=== PATIENT | female | born 1975 | race Caucasian/White ===

== ENCOUNTER 2023-10-31 22:31 | Observation (INO) | payer MEDICARE ==
[2023-11-01] MEDS ORDERED: PERCOCET TABLET 5/325MG ONE (00:54)
[2023-11-01] MEDS: PERCOCET TABLET 5/325MG PO ONE (00:55)
--- NOTE | 2023-11-01 01:12 | ERPHSYRPT ---
- History of Present Illness Time Seen by Provider: 10/31/23 23:35 Source: patient Exam Limitations: no limitations Patient Subjective Stated Complaint: pt states she fell 4 days ago and had some L lower leg pain from that but tonight she was walking and felt a "pop" in her L leg and felt intense pain Triage Nursing Assessment: pt transferred from wheelchair to bed with assist of 2, pt alert and oriented x3, pt c/o LLE pain after fall 4 days ago and tonight when she was walking felt a "pop" and had intense pain after, pt cannot pinpoint pain, some brusing noted to lateral side of ankle and abrasions noted on L great toe and 3rd digit, 2nd digit has brusing noted as well, R leg +1 edema, L leg +2 edema, pedal pulses +2 bilaterally Physician History: Patient is here with left ankle pain. Patient states that earlier tonight she was walking and stepped outside she felt a sudden pop and fell to her knees. Describes as left ankle and left foot pain. Patient does recall a fall 4 days ago. But she has been ambulating without difficulty since that point in time. No other injuries, she did not hit her head, she is not on any blood thinners. No fever no chills no nausea no vomiting. Allergies/Adverse Reactions: metoprolol Allergy (Severe, Verified 08/19/23 12:10) adhesive tape Allergy (Verified 10/31/23 23:42) latex Allergy (Verified 08/19/23 12:10) sulfamethoxazole [From Bactrim] Adverse Reaction (Severe, Verified 08/19/23 12:10) "messes up my kidneys" trimethoprim [From Bactrim] Adverse Reaction (Severe, Verified 08/19/23 12:10) "messes up my kidneys" metformin Adverse Reaction (Intermediate, Verified 08/19/23 12:10) Home Medications: Ferrous Sulfate 325 mg PO DAILY 11/06/15 [History] Insulin Glargine [Lantus Insulin] 80 units SQ BID 11/06/15 [History] Acetaminophen [Tylenol Extra Strength] 1,000 mg PO Q6H PRN PRN 08/01/17 [History] Diltiazem HCl [Cartia Xt] 240 mg PO DAILY 08/01/17 [History] Insulin Aspart [Novolog Flexpen] 1 units SQ UD 08/01/17 [History] ALPRAZolam 1 MG [Xanax 1 mg] 1 mg PO DAILY 06/01/18 [History] Fluoxetine HCl 20 mg [Prozac 20 MG] 20 mg PO DAILY 08/06/23 [History] Magnesium Oxide 400 mg [Mag-Ox 400] 400 mg PO TID 08/06/23 [History] Omeprazole 40 mg PO DAILY 08/06/23 [History] Furosemide [Lasix] 40 mg PO UD 11/01/23 [History] Losartan Potassium [Cozaar] 50 mg PO DAILY 11/01/23 [History] Hx Tetanus, Diphtheria Vaccination/Date Given: Yes Hx Influenza Vaccination/Date Given: No Hx Pneumococcal Vaccination/Date Given: No Travel Risk - International Travel Have you traveled outside of the country in past 3 weeks: No - Emerging Infectious Disease Are you exhibiting symptoms associated with any current EIDs: No - Past Medical History Pertinent Past Medical History: Yes Neurological History: Migraines ENT History: Other Cardiac History: Arrhythmia, Congestive Heart Failure, Deep Vein Thrombosis, Hypertension Respiratory History: Sleep Apnea, CHF, Asthma Endocrine Medical History: Diabetes Type II Musculoskeletal History: No Pertinent History GI Medical History: GERD History: Renal Disease, Other Psycho-Social History: Depression, Anxiety Female Reproductive Disorders: Cervical Cancer Other Medical History: tachycardia; lesion on left kidney; cervical ca with mets to bladder, liver, fallopian tubes, uterus, and lymph nodes - Past Surgical History Past Surgical History: Yes Neuro Surgical History: No Pertinent History Cardiac: Other Respiratory: No Pertinent History Gastrointestinal: Cholecystectomy, Hernia Repair Genitourinary: Kidney Surgery, Other Musculoskeletal: Other Female Surgical History: Hysterectomy, Other Other Surgical History: colonoscopy Jun 2023 "wall was very thin," urostomy, renal stents placed then removed - Female History Hx Last Menstrual Period: post hysterectomy Hx Now: No - Social History Smoking Status: Never smoker Exposure to second hand smoke: Yes Drug Use: none Patient Lives Alone: No - Nursing Vital Signs Nursing Vital Signs: Initial Vital Signs Temperature 98.1 F 10/31/23 23:42 Pulse Rate 97 H 10/31/23 23:42 Respiratory Rate 18 10/31/23 23:42 Blood Pressure 178/105 10/31/23 23:42 O2 Sat by Pulse Oximetry 98 10/31/23 23:42 Pain Scale Pain Intensity 10 - Physical Exam SpO2: 96 Comments: 11/01/23 02:28 Review of Systems Constitutional: Negative for fever. HENT: Negative for congestion. Respiratory: Negative for shortness of breath. Cardiovascular: Negative for chest pain. Gastrointestinal: Negative for abdominal pain. Genitourinary: Negative for dysuria. Musculoskeletal: Negative for back pain. Skin: Negative for rash. Neurological: Negative for headaches. Psychiatric/Behavioral: Negative for behavioral problems. All other systems reviewed and are negative. Physical Exam Vitals signs and nursing note reviewed. Constitutional: Appearance: Patient is well-developed. HENT: Head: Normocephalic and atraumatic. Eyes: Conjunctiva/sclera: Conjunctivae normal. Neck: Musculoskeletal: Normal range of motion. Trachea: No tracheal deviation. Cardiovascular: Rate and Rhythm: Normal rate. Pulmonary: Effort: Pulmonary effort is normal. No respiratory distress. Abdominal: Palpations: Abdomen is soft. Musculoskeletal: General: Left ankle swelling, tenderness throughout. Left lower extremity is more red compared to the right extremity. Patient states that she has venous stasis there. No obvious deformity, sensation intact, 2+ capillary refill, 2 point tactile discrimination intact. Decreased strength and range of motion secondary to pain. Compartments are soft, nontender. Overlying skin shows no tenting. 2+ pulses over the foot. Skin: General: Skin is warm and dry. Neurological/ Psychiatric: Mental Status: Mental status, behavior, interaction with environment is appropriate for patient's age and condition Procedures - Splinting Time of Procedure: 02:33 Location of Splint: Left, Ankle Type of Splint: Orthoglass Short Leg Splint Splint Applied By: ED Physician Pre-Proc Neuro Vasc Exam: normal Post-Proc Neuro Vasc Exam: neurovascular intact - Course Nursing assessment & vital signs reviewed: Yes Ordered Tests: Active Orders 24 hr Category Date Time Status Bedrest ROUTINE Activity 11/01/23 02:06 Active Admit as Inpatient ROUTINE Care 11/01/23 02:05 Active Call Admit Doctor for Orders ON ADMISSION Care 11/01/23 02:05 Active Code Status Order ROUTINE Care 11/01/23 02:05 Active Fall Protocol ROUTINE Care 11/01/23 02:06 Active IV Insertion STAT Care 11/01/23 01:55 Active NPO Diet 11/01/23 02:06 Active ANKLE (3 VIEWS) Stat Exams 11/01/23 00:24 Completed FOOT (MINIMUM 3 VIEWS) Stat Exams 11/01/23 00:25 Completed LOWER EXTREMITY WO CONTRAST [CT] Stat Exams 11/01/23 01:56 Completed CBC W DIFF Stat Lab 11/01/23 02:10 Completed CMP Stat Lab 11/01/23 02:10 Completed Medication Summary Discontinued Medications Generic Name Dose Route Start Last Admin Trade Name Rolandq PRN Reason Stop Dose Admin Hydromorphone HCl 1 mg 11/01/23 03:44 11/01/23 03:59 Hydromorphone 1 Mg/1ml Inj IV 11/01/23 03:45 1 mg STAT ONE Administration Hydromorphone HCl Confirm 11/01/23 03:58 Hydromorphone 1 Mg/1ml Inj Administered 11/01/23 03:59 Dose 1 mg .ROUTE .STK-MED ONE Oxycodone/Acetaminophen 1 tab 11/01/23 00:52 11/01/23 00:55 Oxycodone Hcl/Apap 5 Mg/325 Mg Tablet PO 11/01/23 00:53 1 tab STAT ONE Administration Oxycodone/Acetaminophen Confirm 11/01/23 00:54 Oxycodone Hcl/Apap 5 Mg/325 Mg Tablet Administered 11/01/23 00:55 Dose 1 tab .ROUTE .STK-MED ONE Lab/Rad Data: Laboratory Result Diagrams 11/01/23 02:10 11/01/23 02:10 Laboratory Results 11/01/23 11/01/23 Range/Units 02:10 02:10 WBC 9.0 (4.0-10.5) x10^3/uL RBC 4.35 (4.1-5.4) x10^6/uL Hgb 11.6 L (12.0-16.0) g/dL Hct 36.4 (35-47) % MCV 83.7 (78-100) fL MCH 26.7 (26-32) pg MCHC 31.9 L (32-36) g/dL RDW 14.2 H (11.5-14.0) % Plt Count 387 (150-450) x10^3/uL MPV 9.2 (7.5-11.0) fL Gran % 71.9 H (36.0-66.0) % Immature Gran % (Auto) 0.6 H (0.00-0.4) % Nucleat RBC Rel Count 0.0 (0.00-0.1) % Eos # (Auto) 0.33 (0-0.5) x10^3/uL Immature Gran # (Auto) 0.05 H (0.00-0.03) x10^3u/L Absolute Lymphs (auto) 1.36 (1.0-4.6) x10^3/uL Absolute Monos (auto) 0.70 (0.0-1.3) x10^3/uL Absolute Nucleated RBC 0.00 (0.00-0.01) x10^3u/L Lymphocytes % 15.1 L (24.0-44.0) % Monocytes % 7.8 (0.0-12.0) % Eosinophils % 3.7 (0.00-5.0) % Basophils % 0.9 (0.0-0.4) % Absolute Granulocytes 6.48 (1.4-6.9) x10^3/uL Basophils # 0.08 (0-0.4) x10^3/uL Sodium 136 (135-145) mmol/L Potassium 4.2 (3.5-5.1) mmol/L Chloride 109 H (98-107) mmol/L Carbon Dioxide 21 L (22-30) mmol/L Anion Gap 11.0 (5-15) MEQ/L BUN 30 H (7-17) mg/dL Creatinine 1.18 H (0.52-1.04) mg/dL Estimated GFR 56.3 ML/MIN Glucose 208 H (74-106) mg/dL Calcium 8.7 (8.4-10.2) mg/dL Total Bilirubin 0.60 (0.2-1.3) mg/dL AST 20 (14-36) U/L ALT 13 (0-35) U/L Alkaline Phosphatase 119 (38-126) U/L Serum Total Protein 7.1 (6.3-8.2) g/dL Albumin 3.4 L (3.5-5.0) g/dL Slides for Path Review YES - Progress Progress: improved Progress Note: 11/01/23 02:30 Differential diagnosis includes fracture, sprain, other injury. X-rays obtained, this did demonstrate a bimalleolar fracture. Given this I did call on-call podiatry, Dr. Yeager. He recommended obtaining a CT scan without contrast, splint placement, admission to hospitalist. We did place a splint on the patient. See above procedure note for full details. We discussed with on- call hospitalist, Dr. Muhammad. He did accept patient for admission to his service. Plan for most likely OR later today. CT scan ordered. Dr. Yeager will follow-up on findings. 11/01/23 04:06 CT scan returned actually demonstrating a displaced trimalleolar fracture. Does not change our initial fracture management patient still in splint as above. However, may affect surgery planning. Patient admitted without further incident. Pain control with IV narcotics. Discussed with Dr.: Jocelyn Counseled pt/family regarding: lab results, diagnosis, rad results Medical Desision Making - Discussion of managment Care discussed with:: specialist Reviewed:: Test results, Need for additional workup Agreed on:: Treatment plan, decision to admit Will see patient: in hospital - Diagnostic Testing Diagnostic test were ordered, analyzed, and reviewed by me: Yes Radiological Interpretation: Interpreted by me - Risk of complications The pt has a high risk of morbidity or mortality based on: Need for major surgery in patient with known risk factors - Departure Departure Disposition: In-patient Admission Clinical Impression: Left ankle injury, Displaced trimalleolar fracture of left ankle Condition: Stable Critical Care Time: No Referrals: ALINE CASAS MD [Primary Care Provider] - Follow up/PCP as directed Forms: Ortho Referral
--- NOTE | 2023-11-01 01:27 | XRAY ---
CLINICAL HISTORY: fall COMPARISON: None, TECHNIQUE: X-ray of the left foot AP, oblique, and lateral 3 views. FINDINGS: A fracture involving the medial malleolus with displaced fracture fragments is demonstrated on the radiograph, A fracture is also seen involving the distal end of the left fibula with displaced facial fragments as demonstrated on the radiograph. Normal bone mineral density is noted. Radiological examination of the foot demonstrates no lytic or sclerotic bone lesion. Normal metatarsophalangeal and interphalangeal joint spaces at other places. Soft tissue swelling noted. IMPRESSION: No foot bone fracture. A fracture involving the medial malleolus with displaced fracture fragments is demonstrated on the radiograph, A fracture is also seen involving the distal end of the left fibula with displaced facial fragments as demonstrated on the radiograph. Please refer to ankle CR examination. DISCLAIMER:A subtle bone abnormality or fracture may not be readily apparent on x-rays, thus clinical correlation and further imaging including follow up CT, MRI, or follow up x-rays are advised as needed.[facility] ER was called at [phone] at 12:20 AM OFFICE SWEEPER, 11/01/2023 and results were verbally communicated to Bubba Tom Electronically Signed by: Letty Brooks MD. (11/01/2023 01:22:42 EDT)
--- NOTE | 2023-11-01 01:29 | XRAY ---
CLINICAL HISTORY: fall COMPARISON: None, TECHNIQUE: X-ray left ankle joint AP lateral and oblique views. FINDINGS: A fracture involving the medial malleolus with displaced fracture fragments is demonstrated on the radiograph, A fracture is also seen involving the distal end of the left fibula with displaced facial fragments as demonstrated on the radiograph. Soft tissue swelling noted. Normal bone density noted. No lytic or sclerotic bone lesion is seen. IMPRESSION: A fracture involving the medial malleolus with displaced fracture fragments is demonstrated on the radiograph, A fracture is also seen involving the distal end of the left fibula with displaced facial fragments as demonstrated on the radiograph. DISCLAIMER:A subtle bone abnormality or fracture may not be readily apparent on x-rays, thus clinical correlation and further imaging including follow up CT, MRI, or follow up x-rays are advised as needed.[facility] ER was called at [phone] at 12:20 AM CLINIC NURSE, 11/01/2023 and results were verbally communicated to Bubba Tom Electronically Signed by: Letty Brooks MD. (11/01/2023 01:25:46 EDT)
[2023-11-01 02:20] LABS: Absolute Neutrophil Ct (ANC) 6.48 x10^3/uL (1.4-6.9); BASOPHIL % 0.9 % (0.0-0.4); Basophil (Absolute #) 0.08 x10^3/uL (0-0.4); Eosinophil % 3.7 % (0.00-5.0); Eosinophil (Absolute #) 0.33 x10^3/uL (0-0.5); Hematocrit 36.4 % (35-47); Hemoglobin 11.6 g/dL (12.0-16.0); IMMATURE GRAN # 0.05 x10^3u/L (0.00-0.03); IMMATURE GRAN % 0.6 % (0.00-0.4); Lymphocyte (Absolute #) 1.36 x10^3/uL (1.0-4.6); Lymphocytes % 15.1 % (24.0-44.0); Mean Cell Volume 83.7 fL (78-100); Mean Corpuscular Hemoglobin 26.7 pg (26-32); Mean Corpuscular Hgb Concent. 31.9 g/dL (32-36); Mean Platelet Volume 9.2 fL (7.5-11.0); Monocytes % 7.8 % (0.0-12.0); Neutrophil % 71.9 % (36.0-66.0); Platelet Count 387 x10^3/uL (150-450); Red Blood Count 4.35 x10^6/uL (4.1-5.4); Red Cell Distribution Width 14.2 % (11.5-14.0)
[2023-11-01 02:30] LABS: ALBUMIN 3.4 g/dL (3.5-5.0); BILIRUBIN,TOTAL 0.6 mg/dL (0.2-1.3); Calcium 8.7 mg/dL (8.4-10.2); Creatinine 1 1.18 mg/dL (0.52-1.04); EST GLOMERULAR FILTRATION RATE 56.3 ML/MIN; Potassium 4.2 mmol/L (3.5-5.1); Total Protein 7.1 g/dL (6.3-8.2)
[2023-11-01 03:45] LABS: Slide Review 1 YES
[2023-11-01] MEDS ORDERED: Hydromorphone 1 mg/ml Injection ONE (03:58)
[2023-11-01] MEDS: Hydromorphone 1 mg/ml Injection IV ONE (03:59)
--- NOTE | 2023-11-01 03:59 | XRAY ---
CLINICAL HISTORY: left ankle mahsa fracture COMPARISON: X-ray ankle and foot dated 10/31/2023 are reviewed. TECHNIQUE: Contiguous axial CT images of the lower extremity were obtained without IV contrast administration. Coronal and sagittal reformats are available.One of the following dose reduction techniques were utilized for this exam: Automated exposure control, adjustment of the mA and/or kV according to patient size, and use of iterative reconstruction. FINDINGS: Mildly displaced fractures are seen involving the medial malleolus and posterior malleolus of the distal tibia, and lateral malleolus of the distal fibula. Slight medial subluxation is also suggested at the tibiotalar joint. Mild overlying soft tissue swelling and subcutaneous fat stranding are present. The bone mineral density is preserved. Mild degenerative changes are seen at the knee joint with mildly reduced tibiofemoral and patellofemoral articular spaces, along with small marginal osteophytes. No erosion or destructive bony lesion is seen. No lytic or sclerotic focus is identified. No evidence of acute or chronic osteomyelitis. Prominent posterior talar process [Stieida process]. Few accessory ossicles are noted medial to the talonavicular joint. Enthesopathy is noted at the insertion site of Achilles tendon. No calcaneal spur is noted. No infiltrating soft tissue mass lesion is identified. No loculated fluid collection, abscess or hematoma is identified. There are no definite features to suggest any soft tissue injury. No evidence of Ball's cyst. No enlarged popliteal lymph node. IMPRESSION: Mildly displaced trimalleolar fractures with slight tibiotalar joint subluxation as described above. [facility] ER was called at [phone] at 2:52 AM BEE RAISER, 11/01/2023 and results were verbally communicated to Bubba Tom Electronically Signed by: Letty Brooks MD. (11/01/2023 03:55:45 EDT)
[2023-11-01] MEDS ORDERED: Zofran 4 MG/2 ML VIAL IV PRN (04:50)
[2023-11-01] MEDS ORDERED: TYLENOL 325 MG PO PRN (04:50)
[2023-11-01] MEDS ORDERED: Docusate Sodium 100 MG PO PRN (04:50)
[2023-11-01] MEDS ORDERED: FEVERALL 650 MG PR PRN (04:50)
--- NOTE | 2023-11-01 05:06 | PCM.HP ---
History of Present Illness - Chief Complaint Chief Complaint: left ankle fracture Date: 11/01/23 History of Present Illness: is a 48 year old female with a history of DM2 and HTN who presented to the ED with left ankle pain. She states that earlier on the evening of 10/31/23 she was walking and stepped outside she felt a sudden pop and fell to her knees. She describes the discomfort as left ankle and left foot pain. Of note, the patient does recall a fall 5 days ago. But she has been ambulating without difficulty since that point in time. No other injuries were reported and she did not hit her head. No chest pain is noted. In the ED, the patient was noted to have a left bimalleolar fracture, and podiatry was consulted with a request for hospitalist service admission. - Review of Systems Constitutional: No Symptoms Eyes: No Symptoms Ears, Nose, & Throat: No Symptoms Respiratory: No Symptoms Cardiac: No Symptoms Abdominal/Gastrointestinal: No Symptoms Genitourinary Symptoms: No Symptoms Musculoskeletal: Arthralgias, Fall, Injury Skin: No Symptoms Neurological: No Symptoms Psychological: No Symptoms Endocrine: No Symptoms Hematologic/Lymphatic: No Symptoms Immunological/Allergic: No Symptoms All Other Systems: Reviewed and Negative Medications & Allergies Home Medications: Home Medication List Ferrous Sulfate 325 mg PO DAILY 11/06/15 [History Confirmed 11/01/23] Insulin Glargine [Lantus Insulin] 80 units SQ BID 11/06/15 [History Confirmed 11/01/23] Acetaminophen [Tylenol Extra Strength] 1,000 mg PO Q6H PRN PRN 08/01/17 [History Confirmed 11/01/23] Diltiazem HCl [Cartia Xt] 240 mg PO DAILY 08/01/17 [History Confirmed 11/01/23] Insulin Aspart [Novolog Flexpen] 1 units SQ UD 08/01/17 [History Confirmed 11/01/23] ALPRAZolam 1 MG [Xanax 1 mg] 1 mg PO DAILY 06/01/18 [History Confirmed 11/01/23] Fluoxetine HCl 20 mg [Prozac 20 MG] 20 mg PO DAILY 08/06/23 [History Confirmed 11/01/23] Magnesium Oxide 400 mg [Mag-Ox 400] 400 mg PO TID 08/06/23 [History Confirmed 11/01/23] Omeprazole 40 mg PO DAILY 08/06/23 [History Confirmed 11/01/23] Potassium Chloride Tab* [Klor Con] 20 meq PO DAILY 30 Days #30 tablet 08/11/23 [Rx Confirmed 11/01/23] Furosemide [Lasix] 40 mg PO UD 11/01/23 [History Confirmed 11/01/23] Losartan Potassium [Cozaar] 50 mg PO DAILY 11/01/23 [History Confirmed 11/01/23] Allergies/Adverse Reactions: Allergies Allergy/AdvReac Type Severity Reaction Status Date / Time metoprolol Allergy Severe Verified 08/19/23 12:10 adhesive tape Allergy Verified 10/31/23 23:42 latex Allergy Verified 08/19/23 12:10 sulfamethoxazole AdvReac Severe "messes up Verified 08/19/23 12:10 [From Bactrim] my kidneys" trimethoprim [From Bactrim] AdvReac Severe "messes up Verified 08/19/23 12:10 my kidneys" metformin AdvReac Intermediate Verified 08/19/23 12:10 - Past Medical History Past Medical History: Yes Neurological History: Migraines ENT History: Other Cardiac History: Arrhythmia, Congestive Heart Failure, Deep Vein Thrombosis, Hypertension Respiratory History: Sleep Apnea, CHF, Asthma Endocrine Medical History: Diabetes Type II Musculoskelatal History: No Pertinent History GI Medical History: GERD History: Renal Disease, Other Pyscho-Social History: Depression, Anxiety Reproductive Disorders: Cervical Cancer Comment: tachycardia; lesion on left kidney; cervical ca with mets to bladder, liver, fallopian tubes, uterus, and lymph nodes - Female History Hx Last Menstrual Period: post hysterectomy Are you now?: No - Past Surgical History Past Surgical History: Yes Neuro Surgical History: No Pertinent History Cardiac History: Other Respiratory Surgery: No Pertinent History GI Surgical History: Cholecystectomy, Hernia Repair Genitourinary Surgical Hx: Kidney Surgery, Other Musculskeletal Surgical Hx: Other Female Surgical History: Hysterectomy, Other Other Surgical History: colonoscopy Jun 2023 "wall was very thin," urostomy, renal stents placed then removed - Social History Smoking Status: Never smoker Exposure to second hand smoke: Yes Alcohol: None Drug Use: none - Social Determinants of Health Will the patient participate in the screening: Yes Do you worry about a steady place to live?: No Do you have any problems with any of the following?: No known problems In the past 12 months,have you had to go without utilities?: No Have you or anyone in your house had to go without enough: No Transportation Issues: No Has anyone in your support network made you feel unsafe?: No Does the patient want assistance with any of the above?: No - Physical Exam Vital Signs: Vital Signs - 24 hr Temp Pulse Resp BP BP Pulse Ox 11/01/23 04:09 96 11/01/23 04:00 97 H 20 119/68 96 11/01/23 03:53 98 H 18 118/62 93 L 11/01/23 02:00 100 H 24 139/72 96 11/01/23 01:30 141/78 11/01/23 01:00 85 17 147/79 97 11/01/23 00:30 78 16 139/74 96 11/01/23 00:00 98 H 20 150/117 96 10/31/23 23:45 94 H 18 178/105 94 L 10/31/23 23:42 98.1 F 97 H 18 178/105 98 General Appearance: mild distress, alert Neurologic Exam: alert, oriented x 3, cooperative, insurance case manager II-XII nml as tested, normal mood/affect, nml cerebellar function Eye Exam: PERRL/EOMI, eyes nml inspection Ears, Nose, Throat Exam: normal ENT inspection Neck Exam: normal inspection, non-tender, supple, full range of motion Respiratory Exam: normal breath sounds, lungs clear Cardiovascular Exam: regular rate/rhythm, normal heart sounds Gastrointestinal/Abdomen Exam: soft, normal bowel sounds Back Exam: normal range of motion Extremity Exam: deformities, limited range of motion Skin Exam: normal color Results - Labs Lab/Micro Results: Lab Results-Last 24 Hours 11/01/23 11/01/23 Range/Units 02:10 02:10 WBC 9.0 (4.0-10.5) x10^3/uL RBC 4.35 (4.1-5.4) x10^6/uL Hgb 11.6 L (12.0-16.0) g/dL Hct 36.4 (35-47) % MCV 83.7 (78-100) fL MCH 26.7 (26-32) pg MCHC 31.9 L (32-36) g/dL RDW 14.2 H (11.5-14.0) % Plt Count 387 (150-450) x10^3/uL MPV 9.2 (7.5-11.0) fL Gran % 71.9 H (36.0-66.0) % Immature Gran % (Auto) 0.6 H (0.00-0.4) % Nucleat RBC Rel Count 0.0 (0.00-0.1) % Eos # (Auto) 0.33 (0-0.5) x10^3/uL Immature Gran # (Auto) 0.05 H (0.00-0.03) x10^3u/L Absolute Lymphs (auto) 1.36 (1.0-4.6) x10^3/uL Absolute Monos (auto) 0.70 (0.0-1.3) x10^3/uL Absolute Nucleated RBC 0.00 (0.00-0.01) x10^3u/L Lymphocytes % 15.1 L (24.0-44.0) % Monocytes % 7.8 (0.0-12.0) % Eosinophils % 3.7 (0.00-5.0) % Basophils % 0.9 (0.0-0.4) % Absolute Granulocytes 6.48 (1.4-6.9) x10^3/uL Basophils # 0.08 (0-0.4) x10^3/uL Sodium 136 (135-145) mmol/L Potassium 4.2 (3.5-5.1) mmol/L Chloride 109 H (98-107) mmol/L Carbon Dioxide 21 L (22-30) mmol/L Anion Gap 11.0 (5-15) MEQ/L BUN 30 H (7-17) mg/dL Creatinine 1.18 H (0.52-1.04) mg/dL Estimated GFR 56.3 ML/MIN Glucose 208 H (74-106) mg/dL Calcium 8.7 (8.4-10.2) mg/dL Total Bilirubin 0.60 (0.2-1.3) mg/dL AST 20 (14-36) U/L ALT 13 (0-35) U/L Alkaline Phosphatase 119 (38-126) U/L Serum Total Protein 7.1 (6.3-8.2) g/dL Albumin 3.4 L (3.5-5.0) g/dL Slides for Path Review YES - Radiology Impressions Radiology Exams & Impressions: Radiology Procedures Category Date Time Status ANKLE (3 VIEWS) Stat Exams 11/01/23 00:24 Completed FOOT (MINIMUM 3 VIEWS) Stat Exams 11/01/23 00:25 Completed LOWER EXTREMITY WO CONTRAST [CT] Stat Exams 11/01/23 01:56 Completed Assessment/Plan (1) Left ankle injury Current Visit: Yes Status: Acute Assessment & Plan: Analgesia. Bedrest. Podiatry consult for surgical intervention. Code(s): S99.912A - UNSPECIFIED INJURY OF LEFT ANKLE, INITIAL ENCOUNTER (2) Displaced trimalleolar fracture of left ankle Current Visit: Yes Status: Acute Assessment & Plan: Podiatry to see. NPO for planned operative intervention. Code(s): S82.852A - DISPLACED TRIMALLEOLAR FRACTURE OF LEFT LOWER LEG, INIT (3) Hyperglycemia due to type 2 diabetes mellitus Current Visit: No Status: Acute Assessment & Plan: Monitor on ISS. Will need to resume glargine once the patient is postop and cleared for dietary intake. Code(s): E11.65 - TYPE 2 DIABETES MELLITUS WITH HYPERGLYCEMIA (4) Hypertension Current Visit: No Status: Chronic Assessment & Plan: Continue current regimen. Monitor BP. Code(s): I10 - ESSENTIAL (PRIMARY) HYPERTENSION Telemedicine Encounter - Telemedicine Encounter Telemedicine Encounter: The entirety of this encounter was performed via Telemedicine"
[2023-11-01 05:14] LABS: INR 0.93 (0.8-3.0); PROTIME 10.2 SECONDS (9.4-12.5); PTT 23.4 SECONDS (25.1-36.5)
[2023-11-01] MEDS: Sodium Chloride 0.9% 1000 ML 1,000 ML IV SCH (06:03)
[2023-11-01] MEDS: MORPHINE SULFATE 2 MG INJ IV PRN (08:22)
[2023-11-01] MEDS: Cozaar 50 MG PO SCH (08:26)
[2023-11-01 08:57] LABS: ALBUMIN 3.1 g/dL (3.5-5.0); ANION GAP 9.9 MEQ/L (5-15); BILIRUBIN,TOTAL 1.2 mg/dL (0.2-1.3); Calcium 8.3 mg/dL (8.4-10.2); Creatinine 1 1.24 mg/dL (0.52-1.04); Potassium 4.5 mmol/L (3.5-5.1); Total Protein 6.4 g/dL (6.3-8.2)
[2023-11-01 09:00] LABS: Hematocrit 34.8 % (35-47); Mean Cell Volume 84.7 fL (78-100); Mean Corpuscular Hemoglobin 26.8 pg (26-32); Mean Corpuscular Hgb Concent. 31.6 g/dL (32-36); Mean Platelet Volume 9.5 fL (7.5-11.0); Platelet Count 273 x10^3/uL (150-450); Red Blood Count 4.11 x10^6/uL (4.1-5.4); Red Cell Distribution Width 14.2 % (11.5-14.0); White Blood Count 6.6 x10^3/uL (4.0-10.5)
[2023-11-01] MEDS ORDERED: Hydromorphone 1 mg/ml Injection IV PRN (09:28)
[2023-11-01] MEDS: Sodium Bicarbonate 50 MEQ/50 ML VIAL*** 150 MEQ in Dextrose 5%/Water IV Soln. 1000 ML 1... IV SCH (09:50)
[2023-11-01] MEDS: TYLENOL EXTRA STRENGTH 500 MG PO PRN (09:53)
[2023-11-01] MEDS: FEOSOL 325 MG PO SCH (09:53)
[2023-11-01] MEDS: Protonix 40MG Tablet PO SCH (09:53)
[2023-11-01] MEDS: MAG-OX 400 PO SCH (09:53)
[2023-11-01] MEDS: Cardizem CD PO SCH (09:53)
[2023-11-01] MEDS: Lantus Insulin SQ SCH (09:54)
[2023-11-01] MEDS: Prozac 20 MG PO SCH (09:54)
[2023-11-01] MEDS: Klor Con PO SCH (09:54)
[2023-11-01] MEDS: Lactated Ringers 1,000 ML IV SCH (11:19)
[2023-11-01] MEDS ORDERED: SUBLIMAZE 100 MCG/2 ML ONE (11:36)
[2023-11-01] MEDS: XANAX 1 MG PO SCH (11:45)
[2023-11-01] MEDS ORDERED: Versed 2 MG/2 ML Injection ONE (11:56)
[2023-11-01] MEDS ORDERED: Amidate 20 MG/10 ML IV ONE (13:04)
[2023-11-01] MEDS ORDERED: DIPRIVAN 200 MG/20 ML IV ONE (13:04)
[2023-11-01] MEDS ORDERED: Quelicin Fliptop 200 MG/10 ML ONE (13:09)
[2023-11-01] MEDS ORDERED: Decadron 4 MG INJ ONE (13:11)
[2023-11-01] MEDS ORDERED: KEFZOL 1 GM ONE (13:26)
[2023-11-01] MEDS ORDERED: PHENYLEPHRINE HCL ONE (13:32)
[2023-11-01] MEDS ORDERED: Ephedrine Sulfate 50 MG/ML ONE (14:19)
[2023-11-01] MEDS ORDERED: Zofran 4 MG/2 ML VIAL ONE ×2 (14:46→16:01)
[2023-11-01] MEDS ORDERED: Marcaine Mpf 0.5% Vial 30 Ml IJ ONE (15:06)
[2023-11-01] MEDS ORDERED: EXPAREL 133 MG/10 ML VIAL IJ ONE (15:06)
[2023-11-01] MEDS ORDERED: Lactated Ringers 1,000 ML IV ONE (15:15)
--- NOTE | 2023-11-01 15:15 | XRAY ---
Indication: Left ankle ORIF surgery. Intraoperative fluoroscopy provided for 4 minute 27 seconds. 21 digital spot images submitted for interpretation ultimately demonstrates orthopedic fixation plate/screws fixating bimalleolar fractures in good apposition/alignment. Correlate with intraoperative findings/report.
[2023-11-01] MEDS ORDERED: Compazine 10 MG/2 ML ONE (16:20)
--- NOTE | 2023-11-01 17:09 | XRAY ---
Four minutes and 27 seconds of fluoroscopy was used in surgery for a left ankle ORIF surgery.
[2023-11-01] MEDS: Ecotrin 325 MG PO SCH (19:12)
[2023-11-01] MEDS: HUMALOG SQ PRN (22:06)
[2023-11-01] MEDS: ELIQUIS 2.5 MG TABLET PO SCH (22:06)
[2023-11-02 05:17] LABS: Absolute Neutrophil Ct (ANC) 6.99 x10^3/uL (1.4-6.9); BASOPHIL % 0.4 % (0.0-0.4); Basophil (Absolute #) 0.03 x10^3/uL (0-0.4); Eosinophil (Absolute #) 0 x10^3/uL (0-0.5); Hematocrit 35.5 % (35-47); Hemoglobin 11.3 g/dL (12.0-16.0); IMMATURE GRAN # 0.04 x10^3u/L (0.00-0.03); IMMATURE GRAN % 0.5 % (0.00-0.4); Lymphocyte (Absolute #) 0.65 x10^3/uL (1.0-4.6); Mean Cell Volume 83.1 fL (78-100); Mean Corpuscular Hemoglobin 26.5 pg (26-32); Mean Corpuscular Hgb Concent. 31.8 g/dL (32-36); Mean Platelet Volume 9.5 fL (7.5-11.0); Monocyte (Absolute #) 0.39 x10^3/uL (0.0-1.3); Monocytes % 4.8 % (0.0-12.0); Neutrophil % 86.3 % (36.0-66.0); Platelet Count 369 x10^3/uL (150-450); Red Blood Count 4.27 x10^6/uL (4.1-5.4); Red Cell Distribution Width 14.4 % (11.5-14.0); White Blood Count 8.1 x10^3/uL (4.0-10.5)
[2023-11-02 05:41] LABS: ANION GAP 9.1 MEQ/L (5-15); BILIRUBIN,TOTAL 0.5 mg/dL (0.2-1.3); Calcium 8.5 mg/dL (8.4-10.2); Creatinine 1 1.33 mg/dL (0.52-1.04); EST GLOMERULAR FILTRATION RATE 48.7 ML/MIN; Potassium 4.7 mmol/L (3.5-5.1); Total Protein 6.3 g/dL (6.3-8.2)
[2023-11-02] MEDS: HUMALOG SQ ONE (09:31)
[2023-11-02] MEDS: Lasix 40 MG PO SCH (11:20)
[2023-11-02] MEDS: HUMALOG SQ PRN (11:26)
--- NOTE | 2023-11-02 12:54 | OP ---
SURGERY DATE: 11/01/2023 SURGERY TIME: 1311 PREOPERATIVE DIAGNOSIS: 1. LEFT ANKLE FRACTURE, BIMALLEOLAR, CLOSED. 2. LEFT ANKLE PAIN. 3. SYNDESMOTIC DISRUPTION. 4. UNCONTROLLED DIABETES. 5. VENOUS INSUFFICIENCY. 6. DIABETIC PERIPHERAL NEUROPATHY. POSTOPERATIVE DIAGNOSIS: 1. LEFT ANKLE FRACTURE, BIMALLEOLAR, CLOSED. 2. LEFT ANKLE PAIN. 3. SYNDESMOTIC DISRUPTION. 4. UNCONTROLLED DIABETES. 5. VENOUS INSUFFICIENCY. 6. DIABETIC PERIPHERAL NEUROPATHY. PROCEDURE: 1. Open reduction internal fixation of left ankle fracture, bimalleolar. 2. Syndesmotic reduction. SURGEON: Toy Mccauley D.P.M. ACCOUNTING SPECIALIST: None. ANESTHESIA: General. Plus a preoperative popliteal and saphenous block. See anesthesia report for details. MATERIALS: A Ashok distal lateral fibular plate 8-hole with 3.5 X 45 and 3.5 X 50 syndesmotic screws for the medial malleolus, a 4.0 X 70 times 2 partially threaded screw, 4-0 Monocryl, 2-0 Vicryl, 3-0 Nylon. INJECTABLES: See anesthesia report for details. INDICATIONS FOR PROCEDURE: Georginaa is a very pleasant 48 year-old female who presented late in the evening of 11/01/2023 after a 4-day history of pain to the left ankle after a step out of her house where she rolled her ankle and felt some pain. Patient indicated she was able to tolerate this pain for some period of time and ambulated on it for an additional 3 days. In the engagement specialist hours of the , the patient was walking on it and a further pop was felt and she proceeded to the Emergency Department where she was diagnosed with an unstable bimalleolar fracture. Patient was seen on the floor early in the morning and her health status was assessed. She is recently working on getting her A1C under control with an A1C of 13 approximately 1 month ago. However, once we obtained records demonstrated that her A1C was 9.6 on this current stay. The patient was made aware of the potential risks as a result of bone healing, wound healing, Charcot, possible infection, and possible need for further surgical intervention. However, given the instability of this fracture, we discussed going forward with fixing the fracture understanding these risks. The patient understands these risks and wishes to proceed at this time. No guarantees were provided as to the outcome. The patient has been encouraged to make an effort to get excellent control over her diabetes in the coming weeks and non-weight bearing status to be of the utmost importance to prevent this from turning into a Charcot. The patient understands this risk. Plenty of time was allowed for the patient to ask questions which were answered to her apparent satisfaction. It is at this time, we decided to proceed. DESCRIPTION OF PROCEDURE: The patient was brought into the PACU prior to the procedure and provided a femoral block by the anesthesia team. See anesthesia report for details. From that standpoint, the patient was brought in to the OR. Placed on the OR table in the supine position. General anesthesia was administered until the patient was adequately sedated. From that standpoint, a well-padded thigh tourniquet was applied and tourniquet was set to 320 mm Hg. At this time, the right lower extremity was prepped and draped in the typical sterile fashion and lowered onto the surgical field. At this time, attention was directed to the lateral aspect of the right ankle where, under fluoroscopic guidance, the fracture was identified and landmarks including the distal tip of the fibula and proximal border of the fracture was identified. Linear incision was made to the level of bone at this time. No layered dissection was performed and the fracture was identified. The hematoma was cleansed with copious amounts of sterile saline. At this time, a dental pick was utilized to resect any enveloped periosteum from the fracture site. Fibular length was restored by pulling the foot into an inverted and internally rotated position. This was held with pointed reduction forceps and lobster claws. This was held in an adequate position. Assessing for fibular length, this did appear to be performed and seeing the dime sign at the distal tip of the fibula. External rotation was assessed and deemed to be absent. From that standpoint, an 8-hole Ashok anatomic plate was then introduced. This was locked down distally first with a combination of locking and non-locking screws getting good apposition of the plate. Then, proximal to the fracture site, the anatomic plate was fixated gaining excellent compression down to the bone. The fracture was held in adequate apposition at this time. We proceeded with a combination of locking and non-locking screws to lock down the plate. From this standpoint, attention was directed to the medial malleolus which was opened. An incision was made utilizing a 10 blade being careful not to damage any neurovascular structures along the way. Once the hematoma was identified, the fracture was reduced utilizing pointed reduction forceps. K-wires were introduced to introduce the 4.0 X 70 mm cannulated screws gaining excellent compression through the site. Attention was then directed to the mortise view of the ankle where stress views were obtained demonstrating obvious gapping of the syndesmosis. At this time, a 3.5 X 50 and a 3.5 X 44 mm syndesmotic screw were introduced with hand compression exerting an appropriate amount of force to keep the ankle with the syndesmosis. Following this, final pictures were taken on fluoroscopy. 4-0 Monocryl and 3-0 Nylon as well as 2 suture guards were utilized to coapt the skin edges. Secondary to her venous insufficiency, I did believe that this was a medical necessity. From that standpoint, once the incisions were closed, a dressing consisting of Betadine, Adaptic, 4 X 4, Kerlix, ABD, and a well-padded posterior splint with sugar tongue was applied to the left lower extremity with the foot orthogonal relative to the longitudinal access of the leg. The patient was then reversed from anesthesia and returned to the PACU with vital signs stable and vascular status intact. The patient handled the anesthesia as well as the procedure without significant complication. Postoperative orders as indicated in the patient's discharge chart.
--- NOTE | 2023-11-02 13:04 | PCM.NOTE ---
Date and Time: 11/02/23 0479 Subjective Assessment: is a 48 year old female with a history of DM2 and HTN who presented to the ED with left ankle pain. She states that earlier on the evening of 10/31/23 she was walking and stepped outside she felt a sudden pop and fell to her knees. She describes the discomfort as left ankle and left foot pain. Of note, the patient does recall a fall 5 days ago. She has been ambulating without difficulty since that point in time. No other injuries were reported and she did not hit her head. No chest pain is noted. In the ED, the patient was noted to have a left bimalleolar fracture, and podiatry was consulted with a request for hospitalist service admission. She had surgical repair on 10/31. She has no c/o pain and feeling much better. Psych has been consulted as staff report she crying often. She discussed that she is rather frustrated because of her health issues at her age and feels a bit overwhelmed. She states she lili was recently dx with an anal fistula and has been taking antibiotics for resolution of this OP. I feel she is mentally stable and has the right to be upset regarding her health concerns. She will need OP rehab as she did not do well with PT today, most likely will need 30 days or less. She is willing to go. Awaiting podiatry recs and documentation when pt is able to d/c. Right arm is swollen as IV appears to have infiltrated last night. Will elevate arm to heart level to decrease edema. She denies CP, SOB, abd. pain, N/V/D. - Review of Systems Constitutional: Weakness, No Fever, No Chills Eyes: No Symptoms Ears, Nose, & Throat: No Symptoms Respiratory: No Cough, No Short Of Breath Cardiac: No Chest Pain, No Edema, No Syncope Abdominal/Gastrointestinal: No Abdominal Pain, No Nausea, No Vomiting, No Diarrhea Genitourinary Symptoms: No Dysuria Musculoskeletal: Injury (LLE wrapped), No Back Pain, No Neck Pain Skin: Other (edema of RUE, ), No Rash Neurological: No Dizziness, No Focal Weakness, No Sensory Changes Psychological: No Symptoms, Other (tearful) Endocrine: No Symptoms Hematologic/Lymphatic: No Symptoms Immunological/Allergic: No Symptoms Objective Exam General Appearance: no apparent distress, alert, obese Neurologic Exam: alert, oriented x 3, cooperative, normal mood/affect, nml cerebellar function, sensation nml, No motor deficits Skin Exam: normal color, warm, dry Wound Assessment: Skin/Wound Assessment Wound/Incision Assessment Start: 11/01/23 05:12 Text: Status: Active Freq: Q6H Protocol: Document 11/02/23 12:28 RB (Rec: 11/02/23 12:30 RB [id number]) Wound/Incision Assessment Right Wrist Wound Assessment New Finding Wound Type BLISTERS Drainage Amount Minimal Drainage Description CLEAR Drainage Odor None/Absent General Appearance Well Approximated Surrounding Tissue Breda Comment BLISTERING NOTED TO WRIST DUE TO TAPE ALLERGY, IV, TAPE AND TEGADERM REMOVED AT THIS TIME, PLC CONTROLS ENGINEER AWARE Wound Photo Photo Taken No Eye Exam: PERRL, EOMI, eyes nml inspection Ears, Nose, Throat Exam: normal ENT inspection, pharynx normal, moist mucous membranes Neck Exam: normal inspection, non-tender, supple, full range of motion Respiratory Exam: normal breath sounds, lungs clear, No respiratory distress Cardiovascular Exam: regular rate/rhythm, normal heart sounds Gastrointestinal/Abdomen Exam: soft, No tenderness, No mass Extremity Exam: normal inspection, normal range of motion, limited range of motion (LLE, wrapped), other (right arm edema from infiltrated IV) Back Exam: normal inspection, normal range of motion, No CVA tenderness, No v ertebral tenderness Pelvic Exam: deferred Rectal Exam: deferred Objective Data Vital Signs: Vital Signs - 24 hr Temp Pulse Resp BP Pulse Ox 11/02/23 12:00 97.8 F 79 18 128/64 99 11/02/23 08:00 97.6 F 86 18 118/56 94 L 11/02/23 07:12 92 L 11/02/23 04:00 97.8 F 88 18 124/58 93 L 11/01/23 23:39 97.2 F 91 H 18 125/72 93 L 11/01/23 20:00 97.1 F 76 20 168/82 96 11/01/23 19:27 98 11/01/23 18:59 68 14 113/58 93 L 11/01/23 18:20 67 14 111/56 93 L 11/01/23 17:50 63 14 89/54 93 L 11/01/23 17:35 64 14 103/55 93 L 11/01/23 17:20 62 18 111/59 93 L 11/01/23 17:05 61 17 109/55 90 L Pain Assessment - Last Documented Pain Intensity 0 Pain Scale Used 0-10 Pain Scale Intake and Output: Intake & Output 10/31/23 11/01/23 11/02/23 11/03/23 11:59 11:59 11:59 11:59 Intake Total 0 3272 Output Total 350 1775 Balance -350 1497 Weight 110.1 kg Lab Results: Lab Results-Last 24 Hours 11/01/23 11/01/23 11/01/23 Range/Units 14:24 16:57 17:59 WBC (4.0-10.5) x10^3/uL RBC (4.1-5.4) x10^6/uL Hgb (12.0-16.0) g/dL Hct (35-47) % MCV (78-100) fL MCH (26-32) pg MCHC (32-36) g/dL RDW (11.5-14.0) % Plt Count (150-450) x10^3/uL MPV (7.5-11.0) fL Gran % (36.0-66.0) % Immature Gran % (Auto) (0.00-0.4) % Nucleat RBC Rel Count (0.00-0.1) % Eos # (Auto) (0-0.5) x10^3/uL Immature Gran # (Auto) (0.00-0.03) x10^3u/L Absolute Lymphs (auto) (1.0-4.6) x10^3/uL Absolute Monos (auto) (0.0-1.3) x10^3/uL Absolute Nucleated RBC (0.00-0.01) x10^3u/L Lymphocytes % (24.0-44.0) % Monocytes % (0.0-12.0) % Eosinophils % (0.00-5.0) % Basophils % (0.0-0.4) % Absolute Granulocytes (1.4-6.9) x10^3/uL Basophils # (0-0.4) x10^3/uL Sodium (135-145) mmol/L Potassium (3.5-5.1) mmol/L Chloride (98-107) mmol/L Carbon Dioxide (22-30) mmol/L Anion Gap (5-15) MEQ/L BUN (7-17) mg/dL Creatinine (0.52-1.04) mg/dL Estimated GFR ML/MIN Glucose (74-106) mg/dL POC Glucometer 199 H 239 H 256 H (74 to 106) mg/dL Calcium (8.4-10.2) mg/dL Total Bilirubin (0.2-1.3) mg/dL AST (14-36) U/L ALT (0-35) U/L Alkaline Phosphatase (38-126) U/L Serum Total Protein (6.3-8.2) g/dL Albumin (3.5-5.0) g/dL 11/02/23 11/02/23 11/02/23 Range/Units 04:59 04:59 07:05 WBC 8.1 (4.0-10.5) x10^3/uL RBC 4.27 (4.1-5.4) x10^6/uL Hgb 11.3 L (12.0-16.0) g/dL Hct 35.5 (35-47) % MCV 83.1 (78-100) fL MCH 26.5 (26-32) pg MCHC 31.8 L (32-36) g/dL RDW 14.4 H (11.5-14.0) % Plt Count 369 D (150-450) x10^3/uL MPV 9.5 (7.5-11.0) fL Gran % 86.3 H (36.0-66.0) % Immature Gran % (Auto) 0.5 H (0.00-0.4) % Nucleat RBC Rel Count 0.0 (0.00-0.1) % Eos # (Auto) 0 (0-0.5) x10^3/uL Immature Gran # (Auto) 0.04 H (0.00-0.03) x10^3u/L Absolute Lymphs (auto) 0.65 L (1.0-4.6) x10^3/uL Absolute Monos (auto) 0.39 (0.0-1.3) x10^3/uL Absolute Nucleated RBC 0.00 (0.00-0.01) x10^3u/L Lymphocytes % 8.0 L (24.0-44.0) % Monocytes % 4.8 (0.0-12.0) % Eosinophils % 0.0 (0.00-5.0) % Basophils % 0.4 (0.0-0.4) % Absolute Granulocytes 6.99 H (1.4-6.9) x10^3/uL Basophils # 0.03 (0-0.4) x10^3/uL Sodium 136 (135-145) mmol/L Potassium 4.7 (3.5-5.1) mmol/L Chloride 108 H (98-107) mmol/L Carbon Dioxide 23 (22-30) mmol/L Anion Gap 9.1 (5-15) MEQ/L BUN 37 H (7-17) mg/dL Creatinine 1.33 H (0.52-1.04) mg/dL Estimated GFR 48.7 ML/MIN Glucose 404 H (74-106) mg/dL POC Glucometer 349 H (74 to 106) mg/dL Calcium 8.5 (8.4-10.2) mg/dL Total Bilirubin 0.50 (0.2-1.3) mg/dL AST 183 H (14-36) U/L ALT 227 H (0-35) U/L Alkaline Phosphatase 292 H (38-126) U/L Serum Total Protein 6.3 (6.3-8.2) g/dL Albumin 3.0 L (3.5-5.0) g/dL Radiology Exams: Radiology Procedures Category Date Time Status ANKLE (3 VIEWS) Routine Exams 11/01/23 07:15 Completed ANKLE (3 VIEWS) Stat Exams 11/01/23 00:24 Completed FLUOROSCOPY UP TO 1 HR Routine Exams 11/01/23 07:15 Completed FOOT (MINIMUM 3 VIEWS) Stat Exams 11/01/23 00:25 Completed LIVER OR SPLEEN [US] Routine Exams 11/02/23 07:43 Ordered LOWER EXTREMITY WO CONTRAST [CT] Stat Exams 11/01/23 01:56 Completed Multi-Disciplinary Progress Notes: Multi-Disciplinary Progress Notes 11/01/23 19:28 Respiratory Note by Rachell Robles Patient was resting comfortable post op and had a period of desat to 86% on 3LNC. Patient has a history of GRETA, Placed patient on CPAP/APAP per home use. SPo2 increased to 98%. Held IS at this time Initialized on 11/01/23 19:28 - END OF NOTE 11/01/23 14:02 Occupational Therapy Note by Eduard(L#[id number])[facility] Hold OT Evaluation this date secondary to patient is down for surgery. Will try again tomorrow. Initialized on 11/01/23 14:02 - END OF NOTE Assessment/Plan (1) Displaced trimalleolar fracture of left ankle Current Visit: Yes Status: Acute Assessment & Plan: - radiology results reviewed - podiatry consulted - POD day #1 - denies pain-well controlled - narcotic pain control - awaiting podiatry note and further recs - will need OP rehab- pt ok with this - PT eval Code(s): S82.852A - DISPLACED TRIMALLEOLAR FRACTURE OF LEFT LOWER LEG, INIT (2) Left ankle injury Current Visit: Yes Status: Acute Assessment & Plan: - Analgesia. Bedrest. Podiatry consult for surgical intervention. Code(s): S99.912A - UNSPECIFIED INJURY OF LEFT ANKLE, INITIAL ENCOUNTER (3) Hyperglycemia due to type 2 diabetes mellitus Current Visit: No Status: Acute Assessment & Plan: - A1C 9.44- uncontrolled - Carb const diet - accuchecks ac/hs - humalog s/s, lantus Code(s): E11.65 - TYPE 2 DIABETES MELLITUS WITH HYPERGLYCEMIA (4) Hypertension Current Visit: No Status: Chronic Assessment & Plan: - stable - cont. home meds - monitor Code(s): I10 - ESSENTIAL (PRIMARY) HYPERTENSION (5) Emotional crisis, adjustment reaction Current Visit: Yes Status: Acute Assessment & Plan: - Psych consult VTE: eliquis PPI: protonix Next of KIN: Souse, Brain Delph D/C plan: tomorrow? Code status: Full Code(s): F43.20 - ADJUSTMENT DISORDER, UNSPECIFIED
--- NOTE | 2023-11-02 14:11 | XRAY ---
Indication: MCC placement. Comparison: None Portable chest demonstrates borderline cardiomegaly. No focal infiltrate, consolidation, or large effusion. Bony thorax intact. Impression: Borderline cardiomegaly. Negative for acute pneumonic process or CHF.
--- NOTE | 2023-11-02 16:50 | XRAY ---
Indication: Elevated liver enzymes. Cholecystectomy. Two-dimensional right upper quadrant abdominal sonogram performed. Comparison: None Visualized liver and pancreas appear homogeneous in echogenicity. No organomegaly or free fluid. Gallbladder surgically absent. Common bile duct measures 2.3 mm. No intrahepatic biliary distention. Right kidney measures 9.6 x 5.0 x 4.7 cm and sonographically unremarkable. Impression: Negative right upper quadrant abdominal sonogram incidental cholecystectomy.
[2023-11-02] MEDS: NORCO 5/325 MG PO PRN (20:05)
[2023-11-03 04:31] VITALS: RESP 18
[2023-11-03 04:47] LABS: Hematocrit 33.6 % (35-47); Hemoglobin 10.4 g/dL (12.0-16.0); Mean Cell Volume 84.6 fL (78-100); Mean Corpuscular Hemoglobin 26.2 pg (26-32); Mean Platelet Volume 8.9 fL (7.5-11.0); Platelet Count 348 x10^3/uL (150-450); Red Blood Count 3.97 x10^6/uL (4.1-5.4); Red Cell Distribution Width 14.5 % (11.5-14.0); White Blood Count 8.2 x10^3/uL (4.0-10.5)
[2023-11-03 05:37] LABS: ANION GAP 8.8 MEQ/L (5-15); BILIRUBIN,TOTAL 0.4 mg/dL (0.2-1.3); Calcium 8.4 mg/dL (8.4-10.2); Creatinine 1 1.39 mg/dL (0.52-1.04); EST GLOMERULAR FILTRATION RATE 46.2 ML/MIN
[2023-11-03 05:40] LABS: ALBUMIN 2.9 g/dL (3.5-5.0); Total Protein 6.1 g/dL (6.3-8.2)
--- NOTE | 2023-11-03 09:40 | PCM.DS ---
Discharge Summary Date of Admission: 11/01/23 04:22 Date of Discharge: 11/03/23 Admitting Physician: CANELO DELGADO MD Consults: Consults on Case 11/01/23 04:49 Consult Podiatry ROUTINE 11/01/23 04:53 Case Management SDOH DC Needs Assessment ROUTINE 11/01/23 09:32 Consult,Elio [Psychiatric Consult] STAT Primary Care Provider: ALINE CASAS Allergies Allergies metoprolol Allergy (Severe, Verified 11/01/23 05:36) adhesive tape Allergy (Verified 11/01/23 05:36) latex Allergy (Verified 11/01/23 05:36) sulfamethoxazole [From Bactrim] Adverse Reaction (Severe, Verified 11/01/23 05:36) "messes up my kidneys" trimethoprim [From Bactrim] Adverse Reaction (Severe, Verified 11/01/23 05:36) "messes up my kidneys" metformin Adverse Reaction (Intermediate, Verified 11/01/23 05:36) Hospital Summary - Hospital Course Hospital Course: 11/02/23 is a 48 year old female with a history of DM2 and HTN who presented to the ED with left ankle pain. She states that earlier on the evening of 10/31/23 she was walking and stepped outside she felt a sudden pop and fell to her knees. She describes the discomfort as left ankle and left foot pain. Of note, the patient does recall a fall 5 days ago. She has been ambulating without difficulty since that point in time. No other injuries were reported and she did not hit her head. No chest pain is noted. In the ED, the patient was noted to have a left bimalleolar fracture, and podiatry was consulted with a request for hospitalist service admission. She had surgical repair on 10/31. She has no c/o pain and feeling much better. Psych has been consulted as staff report she crying often. She discussed that she is rather frustrated because of her health issues at her age and feels a bit overwhelmed. She states she lili was recently dx with an anal fistula and has been taking antibiotics for resolution of this OP. I feel she is mentally stable and has the right to be upset regarding her health concerns. She will need OP rehab as she did not do well with PT today, most likely will need 30 days or less. She is willing to go. Awaiting podiatry recs and documentation when pt is able to d/c. Right arm is swollen as IV appears to have infiltrated last night. Will elevate arm to heart level to decrease edema. She denies CP, SOB, abd. pain, N/V/D. 11/03/23 Pt resting in bed. She is feeling overall better she reports. She did speak with psych last night and they recommended OP F/u. She is agreeable to this and feels it would be beneficial. She is scheduled to d/c today to rehab. Discussed with podiatry and he is ok with her discharge plans today. She states she is being to have feeling in her left foot today and her pain is well controlled. She denies CP, SOB, abd. pain, N/V/D. - Vitals & Intake/Output Vital Signs: Vital Signs Temperature 97.5 F 11/03/23 07:56 Pulse Rate 69 11/03/23 07:56 Respiratory Rate 18 11/03/23 07:56 Blood Pressure 157/75 11/03/23 07:56 O2 Sat by Pulse Oximetry 96 11/03/23 07:56 Intake & Output: Intake & Output 10/31/23 11/01/23 11/02/23 11/03/23 11:59 11:59 11:59 11:59 Intake Total 0 3272 680 Output Total 350 1775 3250 Balance -350 1497 -2570 Weight 110.1 kg - Lab Result Diagrams: 11/03/23 04:31 11/03/23 04:31 Lab Results-Last 24 Hrs: Lab Results-Last 24 Hours 11/03/23 11/03/23 Range/Units 04:31 04:31 WBC 8.2 (4.0-10.5) x10^3/uL RBC 3.97 L (4.1-5.4) x10^6/uL Hgb 10.4 L (12.0-16.0) g/dL Hct 33.6 L (35-47) % MCV 84.6 (78-100) fL MCH 26.2 (26-32) pg MCHC 31.0 L (32-36) g/dL RDW 14.5 H (11.5-14.0) % Plt Count 348 (150-450) x10^3/uL MPV 8.9 (7.5-11.0) fL Sodium 139 (135-145) mmol/L Potassium 4.0 (3.5-5.1) mmol/L Chloride 106 (98-107) mmol/L Carbon Dioxide 28 (22-30) mmol/L Anion Gap 8.8 (5-15) MEQ/L BUN 41 H (7-17) mg/dL Creatinine 1.39 H (0.52-1.04) mg/dL Estimated GFR 46.2 ML/MIN Glucose 237 H (74-106) mg/dL Calcium 8.4 (8.4-10.2) mg/dL Total Bilirubin 0.40 (0.2-1.3) mg/dL AST 43 H (14-36) U/L ALT 109 H (0-35) U/L Alkaline Phosphatase 233 H (38-126) U/L Serum Total Protein 6.1 L (6.3-8.2) g/dL Albumin 2.9 L (3.5-5.0) g/dL Micro Results-Entire Visit: Microbiology 11/01/23 Unknown Stool Culture Result 1 - Final Stool Not Reportable Stool Culture Result 2 - Final Not Reportable Stool Culture Result 3 - Final Not Reportable Stool Culture Result 4 - Final Not Reportable Stool Culture Organism Suscept - Final Not Reportable Campylobacter Result 1 - Final Not Reportable Campylobacter Result 2 - Final Not Reportable Campylobactor Result 3 - Final Not Reportable Campylobacter Result 4 - Final Not Reportable Campylobactor Susceptibility - Final Not Reportable Accuchecks Date 11/03/23 Date 11/02/23 Date 11/02/23 Date 11/02/23 Time 21:45 - Radiology Exams Ordered Rad Exams-Entire Visit: Radiology Procedures Category Date Time Status CHEST 1 VIEW (PORTABLE) Urgent Exams 11/02/23 13:43 Completed LIVER OR SPLEEN [US] Routine Exams 11/02/23 07:43 Completed - Procedures and Test Procedures and Tests throughout Hospitalization: Therapy Orders & Screens 11/01/23 04:50 PT Eval & Treat ( Order) ONCE Reason for Eval:: left ankle fracture Diagnosis: left ankle fracture OT Eval and Treat ( Order) ONCE Comment: Physician Instructions: Reason For Exam: Diagnosis: left ankle fracture 11/01/23 05:15 Oxygen Nasal Cannula 2 lpm Comment: Diagnosis: left ankle fracture 11/01/23 05:45 OT Screen per Nursing Assess ONCE Comment: Protocol Order Physician Instructions: Greater than 3 points order OT Admission Screening Reason For Exam: Triggered on Admission Diagnosis: left ankle fracture Open Wound/Cellutlitis/Pressure Ulcers: No Acute Fx/ORIF/Change in wt bearing status: Yes Severe MUSCULOSKELETAL pain: No ADL Dysfunction: Yes Acute CVA w/Hemiparesis/Hemiplegia: No Decreased Functional Mobility/Strength: Yes Sprain/Strain: No Acute Post-op Mobility Dysfunction: No Total Points: 9 PT Screen per Nursing Assess ONCE Comment: Protocol Order Physician Instructions: Greater than 3 points order PT Admission Screenin Reason For Exam: Triggered on Admission Diagnosis: left ankle fracture Open Wound/Cellutlitis/Pressure Ulcers: No Acute Fx/ORIF/Change in wt bearing status: Yes Severe MUSCULOSKELETAL pain: No ADL Dysfunction: Yes Acute CVA w/Hemiparesis/Hemiplegia: No Decreased Functional Mobility/Strength: Yes Sprain/Strain: No Acute Post-op Mobility Dysfunction: No Total Points: 9 11/01/23 06:09 BiPap/CPAP ROUTINE Comment: Diagnosis: left ankle fracture Discharge Exam General Appearance: no apparent distress, alert, obese Neurologic Exam: alert, oriented x 3, cooperative, normal mood/affect, nml cerebellar function, sensation nml, No motor deficits Eye Exam: PERRL, EOMI, eyes nml inspection Ears, Nose, Throat Exam: normal ENT inspection, pharynx normal, moist mucous membranes Neck Exam: normal inspection, non-tender, supple, full range of motion Respiratory Exam: normal breath sounds, lungs clear, No respiratory distress Cardiovascular Exam: regular rate/rhythm, normal heart sounds Gastrointestinal/Abdomen Exam: soft, No tenderness, No mass Pelvic Exam: deferred Rectal Exam: deferred Back Exam: normal inspection, normal range of motion, No CVA tenderness, No vertebral tenderness Extremity Exam: normal inspection, normal range of motion Skin Exam: normal color, warm, dry, other (LLE wrapped) Wound Assessment: Skin/Wound Assessment Wound/Incision Assessment Start: 11/01/23 05:12 Text: Status: Active Freq: Q6H Protocol: Document 11/03/23 05:00 KD (Rec: 11/03/23 05:07 KD [id number]) Wound/Incision Assessment Right Lower Anterior Arm Wound Assessment Shift Assessment Wound Type Skin Tear Drainage Amount None Surrounding Tissue [place] Primary Dressing Non-Adherent Gauze Pads Secondary Dressing Gauze Roll/Wrap Comment skin tear, barrier cream applied with non-adherent gauze pads & gauze roll; dressing CDI Medial Coccyx Wound Assessment Shift Assessment Wound Type FISSURE Dressing Status Dry & Intact Drainage Odor None/Absent Surrounding Tissue [place] Comment pt states this is not new, barrier cream applied Right Wrist Wound Assessment Shift Assessment Wound Type BLISTERS Drainage Amount Minimal Drainage Description CLEAR Drainage Odor None/Absent General Appearance Well Approximated Surrounding Tissue [place] Comment multiple blisters due to tape allergy; IV, tape & tegaderm removed by previous shift & previous shift made COMMERCIAL ESTIMATOR aware. Applied barrier cream, non- adherent gauze pads & gauze roll. Right Abdomen Wound Assessment Shift Assessment Wound Type ulceration Primary Dressing Gauze Pads Comment under urostomy band; barrier cream applied Left Foot Wound Assessment Shift Assessment Wound Type Abrasion Comment great & 3rd toe; open to air, obtained from the fall Wound Photo Photo Taken Yes Date: 11/01/23 Time: 04:30 Comment: Picture of skin tear and blisters taken 11-02-23 @ 3116 Final Diagnosis/Problem List - Final Discharge Diagnosis/Problem (1) Displaced trimalleolar fracture of left ankle Current Visit: Yes Status: Acute Code(s): S82.852A - DISPLACED TRIMALLEOLAR FRACTURE OF LEFT LOWER LEG, INIT (2) Left ankle injury Current Visit: Yes Status: Acute Code(s): S99.912A - UNSPECIFIED INJURY OF LEFT ANKLE, INITIAL ENCOUNTER (3) Hyperglycemia due to type 2 diabetes mellitus Current Visit: No Status: Acute Code(s): E11.65 - TYPE 2 DIABETES MELLITUS WITH HYPERGLYCEMIA (4) Hypertension Current Visit: No Status: Chronic Code(s): I10 - ESSENTIAL (PRIMARY) HYPERTENSION (5) Emotional crisis, adjustment reaction Current Visit: Yes Status: Acute Assessment & Plan: 1) Displaced trimalleolar fracture of left ankle Current Visit: Yes Status: Acute Assessment & Plan: - radiology results reviewed - podiatry consulted - POD day #1 - denies pain-well controlled - narcotic pain control - awaiting podiatry note and further recs - will need OP rehab- pt ok with this - PT eval 11/02 - POD #2 - podiatry Ok with d/c to rehab today - pain well controlled - Per podiatry d/c with Levaquin, [place], and ASA- orders sent. - eliquis stopped- per podiatry Code(s): S82.852A - DISPLACED TRIMALLEOLAR FRACTURE OF LEFT LOWER LEG, INIT (2) Left ankle injury Current Visit: Yes Status: Acute Assessment & Plan: - Analgesia. Bedrest. Podiatry consult for surgical intervention. Code(s): S99.912A - UNSPECIFIED INJURY OF LEFT ANKLE, INITIAL ENCOUNTER (3) Hyperglycemia due to type 2 diabetes mellitus Current Visit: No Status: Acute Assessment & Plan: - A1C 9.44- uncontrolled - Carb const diet - accuchecks ac/hs - humalog s/s, lantus 11/02 - pt refused. Code(s): E11.65 - TYPE 2 DIABETES MELLITUS WITH HYPERGLYCEMIA (4) Hypertension Current Visit: No Status: Chronic Assessment & Plan: - stable - cont. home meds - monitor Code(s): I10 - ESSENTIAL (PRIMARY) HYPERTENSION (5) Emotional crisis, adjustment reaction Current Visit: Yes Status: Acute Assessment & Plan: - Psych consult 11/02 - Pt spoke with psych yesterday and they recommend Op f/u. - Pt is agreeable. Code(s): F43.20 - ADJUSTMENT DISORDER, UNSPECIFIED - Discharge Discharge Date: 11/03/23 (rehab) Disposition: XFER OTHER Condition: Stable Prescriptions: Continue Insulin Glargine [Lantus Insulin] 80 units SQ BID Ferrous Sulfate 325 mg PO DAILY Diltiazem HCl [Cartia Xt] 240 mg PO DAILY Insulin Aspart [Novolog Flexpen] 1 units SQ UD Acetaminophen [Tylenol Extra Strength] 1,000 mg PO Q6H PRN PRN PRN Reason: Pain ALPRAZolam 1 MG [Xanax 1 mg] 1 mg PO DAILY Omeprazole 40 mg PO DAILY Magnesium Oxide 400 mg [Mag-Ox 400] 400 mg PO TID Fluoxetine HCl 20 mg [Prozac 20 MG] 20 mg PO DAILY Potassium Chloride Tab* [Klor Con] 20 meq PO DAILY 30 Days #30 tablet Losartan Potassium [Cozaar] 50 mg PO DAILY Furosemide [Lasix] 40 mg PO UD Follow up with: YUNIER BELL DPM [ACTIVE STAFF] - 11/08/23 1:30 pm
[2023-11-03 12:39] VITALS: BP 98/58; PULSE 60; TEMP 97.4; O2SAT 95
--- NOTE | 2023-11-03 16:15 | PCM.CONS ---
Podiatry HPI - Consult Date of Consultation Date: 11/01/23 Reason for Consult: left bimalleolar ankle fracture Consulting Provider: YUNIER BELL DPM - [facility] History of Present Illness: Georgiana is a very pleasant 48-year-old female with a positive medical history of uncontrolled diabetes and hypertension who presented to the emergency room late last evening with a 4-day history of worsening pain to the left ankle after a fall. Patient indicates sometime after several days there was a little large pop and a significant amount of pain to the left ankle which worsen the pain significantly and she presented to the emergency department. On presentation to the emergency department she did have an x-ray taken demonstrating a unstable bimalleolar fracture. Decision was made to hold the patient for assessment. She currently denies any constitutional symptoms of infection. She denies any other pedal complaints at this time Medications & Allergies Home Medications: Home Medication List Ferrous Sulfate 325 mg PO DAILY 11/06/15 [History Confirmed 11/01/23] Insulin Glargine [Lantus Insulin] 80 units SQ BID 11/06/15 [History Confirmed 11/01/23] Acetaminophen [Tylenol Extra Strength] 1,000 mg PO Q6H PRN PRN 08/01/17 [History Confirmed 11/01/23] Diltiazem HCl [Cartia Xt] 240 mg PO DAILY 08/01/17 [History Confirmed 11/01/23] Insulin Aspart [Novolog Flexpen] 1 units SQ UD 08/01/17 [History Confirmed 11/01/23] ALPRAZolam 1 MG [Xanax 1 mg] 1 mg PO DAILY 06/01/18 [History Confirmed 11/01/23] Fluoxetine HCl 20 mg [Prozac 20 MG] 20 mg PO DAILY 08/06/23 [History Confirmed 11/01/23] Magnesium Oxide 400 mg [Mag-Ox 400] 400 mg PO TID 08/06/23 [History Confirmed 11/01/23] Omeprazole 40 mg PO DAILY 08/06/23 [History Confirmed 11/01/23] Potassium Chloride Tab* [Klor Con] 20 meq PO DAILY 30 Days #30 tablet 08/11/23 [Rx Confirmed 11/01/23] Furosemide [Lasix] 40 mg PO UD 11/01/23 [History Confirmed 11/01/23] Losartan Potassium [Cozaar] 50 mg PO DAILY 11/01/23 [History Confirmed 11/01/23] ALPRAZolam 1 MG [Xanax 1 mg] 1 mg PO DAILY 3 Days #3 tablet 11/03/23 [Rx] Aspirin EC 325 mg [Ecotrin 325 MG] 325 mg PO DAILY 30 Days #30 11/03/23 [Rx] Hydrocodone/Acetaminophen [Hydrocodone-Acetamin 7.5-325] 1 each PO QID PRN PRN 3 Days #12 tablet MDD 4 11/03/23 [Rx] Levofloxacin [Levofloxacin 500 MG Tablet] 500 mg PO DAILY 10 Days #10 tablet 11/03/23 [Rx] Naloxone HCl [Narcan] 4 mg NS DAILY PRN PRN 2 Days #1 blist 11/03/23 [Rx] Allergies/Adverse Reactions: Allergies Allergy/AdvReac Type Severity Reaction Status Date / Time metoprolol Allergy Severe Verified 11/01/23 05:36 adhesive tape Allergy Verified 11/01/23 05:36 latex Allergy Verified 11/01/23 05:36 sulfamethoxazole AdvReac Severe "messes up Verified 11/01/23 05:36 [From Bactrim] my kidneys" trimethoprim [From Bactrim] AdvReac Severe "messes up Verified 11/01/23 05:36 my kidneys" metformin AdvReac Intermediate Verified 11/01/23 05:36 - Past Medical History Past Medical History: Yes Neurological History: Migraines ENT History: Other Cardiac History: Arrhythmia, Congestive Heart Failure, Deep Vein Thrombosis, Hypertension Respiratory History: Sleep Apnea, CHF, Asthma Endocrine Medical History: Diabetes Type II Musculoskelatal History: No Pertinent History GI Medical History: GERD History: Renal Disease, Other Pyscho-Social History: Depression, Anxiety Reproductive Disorders: Cervical Cancer Comment: tachycardia; lesion on left kidney; cervical ca with mets to bladder, liver, fallopian tubes, uterus, and lymph nodes - Female History Hx Last Menstrual Period: post hysterectomy Are you now?: No - Past Surgical History Past Surgical History: Yes Neuro Surgical History: No Pertinent History Cardiac History: Other Respiratory Surgery: No Pertinent History GI Surgical History: Cholecystectomy, Hernia Repair Genitourinary Surgical Hx: Kidney Surgery, Other Musculskeletal Surgical Hx: Other Female Surgical History: Hysterectomy, Other Other Surgical History: colonoscopy Jun 2023 "wall was very thin," urostomy, renal stents placed then removed - Social History Smoking Status: Never smoker Exposure to second hand smoke: Yes Alcohol: None Drug Use: none - Social Determinants of Health Will the patient participate in the screening: Yes Do you worry about a steady place to live?: No Do you have any problems with any of the following?: No known problems In the past 12 months,have you had to go without utilities?: No Have you or anyone in your house had to go without enough: No Transportation Issues: Yes Has anyone in your support network made you feel unsafe?: No Does the patient want assistance with any of the above?: No Comment: PATIENT STRUGGLES WITH GROCERIES WHEN SHE HAS APTS IN [place] THAT MONTH Physical Exam - Narrative Narrative Physical Exam: Podiatry Physical Exam Results - Labs Lab/Micro Results: Lab Results-Last 24 Hours 11/03/23 11/03/23 Range/Units 04:31 04:31 WBC 8.2 (4.0-10.5) x10^3/uL RBC 3.97 L (4.1-5.4) x10^6/uL Hgb 10.4 L (12.0-16.0) g/dL Hct 33.6 L (35-47) % MCV 84.6 (78-100) fL MCH 26.2 (26-32) pg MCHC 31.0 L (32-36) g/dL RDW 14.5 H (11.5-14.0) % Plt Count 348 (150-450) x10^3/uL MPV 8.9 (7.5-11.0) fL Sodium 139 (135-145) mmol/L Potassium 4.0 (3.5-5.1) mmol/L Chloride 106 (98-107) mmol/L Carbon Dioxide 28 (22-30) mmol/L Anion Gap 8.8 (5-15) MEQ/L BUN 41 H (7-17) mg/dL Creatinine 1.39 H (0.52-1.04) mg/dL Estimated GFR 46.2 ML/MIN Glucose 237 H (74-106) mg/dL Calcium 8.4 (8.4-10.2) mg/dL Total Bilirubin 0.40 (0.2-1.3) mg/dL AST 43 H (14-36) U/L ALT 109 H (0-35) U/L Alkaline Phosphatase 233 H (38-126) U/L Serum Total Protein 6.1 L (6.3-8.2) g/dL Albumin 2.9 L (3.5-5.0) g/dL Microbiology 11/01/23 Unknown Stool Culture Result 1 - Final Stool Not Reportable Stool Culture Result 2 - Final Not Reportable Stool Culture Result 3 - Final Not Reportable Stool Culture Result 4 - Final Not Reportable Stool Culture Organism Suscept - Final Not Reportable Campylobacter Result 1 - Final Not Reportable Campylobacter Result 2 - Final Not Reportable Campylobactor Result 3 - Final Not Reportable Campylobacter Result 4 - Final Not Reportable Campylobactor Susceptibility - Final Not Reportable Accuchecks Date 11/03/23 Date 11/03/23 Date 11/02/23 Date 11/02/23 Time 21:45 - Radiology Impressions Radiology Exams & Impressions: Radiology Procedures Category Date Time Status CHEST 1 VIEW (PORTABLE) Urgent Exams 11/02/23 13:43 Completed LIVER OR SPLEEN [US] Routine Exams 11/02/23 07:43 Completed Assessment/Plan (1) COPD with exacerbation Status: Acute Code(s): J44.1 - CHRONIC OBSTRUCTIVE PULMONARY DISEASE W (ACUTE) EXACERBATION (2) Displaced trimalleolar fracture of left ankle Status: Acute Assessment & Plan: Initial patient examination evaluation. Radiographs reviewed discussed with patient demonstrating unstable bimalleolar fracture with syndesmotic disruption. Due to the fact patient is ambulatory this is a surgical issue in order to be functional going forward. Patient has been made aware of all risks complications and benefits of surgical intervention at this time include but not limited to infection hematoma seroma possibility of delayed wound healing on wound healing possible failure bone healing and possibility of nonunion and need for further surgical intervention at a later date. No guarantees were provided as to the outcome of surgical intervention at this time initiated in this particular case there is a large concerned secondary to her uncontrolled diabetes which was 13 less than 1 month ago however with work with Dr. Rodarte her demolition worker she was able to get this down to 9.9. This is not ideal however better than 1 month ago. Patient understands that there is a significant amount of risk in regards to proceeding with the A1c being out of control to this level and will continue to monitor this and improved. Patient has been experiencing significant instability and following surgical intervention will likely need bracing secondary to suspected foot drop however unable to assess at this time. Plan time was allowed for the patient to ask questions which were answered to her apparent satisfaction. At this time proceed with surgical intervention Code(s): S82.852A - DISPLACED TRIMALLEOLAR FRACTURE OF LEFT LOWER LEG, INIT (3) Uncontrolled diabetes mellitus Status: Acute Code(s): [id number] - (4) Peripheral venous insufficiency Status: Acute Code(s): I87.2 - VENOUS INSUFFICIENCY (CHRONIC) (PERIPHERAL) (5) Left foot drop Status: Acute Code(s): M21.372 - FOOT DROP, LEFT FOOT
--- NOTE | 2023-11-03 16:17 | PCM.NOTE ---
Date and Time: 11/03/23 1616 Subjective Assessment: Postop day #1. Patient doing well. She denies any calf pain. Wiggles toes. Denies any chest pain cough or shortness of breath Physical Exam - Narrative Narrative Physical Exam: Podiatry Physical Exam Objective Data Vital Signs: Vital Signs - 24 hr Temp Pulse Resp BP Pulse Ox 11/03/23 12:00 97.4 F 60 18 98/58 95 11/03/23 07:56 97.5 F 69 18 157/75 96 11/03/23 07:07 98 11/03/23 04:00 97.8 F 66 18 117/63 95 11/02/23 23:27 97.8 F 77 20 125/60 98 11/02/23 19:20 98.4 F 74 18 104/58 97 11/02/23 18:52 97 Pain Assessment - Last Documented Pain Intensity 6 Pain Scale Used [facility] Intake and Output: Intake & Output 11/01/23 11/02/23 11/03/23 11/04/23 11:59 11:59 11:59 11:59 Intake Total 0 3272 680 120 Output Total 350 0015 3250 Balance -350 1497 -2570 120 Weight 110.1 kg Lab Results: Lab Results-Last 24 Hours 11/03/23 11/03/23 Range/Units 04:31 04:31 WBC 8.2 (4.0-10.5) x10^3/uL RBC 3.97 L (4.1-5.4) x10^6/uL Hgb 10.4 L (12.0-16.0) g/dL Hct 33.6 L (35-47) % MCV 84.6 (78-100) fL MCH 26.2 (26-32) pg MCHC 31.0 L (32-36) g/dL RDW 14.5 H (11.5-14.0) % Plt Count 348 (150-450) x10^3/uL MPV 8.9 (7.5-11.0) fL Sodium 139 (135-145) mmol/L Potassium 4.0 (3.5-5.1) mmol/L Chloride 106 (98-107) mmol/L Carbon Dioxide 28 (22-30) mmol/L Anion Gap 8.8 (5-15) MEQ/L BUN 41 H (7-17) mg/dL Creatinine 1.39 H (0.52-1.04) mg/dL Estimated GFR 46.2 ML/MIN Glucose 237 H (74-106) mg/dL Calcium 8.4 (8.4-10.2) mg/dL Total Bilirubin 0.40 (0.2-1.3) mg/dL AST 43 H (14-36) U/L ALT 109 H (0-35) U/L Alkaline Phosphatase 233 H (38-126) U/L Serum Total Protein 6.1 L (6.3-8.2) g/dL Albumin 2.9 L (3.5-5.0) g/dL Radiology Exams: Radiology Procedures Category Date Time Status CHEST 1 VIEW (PORTABLE) Urgent Exams 11/02/23 13:43 Completed LIVER OR SPLEEN [US] Routine Exams 11/02/23 07:43 Completed Multi-Disciplinary Progress Notes: Multi-Disciplinary Progress Notes 11/03/23 11:52 Occupational Therapy Note by Eduard(L#[id number])[facility] Treatment Note [id number] Patient seated in chair with BLE elevated and LUE propped upon pillows. Patient was sleeping, but easily roused and agreeable to treatment session at this time. She reports 6/10 L ankle pain and states she has received pain medicine. Georgiana participated in BUE strengthening ther ex's 2 sets of 10 reps including overhead press, chest press, shoulder flexion, rows, horizontal abduction, bicep curls, tricep extension, supination, pronation, wrist flexion, and wrist extension. Patient rested as needed and discussed life events with OTR during which she became tearful several times. OTR mentioned [employer] services to patient and she reports that she talked with someone from the [facility] yesterday and plans to follow-up to schedule appointments once she feels in a more stable place with current medical issues. She is concerned about Rehab Stay. OTR provided encouragement to patient and listened to patient as she shared. Treatment session ended and patient seated in recliner with BLE elevated and necessities within reach. Will continue to see patient 1x/day through hospital stay and OTR recommends Rehab Stay for strengthening, activity tolerance, and I/ADL deficits. Initialized on 11/03/23 11:52 - END OF NOTE 11/03/23 10:49 Case Management Note by Simran Newell PATIENT STILL TEARFUL, BUT AGREEABLE TO GOING TO ENVIVE AND STATES SHE KNOWS THAT SHE NEEDS ADDITIONAL THERAPY TO BE ABLE TO GO HOME. Initialized on 11/03/23 10:49 - END OF NOTE 11/02/23 23:16 Respiratory Note by Rachell Robles Placed patient on CPAP per home settings Initialized on 11/02/23 23:16 - END OF NOTE Assessment/Plan (1) COPD with exacerbation Status: Acute Code(s): J44.1 - CHRONIC OBSTRUCTIVE PULMONARY DISEASE W (ACUTE) EXACERBATION (2) Displaced trimalleolar fracture of left ankle Status: Acute Assessment & Plan: Patient examination and evaluation. Patient okay for discharge from my standpoint if cleared from a medical standpoint. Physical therapy assessment deemed patient not safe for return home recommendation for senior living facility and I agree. Code(s): S82.852A - DISPLACED TRIMALLEOLAR FRACTURE OF LEFT LOWER LEG, INIT (3) Uncontrolled diabetes mellitus Status: Acute Code(s): XEO5569 - (4) Peripheral venous insufficiency Status: Acute Code(s): I87.2 - VENOUS INSUFFICIENCY (CHRONIC) (PERIPHERAL) (5) Left foot drop Status: Acute Code(s): M21.372 - FOOT DROP, LEFT FOOT
== END 2023-11-03 16:00 ==
LOC: ED 22:31 → INTOOBSV 11-01 04:22 → MED SURG 11-01 04:22 → OBSVTOIN 11-01 04:22
PROVIDERS: ADMIT Internal Medicine; ATTEND Internal Medicine
DX: S82.852A Displaced trimalleolar fracture of left lower leg, initial encounter for closed fracture (principal); E11.65 Type 2 diabetes mellitus with hyperglycemia; I87.2 Venous insufficiency (chronic) (peripheral); M21.372 Foot drop, left foot; F43.20 Adjustment disorder, unspecified; W19.XXXA Unspecified fall, initial encounter; I11.0 Hypertensive heart disease with heart failure; I50.9 Heart failure, unspecified; S93.432A Sprain of tibiofibular ligament of left ankle, initial encounter; M25.572 Pain in left ankle and joints of left foot; E11.42 Type 2 diabetes mellitus with diabetic polyneuropathy; R60.0 Localized edema; J44.1 Chronic obstructive pulmonary disease with (acute) exacerbation; Z59.41 Food insecurity; Z79.899 Other long term (current) drug therapy; Z11.52 Encounter for screening for COVID-19; Z85.41 Personal history of malignant neoplasm of cervix uteri
CPT/HCPCS: 01480; 27814; 27829; 36000; 36415; 64447; 64450; 71045; 73610; 73630; 73700; 76000; 76705; 76937; 76942; 80053; 82947; 83036; 85025; 85027; 85610; 85730; 90791; 94660; 94760; 96374; 97110; 97161; 97165; 97530; 99140; 99284; C1713; C1776; G0378; Q3014; J0330; J0690; J1100; J1170; J1817; J2250; J2270; J2371; J2405; J2704; J3010; L1830; A9270-GY

== ENCOUNTER 2024-08-14 15:30 | Inpatient (IN) | payer MEDICARE ==
[2024-08-14 16:20] LABS: Absolute Neutrophil Ct (ANC) 10.01 x10^3/uL (1.56-6.13); Basophil (Absolute #) 0.12 x10^3/uL (0.01-0.08); Eosinophil % 1.1 % (0.7-5.8); Eosinophil (Absolute #) 0.14 x10^3/uL (0.04-0.36); Hematocrit 39.4 % (34.1-44.9); Hemoglobin 12.5 g/dL (11.2-15.7); IMMATURE GRAN # 0.25 x10^3u/L (0.001-0.031); IMMATURE GRAN % 2.1 % (0.001-0.429); Mean Cell Volume 80.6 fL (79.4-94.8); Mean Corpuscular Hemoglobin 25.6 pg (25.6-32.2); Mean Corpuscular Hgb Concent. 31.7 g/dL (32.2-35.5); Mean Platelet Volume 9.8 fL (9.4-12.3); Monocyte (Absolute #) 0.56 x10^3/uL (0.24-0.86); Monocytes % 4.6 % (4.7-12.5); Neutrophil % 82.2 % (34.0-71.1); Platelet Count 484 x10^3/uL (182-369); Red Blood Count 4.89 x10^6/uL (3.93-5.22); Red Cell Distribution Width 14.4 % (11.7-14.4); White Blood Count 12.2 x10^3/uL (3.98-10.04)
--- NOTE | 2024-08-14 16:21 | ERPHSYRPT ---
- History of Present Illness Time Seen by Provider: 08/14/24 16:19 Source: patient, translator/interpreter Exam Limitations: no limitations Patient Subjective Stated Complaint: pt here for cough, congestion for 2 days,about 10 days ago had n/v/d and was seen last week and insulin was increased, vomited today, last loose stool today Triage Nursing Assessment: pt alert,anxious and crying at times, resp easy . occ dry cough, abs soft, skin w/d/p pt has swelling to lower legs, pt has paris boots to both lower legs, and a walking boot to left lower leg, had surgery on left ankle last october Physician History: 48-year-old female Struve diabetes presents to our emergency department for evaluation of chest pain. Patient reports she has been coughing for the last 2 days. Patient now experiencing chest pain. Patient's chest pain is reproducible by palpation to her anterior chest wall. Patient advises that she had nausea vomiting and diarrhea 10 days ago at which time her blood sugar was observed to be excessively high. Patient has since increased her insulin dosage. Patient symptoms are constant. Symptoms are moderate in intensity. Pain reproduced with palpation to her chest. Pain improved with rest. Patient otherwise feels well. No associated fever no trauma. She voices no other complaints or concerns at this time. Portions of this note were created with voice recognition technology. There may be grammatical, spelling, punctuation or sound alike errors Timing/Duration: day(s) Severity: moderate (2 days ago) Modifying Factors: Improves With: nothing Associated Symptoms: denies symptoms Allergies/Adverse Reactions: metoprolol Allergy (Severe, Verified 08/14/24 15:35) adhesive tape Allergy (Verified 08/14/24 15:35) latex Allergy (Verified 08/14/24 15:35) sulfamethoxazole [From Bactrim] Adverse Reaction (Severe, Verified 08/14/24 15:35) "messes up my kidneys" trimethoprim [From Bactrim] Adverse Reaction (Severe, Verified 08/14/24 15:35) "messes up my kidneys" metformin Adverse Reaction (Intermediate, Verified 08/14/24 15:35) Home Medications: Ferrous Sulfate 325 mg PO DAILY 11/06/15 [History] Insulin Glargine [Lantus Insulin] 80 units SQ BID 11/06/15 [History] Acetaminophen [Tylenol Extra Strength] 1,000 mg PO Q6H PRN PRN 08/01/17 [History] Insulin Aspart [Novolog Flexpen] 1 units SQ UD 08/01/17 [History] dilTIAZem HCL [Cartia Xt] 240 mg PO DAILY 08/01/17 [History] Fluoxetine HCl 20 mg [Prozac 20 MG] 20 mg PO DAILY 08/06/23 [History] Magnesium Oxide 400 mg [Mag-Ox 400] 400 mg PO TID 08/06/23 [History] Omeprazole 40 mg PO DAILY 08/06/23 [History] Furosemide [Lasix] 20 mg PO UD 11/01/23 [History] Losartan Potassium [Cozaar] 50 mg PO DAILY 11/01/23 [History] Dapagliflozin Propanediol [Farxiga] 5 mg PO DAILY 03/26/24 [History] clindamycin HCL [Clindamycin HCl] 300 mg PO TID 03/26/24 [History] Hx Tetanus, Diphtheria Vaccination/Date Given: No Hx Influenza Vaccination/Date Given: No Hx Pneumococcal Vaccination/Date Given: No Immunizations Up to Date: Yes Travel Risk - International Travel Have you traveled outside of the country in past 3 weeks: No - Emerging Infectious Disease Are you exhibiting symptoms associated with any current EIDs: Yes Symptoms: Cough: New Onset, Diarrhea, Vomitting - Review of Systems Constitutional: No Symptoms, No Fever, No Chills Eyes: No Symptoms Ears, Nose, & Throat: No Symptoms Respiratory: No Symptoms, No Cough, No Dyspnea Cardiac: No Symptoms, No Chest Pain, No Edema, No Syncope Abdominal/Gastrointestinal: No Symptoms, No Abdominal Pain, No Nausea, No Vomiting, No Diarrhea Genitourinary Symptoms: No Symptoms, No Dysuria Musculoskeletal: No Symptoms, No Back Pain, No Neck Pain Skin: No Symptoms, No Rash Neurological: No Symptoms, No Dizziness, No Focal Weakness, No Sensory Changes Psychological: No Symptoms Endocrine: No Symptoms Hematologic/Lymphatic: No Symptoms Immunological/Allergic: No Symptoms All Other Systems: Reviewed and Negative - Past Medical History Pertinent Past Medical History: Yes Neurological History: Peripheral Neuropathy ENT History: Other Cardiac History: Arrhythmia, High Cholesterol, Hypertension, Other Respiratory History: Bronchitis Endocrine Medical History: Diabetes Type II, Other Musculoskeletal History: Fractures GI Medical History: GERD History: Renal Disease, Other Psycho-Social History: Depression, Anxiety Female Reproductive Disorders: Cervical Cancer Other Medical History: CERVICAL CA (CHEMO/RADIATION). REQUIRED UROSTOMY. CHRONIC RENAL FAILURE STAGE 3. WAS EVALUATED BY THORACIC SURGEON DUE TO SPOTS ON LUNG - WAS TOLD DUE TO HISTOPLASMOSIS. F/U WITH THEM 07/25/24. STATES HE[facility] AND HAS BEEN TOLD HAS EARLY STAGES OF CONGESTIVE HEART FAILURE. HX OF RIGHT KNEE ARTHROSCOPY DUE TO MENISCUS TEAR. - Past Surgical History Past Surgical History: Yes Neuro Surgical History: No Pertinent History Cardiac: Other Respiratory: No Pertinent History Gastrointestinal: Cholecystectomy, Hernia Repair Genitourinary: Kidney Surgery, Other Musculoskeletal: Other Female Surgical History: Hysterectomy, Other Other Surgical History: colonoscopy Jun 2023 "wall was very thin," urostomy, renal stents placed then removed - Female History Hx Last Menstrual Period: hyster Hx Now: No - Social History Smoking Status: Never smoker Exposure to second hand smoke: Yes Drug Use: none Patient Lives Alone: No - Social Determinants of Health Will the patient participate in the screening: Yes Do you worry about a steady place to live?: No Do you have any problems with any of the following?: No known problems In the past 12 months,have you had to go without utilities?: Yes Transportation Issues: Yes Has anyone in your support network made you feel unsafe?: No Have you or anyone in your house had to go without enough: Yes - Nursing Vital Signs Nursing Vital Signs: Initial Vital Signs Temperature 97.2 F 08/14/24 15:43 Pulse Rate 96 H 08/14/24 15:43 Respiratory Rate 18 08/14/24 15:43 Blood Pressure 158/93 08/14/24 15:43 O2 Sat by Pulse Oximetry 98 08/14/24 15:43 Pain Scale Pain Intensity 0 - Physical Exam General Appearance: no apparent distress, alert Eye Exam: PERRL/EOMI, eyes nml inspection Ears, Nose, Throat Exam: normal ENT inspection, moist mucous membranes Neck Exam: normal inspection, non-tender, supple, full range of motion Respiratory Exam: normal breath sounds, lungs clear, airway intact, No respiratory distress Cardiovascular Exam: regular rate/rhythm, normal heart sounds, normal peripheral pulses Gastrointestinal/Abdomen Exam: soft, normal bowel sounds, No tenderness, No mass Back Exam: normal inspection, normal range of motion, No CVA tenderness, No vertebral tenderness Extremity Exam: normal inspection, normal range of motion, pelvis stable Neurologic Exam: alert, oriented x 3, cooperative, normal mood/affect, nml cerebellar function, nml station & gait, sensation nml, No motor deficits Skin Exam: normal color, warm, dry, No rash Lymphatic Exam: No adenopathy SpO2 Interpretation: normal SpO2: 98 O2 Delivery: Room Air - Course Nursing assessment & vital signs reviewed: Yes Ordered Tests: Active Orders 24 hr Category Date Time Status Welt Wheeler STAT Care 08/14/24 16:02 Active EKG-ER Only STAT Care 08/14/24 16:02 Active IV Insertion STAT Care 08/14/24 16:02 Active Pulse Oximetry (ED) STAT Care 08/14/24 16:02 Active ACO SDOH Referral ONCE Cons 08/14/24 15:43 Active CHEST 1 VIEW (PORTABLE) Stat Exams 08/14/24 18:55 Ordered CBC W DIFF Stat Lab 08/14/24 16:14 Completed CMP Stat Lab 08/14/24 16:14 Completed D-DIMER QUANTITATIVE Stat Lab 08/14/24 16:14 Completed NT PRO BNPII Stat Lab 08/14/24 16:14 Completed POCT GLUCOSE Stat Lab 08/14/24 18:44 Received TROPONIN Q4H Lab 08/14/24 16:14 Completed TROPONIN Q4H Lab 08/14/24 20:15 Ordered TROPONIN Q4H Lab 08/15/24 00:15 Ordered UA W/RFX UR CULTURE Stat Lab 08/14/24 18:52 Received Transfer Order Routine Transfer 08/14/24 Ordered Medication Summary Generic Name Dose Route Start Last Admin Trade Name Freq PRN Reason Stop Dose Admin Insulin Glargine 95 unit 08/14/24 22:00 08/14/24 18:47 Insulin Glargine 1 Unit SQ 09/13/24 21:59 95 unit HS JELLY Administration Discontinued Medications Generic Name Dose Route Start Last Admin Trade Name Freq PRN Reason Stop Dose Admin Sodium Chloride 1,000 mls @ 999 mls/hr 08/14/24 17:15 08/14/24 17:34 Sodium Chloride 0.9% 1000 Ml IV 08/14/24 18:15 999 mls/hr .Q1H1M STA Administration Sodium Chloride Confirm 08/14/24 17:33 Sodium Chloride 0.9% 1000 Ml Administered 08/14/24 17:34 Dose 1,000 mls @ ud .ROUTE .STK-MED ONE Lab/Rad Data: Laboratory Result Diagrams 08/14/24 16:14 08/14/24 16:14 Laboratory Results 08/14/24 08/14/24 08/14/24 Range/Units 16:14 16:14 16:14 WBC (3.98-10.04) x10^3/uL RBC (3.93-5.22) x10^6/uL Hgb (11.2-15.7) g/dL Hct (34.1-44.9) % MCV (79.4-94.8) fL MCH (25.6-32.2) pg MCHC (32.2-35.5) g/dL RDW (11.7-14.4) % Plt Count (182-369) x10^3/uL MPV (9.4-12.3) fL Gran % (34.0-71.1) % Immature Gran % (Auto) (0.001-0.429) % Nucleat RBC Rel Count (0.00-0.2) % Eos # (Auto) (0.04-0.36) x10^3/uL Immature Gran # (Auto) (0.001-0.031) x10^3u/L Absolute Lymphs (auto) (1.18-3.74) x10^3/uL Absolute Monos (auto) (0.24-0.86) x10^3/uL Absolute Nucleated RBC (0.00-0.012) x10^3u/L Lymphocytes % (19.3-51.7) % Monocytes % (4.7-12.5) % Eosinophils % (0.7-5.8) % Basophils % (0.1-1.2) % Absolute Granulocytes (1.56-6.13) x10^3/uL Basophils # (0.01-0.08) x10^3/uL D-Dimer 0.56 H (0.0-0.50) mg/L Sodium 124 L (135-145) mmol/L Potassium 4.3 (3.5-5.1) mmol/L Chloride 93 L (98-107) mmol/L Carbon Dioxide 20 L (22-30) mmol/L Anion Gap 15.8 H (5-15) MEQ/L BUN 39 H (7-17) mg/dL Creatinine 1.78 H (0.52-1.04) mg/dL Estimated GFR 34.4 ML/MIN Glucose 741 H* (74-106) mg/dL Calcium 8.5 (8.4-10.2) mg/dL Total Bilirubin 0.50 (0.2-1.3) mg/dL AST 18 (14-36) U/L ALT 18 (0-35) U/L Alkaline Phosphatase 163 H (38-126) U/L Troponin I < 0.012 (0.000-0.033) ng/mL NT-Pro-B Natriuret Pep 246 (<300) pg/mL Serum Total Protein 6.4 (6.3-8.2) g/dL Albumin 3.4 L (3.5-5.0) g/dL 08/14/24 Range/Units 16:14 WBC 12.2 H (3.98-10.04) x10^3/uL RBC 4.89 (3.93-5.22) x10^6/uL Hgb 12.5 (11.2-15.7) g/dL Hct 39.4 (34.1-44.9) % MCV 80.6 (79.4-94.8) fL MCH 25.6 (25.6-32.2) pg MCHC 31.7 L (32.2-35.5) g/dL RDW 14.4 (11.7-14.4) % Plt Count 484 H (182-369) x10^3/uL MPV 9.8 (9.4-12.3) fL Gran % 82.2 H (34.0-71.1) % Immature Gran % (Auto) 2.1 H (0.001-0.429) % Nucleat RBC Rel Count 0.0 (0.00-0.2) % Eos # (Auto) 0.14 (0.04-0.36) x10^3/uL Immature Gran # (Auto) 0.25 H (0.001-0.031) x10^3u/L Absolute Lymphs (auto) 1.10 L (1.18-3.74) x10^3/uL Absolute Monos (auto) 0.56 (0.24-0.86) x10^3/uL Absolute Nucleated RBC 0.00 (0.00-0.012) x10^3u/L Lymphocytes % 9.0 L (19.3-51.7) % Monocytes % 4.6 L (4.7-12.5) % Eosinophils % 1.1 (0.7-5.8) % Basophils % 1.0 (0.1-1.2) % Absolute Granulocytes 10.01 H (1.56-6.13) x10^3/uL Basophils # 0.12 H (0.01-0.08) x10^3/uL D-Dimer (0.0-0.50) mg/L Sodium (135-145) mmol/L Potassium (3.5-5.1) mmol/L Chloride (98-107) mmol/L Carbon Dioxide (22-30) mmol/L Anion Gap (5-15) MEQ/L BUN (7-17) mg/dL Creatinine (0.52-1.04) mg/dL Estimated GFR ML/MIN Glucose (74-106) mg/dL Calcium (8.4-10.2) mg/dL Total Bilirubin (0.2-1.3) mg/dL AST (14-36) U/L ALT (0-35) U/L Alkaline Phosphatase (38-126) U/L Troponin I (0.000-0.033) ng/mL NT-Pro-B Natriuret Pep (<300) pg/mL Serum Total Protein (6.3-8.2) g/dL Albumin (3.5-5.0) g/dL - Progress Progress: improved Progress Note: 48-year-old female history of diabetes presents to our ED with nausea vomiting diarrhea. Workup reveals dehydration with acute renal injury. Patient is also hyperglycemic. Blood glucose is 741. Initial troponin negative. EKG sinus rhythm. Patient will require further evaluation and treatment. Case discussed with hospitalist who accepts admission to observation at 6:52 PM. Portions of this note were created with voice recognition technology. There may be grammatical, spelling, punctuation or sound alike errors Complexity of problem addressed is moderate acute complicated. No critical care time. Complex of data reviewed and analyzed is extensive. Test ordered chest reviewed results analyzed and correlated clinically with history and physical exam. Management discussed with hospitalist who excepts admission to observation. Risk of complication and or risk of morbidity/mortality of patient management is high. Patient requires hospitalization for further evaluation and treatment. Vital stable. Time spent admit patient approximately 10 minutes. Plan of care established for shared decision making. No social determinants of health present to impede follow-up. Per patient's request she received her nighttime dose of Lantus, 95 units Portions of this note were created with voice recognition technology. There may be grammatical, spelling, punctuation or sound alike errors 08/14/24 18:58 Counseled pt/family regarding: lab results, diagnosis, need for follow-up, rad results - Departure Departure Disposition: Observation Clinical Impression: Chest pain, Hyperglycemia, Acute renal injury, Hyponatremia Condition: Stable Critical Care Time: No Referrals: JENNIFER NAPOLES MD [Primary Care Provider] - Follow up/PCP as directed
[2024-08-14 16:46] LABS: ALBUMIN 3.4 g/dL (3.5-5.0); ANION GAP 15.8 MEQ/L (5-15); BILIRUBIN,TOTAL 0.5 mg/dL (0.2-1.3); Calcium 8.5 mg/dL (8.4-10.2); Creatinine 1 1.78 mg/dL (0.52-1.04); EST GLOMERULAR FILTRATION RATE 34.4 ML/MIN; Potassium 4.3 mmol/L (3.5-5.1); Total Protein 6.4 g/dL (6.3-8.2)
[2024-08-14] MEDS ORDERED: Sodium Chloride 0.9% 1000 ML 1,000 ML ONE (17:33)
[2024-08-14] MEDS: Sodium Chloride 0.9% 1000 ML 1,000 ML IV STA (17:34)
[2024-08-14] MEDS: Lantus Insulin SQ SCH (18:47)
[2024-08-14 19:10] LABS: Appearance Clear (Clear); Bacteria Many /HPF (None Seen); Bilirubin Negative (Negative); Blood Moderate (Negative); Epithelial Cells None Seen /HPF (None Seen); Glucose, Urine >=1000 mg/dL (Negative); Hyaline Casts NONE SEEN /LPF (0-2); Ketones Negative (Negative); Leukocyte Esterase Moderate (Negative); Nitrite Negative (Negative); Ph 6.5 (4.6-8.0); Protein,Urine Dip 30 (Negative); RBC 0-2 /HPF (0-5); Urobilinogen 0.2 mg/dL (0.2); WBC 21-50 /HPF (0-5)
--- NOTE | 2024-08-14 20:00 | PCM.HP ---
History of Present Illness - Chief Complaint Chief Complaint: Chest pain, nausea vomiting, hyperglycemia, acute renal injury Date: 08/14/24 History of Present Illness: Ms. HAGAN is a 48 year old female with a past medical history significant for hypertension, diabetes, cervical cancer status post hysterectomy/urostomy and chronic kidney disease who presents to the hospital with complaints of nausea, vomiting and diarrhea for about two weeks culminating in development of substernal chest pain. Her family had the GI bug first and got over it, but she felt as it she got worse. Upon arrival, her blood sugars were markedly elevated associated with a sodium of 124 and creatinine of 1.8. She denies fever/chills. No shortness of breath or palpitations. No dysuria, gross hematuria or urgency. She is seen via telehealth, awake/alert, in no apparent distress. She had n oticed her blood sugars going up and tried to increase her insulin but could not get them down. - Review of Systems Constitutional: No Fever, No Chills Eyes: No Double Vision Ears, Nose, & Throat: No Sinus Drainage Respiratory: No Cough, No Orthopnea, No Short Of Breath Cardiac: Chest Pain, No Edema, No Palpitations Abdominal/Gastrointestinal: Nausea, Vomiting, Diarrhea, No Abdominal Pain Genitourinary Symptoms: No Dysuria, No Frequency, No Hematuria Musculoskeletal: No Arthralgias Skin: No Rash Neurological: No Dizziness Psychological: Anxiety, No Suicidal Ideations Endocrine: Polyuria Hematologic/Lymphatic: No Easy Bruising Medications & Allergies Home Medications: Home Medication List Ferrous Sulfate 325 mg PO DAILY 11/06/15 [History Confirmed 03/26/24] Insulin Glargine [Lantus Insulin] 80 units SQ BID 11/06/15 [History Confirmed 03/26/24] Acetaminophen [Tylenol Extra Strength] 1,000 mg PO Q6H PRN PRN 08/01/17 [History Confirmed 03/26/24] Insulin Aspart [Novolog Flexpen] 1 units SQ UD 08/01/17 [History Confirmed 03/26/24] dilTIAZem HCL [Cartia Xt] 240 mg PO DAILY 08/01/17 [History Confirmed 03/26/24] Fluoxetine HCl 20 mg [Prozac 20 MG] 20 mg PO DAILY 08/06/23 [History Confirmed 03/26/24] Magnesium Oxide 400 mg [Mag-Ox 400] 400 mg PO TID 08/06/23 [History Confirmed 03/26/24] Omeprazole 40 mg PO DAILY 08/06/23 [History Confirmed 03/26/24] Potassium Chloride Tab* [Klor Con] 20 meq PO DAILY 30 Days #30 tablet 08/11/23 [Rx Confirmed 03/26/24] Furosemide [Lasix] 20 mg PO UD 11/01/23 [History Confirmed 03/26/24] Losartan Potassium [Cozaar] 50 mg PO DAILY 11/01/23 [History Confirmed 03/26/24] ALPRAZolam 1 MG [Xanax 1 mg] 1 mg PO DAILY 3 Days #3 tablet 11/03/23 [Rx Confirmed 03/26/24] Aspirin EC 325 mg [Ecotrin 325 MG] 325 mg PO DAILY 30 Days #30 11/03/23 [Rx Confirmed 03/26/24] Hydrocodone/Acetaminophen [Hydrocodone-Acetamin 7.5-325] 1 each PO QID PRN PRN 3 Days #12 tablet MDD 4 11/03/23 [Rx Confirmed 03/26/24] Naloxone HCl [Narcan] 4 mg NS DAILY PRN PRN 2 Days #1 blist 11/03/23 [Rx Confirmed 03/26/24] Dapagliflozin Propanediol [Farxiga] 5 mg PO DAILY 03/26/24 [History Confirmed 03/26/24] clindamycin HCL [Clindamycin HCl] 300 mg PO TID 03/26/24 [History Confirmed 03/26/24] Allergies/Adverse Reactions: Allergies Allergy/AdvReac Type Severity Reaction Status Date / Time metoprolol Allergy Severe Verified 08/14/24 15:35 adhesive tape Allergy Verified 08/14/24 15:35 latex Allergy Verified 08/14/24 15:35 sulfamethoxazole AdvReac Severe "messes up Verified 08/14/24 15:35 [From Bactrim] my kidneys" trimethoprim [From Bactrim] AdvReac Severe "messes up Verified 08/14/24 15:35 my kidneys" metformin AdvReac Intermediate Verified 08/14/24 15:35 - Past Medical History Past Medical History: Yes Neurological History: Peripheral Neuropathy ENT History: Other Cardiac History: Arrhythmia, High Cholesterol, Hypertension, Other Respiratory History: Bronchitis Endocrine Medical History: Diabetes Type II, Other Musculoskelatal History: Fractures GI Medical History: GERD History: Renal Disease, Other Pyscho-Social History: Depression, Anxiety Reproductive Disorders: Cervical Cancer Comment: CERVICAL CA (CHEMO/RADIATION). REQUIRED UROSTOMY. CHRONIC RENAL FAILURE STAGE 3. WAS EVALUATED BY THORACIC SURGEON DUE TO SPOTS ON LUNG - WAS TOLD DUE TO HISTOPLASMOSIS. F/U WITH THEM 07/25/24. STATES [facility] AND HAS BEEN TOLD HAS EARLY STAGES OF CONGESTIVE HEART FAILURE. HX OF RIGHT KNEE ARTHROSCOPY DUE TO MENISCUS TEAR. - Female History Hx Last Menstrual Period: hyster Are you now?: No - Past Surgical History Past Surgical History: Yes Neuro Surgical History: No Pertinent History Cardiac History: Other Respiratory Surgery: No Pertinent History GI Surgical History: Cholecystectomy, Hernia Repair Genitourinary Surgical Hx: Kidney Surgery, Other Musculskeletal Surgical Hx: Other Female Surgical History: Hysterectomy, Other Other Surgical History: colonoscopy Jun 2023 "wall was very thin," urostomy, renal stents placed then removed - Social History Smoking Status: Never smoker Exposure to second hand smoke: Yes Alcohol: None Drug Use: none - Social Determinants of Health Will the patient participate in the screening: Yes Do you worry about a steady place to live?: No Do you have any problems with any of the following?: No known problems In the past 12 months,have you had to go without utilities?: Yes Have you or anyone in your house had to go without enough: Yes Transportation Issues: Yes Has anyone in your support network made you feel unsafe?: No Does the patient want assistance with any of the above?: No Comment: PATIENT STRUGGLES WITH GROCERIES WHEN SHE HAS APTS IN [place] THAT MONTH - Physical Exam Vital Signs: Vital Signs - 24 hr Temp Pulse Resp BP BP Pulse Ox 08/14/24 19:02 98 08/14/24 19:00 91 H 10 L 164/130 08/14/24 18:31 96 H 17 170/79 97 08/14/24 18:01 90 20 98 08/14/24 17:43 95 H 24 144/92 82 L 08/14/24 17:42 94 H 18 138/91 100 08/14/24 17:41 98 08/14/24 15:43 97.2 F 96 H 18 158/93 98 General Appearance: anxiety Neurologic Exam: alert, No slurred speech Ears, Nose, Throat Exam: dry mucous membranes Neck Exam: supple Respiratory Exam: No respiratory distress Cardiovascular Exam: regular rate/rhythm, tachycardia Gastrointestinal/Abdomen Exam: soft Extremity Exam: No pedal edema, No swelling Skin Exam: normal color, No rash Results - Labs Lab/Micro Results: Lab Results-Last 24 Hours 08/14/24 08/14/24 08/14/24 Range/Units 16:14 16:14 16:14 WBC 12.2 H (3.98-10.04) x10^3/uL RBC 4.89 (3.93-5.22) x10^6/uL Hgb 12.5 (11.2-15.7) g/dL Hct 39.4 (34.1-44.9) % MCV 80.6 (79.4-94.8) fL MCH 25.6 (25.6-32.2) pg MCHC 31.7 L (32.2-35.5) g/dL RDW 14.4 (11.7-14.4) % Plt Count 484 H (182-369) x10^3/uL MPV 9.8 (9.4-12.3) fL Gran % 82.2 H (34.0-71.1) % Immature Gran % (Auto) 2.1 H (0.001-0.429) % Nucleat RBC Rel Count 0.0 (0.00-0.2) % Eos # (Auto) 0.14 (0.04-0.36) x10^3/uL Immature Gran # (Auto) 0.25 H (0.001-0.031) x10^3u/L Absolute Lymphs (auto) 1.10 L (1.18-3.74) x10^3/uL Absolute Monos (auto) 0.56 (0.24-0.86) x10^3/uL Absolute Nucleated RBC 0.00 (0.00-0.012) x10^3u/L Lymphocytes % 9.0 L (19.3-51.7) % Monocytes % 4.6 L (4.7-12.5) % Eosinophils % 1.1 (0.7-5.8) % Basophils % 1.0 (0.1-1.2) % Absolute Granulocytes 10.01 H (1.56-6.13) x10^3/uL Basophils # 0.12 H (0.01-0.08) x10^3/uL D-Dimer 0.56 H (0.0-0.50) mg/L Sodium 124 L (135-145) mmol/L Potassium 4.3 (3.5-5.1) mmol/L Chloride 93 L (98-107) mmol/L Carbon Dioxide 20 L (22-30) mmol/L Anion Gap 15.8 H (5-15) MEQ/L BUN 39 H (7-17) mg/dL Creatinine 1.78 H (0.52-1.04) mg/dL Estimated GFR 34.4 ML/MIN Glucose 741 H* (74-106) mg/dL POC Glucometer (50 to 500) mg/dL Calcium 8.5 (8.4-10.2) mg/dL Total Bilirubin 0.50 (0.2-1.3) mg/dL AST 18 (14-36) U/L ALT 18 (0-35) U/L Alkaline Phosphatase 163 H (38-126) U/L Troponin I (0.000-0.033) ng/mL NT-Pro-B Natriuret Pep 246 (<300) pg/mL Serum Total Protein 6.4 (6.3-8.2) g/dL Albumin 3.4 L (3.5-5.0) g/dL Urine Color (Yellow) Urine Appearance (Clear) Urine pH (4.6-8.0) Ur Specific Addison (1.005-1.030) Urine Protein (Negative) Urine Glucose (UA) (Negative) mg/dL Urine Ketones (Negative) Urine Blood (Negative) Urine Nitrite (Negative) Urine Bilirubin (Negative) Urine Urobilinogen (0.2) mg/dL Ur Leukocyte Esterase (Negative) U Hyaline Cast (Auto) (0-2) /LPF Urine Microscopic RBC (0-5) /HPF Urine Microscopic WBC (0-5) /HPF Ur Epithelial Cells (None Seen) /HPF Urine Bacteria (None Seen) /HPF Urine Culture Reflexed (NO) 08/14/24 08/14/24 08/14/24 Range/Units 16:14 18:52 19:48 WBC (3.98-10.04) x10^3/uL RBC (3.93-5.22) x10^6/uL Hgb (11.2-15.7) g/dL Hct (34.1-44.9) % MCV (79.4-94.8) fL MCH (25.6-32.2) pg MCHC (32.2-35.5) g/dL RDW (11.7-14.4) % Plt Count (182-369) x10^3/uL MPV (9.4-12.3) fL Gran % (34.0-71.1) % Immature Gran % (Auto) (0.001-0.429) % Nucleat RBC Rel Count (0.00-0.2) % Eos # (Auto) (0.04-0.36) x10^3/uL Immature Gran # (Auto) (0.001-0.031) x10^3u/L Absolute Lymphs (auto) (1.18-3.74) x10^3/uL Absolute Monos (auto) (0.24-0.86) x10^3/uL Absolute Nucleated RBC (0.00-0.012) x10^3u/L Lymphocytes % (19.3-51.7) % Monocytes % (4.7-12.5) % Eosinophils % (0.7-5.8) % Basophils % (0.1-1.2) % Absolute Granulocytes (1.56-6.13) x10^3/uL Basophils # (0.01-0.08) x10^3/uL D-Dimer (0.0-0.50) mg/L Sodium (135-145) mmol/L Potassium (3.5-5.1) mmol/L Chloride (98-107) mmol/L Carbon Dioxide (22-30) mmol/L Anion Gap (5-15) MEQ/L BUN (7-17) mg/dL Creatinine (0.52-1.04) mg/dL Estimated GFR ML/MIN Glucose (74-106) mg/dL POC Glucometer 592 H* (50 to 500) mg/dL Calcium (8.4-10.2) mg/dL Total Bilirubin (0.2-1.3) mg/dL AST (14-36) U/L ALT (0-35) U/L Alkaline Phosphatase (38-126) U/L Troponin I < 0.012 (0.000-0.033) ng/mL NT-Pro-B Natriuret Pep (<300) pg/mL Serum Total Protein (6.3-8.2) g/dL Albumin (3.5-5.0) g/dL Urine Color Yellow (Yellow) Urine Appearance Clear (Clear) Urine pH 6.5 (4.6-8.0) Ur Specific Addison 1.020 (1.005-1.030) Urine Protein 30 (Negative) Urine Glucose (UA) >=1000 A (Negative) mg/dL Urine Ketones Negative (Negative) Urine Blood Moderate A (Negative) Urine Nitrite Negative (Negative) Urine Bilirubin Negative (Negative) Urine Urobilinogen 0.2 (0.2) mg/dL Ur Leukocyte Esterase Moderate A (Negative) U Hyaline Cast (Auto) NONE SEEN (0-2) /LPF Urine Microscopic RBC 0-2 (0-5) /HPF Urine Microscopic WBC 21-50 A (0-5) /HPF Ur Epithelial Cells None Seen (None Seen) /HPF Urine Bacteria Many A (None Seen) /HPF Urine Culture Reflexed YES (NO) Accuchecks Date 08/14/24 Time 19:10 - Radiology Impressions Radiology Exams & Impressions: Radiology Procedures Category Date Time Status CHEST 1 VIEW (PORTABLE) Stat Exams 08/14/24 18:55 Taken Assessment/Plan (1) Chest pain Current Visit: Yes Status: Acute Qualifiers: Chest pain type: unspecified Qualified Code(s): R07.9 - Chest pain, unspecified Assessment & Plan: Likely from persistent N/V, doubt cardiac in origin 1. Admit to hospital 2. Monitor on telemetry 3. Continue ASA 4. Trend troponin 5. Consider echo/stress test Code(s): R07.9 - CHEST PAIN, UNSPECIFIED (2) Acute kidney injury superimposed on chronic kidney disease Current Visit: Yes Status: Acute Assessment & Plan: MARGARITO on CKD stage IIIa (baseline Cr ~ 1.2) likely from prerenal azotemia in setting of ARB/SGLT2 1. Isotonic IVFs 2. Hold ARB/SGLT2/diuretics 3. Check urine lytes, urine creatinine 4. Follow I/Os 5. Watch electrolytes, creatinine closely Code(s): N17.9 - ACUTE KIDNEY FAILURE, UNSPECIFIED; N18.9 - CHRONIC KIDNEY DISEASE, UNSPECIFIED (3) Hyponatremia Current Visit: Yes Status: Acute Assessment & Plan: Likely a combination of hypovolemia and elevated blood sugars (pseudo- hyponatremia) 1. Isotonic IVFs 2. Check urine lytes, urine osmo 3. Limit free water 4. Follow I/Os 5. Watch electrolytes closely Code(s): E87.1 - HYPO-OSMOLALITY AND HYPONATREMIA (4) Hyperglycemia due to type 2 diabetes mellitus Current Visit: No Status: Acute Assessment & Plan: Elevated blood sugars without ketoacidosis 1. Continue long acting insulin 2. ADA diet with FSBS qAC/HS 3. SSI 4. Monitor blood sugars Code(s): E11.65 - TYPE 2 DIABETES MELLITUS WITH HYPERGLYCEMIA (5) Hypertensive chronic kidney disease with stage 1 through stage 4 chronic kidney disease, or unspecified chronic kidney disease Current Visit: Yes Status: Acute Assessment & Plan: Blood pressure under good control 1. Continue bp meds 2. Low sodium diet 3. Monitor blood pressure readings Code(s): I12.9 - HYPERTENSIVE CHRONIC KIDNEY DISEASE W STG 1-4/UNSP CHR KDNY (6) Gastroenteritis Current Visit: Yes Status: Acute Assessment & Plan: Family had GI bug about two weeks ago 1. Supportive care 2. Defer antibiotics 3. Anti-emetics, H2 blockers, Imodium prn Code(s): K52.9 - NONINFECTIVE GASTROENTERITIS AND COLITIS, UNSPECIFIED Telemedicine Encounter - Telemedicine Encounter Telemedicine Encounter: "The entirety of this encounter was performed via Telemedicine" This visit was performed using real-time audio and video connection between my location and thepatients locationwith the assistance of a surrogateat the patients location. Written or verbal consent was obtained from the patient/guardian to perform this visit using[employer] technology. Any patient questions regarding the telemedicine interaction were answered.
[2024-08-14] MEDS ORDERED: TYLENOL 325 MG PO PRN (20:26)
[2024-08-14] MEDS ORDERED: MILK OF MAGNESIA 30 ML PO PRN (20:26)
[2024-08-14] MEDS: Sodium Chloride 0.9% 1000 ML 1,000 ML IV SCH (21:28)
[2024-08-14] MEDS: Pepcid 20 MG PO SCH (21:28)
[2024-08-14] MEDS: HUMULIN R SQ PRN (22:44)
[2024-08-14] MEDS: HUMULIN R SQ ONE (22:45)
[2024-08-15] MEDS: Zofran 4 MG/2 ML VIAL IV PRN (01:59)
[2024-08-15 05:23] LABS: BASOPHIL % 0.9 % (0.1-1.2); Eosinophil % 1.8 % (0.7-5.8); Hematocrit 36.7 % (34.1-44.9); Hemoglobin 12.3 g/dL (11.2-15.7); IMMATURE GRAN # 0.15 x10^3u/L (0.001-0.031); IMMATURE GRAN % 1.3 % (0.001-0.429); Lymphocyte (Absolute #) 1.51 x10^3/uL (1.18-3.74); Lymphocytes % 13.3 % (19.3-51.7); Mean Cell Volume 78.9 fL (79.4-94.8); Mean Corpuscular Hemoglobin 26.5 pg (25.6-32.2); Mean Corpuscular Hgb Concent. 33.5 g/dL (32.2-35.5); Mean Platelet Volume 9.8 fL (9.4-12.3); Monocytes % 6.2 % (4.7-12.5); Neutrophil % 76.5 % (34.0-71.1); Platelet Count 506 x10^3/uL (182-369); Red Blood Count 4.65 x10^6/uL (3.93-5.22); Red Cell Distribution Width 14.6 % (11.7-14.4); White Blood Count 11.4 x10^3/uL (3.98-10.04)
--- NOTE | 2024-08-15 05:33 | PCM.NOTE ---
Date and Time: 08/15/24524 Subjective Assessment: Ms. HAGAN is a 48 year old female with a past medical history significant for hypertension, diabetes, cervical cancer status post hysterectomy/urostomy and chronic kidney disease who presented 08/14/24 with complaints of nausea, vomiting and diarrhea for about two weeks culminating in development of substernal chest pain. Her family had the GI bug first and got over it, but she felt as it she got worse. Upon arrival, her blood sugars were markedly elevated associated with a sodium of 124 and creatinine of 1.8. She denies fever/chills. No shortness of breath or palpitations. No dysuria, gross hematuria or urgency. She is seen via telehealth, awake/alert, in no apparent distress. She had noticed her blood sugars going up and tried to increase her insulin but could not get them down. 08/15/24: Met with patient bedside. Endorses improvement of N/V/D. No vomiting today. Requesting soft diet. Blood glucose levels improved. UA with gram negative ID. Ceftriaxone started. Will replenish potassium today. Patient requesting SNF placement for weakness - will look into this. Will consult podiatry for dr titus changes. - Review of Systems Constitutional: Weakness Eyes: No Symptoms Ears, Nose, & Throat: No Symptoms Respiratory: Short Of Breath Cardiac: No Symptoms Abdominal/Gastrointestinal: Nausea Genitourinary Symptoms: No Symptoms Musculoskeletal: No Symptoms Skin: No Symptoms Neurological: No Symptoms Psychological: No Symptoms Endocrine: No Symptoms Hematologic/Lymphatic: No Symptoms Immunological/Allergic: No Symptoms Objective Exam General Appearance: no apparent distress, anxiety Neurologic Exam: alert, oriented x 3, cooperative Skin Exam: normal color Eye Exam: PERRL Ears, Nose, Throat Exam: normal ENT inspection Neck Exam: normal inspection Respiratory Exam: normal breath sounds, lungs clear Cardiovascular Exam: regular rate/rhythm, normal heart sounds Gastrointestinal/Abdomen Exam: soft, normal bowel sounds, other (urostomy) Back Exam: normal inspection Pelvic Exam: deferred Rectal Exam: deferred Objective Data Vital Signs: Vital Signs - 24 hr Temp Pulse Resp BP BP Pulse Ox 08/14/24 23:54 97.6 F 90 13 136/63 92 L 08/14/24 23:25 90 16 93 L 08/14/24 22:17 98.1 F 94 H 16 142/83 95 08/14/24 20:20 95 08/14/24 19:02 98 08/14/24 19:00 91 H 10 L 164/130 08/14/24 18:31 96 H 17 170/79 97 08/14/24 18:01 90 20 98 08/14/24 17:43 95 H 24 144/92 82 L 08/14/24 17:42 94 H 18 138/91 100 08/14/24 17:41 98 08/14/24 15:43 97.2 F 96 H 18 158/93 98 Pain Assessment - Last Documented Pain Intensity 5 Intake and Output: Intake & Output 08/12/24 08/13/24 08/14/24 08/15/24 11:59 11:59 11:59 11:59 Intake Total 788 Output Total 925 Balance -137 Weight 113 kg Lab Results: Lab Results-Last 24 Hours 08/14/24 08/14/24 08/14/24 Range/Units 16:14 16:14 16:14 WBC 12.2 H (3.98-10.04) x10^3/uL RBC 4.89 (3.93-5.22) x10^6/uL Hgb 12.5 (11.2-15.7) g/dL Hct 39.4 (34.1-44.9) % MCV 80.6 (79.4-94.8) fL MCH 25.6 (25.6-32.2) pg MCHC 31.7 L (32.2-35.5) g/dL RDW 14.4 (11.7-14.4) % Plt Count 484 H (182-369) x10^3/uL MPV 9.8 (9.4-12.3) fL Gran % 82.2 H (34.0-71.1) % Immature Gran % (Auto) 2.1 H (0.001-0.429) % Nucleat RBC Rel Count 0.0 (0.00-0.2) % Eos # (Auto) 0.14 (0.04-0.36) x10^3/uL Immature Gran # (Auto) 0.25 H (0.001-0.031) x10^3u/L Absolute Lymphs (auto) 1.10 L (1.18-3.74) x10^3/uL Absolute Monos (auto) 0.56 (0.24-0.86) x10^3/uL Absolute Nucleated RBC 0.00 (0.00-0.012) x10^3u/L Lymphocytes % 9.0 L (19.3-51.7) % Monocytes % 4.6 L (4.7-12.5) % Eosinophils % 1.1 (0.7-5.8) % Basophils % 1.0 (0.1-1.2) % Absolute Granulocytes 10.01 H (1.56-6.13) x10^3/uL Basophils # 0.12 H (0.01-0.08) x10^3/uL D-Dimer 0.56 H (0.0-0.50) mg/L Sodium 124 L (135-145) mmol/L Potassium 4.3 (3.5-5.1) mmol/L Chloride 93 L (98-107) mmol/L Carbon Dioxide 20 L (22-30) mmol/L Anion Gap 15.8 H (5-15) MEQ/L BUN 39 H (7-17) mg/dL Creatinine 1.78 H (0.52-1.04) mg/dL Estimated GFR 34.4 ML/MIN Glucose 741 H* (74-106) mg/dL POC Glucometer (50 to 500) mg/dL Calcium 8.5 (8.4-10.2) mg/dL Total Bilirubin 0.50 (0.2-1.3) mg/dL AST 18 (14-36) U/L ALT 18 (0-35) U/L Alkaline Phosphatase 163 H (38-126) U/L Troponin I (0.000-0.033) ng/mL NT-Pro-B Natriuret Pep 246 (<300) pg/mL Serum Total Protein 6.4 (6.3-8.2) g/dL Albumin 3.4 L (3.5-5.0) g/dL Urine Color (Yellow) Urine Appearance (Clear) Urine pH (4.6-8.0) Ur Specific [place] (1.005-1.030) Urine Protein (Negative) Urine Glucose (UA) (Negative) mg/dL Urine Ketones (Negative) Urine Blood (Negative) Urine Nitrite (Negative) Urine Bilirubin (Negative) Urine Urobilinogen (0.2) mg/dL Ur Leukocyte Esterase (Negative) U Hyaline Cast (Auto) (0-2) /LPF Urine Microscopic RBC (0-5) /HPF Urine Microscopic WBC (0-5) /HPF Ur Epithelial Cells (None Seen) /HPF Urine Bacteria (None Seen) /HPF Urine Culture Reflexed (NO) 08/14/24 08/14/24 08/14/24 Range/Units 16:14 18:52 19:48 WBC (3.98-10.04) x10^3/uL RBC (3.93-5.22) x10^6/uL Hgb (11.2-15.7) g/dL Hct (34.1-44.9) % MCV (79.4-94.8) fL MCH (25.6-32.2) pg MCHC (32.2-35.5) g/dL RDW (11.7-14.4) % Plt Count (182-369) x10^3/uL MPV (9.4-12.3) fL Gran % (34.0-71.1) % Immature Gran % (Auto) (0.001-0.429) % Nucleat RBC Rel Count (0.00-0.2) % Eos # (Auto) (0.04-0.36) x10^3/uL Immature Gran # (Auto) (0.001-0.031) x10^3u/L Absolute Lymphs (auto) (1.18-3.74) x10^3/uL Absolute Monos (auto) (0.24-0.86) x10^3/uL Absolute Nucleated RBC (0.00-0.012) x10^3u/L Lymphocytes % (19.3-51.7) % Monocytes % (4.7-12.5) % Eosinophils % (0.7-5.8) % Basophils % (0.1-1.2) % Absolute Granulocytes (1.56-6.13) x10^3/uL Basophils # (0.01-0.08) x10^3/uL D-Dimer (0.0-0.50) mg/L Sodium (135-145) mmol/L Potassium (3.5-5.1) mmol/L Chloride (98-107) mmol/L Carbon Dioxide (22-30) mmol/L Anion Gap (5-15) MEQ/L BUN (7-17) mg/dL Creatinine (0.52-1.04) mg/dL Estimated GFR ML/MIN Glucose (74-106) mg/dL POC Glucometer 592 H* (50 to 500) mg/dL Calcium (8.4-10.2) mg/dL Total Bilirubin (0.2-1.3) mg/dL AST (14-36) U/L ALT (0-35) U/L Alkaline Phosphatase (38-126) U/L Troponin I < 0.012 (0.000-0.033) ng/mL NT-Pro-B Natriuret Pep (<300) pg/mL Serum Total Protein (6.3-8.2) g/dL Albumin (3.5-5.0) g/dL Urine Color Yellow (Yellow) Urine Appearance Clear (Clear) Urine pH 6.5 (4.6-8.0) Ur Specific [place] 1.020 (1.005-1.030) Urine Protein 30 (Negative) Urine Glucose (UA) >=1000 A (Negative) mg/dL Urine Ketones Negative (Negative) Urine Blood Moderate A (Negative) Urine Nitrite Negative (Negative) Urine Bilirubin Negative (Negative) Urine Urobilinogen 0.2 (0.2) mg/dL Ur Leukocyte Esterase Moderate A (Negative) U Hyaline Cast (Auto) NONE SEEN (0-2) /LPF Urine Microscopic RBC 0-2 (0-5) /HPF Urine Microscopic WBC 21-50 A (0-5) /HPF Ur Epithelial Cells None Seen (None Seen) /HPF Urine Bacteria Many A (None Seen) /HPF Urine Culture Reflexed YES (NO) 08/14/24 08/14/24 08/14/24 Range/Units 19:50 21:24 21:50 WBC (3.98-10.04) x10^3/uL RBC (3.93-5.22) x10^6/uL Hgb (11.2-15.7) g/dL Hct (34.1-44.9) % MCV (79.4-94.8) fL MCH (25.6-32.2) pg MCHC (32.2-35.5) g/dL RDW (11.7-14.4) % Plt Count (182-369) x10^3/uL MPV (9.4-12.3) fL Gran % (34.0-71.1) % Immature Gran % (Auto) (0.001-0.429) % Nucleat RBC Rel Count (0.00-0.2) % Eos # (Auto) (0.04-0.36) x10^3/uL Immature Gran # (Auto) (0.001-0.031) x10^3u/L Absolute Lymphs (auto) (1.18-3.74) x10^3/uL Absolute Monos (auto) (0.24-0.86) x10^3/uL Absolute Nucleated RBC (0.00-0.012) x10^3u/L Lymphocytes % (19.3-51.7) % Monocytes % (4.7-12.5) % Eosinophils % (0.7-5.8) % Basophils % (0.1-1.2) % Absolute Granulocytes (1.56-6.13) x10^3/uL Basophils # (0.01-0.08) x10^3/uL D-Dimer (0.0-0.50) mg/L Sodium (135-145) mmol/L Potassium (3.5-5.1) mmol/L Chloride (98-107) mmol/L Carbon Dioxide (22-30) mmol/L Anion Gap (5-15) MEQ/L BUN (7-17) mg/dL Creatinine (0.52-1.04) mg/dL Estimated GFR ML/MIN Glucose 607 H* (74-106) mg/dL POC Glucometer 574 H* (50 to 500) mg/dL Calcium (8.4-10.2) mg/dL Total Bilirubin (0.2-1.3) mg/dL AST (14-36) U/L ALT (0-35) U/L Alkaline Phosphatase (38-126) U/L Troponin I < 0.012 (0.000-0.033) ng/mL NT-Pro-B Natriuret Pep (<300) pg/mL Serum Total Protein (6.3-8.2) g/dL Albumin (3.5-5.0) g/dL Urine Color (Yellow) Urine Appearance (Clear) Urine pH (4.6-8.0) Ur Specific [place] (1.005-1.030) Urine Protein (Negative) Urine Glucose (UA) (Negative) mg/dL Urine Ketones (Negative) Urine Blood (Negative) Urine Nitrite (Negative) Urine Bilirubin (Negative) Urine Urobilinogen (0.2) mg/dL Ur Leukocyte Esterase (Negative) U Hyaline Cast (Auto) (0-2) /LPF Urine Microscopic RBC (0-5) /HPF Urine Microscopic WBC (0-5) /HPF Ur Epithelial Cells (None Seen) /HPF Urine Bacteria (None Seen) /HPF Urine Culture Reflexed (NO) 08/15/24 08/15/24 Range/Units 00:15 00:51 WBC (3.98-10.04) x10^3/uL RBC (3.93-5.22) x10^6/uL Hgb (11.2-15.7) g/dL Hct (34.1-44.9) % MCV (79.4-94.8) fL MCH (25.6-32.2) pg MCHC (32.2-35.5) g/dL RDW (11.7-14.4) % Plt Count (182-369) x10^3/uL MPV (9.4-12.3) fL Gran % (34.0-71.1) % Immature Gran % (Auto) (0.001-0.429) % Nucleat RBC Rel Count (0.00-0.2) % Eos # (Auto) (0.04-0.36) x10^3/uL Immature Gran # (Auto) (0.001-0.031) x10^3u/L Absolute Lymphs (auto) (1.18-3.74) x10^3/uL Absolute Monos (auto) (0.24-0.86) x10^3/uL Absolute Nucleated RBC (0.00-0.012) x10^3u/L Lymphocytes % (19.3-51.7) % Monocytes % (4.7-12.5) % Eosinophils % (0.7-5.8) % Basophils % (0.1-1.2) % Absolute Granulocytes (1.56-6.13) x10^3/uL Basophils # (0.01-0.08) x10^3/uL D-Dimer (0.0-0.50) mg/L Sodium (135-145) mmol/L Potassium (3.5-5.1) mmol/L Chloride (98-107) mmol/L Carbon Dioxide (22-30) mmol/L Anion Gap (5-15) MEQ/L BUN (7-17) mg/dL Creatinine (0.52-1.04) mg/dL Estimated GFR ML/MIN Glucose (74-106) mg/dL POC Glucometer 472 H (50 to 500) mg/dL Calcium (8.4-10.2) mg/dL Total Bilirubin (0.2-1.3) mg/dL AST (14-36) U/L ALT (0-35) U/L Alkaline Phosphatase (38-126) U/L Troponin I < 0.012 (0.000-0.033) ng/mL NT-Pro-B Natriuret Pep (<300) pg/mL Serum Total Protein (6.3-8.2) g/dL Albumin (3.5-5.0) g/dL Urine Color (Yellow) Urine Appearance (Clear) Urine pH (4.6-8.0) Ur Specific [place] (1.005-1.030) Urine Protein (Negative) Urine Glucose (UA) (Negative) mg/dL Urine Ketones (Negative) Urine Blood (Negative) Urine Nitrite (Negative) Urine Bilirubin (Negative) Urine Urobilinogen (0.2) mg/dL Ur Leukocyte Esterase (Negative) U Hyaline Cast (Auto) (0-2) /LPF Urine Microscopic RBC (0-5) /HPF Urine Microscopic WBC (0-5) /HPF Ur Epithelial Cells (None Seen) /HPF Urine Bacteria (None Seen) /HPF Urine Culture Reflexed (NO) Radiology Exams: Radiology Procedures Category Date Time Status CHEST 1 VIEW (PORTABLE) Stat Exams 08/14/24 18:55 Taken Assessment/Plan (1) Hyperglycemia due to type 2 diabetes mellitus Current Visit: No Status: Acute Assessment & Plan: -SSI high dose -ADA diet when able - soft diet for now -Lantus -A1c > 14 -Follows with Dr. Rodarte OP Code(s): E11.65 - TYPE 2 DIABETES MELLITUS WITH HYPERGLYCEMIA (2) Acute kidney injury superimposed on chronic kidney disease Current Visit: Yes Status: Acute Assessment & Plan: -baseline 1.3-1.5 -Creat reviewed on admission at 1.78 -most likely secondary to hypovolemia -Avoid nephrotoxic agents -monitor renal/lytes daily -IVF Code(s): N17.9 - ACUTE KIDNEY FAILURE, UNSPECIFIED; N18.9 - CHRONIC KIDNEY D ISEASE, UNSPECIFIED (3) Chest pain Current Visit: Yes Status: Acute Qualifiers: Chest pain type: unspecified Qualified Code(s): R07.9 - Chest pain, unspecified Assessment & Plan: Likely from persistent N/V, doubt cardiac in origin -Tele -Trops negative x 3 - Continue ASA 81mg -echo from 06/26/24 IMPRESSION: EF: 52% 1) LOW NORMAL CONTRACTILITY LEFT VENTRICLE. 2) MODERATE CONCENTRIC LEFT VENTRICULAR HYPERTROPHY. 3) POSSIBLE IMPAIRED LEFT VENTRICULAR RELAXATION. 4) MILD MITRAL REGURGITATIOn Cardiac nuclear stress test 07/30/24: Impression: 1. No scintigraphic evidence for pharmacologic induced reversible ischemia. 2. Normal ejection fraction. -mild when coughing Code(s): R07.9 - CHEST PAIN, UNSPECIFIED (4) Gastroenteritis Current Visit: Yes Status: Acute Assessment & Plan: Family had GI bug about two weeks ago -Supportive care - Anti-emetics, H2 blockers, Code(s): K52.9 - NONINFECTIVE GASTROENTERITIS AND COLITIS, UNSPECIFIED (5) Hypertensive chronic kidney disease with stage 1 through stage 4 chronic kidney disease, or unspecified chronic kidney disease Current Visit: Yes Status: Acute Assessment & Plan: Blood pressure under good control -Continue bp meds Code(s): I12.9 - HYPERTENSIVE CHRONIC KIDNEY DISEASE W STG 1-4/UNSP CHR KDNY (6) Hyponatremia Current Visit: Yes Status: Acute Assessment & Plan: Likely a combination of hypovolemia and elevated blood sugars (pseudo-hypona tremia) -IVFs - Check urine lytes, urine osmo - Limit free water -. Follow I/Os Code(s): E87.1 - HYPO-OSMOLALITY AND HYPONATREMIA (7) UTI (urinary tract infection) Current Visit: Yes Status: Acute Assessment & Plan: -UA suspicious for UTI/ ucult with gram - ID will start ceftriaxone - follow culture Code(s): N39.0 - URINARY TRACT INFECTION, SITE NOT SPECIFIED (8) Hypokalemia Current Visit: Yes Status: Acute Assessment & Plan: -Potassium reviewed at 3.0- will replace per protocol -tele VTE: lovenox PPI: protonix Dispo: 1-2 days SNF pending Code(s): E87.6 - HYPOKALEMIA
[2024-08-15 05:43] LABS: ALBUMIN 3.5 g/dL (3.5-5.0); ANION GAP 11.5 MEQ/L (5-15); BILIRUBIN,TOTAL 0.6 mg/dL (0.2-1.3); Calcium 8.5 mg/dL (8.4-10.2); Creatinine 1 1.61 mg/dL (0.52-1.04); EST GLOMERULAR FILTRATION RATE 38.8 ML/MIN; Potassium 3.3 mmol/L (3.5-5.1); Total Protein 6.9 g/dL (6.3-8.2)
[2024-08-15] MEDS: Lantus Insulin SQ SCH (07:32)
[2024-08-15] MEDS: Klor Con PO SCH ×2 (08:05→22:35)
[2024-08-15] MEDS: TYLENOL 325 MG PO PRN (08:10)
--- NOTE | 2024-08-15 08:59 | XRAY ---
Indication: Chest pain. Comparison: June 25, 2024 Portable chest inflated and clear. Heart borderline enlarged. Bony thorax intact again with osteopenia and mild degenerative changes. No new/acute findings.
[2024-08-15] MEDS: ENOXAPARIN SODIUM SQ SCH (09:09)
[2024-08-15] MEDS: XANAX 1 MG PO SCH (09:09)
[2024-08-15] MEDS: Prozac 20 MG PO SCH (09:09)
[2024-08-15] MEDS: Ecotrin 325 MG PO SCH (09:09)
[2024-08-15] MEDS: Protonix 40MG Tablet PO SCH (09:09)
[2024-08-15] MEDS: ROCEPHIN 1 GM / 100 ML NaCl 1 GM/100 ML IVPB IV SCH (09:09)
[2024-08-15] MEDS ORDERED: NON-FORMULARY ITEM (Omeprazole [Omeprazole] 40 MG Capsule.Dr) PO SCH (10:00)
[2024-08-15] MEDS: HUMALOG SQ PRN ×2 (11:42→17:20)
[2024-08-15] MEDS ORDERED: Miralax Powder 17GM PACKET PO PRN (13:48)
[2024-08-15] MEDS ORDERED: PROVENTIL 2.5 MG/3 ML NEB IH PRN (13:48)
[2024-08-15] MEDS ORDERED: Flonase NASAL NS PRN (13:48)
[2024-08-15] MEDS ORDERED: LEVALBUTEROL TARTRATE AD IH PRN (13:48)
[2024-08-15] MEDS ORDERED: MEDICATION INTERVENTION MC SCH (14:15)
[2024-08-15] MEDS: Wellbutrin XL 150 MG PO SCH (14:19)
[2024-08-15] MEDS: FEOSOL 325 MG PO SCH (14:20)
[2024-08-15] MEDS: Cardizem CD PO SCH (14:20)
[2024-08-15] MEDS: Cozaar 50 MG PO SCH (14:20)
[2024-08-15] MEDS: Neurontin PO SCH (14:20)
[2024-08-15] MEDS ORDERED: HUMALOG SQ PRN (16:26)
[2024-08-15] MEDS: HUMALOG SQ SCH (17:20)
[2024-08-15 20:56] LABS: INFLUENZA A NEGATIVE (NEGATIVE); INFLUENZA B NEGATIVE (NEGATIVE); RESPIRATORY SYNCTIAL VIRUS NEGATIVE (NEGATIVE); SARS-CoV-2 Xpert Express NEGATIVE (NEGATIVE)
[2024-08-15] MEDS: SODIUM BICARBONATE PO SCH (22:35)
--- NOTE | 2024-08-16 05:15 | PCM.NOTE ---
Date and Time: 08/16/24 0514 Subjective Assessment: Ms. HAGAN is a 48 year old female with a past medical history significant for hypertension, diabetes, cervical cancer status post hysterectomy/urostomy and chronic kidney disease who presented 08/14/24 with complaints of nausea, vomiting and diarrhea for about two weeks culminating in development of substernal chest pain. Her family had the GI bug first and got over it, but she felt as it she got worse. Upon arrival, her blood sugars were markedly elevated associated with a sodium of 124 and creatinine of 1.8. She denies fever/chills. No shortness of breath or palpitations. No dysuria, gross hematuria or urgency. She had noticed her blood sugars going up and tried to increase her insulin but could not get them down. Ucult positive for klebsiella with sensitivity to ceftriaxone. IP treatment with Ceftriaxone. 08/15/24: Met with patient bedside. Endorses improvement of N/V/D. No vomiting today. Re questing soft diet. Blood glucose levels improved. UA with gram negative ID. Ceftriaxone started. Will replenish potassium today. Patient requesting SNF placement for weakness - CM will look into this. Will consult podiatry for dressing changes. 08/16/24: Met with patient bedside. Feeling better today. No N/V/D overnight. Still having burning in the epigastric region and reported trouble swallowing which has been going on for some time. States she feels like something is in her throat. Lab findings with elevated creat above baseline and blood sugars. Plan to continue abx, IVF, and dose adjust insulins. ST eval with modified barium for dysphagia. - Review of Systems Constitutional: Weakness Eyes: No Symptoms Ears, Nose, & Throat: Other (dysphagia) Respiratory: No Symptoms Cardiac: No Symptoms Abdominal/Gastrointestinal: Other (burning epigastric) Genitourinary Symptoms: Other (urostomy) Musculoskeletal: No Symptoms Skin: No Symptoms Neurological: No Symptoms Psychological: No Symptoms Endocrine: No Symptoms Hematologic/Lymphatic: No Symptoms Immunological/Allergic: No Symptoms Objective Exam General Appearance: no apparent distress Neurologic Exam: alert, oriented x 3, cooperative Skin Exam: normal color, other (BLE with compression dressings) Eye Exam: PERRL Ears, Nose, Throat Exam: normal ENT inspection Neck Exam: normal inspection Respiratory Exam: normal breath sounds, lungs clear Cardiovascular Exam: regular rate/rhythm, normal heart sounds Gastrointestinal/Abdomen Exam: soft, normal bowel sounds, other (urostomy) Extremity Exam: normal inspection, other (BLE wrapped with compression dressing) Back Exam: normal inspection Pelvic Exam: deferred Rectal Exam: deferred Objective Data Vital Signs: Vital Signs - 24 hr Temp Pulse Resp BP Pulse Ox 08/16/24 04:00 97.9 F 82 18 119/58 96 08/15/24 23:34 97.3 F 80 19 104/51 96 08/15/24 20:00 98.5 F 83 20 108/52 96 08/15/24 19:03 82 14 91 L 08/15/24 16:00 97.3 F 96 H 17 131/62 99 08/15/24 11:52 97.4 F 82 17 115/56 97 08/15/24 07:49 97.1 F 83 17 107/61 96 08/15/24 07:33 80 14 94 L Pain Assessment - Last Documented Pain Intensity 0 Pain Scale Used 0-10 Pain Scale Intake and Output: Intake & Output 08/13/24 08/14/24 08/15/24 08/16/24 11:59 11:59 11:59 11:59 Intake Total 788 3732 Output Total 925 1000 Balance -137 2732 Weight 113 kg Lab Results: Lab Results-Last 24 Hours 08/15/24 08/15/24 08/15/24 Range/Units 05:12 05:12 05:12 WBC 11.4 H (3.98-10.04) x10^3/uL RBC 4.65 (3.93-5.22) x10^6/uL Hgb 12.3 (11.2-15.7) g/dL Hct 36.7 (34.1-44.9) % MCV 78.9 L (79.4-94.8) fL MCH 26.5 (25.6-32.2) pg MCHC 33.5 (32.2-35.5) g/dL RDW 14.6 H (11.7-14.4) % Plt Count 506 H (182-369) x10^3/uL MPV 9.8 (9.4-12.3) fL Gran % 76.5 H (34.0-71.1) % Immature Gran % (Auto) 1.3 H (0.001-0.429) % Nucleat RBC Rel Count 0.0 (0.00-0.2) % Eos # (Auto) 0.20 (0.04-0.36) x10^3/uL Immature Gran # (Auto) 0.15 H (0.001-0.031) x10^3u/L Absolute Lymphs (auto) 1.51 (1.18-3.74) x10^3/uL Absolute Monos (auto) 0.70 (0.24-0.86) x10^3/uL Absolute Nucleated RBC 0.00 (0.00-0.012) x10^3u/L Lymphocytes % 13.3 L (19.3-51.7) % Monocytes % 6.2 (4.7-12.5) % Eosinophils % 1.8 (0.7-5.8) % Basophils % 0.9 (0.1-1.2) % Absolute Granulocytes 8.70 H (1.56-6.13) x10^3/uL Basophils # 0.10 H (0.01-0.08) x10^3/uL Sodium 133 L D (135-145) mmol/L Potassium 3.3 L D (3.5-5.1) mmol/L Chloride 105 D (98-107) mmol/L Carbon Dioxide 19 L (22-30) mmol/L Anion Gap 11.5 (5-15) MEQ/L BUN 38 H (7-17) mg/dL Creatinine 1.61 H (0.52-1.04) mg/dL Estimated GFR 38.8 ML/MIN Glucose 185 H (74-106) mg/dL POC Glucometer (74 to 106) mg/dL Hemoglobin A1c > 14.00 H (4.5-6.0) % Calcium 8.5 (8.4-10.2) mg/dL Magnesium (1.6-2.3) mg/dL Total Bilirubin 0.60 (0.2-1.3) mg/dL AST 22 (14-36) U/L ALT 17 (0-35) U/L Alkaline Phosphatase 123 (38-126) U/L Serum Total Protein 6.9 (6.3-8.2) g/dL Albumin 3.5 (3.5-5.0) g/dL Influenza Type A Ag (NEGATIVE) Influenza Type B Ag (NEGATIVE) RSV (PCR) (NEGATIVE) SARS-CoV-2 (PCR) (NEGATIVE) 08/15/24 08/15/24 08/15/24 Range/Units 05:12 07:34 11:18 WBC (3.98-10.04) x10^3/uL RBC (3.93-5.22) x10^6/uL Hgb (11.2-15.7) g/dL Hct (34.1-44.9) % MCV (79.4-94.8) fL MCH (25.6-32.2) pg MCHC (32.2-35.5) g/dL RDW (11.7-14.4) % Plt Count (182-369) x10^3/uL MPV (9.4-12.3) fL Gran % (34.0-71.1) % Immature Gran % (Auto) (0.001-0.429) % Nucleat RBC Rel Count (0.00-0.2) % Eos # (Auto) (0.04-0.36) x10^3/uL Immature Gran # (Auto) (0.001-0.031) x10^3u/L Absolute Lymphs (auto) (1.18-3.74) x10^3/uL Absolute Monos (auto) (0.24-0.86) x10^3/uL Absolute Nucleated RBC (0.00-0.012) x10^3u/L Lymphocytes % (19.3-51.7) % Monocytes % (4.7-12.5) % Eosinophils % (0.7-5.8) % Basophils % (0.1-1.2) % Absolute Granulocytes (1.56-6.13) x10^3/uL Basophils # (0.01-0.08) x10^3/uL Sodium (135-145) mmol/L Potassium (3.5-5.1) mmol/L Chloride (98-107) mmol/L Carbon Dioxide (22-30) mmol/L Anion Gap (5-15) MEQ/L BUN (7-17) mg/dL Creatinine (0.52-1.04) mg/dL Estimated GFR ML/MIN Glucose (74-106) mg/dL POC Glucometer 111 H 152 H (74 to 106) mg/dL Hemoglobin A1c (4.5-6.0) % Calcium (8.4-10.2) mg/dL Magnesium 1.9 (1.6-2.3) mg/dL Total Bilirubin (0.2-1.3) mg/dL AST (14-36) U/L ALT (0-35) U/L Alkaline Phosphatase (38-126) U/L Serum Total Protein (6.3-8.2) g/dL Albumin (3.5-5.0) g/dL Influenza Type A Ag (NEGATIVE) Influenza Type B Ag (NEGATIVE) RSV (PCR) (NEGATIVE) SARS-CoV-2 (PCR) (NEGATIVE) 08/15/24 08/15/24 08/15/24 Range/Units 11:45 15:33 16:23 WBC (3.98-10.04) x10^3/uL RBC (3.93-5.22) x10^6/uL Hgb (11.2-15.7) g/dL Hct (34.1-44.9) % MCV (79.4-94.8) fL MCH (25.6-32.2) pg MCHC (32.2-35.5) g/dL RDW (11.7-14.4) % Plt Count (182-369) x10^3/uL MPV (9.4-12.3) fL Gran % (34.0-71.1) % Immature Gran % (Auto) (0.001-0.429) % Nucleat RBC Rel Count (0.00-0.2) % Eos # (Auto) (0.04-0.36) x10^3/uL Immature Gran # (Auto) (0.001-0.031) x10^3u/L Absolute Lymphs (auto) (1.18-3.74) x10^3/uL Absolute Monos (auto) (0.24-0.86) x10^3/uL Absolute Nucleated RBC (0.00-0.012) x10^3u/L Lymphocytes % (19.3-51.7) % Monocytes % (4.7-12.5) % Eosinophils % (0.7-5.8) % Basophils % (0.1-1.2) % Absolute Granulocytes (1.56-6.13) x10^3/uL Basophils # (0.01-0.08) x10^3/uL Sodium (135-145) mmol/L Potassium 3.5 3.5 (3.5-5.1) mmol/L Chloride (98-107) mmol/L Carbon Dioxide (22-30) mmol/L Anion Gap (5-15) MEQ/L BUN (7-17) mg/dL Creatinine (0.52-1.04) mg/dL Estimated GFR ML/MIN Glucose (74-106) mg/dL POC Glucometer 420 H (74 to 106) mg/dL Hemoglobin A1c (4.5-6.0) % Calcium (8.4-10.2) mg/dL Magnesium (1.6-2.3) mg/dL Total Bilirubin (0.2-1.3) mg/dL AST (14-36) U/L ALT (0-35) U/L Alkaline Phosphatase (38-126) U/L Serum Total Protein (6.3-8.2) g/dL Albumin (3.5-5.0) g/dL Influenza Type A Ag (NEGATIVE) Influenza Type B Ag (NEGATIVE) RSV (PCR) (NEGATIVE) SARS-CoV-2 (PCR) (NEGATIVE) 08/15/24 08/15/24 Range/Units 19:25 20:55 WBC (3.98-10.04) x10^3/uL RBC (3.93-5.22) x10^6/uL Hgb (11.2-15.7) g/dL Hct (34.1-44.9) % MCV (79.4-94.8) fL MCH (25.6-32.2) pg MCHC (32.2-35.5) g/dL RDW (11.7-14.4) % Plt Count (182-369) x10^3/uL MPV (9.4-12.3) fL Gran % (34.0-71.1) % Immature Gran % (Auto) (0.001-0.429) % Nucleat RBC Rel Count (0.00-0.2) % Eos # (Auto) (0.04-0.36) x10^3/uL Immature Gran # (Auto) (0.001-0.031) x10^3u/L Absolute Lymphs (auto) (1.18-3.74) x10^3/uL Absolute Monos (auto) (0.24-0.86) x10^3/uL Absolute Nucleated RBC (0.00-0.012) x10^3u/L Lymphocytes % (19.3-51.7) % Monocytes % (4.7-12.5) % Eosinophils % (0.7-5.8) % Basophils % (0.1-1.2) % Absolute Granulocytes (1.56-6.13) x10^3/uL Basophils # (0.01-0.08) x10^3/uL Sodium (135-145) mmol/L Potassium (3.5-5.1) mmol/L Chloride (98-107) mmol/L Carbon Dioxide (22-30) mmol/L Anion Gap (5-15) MEQ/L BUN (7-17) mg/dL Creatinine (0.52-1.04) mg/dL Estimated GFR ML/MIN Glucose (74-106) mg/dL POC Glucometer 305 H (74 to 106) mg/dL Hemoglobin A1c (4.5-6.0) % Calcium (8.4-10.2) mg/dL Magnesium (1.6-2.3) mg/dL Total Bilirubin (0.2-1.3) mg/dL AST (14-36) U/L ALT (0-35) U/L Alkaline Phosphatase (38-126) U/L Serum Total Protein (6.3-8.2) g/dL Albumin (3.5-5.0) g/dL Influenza Type A Ag NEGATIVE (NEGATIVE) Influenza Type B Ag NEGATIVE (NEGATIVE) RSV (PCR) NEGATIVE (NEGATIVE) SARS-CoV-2 (PCR) NEGATIVE (NEGATIVE) Radiology Exams: Radiology Procedures Category Date Time Status CHEST 1 VIEW (PORTABLE) Stat Exams 08/14/24 18:55 Completed Assessment/Plan (1) Hyperglycemia due to type 2 diabetes mellitus Current Visit: No Status: Acute Assessment & Plan: -SSI high dose -ADA diet when able - soft diet for now -Lantus -A1c > 14 -Follows with Dr. Rodarte OP 08/16: -added mealtime insulin 25 units -Lantus- may need dose adjusted - patient states recent changes with endo crinologist - will verify with office Code(s): E11.65 - TYPE 2 DIABETES MELLITUS WITH HYPERGLYCEMIA (2) Acute kidney injury superimposed on chronic kidney disease Current Visit: Yes Status: Acute Assessment & Plan: -baseline 1.3-1.5 -Creat reviewed on admission at 1.78 -most likely secondary to hypovolemia -Avoid nephrotoxic agents -monitor renal/lytes daily -IVF 08/16: -Increase IVF to 125 ml -creat reviewed at 2.20 -Hold losartan Code(s): N17.9 - ACUTE KIDNEY FAILURE, UNSPECIFIED; N18.9 - CHRONIC KIDNEY DISEASE, UNSPECIFIED (3) Chest pain Current Visit: Yes Status: Acute Qualifiers: Chest pain type: unspecified Qualified Code(s): R07.9 - Chest pain, unspecified Assessment & Plan: Likely from persistent N/V, doubt cardiac in origin -Tele -Trops negative x 3 - Continue ASA 81mg -echo from 06/26/24 IMPRESSION: EF: 52% 1) LOW NORMAL CONTRACTILITY LEFT VENTRICLE. 2) MODERATE CONCENTRIC LEFT VENTRICULAR HYPERTROPHY. 3) POSSIBLE IMPAIRED LEFT VENTRICULAR RELAXATION. 4) MILD MITRAL REGURGITATIOn Cardiac nuclear stress test 07/30/24: Impression: 1. No scintigraphic evidence for pharmacologic induced reversible ischemia. 2. Normal ejection fraction. -mild when coughing Code(s): R07.9 - CHEST PAIN, UNSPECIFIED (4) Gastroenteritis Current Visit: Yes Status: Acute Assessment & Plan: Family had GI bug about two weeks ago -Supportive care - Anti-emetics, H2 blockers, Code(s): K52.9 - NONINFECTIVE GASTROENTERITIS AND COLITIS, UNSPECIFIED (5) Hypertensive chronic kidney disease with stage 1 through stage 4 chronic kidney disease, or unspecified chronic kidney disease Current Visit: Yes Status: Acute Assessment & Plan: Blood pressure under good control -Continue bp meds Code(s): I12.9 - HYPERTENSIVE CHRONIC KIDNEY DISEASE W STG 1-4/UNSP CHR KDNY (6) Hyponatremia Current Visit: Yes Status: Acute Assessment & Plan: Likely a combination of hypovolemia and elevated blood sugars (pseudo- hyponatremia) -IVFs - Check urine lytes, urine osmo - Limit free water -. Follow I/Os Code(s): E87.1 - HYPO-OSMOLALITY AND HYPONATREMIA (7) UTI (urinary tract infection) Current Visit: Yes Status: Acute Assessment & Plan: -UA suspicious for UTI/ ucult with gram - ID will start ceftriaxone - follow culture 08/16: -Ucult positive for klebsiella- continue ceftriaxone based on sensitivity -WBC reviewed and down-trending 10.2<11.4<12.2 Code(s): N39.0 - URINARY TRACT INFECTION, SITE NOT SPECIFIED (8) Hypokalemia Current Visit: Yes Status: Acute Assessment & Plan: -Potassium reviewed at 3.0- will replace per protocol -tele 08/16: -Resolved Dysphagia -ST eval -modified barium swallow VTE: lovenox PPI: protonix Dispo: 1-2 days SNF pending Code(s): E87.6 - HYPOKALEMIA Code(s): E11.65 - TYPE 2 DIABETES MELLITUS WITH HYPERGLYCEMIA (2) Acute kidney injury superimposed on chronic kidney disease Current Visit: Yes Status: Acute Code(s): N17.9 - ACUTE KIDNEY FAILURE, UNSPECIFIED; N18.9 - CHRONIC KIDNEY DISEASE, UNSPECIFIED (3) Chest pain Current Visit: Yes Status: Acute Qualifiers: Chest pain type: unspecified Qualified Code(s): R07.9 - Chest pain, unspecified Code(s): R07.9 - CHEST PAIN, UNSPECIFIED (4) Gastroenteritis Current Visit: Yes Status: Acute Code(s): K52.9 - NONINFECTIVE GASTROENTERITIS AND COLITIS, UNSPECIFIED (5) Hypertensive chronic kidney disease with stage 1 through stage 4 chronic kidney disease, or unspecified chronic kidney disease Current Visit: Yes Status: Acute Code(s): I12.9 - HYPERTENSIVE CHRONIC KIDNEY DISEASE W STG 1-4/UNSP CHR KDNY (6) Hyponatremia Current Visit: Yes Status: Acute Code(s): E87.1 - HYPO-OSMOLALITY AND HYPONATREMIA (7) UTI (urinary tract infection) Current Visit: Yes Status: Acute Code(s): N39.0 - URINARY TRACT INFECTION, SITE NOT SPECIFIED (8) Hypokalemia Current Visit: Yes Status: Acute Code(s): E87.6 - HYPOKALEMIA (9) Dysphagia Current Visit: Yes Status: Acute Code(s): R13.10 - DYSPHAGIA, UNSPECIFIED
[2024-08-16 05:17] LABS: BASOPHIL % 1.1 % (0.1-1.2); Basophil (Absolute #) 0.11 x10^3/uL (0.01-0.08); Eosinophil % 2.3 % (0.7-5.8); Eosinophil (Absolute #) 0.23 x10^3/uL (0.04-0.36); Hematocrit 36.3 % (34.1-44.9); Hemoglobin 11.5 g/dL (11.2-15.7); IMMATURE GRAN # 0.23 x10^3u/L (0.001-0.031); IMMATURE GRAN % 2.3 % (0.001-0.429); Lymphocyte (Absolute #) 1.62 x10^3/uL (1.18-3.74); Mean Cell Volume 82.5 fL (79.4-94.8); Mean Corpuscular Hemoglobin 26.1 pg (25.6-32.2); Mean Corpuscular Hgb Concent. 31.7 g/dL (32.2-35.5); Mean Platelet Volume 9.8 fL (9.4-12.3); Monocyte (Absolute #) 0.66 x10^3/uL (0.24-0.86); Monocytes % 6.5 % (4.7-12.5); Neutrophil % 71.8 % (34.0-71.1); Platelet Count 428 x10^3/uL (182-369); Red Cell Distribution Width 14.7 % (11.7-14.4); White Blood Count 10.2 x10^3/uL (3.98-10.04)
[2024-08-16 05:46] LABS: ANION GAP 11.5 MEQ/L (5-15); BILIRUBIN,TOTAL 0.3 mg/dL (0.2-1.3); Calcium 7.8 mg/dL (8.4-10.2); Creatinine 1 2.2 mg/dL (0.52-1.04); EST GLOMERULAR FILTRATION RATE 26.7 ML/MIN; Potassium 4.4 mmol/L (3.5-5.1); Total Protein 5.9 g/dL (6.3-8.2)
[2024-08-16] MEDS: PERCOCET TABLET 5/325MG PO PRN (06:48)
[2024-08-16] MEDS: HUMALOG SQ PRN (08:24)
[2024-08-16] MEDS: ECOTRIN 81 MG PO SCH (09:26)
[2024-08-16] MEDS ORDERED: DEXLANSOPRAZOLE 60 MG PO SCH (10:00)
--- NOTE | 2024-08-16 12:19 | XRAY ---
Indication: Dysphagia. Modified barium swallow study performed by the Department of speech therapy with fluoroscopic assistance provided. Patient ingested multiple consistencies of liquids and solids. Full report and recommendations will be reported separately. Approximately 48 seconds fluoroscopy used.
--- NOTE | 2024-08-16 14:57 | PCM.CONS ---
Podiatry HPI - Consult Date of Consultation Date: 08/16/24 Consulting Provider: YUNIER BELL DPM - HPI History of Present Illness: - Denied any s/sx consistent with local/systemic infection - Has been experiencing intermittent sharp pains to the left lower ankle. - Reported that she has been walking barefoot a little while at home - Pain has improved some Medications & Allergies Home Medications: Home Medication List Ferrous Sulfate 325 mg PO TID 11/06/15 [History Confirmed 08/15/24] Insulin Glargine [Lantus Insulin] 95 units SQ BID 11/06/15 [History Confirmed 08/15/24] Acetaminophen [Tylenol Extra Strength] 1,000 mg PO Q6H PRN PRN 08/01/17 [History Confirmed 08/15/24] Fluoxetine HCl 20 mg [Prozac 20 MG] 20 mg PO DAILY 08/06/23 [History Confirmed 08/15/24] Magnesium Oxide 400 mg [Mag-Ox 400] 400 mg PO DAILY 08/06/23 [History Confirmed 08/15/24] Omeprazole 40 mg PO DAILY 08/06/23 [History Confirmed 08/15/24] Furosemide [Lasix] 20 mg PO DAILY 11/01/23 [History Confirmed 08/15/24] ALPRAZolam 1 MG [Xanax 1 mg] 1 mg PO DAILY 3 Days #3 tablet 11/03/23 [Rx Confirmed 08/15/24] Albuterol 2.5 mg/3 ml Neb [Proventil 2.5 mg/3 ml Neb] 1 neb IH Q4HPRN PRN 08/15/24 [History Confirmed 08/15/24] Aspirin EC 81 mg [Ecotrin 81 mg] 81 mg PO DAILY 08/15/24 [History Confirmed 08/15/24] Dexlansoprazole [Dexilant] 60 mg PO DAILY 08/15/24 [History Confirmed 08/15/24] Diltiazem HCl Cd [Cardizem CD ] 240 mg PO DAILY 08/15/24 [History Confirmed 08/15/24] Ergocalciferol (Vitamin D2) [Vitamin D2] 1,250 mcg PO WEEKLY 08/15/24 [History Confirmed 08/15/24] Fluticasone Propionate [Flonase NASAL] 2 spray NS DAILY PRN PRN 08/15/24 [History Confirmed 08/15/24] Gabapentin [Neurontin ] 100 mg PO TID 08/15/24 [History Confirmed 08/15/24] Insulin Lispro [Humalog Kwikpen U-100] 25 unit SQ TIDWMEALS 08/15/24 [History Confirmed 08/15/24] Levalbuterol Tartrate [Xopenex Hfa] 2 puffs IH Q4HPRN PRN 08/15/24 [History Confirmed 08/15/24] Losartan Potassium [Cozaar] 25 mg PO DAILY 08/15/24 [History Confirmed 08/15/24] Ondansetron ODT 4 MG [Zofran Odt 4 mg] 8 mg PO Q6HPRN PRN 08/15/24 [History Confirmed 08/15/24] Oxycodone HCl/Acetaminophen [Oxycodone-Acetaminophen 5-325] 1 each PO Q4HPRN PRN 08/15/24 [History Confirmed 08/15/24] Polyethylene Glycol 3350 17 gm [Miralax Powder 17GM PACKET] 17 gm PO DAILY PRN PRN 08/15/24 [History Confirmed 08/15/24] Potassium Chloride [Klor-Con M20] 20 meq PO BID 08/15/24 [History Confirmed 08/15/24] Sodium Bicarbonate 1,300 mg PO BID 08/15/24 [History Confirmed 08/15/24] buPROPion HCL [Bupropion Xl] 150 mg PO DAILY 08/15/24 [History Confirmed 08/15/24] Allergies/Adverse Reactions: Allergies Allergy/AdvReac Type Severity Reaction Status Date / Time metoprolol Allergy Severe Verified 08/14/24 15:35 adhesive tape Allergy Verified 08/14/24 15:35 latex Allergy Verified 08/14/24 15:35 sulfamethoxazole AdvReac Severe "messes up Verified 08/14/24 15:35 [From Bactrim] my kidneys" trimethoprim [From Bactrim] AdvReac Severe "messes up Verified 08/14/24 15:35 my kidneys" metformin AdvReac Intermediate Verified 08/14/24 15:35 - Past Medical History Past Medical History: Yes Neurological History: Peripheral Neuropathy ENT History: Other Cardiac History: Arrhythmia, High Cholesterol, Hypertension, Other Respiratory History: Bronchitis Endocrine Medical History: Diabetes Type II, Other Musculoskelatal History: Fractures GI Medical History: GERD History: Renal Disease, Other Pyscho-Social History: Depression, Anxiety Reproductive Disorders: Cervical Cancer Comment: CERVICAL CA (CHEMO/RADIATION). REQUIRED UROSTOMY. CHRONIC RENAL FAILURE STAGE 3. WAS EVALUATED BY THORACIC SURGEON DUE TO SPOTS ON LUNG - WAS TOLD DUE TO HISTOPLASMOSIS. F/U WITH THEM 07/25/24. STATES HEART RACES AND HAS BEEN TOLD HAS EARLY STAGES OF CONGESTIVE HEART FAILURE. HX OF RIGHT KNEE ARTHROSCOPY DUE TO MENISCUS TEAR. - Female History Are you now?: No - Past Surgical History Past Surgical History: Yes Neuro Surgical History: No Pertinent History Cardiac History: Other Respiratory Surgery: No Pertinent History GI Surgical History: Cholecystectomy, Hernia Repair Genitourinary Surgical Hx: Kidney Surgery, Other Musculskeletal Surgical Hx: Other Female Surgical History: Hysterectomy, Other Other Surgical History: colonoscopy Jun 2023 "wall was very thin," urostomy, renal stents placed then removed - Social History Smoking Status: Never smoker Exposure to second hand smoke: Yes Alcohol: None Drug Use: none - Social Determinants of Health Will the patient participate in the screening: Yes Do you worry about a steady place to live?: No Do you have any problems with any of the following?: No known problems In the past 12 months,have you had to go without utilities?: Yes Have you or anyone in your house had to go without enough: Yes Transportation Issues: Yes Has anyone in your support network made you feel unsafe?: No Does the patient want assistance with any of the above?: Yes Comment: PATIENT STRUGGLES WITH GROCERIES WHEN SHE HAS APTS IN [place] THAT MONTH Physical Exam - Narrative Narrative Physical Exam: Constitutional: General Appearance: healthy-appearing, NAD, and normal body habitus. Psychiatric: Orientation: oriented to time, place, and person. Mood and Affect: normal mood and affect and active and alert. Cardiovascular System: Arterial Pulses Right: dorsalis pedis normal and posterior tibialis diminished (1+). Edema Right: no edema. Gait and Station: Appearance: no limp, ambulating with no assistive devices, and antalgic gait. Q8 Q7 - 1 Class A Findings Q8 - 2 Class B Findings Q9 - 1 Class B Findings and 2 Class C Findings Class A Findings Non-traumatic amputation of foot or integral skeletal thereof Class B Findings Absent posterior tibial pulse - yes Absent dorsalis pedis pulse Advance trophic changes such as (3 required) - Hair growth decreased - yes - Nail changes - yes - Pigmentary changes (discoloration) - yes - Skin texture (thick, shinny) - Skin color (rubor or redness) Class C Findings - Claudication - Temperature (e.g. cold feet) - Edema - Paresthesias (abnormal spontaneous sensations in feet) - Burning Results - Labs Lab/Micro Results: Lab Results-Last 24 Hours 08/15/24 08/15/24 08/15/24 Range/Units 15:33 16:23 19:25 WBC (3.98-10.04) x10^3/uL RBC (3.93-5.22) x10^6/uL Hgb (11.2-15.7) g/dL Hct (34.1-44.9) % MCV (79.4-94.8) fL MCH (25.6-32.2) pg MCHC (32.2-35.5) g/dL RDW (11.7-14.4) % Plt Count (182-369) x10^3/uL MPV (9.4-12.3) fL Gran % (34.0-71.1) % Immature Gran % (Auto) (0.001-0.429) % Nucleat RBC Rel Count (0.00-0.2) % Eos # (Auto) (0.04-0.36) x10^3/uL Immature Gran # (Auto) (0.001-0.031) x10^3u/L Absolute Lymphs (auto) (1.18-3.74) x10^3/uL Absolute Monos (auto) (0.24-0.86) x10^3/uL Absolute Nucleated RBC (0.00-0.012) x10^3u/L Lymphocytes % (19.3-51.7) % Monocytes % (4.7-12.5) % Eosinophils % (0.7-5.8) % Basophils % (0.1-1.2) % Absolute Granulocytes (1.56-6.13) x10^3/uL Basophils # (0.01-0.08) x10^3/uL Sodium (135-145) mmol/L Potassium 3.5 (3.5-5.1) mmol/L Chloride (98-107) mmol/L Carbon Dioxide (22-30) mmol/L Anion Gap (5-15) MEQ/L BUN (7-17) mg/dL Creatinine (0.52-1.04) mg/dL Estimated GFR ML/MIN Glucose (74-106) mg/dL POC Glucometer 420 H (74 to 106) mg/dL Calcium (8.4-10.2) mg/dL Magnesium (1.6-2.3) mg/dL Total Bilirubin (0.2-1.3) mg/dL AST (14-36) U/L ALT (0-35) U/L Alkaline Phosphatase (38-126) U/L Serum Total Protein (6.3-8.2) g/dL Albumin (3.5-5.0) g/dL Influenza Type A Ag NEGATIVE (NEGATIVE) Influenza Type B Ag NEGATIVE (NEGATIVE) RSV (PCR) NEGATIVE (NEGATIVE) SARS-CoV-2 (PCR) NEGATIVE (NEGATIVE) 08/15/24 08/16/24 08/16/24 Range/Units 20:55 05:07 05:07 WBC 10.2 H (3.98-10.04) x10^3/uL RBC 4.40 (3.93-5.22) x10^6/uL Hgb 11.5 (11.2-15.7) g/dL Hct 36.3 (34.1-44.9) % MCV 82.5 (79.4-94.8) fL MCH 26.1 (25.6-32.2) pg MCHC 31.7 L (32.2-35.5) g/dL RDW 14.7 H (11.7-14.4) % Plt Count 428 H (182-369) x10^3/uL MPV 9.8 (9.4-12.3) fL Gran % 71.8 H (34.0-71.1) % Immature Gran % (Auto) 2.3 H (0.001-0.429) % Nucleat RBC Rel Count 0.0 (0.00-0.2) % Eos # (Auto) 0.23 (0.04-0.36) x10^3/uL Immature Gran # (Auto) 0.23 H (0.001-0.031) x10^3u/L Absolute Lymphs (auto) 1.62 (1.18-3.74) x10^3/uL Absolute Monos (auto) 0.66 (0.24-0.86) x10^3/uL Absolute Nucleated RBC 0.00 (0.00-0.012) x10^3u/L Lymphocytes % 16.0 L (19.3-51.7) % Monocytes % 6.5 (4.7-12.5) % Eosinophils % 2.3 (0.7-5.8) % Basophils % 1.1 (0.1-1.2) % Absolute Granulocytes 7.30 H (1.56-6.13) x10^3/uL Basophils # 0.11 H (0.01-0.08) x10^3/uL Sodium (135-145) mmol/L Potassium (3.5-5.1) mmol/L Chloride (98-107) mmol/L Carbon Dioxide (22-30) mmol/L Anion Gap (5-15) MEQ/L BUN (7-17) mg/dL Creatinine (0.52-1.04) mg/dL Estimated GFR ML/MIN Glucose (74-106) mg/dL POC Glucometer 305 H (74 to 106) mg/dL Calcium (8.4-10.2) mg/dL Magnesium 1.7 (1.6-2.3) mg/dL Total Bilirubin (0.2-1.3) mg/dL AST (14-36) U/L ALT (0-35) U/L Alkaline Phosphatase (38-126) U/L Serum Total Protein (6.3-8.2) g/dL Albumin (3.5-5.0) g/dL Influenza Type A Ag (NEGATIVE) Influenza Type B Ag (NEGATIVE) RSV (PCR) (NEGATIVE) SARS-CoV-2 (PCR) (NEGATIVE) 08/16/24 08/16/24 08/16/24 Range/Units 05:07 07:36 12:09 WBC (3.98-10.04) x10^3/uL RBC (3.93-5.22) x10^6/uL Hgb (11.2-15.7) g/dL Hct (34.1-44.9) % MCV (79.4-94.8) fL MCH (25.6-32.2) pg MCHC (32.2-35.5) g/dL RDW (11.7-14.4) % Plt Count (182-369) x10^3/uL MPV (9.4-12.3) fL Gran % (34.0-71.1) % Immature Gran % (Auto) (0.001-0.429) % Nucleat RBC Rel Count (0.00-0.2) % Eos # (Auto) (0.04-0.36) x10^3/uL Immature Gran # (Auto) (0.001-0.031) x10^3u/L Absolute Lymphs (auto) (1.18-3.74) x10^3/uL Absolute Monos (auto) (0.24-0.86) x10^3/uL Absolute Nucleated RBC (0.00-0.012) x10^3u/L Lymphocytes % (19.3-51.7) % Monocytes % (4.7-12.5) % Eosinophils % (0.7-5.8) % Basophils % (0.1-1.2) % Absolute Granulocytes (1.56-6.13) x10^3/uL Basophils # (0.01-0.08) x10^3/uL Sodium 130 L (135-145) mmol/L Potassium 4.4 D (3.5-5.1) mmol/L Chloride 106 (98-107) mmol/L Carbon Dioxide 17 L (22-30) mmol/L Anion Gap 11.5 (5-15) MEQ/L BUN 46 H (7-17) mg/dL Creatinine 2.20 H (0.52-1.04) mg/dL Estimated GFR 26.7 ML/MIN Glucose 447 H (74-106) mg/dL POC Glucometer 488 H 268 H (74 to 106) mg/dL Calcium 7.8 L (8.4-10.2) mg/dL Magnesium (1.6-2.3) mg/dL Total Bilirubin 0.30 (0.2-1.3) mg/dL AST 15 (14-36) U/L ALT 13 (0-35) U/L Alkaline Phosphatase 130 H (38-126) U/L Serum Total Protein 5.9 L (6.3-8.2) g/dL Albumin 3.0 L (3.5-5.0) g/dL Influenza Type A Ag (NEGATIVE) Influenza Type B Ag (NEGATIVE) RSV (PCR) (NEGATIVE) SARS-CoV-2 (PCR) (NEGATIVE) Microbiology 08/14/24 18:52 Urine Culture - Final Clean Catch Midstream Klebsiella Pneumoniae 08/15/24 Unknown Stool Culture Result 1 - Final Stool Not Reportable Stool Culture Result 2 - Final Not Reportable Stool Culture Result 3 - Final Not Reportable Stool Culture Result 4 - Final Not Reportable Stool Culture Organism Suscept - Final Not Reportable Campylobacter Result 1 - Final Not Reportable Campylobacter Result 2 - Final Not Reportable Campylobactor Result 3 - Final Not Reportable Campylobacter Result 4 - Final Not Reportable Campylobactor Susceptibility - Final Not Reportable Accuchecks Date 08/16/24 Date 08/16/24 Date 08/15/24 Date 08/15/24 Time 12:19 Time 07:51 Time 21:30 Time 16:32 - Radiology Impressions Radiology Exams & Impressions: Radiology Procedures Category Date Time Status CHEST 1 VIEW (PORTABLE) Stat Exams 08/14/24 18:55 Completed MODIFIED BARIUM SWALLOW (RAD) [MODIFIED BARIUM SWALLOW Exams 08/16/24 11:21 Completed EXAM] Urgent Assessment/Plan (1) Left ankle injury Current Visit: No Status: Acute Code(s): S99.912A - UNSPECIFIED INJURY OF LEFT ANKLE, INITIAL ENCOUNTER (2) Displaced trimalleolar fracture of left ankle Current Visit: No Status: Acute Code(s): S82.852A - DISPLACED TRIMALLEOLAR FRACTURE OF LEFT LOWER LEG, INIT (3) Uncontrolled diabetes mellitus Current Visit: No Status: Acute Code(s): COL8289 - (4) Peripheral venous insufficiency Current Visit: No Status: Acute Assessment & Plan: SCD for now. Will replace with Unna boots before d/c Code(s): I87.2 - VENOUS INSUFFICIENCY (CHRONIC) (PERIPHERAL) (5) Left foot drop Current Visit: No Status: Acute Code(s): M21.372 - FOOT DROP, LEFT FOOT (6) Shortness of breath Current Visit: No Status: Acute Code(s): R06.02 - SHORTNESS OF BREATH (7) COPD with exacerbation Current Visit: No Status: Acute Code(s): J44.1 - CHRONIC OBSTRUCTIVE PULMONARY DISEASE W (ACUTE) EXACERBATION
[2024-08-16 18:28] LABS: 027 TOX PROD PRESUMPTIVE NEGATIVE (NEGATIVE); TOXIGENIC C. DIFF ORG NEGATIVE (NEGATIVE)
[2024-08-16] MEDS ORDERED: IMODIUM 2 MG PO PRN (18:47)
[2024-08-17 05:19] LABS: Absolute Neutrophil Ct (ANC) 6.56 x10^3/uL (1.56-6.13); BASOPHIL % 1.1 % (0.1-1.2); Eosinophil % 3.1 % (0.7-5.8); Eosinophil (Absolute #) 0.29 x10^3/uL (0.04-0.36); Hematocrit 36.7 % (34.1-44.9); Hemoglobin 11.4 g/dL (11.2-15.7); IMMATURE GRAN # 0.29 x10^3u/L (0.001-0.031); IMMATURE GRAN % 3.1 % (0.001-0.429); Lymphocyte (Absolute #) 1.53 x10^3/uL (1.18-3.74); Lymphocytes % 16.3 % (19.3-51.7); Mean Cell Volume 82.5 fL (79.4-94.8); Mean Corpuscular Hemoglobin 25.6 pg (25.6-32.2); Mean Corpuscular Hgb Concent. 31.1 g/dL (32.2-35.5); Mean Platelet Volume 9.9 fL (9.4-12.3); Monocytes % 6.4 % (4.7-12.5); Platelet Count 408 x10^3/uL (182-369); Red Blood Count 4.45 x10^6/uL (3.93-5.22); Red Cell Distribution Width 15.3 % (11.7-14.4); White Blood Count 9.4 x10^3/uL (3.98-10.04)
--- NOTE | 2024-08-17 05:22 | PCM.NOTE ---
Date and Time: 08/17/24 0522 Subjective Assessment: Ms. HAGAN is a 48 year old female with a past medical history significant for hypertension, diabetes, cervical cancer status post hysterectomy/urostomy and chronic kidney disease who presented 08/14/24 with complaints of nausea, vomiting and diarrhea for about two weeks culminating in development of substernal chest pain. Her family had the GI bug first and got over it, but she felt as it she got worse. Upon arrival, her blood sugars were markedly elevated associated with a sodium of 124 and creatinine of 1.8. She denies fever/chills. No shortness of breath or palpitations. No dysuria, gross hematuria or urgency. She had noticed her blood sugars going up and tried to increase her insulin but could not get them down. Ucult positive for klebsiella with sensitivity to ceftriaxone. IP treatment with Ceftriaxone. 08/15/24: Met with patient bedside. Endorses improvement of N/V/D. No vomiting today. Re questing soft diet. Blood glucose levels improved. UA with gram negative ID. Ceftriaxone started. Will replenish potassium today. Patient requesting SNF placement for weakness - CM will look into this. Will consult podiatry for dressing changes. 08/16/24: Met with patient bedside. Feeling better today. No N/V/D overnight. Still having burning in the epigastric region and reported trouble swallowing which has been going on for some time. States she feels like something is in her throat. Lab findings with elevated creat above baseline and blood sugars. Plan to continue abx, IVF, and dose adjust insulins. ST eval with modified barium for dysphagia. 08/17/24: Met with patient bedside. Diarrhea overnight. Labs meeting DKA criteria. CO2 level is low today and chronically - patient is on 1300mg sodium bicarb as OP. Will start bicarb drip. DKA protocol with pt to be moved to ICU. Modified barium swallow negative with no changes to diet. Patient states she is feeling better today. - Review of Systems Constitutional: Weakness Eyes: No Symptoms Ears, Nose, & Throat: No Symptoms Respiratory: No Symptoms Cardiac: No Symptoms Abdominal/Gastrointestinal: Abdominal Pain, Nausea, Diarrhea Genitourinary Symptoms: No Symptoms Musculoskeletal: No Symptoms Skin: No Symptoms Neurological: No Symptoms Psychological: No Symptoms Endocrine: No Symptoms Hematologic/Lymphatic: No Symptoms Immunological/Allergic: No Symptoms Objective Exam General Appearance: no apparent distress Neurologic Exam: alert, oriented x 3, cooperative Skin Exam: normal color Eye Exam: PERRL Ears, Nose, Throat Exam: normal ENT inspection Neck Exam: normal inspection Respiratory Exam: normal breath sounds, lungs clear Cardiovascular Exam: regular rate/rhythm, normal heart sounds Gastrointestinal/Abdomen Exam: soft, normal bowel sounds, other (urostomu) Extremity Exam: normal inspection Back Exam: normal inspection Pelvic Exam: deferred Rectal Exam: deferred Objective Data Vital Signs: Vital Signs - 24 hr Temp Pulse Resp BP Pulse Ox 08/17/24 03:46 76 10 L 08/16/24 23:57 97.5 F 67 18 139/70 97 08/16/24 20:00 97.8 F 60 19 95/53 97 08/16/24 19:15 62 18 93 L 08/16/24 16:00 97.3 F 60 17 97/45 97 08/16/24 12:00 97.3 F 70 18 99/54 98 08/16/24 08:00 98.2 F 76 18 128/56 95 08/16/24 07:13 70 16 90 L Pain Assessment - Last Documented Pain Intensity 0 Pain Scale Used 0-10 Pain Scale Intake and Output: Intake & Output 08/14/24 08/15/24 08/16/24 08/17/24 11:59 11:59 11:59 11:59 Intake Total 788 4212 360 Output Total 925 1000 850 Balance -137 3212 -490 Weight 113 kg Lab Results: Lab Results-Last 24 Hours 08/15/24 08/15/24 08/16/24 Range/Units 05:12 15:37 05:07 WBC (3.98-10.04) x10^3/uL RBC (3.93-5.22) x10^6/uL Hgb (11.2-15.7) g/dL Hct (34.1-44.9) % MCV (79.4-94.8) fL MCH (25.6-32.2) pg MCHC (32.2-35.5) g/dL RDW (11.7-14.4) % Plt Count (182-369) x10^3/uL MPV (9.4-12.3) fL Gran % (34.0-71.1) % Immature Gran % (Auto) (0.001-0.429) % Nucleat RBC Rel Count (0.00-0.2) % Eos # (Auto) (0.04-0.36) x10^3/uL Immature Gran # (Auto) (0.001-0.031) x10^3u/L Absolute Lymphs (auto) (1.18-3.74) x10^3/uL Absolute Monos (auto) (0.24-0.86) x10^3/uL Absolute Nucleated RBC (0.00-0.012) x10^3u/L Lymphocytes % (19.3-51.7) % Monocytes % (4.7-12.5) % Eosinophils % (0.7-5.8) % Basophils % (0.1-1.2) % Absolute Granulocytes (1.56-6.13) x10^3/uL Basophils # (0.01-0.08) x10^3/uL Sodium (135-145) mmol/L Potassium (3.5-5.1) mmol/L Chloride (98-107) mmol/L Carbon Dioxide (22-30) mmol/L Anion Gap (5-15) MEQ/L BUN (7-17) mg/dL Creatinine (0.52-1.04) mg/dL Estimated GFR ML/MIN Glucose (74-106) mg/dL POC Glucometer (74 to 106) mg/dL Insulin Level 73.5 H (2.6-24.9) uIU/mL Calcium (8.4-10.2) mg/dL Magnesium 1.7 (1.6-2.3) mg/dL Total Bilirubin (0.2-1.3) mg/dL AST (14-36) U/L ALT (0-35) U/L Alkaline Phosphatase (38-126) U/L Serum Total Protein (6.3-8.2) g/dL Albumin (3.5-5.0) g/dL C. difficile Screen NEGATIVE (NEGATIVE) C.difficile 027-NAP1-B1 PRESUMPTIVE NEGATIVE (NEGATIVE) 08/16/24 08/16/24 08/16/24 Range/Units 05:07 05:07 07:36 WBC 10.2 H (3.98-10.04) x10^3/uL RBC 4.40 (3.93-5.22) x10^6/uL Hgb 11.5 (11.2-15.7) g/dL Hct 36.3 (34.1-44.9) % MCV 82.5 (79.4-94.8) fL MCH 26.1 (25.6-32.2) pg MCHC 31.7 L (32.2-35.5) g/dL RDW 14.7 H (11.7-14.4) % Plt Count 428 H (182-369) x10^3/uL MPV 9.8 (9.4-12.3) fL Gran % 71.8 H (34.0-71.1) % Immature Gran % (Auto) 2.3 H (0.001-0.429) % Nucleat RBC Rel Count 0.0 (0.00-0.2) % Eos # (Auto) 0.23 (0.04-0.36) x10^3/uL Immature Gran # (Auto) 0.23 H (0.001-0.031) x10^3u/L Absolute Lymphs (auto) 1.62 (1.18-3.74) x10^3/uL Absolute Monos (auto) 0.66 (0.24-0.86) x10^3/uL Absolute Nucleated RBC 0.00 (0.00-0.012) x10^3u/L Lymphocytes % 16.0 L (19.3-51.7) % Monocytes % 6.5 (4.7-12.5) % Eosinophils % 2.3 (0.7-5.8) % Basophils % 1.1 (0.1-1.2) % Absolute Granulocytes 7.30 H (1.56-6.13) x10^3/uL Basophils # 0.11 H (0.01-0.08) x10^3/uL Sodium 130 L (135-145) mmol/L Potassium 4.4 D (3.5-5.1) mmol/L Chloride 106 (98-107) mmol/L Carbon Dioxide 17 L (22-30) mmol/L Anion Gap 11.5 (5-15) MEQ/L BUN 46 H (7-17) mg/dL Creatinine 2.20 H (0.52-1.04) mg/dL Estimated GFR 26.7 ML/MIN Glucose 447 H (74-106) mg/dL POC Glucometer 488 H (74 to 106) mg/dL Insulin Level (2.6-24.9) uIU/mL Calcium 7.8 L (8.4-10.2) mg/dL Magnesium (1.6-2.3) mg/dL Total Bilirubin 0.30 (0.2-1.3) mg/dL AST 15 (14-36) U/L ALT 13 (0-35) U/L Alkaline Phosphatase 130 H (38-126) U/L Serum Total Protein 5.9 L (6.3-8.2) g/dL Albumin 3.0 L (3.5-5.0) g/dL C. difficile Screen (NEGATIVE) C.difficile 027-NAP1-B1 (NEGATIVE) 08/16/24 08/16/24 08/16/24 Range/Units 12:09 16:25 20:51 WBC (3.98-10.04) x10^3/uL RBC (3.93-5.22) x10^6/uL Hgb (11.2-15.7) g/dL Hct (34.1-44.9) % MCV (79.4-94.8) fL MCH (25.6-32.2) pg MCHC (32.2-35.5) g/dL RDW (11.7-14.4) % Plt Count (182-369) x10^3/uL MPV (9.4-12.3) fL Gran % (34.0-71.1) % Immature Gran % (Auto) (0.001-0.429) % Nucleat RBC Rel Count (0.00-0.2) % Eos # (Auto) (0.04-0.36) x10^3/uL Immature Gran # (Auto) (0.001-0.031) x10^3u/L Absolute Lymphs (auto) (1.18-3.74) x10^3/uL Absolute Monos (auto) (0.24-0.86) x10^3/uL Absolute Nucleated RBC (0.00-0.012) x10^3u/L Lymphocytes % (19.3-51.7) % Monocytes % (4.7-12.5) % Eosinophils % (0.7-5.8) % Basophils % (0.1-1.2) % Absolute Granulocytes (1.56-6.13) x10^3/uL Basophils # (0.01-0.08) x10^3/uL Sodium (135-145) mmol/L Potassium (3.5-5.1) mmol/L Chloride (98-107) mmol/L Carbon Dioxide (22-30) mmol/L Anion Gap (5-15) MEQ/L BUN (7-17) mg/dL Creatinine (0.52-1.04) mg/dL Estimated GFR ML/MIN Glucose (74-106) mg/dL POC Glucometer 268 H 301 H 270 H (74 to 106) mg/dL Insulin Level (2.6-24.9) uIU/mL Calcium (8.4-10.2) mg/dL Magnesium (1.6-2.3) mg/dL Total Bilirubin (0.2-1.3) mg/dL AST (14-36) U/L ALT (0-35) U/L Alkaline Phosphatase (38-126) U/L Serum Total Protein (6.3-8.2) g/dL Albumin (3.5-5.0) g/dL C. difficile Screen (NEGATIVE) C.difficile 027-NAP1-B1 (NEGATIVE) Radiology Exams: Radiology Procedures Category Date Time Status MODIFIED BARIUM SWALLOW (RAD) [MODIFIED BARIUM SWALLOW Exams 08/16/24 11:21 Completed EXAM] Urgent Multi-Disciplinary Progress Notes: Multi-Disciplinary Progress Notes 08/16/24 15:33 Mod Barium Swallow Note by Apryl#[id number],Veronika Modified Barium Swallow Study ST Modified Barium Swallow Study Start: 08/16/24 13:55 Freq: Status: Complete Protocol: Document 08/16/24 15:22 BM (Rec: 08/16/24 15:30 BM [id number]) E-Sign 08/16/24 15:22 BM Modified Barium Swallow Reason for Assessment Primary Diagnosis R13.13 - DYSPHAGIA, PHARYNGEAL PHASE Treatment Diagnosis #1 R13.13 - DYSPHAGIA, PHARYNGEAL PHASE Reason for Assessment PATIENT REFERRED FOR MBS STUDY BY GAIL FABIAN WITH ADMISSION. PATIENT REPORTED DIFFICULTY SWALLOWING WITH FEELING THAT FOOD GETS STUCK, INDICATING WITH FINGER TO BASE OF NECK. Onset Date 08/16/24 Date of Evaluation/SOC 08/16/24 Past Medical History Neurological History Peripheral Neuropathy ENT History Other Endocrine History Diabetes Type II,Other Respiratory History Bronchitis Cardiac History Arrhythmia,High Cholesterol, Hypertension,Other GI History [PCS.GI] GERD History Renal Disease,Other Femal Reproductive Disorders Cervical Cancer Musculoskelatal History Fractures Pyscho-Social History Depression,Anxiety Other Medical History CERVICAL CA (CHEMO/RADIATION). REQUIRED UROSTOMY. CHRONIC RENAL FAILURE STAGE 3. WAS EVALUATED BY THORACIC SURGEON DUE TO SPOTS ON LUNG - WAS TOLD DUE TO HISTOPLASMOSIS. F/ U WITH THEM 07/25/24. STATES HEART RACES AND HAS BEEN TOLD HAS EARLY STAGES OF CONGESTIVE HEART FAILURE. HX OF RIGHT KNEE ARTHROSCOPY DUE TO MENISCUS TEAR. Past Surgical History Hx Anesthesia Reactions No Hx Malignant Hyperthermia No Neuro Surgical History No Pertinent History ENT Surgical History No Pertinent History Respiratory Surgical History No Pertinent History Cardiac Surgical History Other Gastrointestinal Surgical History Cholecystectomy,Hernia Repair Genitourinary Surgical History Kidney Surgery,Other Female Surgical History Hysterectomy,Other Musculskeletal Surgical Hx Other Pain Assessment Do you have pain on swallowing No Non-verbal signs & symptoms of pain No Modified Barium Swallow View This evaluation was completed to assess the functioning of the oral and pharyngeal phases of swallowing and to determine if the patient is aspirating or at risk for aspiration. Modified Barium Swallow View Lateral View Consistencies Assessed Barium trials included: Thin Liquid via Spoon,Thin Liquid via Cup,Thin Liquid via Straw,[place] Liquid via Spoon ,Thin Honey Liquid via spoon, Honey Liquid via Spoon,Pudding Liquid via spoon,Pureed Food, Paste on a Cookie Aspiration Risk Aspiration Observed No Amount of Aspiration Observed None Patient considered at risk of aspiration No during oral intake Patient is at risk for aspiration Not Applicable Severity of Aspiration Risk None Penetration into Laryngeal Vestibule No Penetration occured with None Reason for aspirational risk: PATIENT DEMONSTRATED NO ASPIRATIONAL RISK DURING THIS MBS STUDY. 8-Point Penetration-Aspiration Scale (Rosenbek) 1.Material does not enter airway Yes Consistency Thin,[place] Thick,Thin Honey, Honey,Pudding,Pureed,Paste on a cookie Method of presentation Teaspoon,Cup,Straw Residue/Retention Residue Observed None Esophageal Function No Impairment (WFL) Other UNABLE TO FULLY ASSESS ESOPHAGEAL FUNCTION DURING THIS MBS STUDY DUE TO MOVEMENT LIMITATIONS BY EQUIPMENT UTILIZED. Assessment of Swallow Phases Oral Phase Labial Closure No Impairment (WFL) Bolus Formation Yes Bolus Control Pooling L/R No Impairment (WFL) Bolus Control under Tongue No Impairment (WFL) Bolus Control Scattered Loss No Impairment (WFL) Mastication Effectiveness No Impairment (WFL) A/P Bolus Propulsion No Impairment (WFL) Premature Spillage into: None A/P Lingual Propulsion Delay No Impairment (WFL) Lingual Movement No Impairment (WFL) Residue Clearing/Sensitivity No Impairment (WFL) Aspiration No Swallow Initiation Delay No Impairment (WFL) Other Oral Phase Observations PATIENT DEMONSTRATED NO ORAL PHASE SWALLOW DEFICITS DURING THIS MBS STUDY. Pharyngeal Phase Base of Tongue Retraction No Impairment (WFL) Epiglottic Coverage No Impairment (WFL) Laryngeal Elevation No Impairment (WFL) Reduced Anterior Laryngeal Movement No Laryngeal Closure No Impairment (WFL) Vallecular Retention Clearing No Impairment (WFL) Pharyn. Wall Residue Clearing No Impairment (WFL) Pyriform Sinus Retention No Impairment (WFL) Penetration No Aspiration No Cricopharyngeal Dysfunction No Cough None Other Pharyngeal Phase Observation PATIENT WITH NO PHARYNGEAL PHASE SWALLOW DEFICITS DURING THIS MBS STUDY. Clinical Interpretation Clinical Interpretation PATIENT WITH FUNCTIONAL SWALLOW WITHOUT DEFICIT. Speech Therapy Teaching Record Teaching Summary Results/Recommendations Learning Preferences Discussion Barriers to Learning None Readiness for Learning Accepting Teaching Methods Discussion,Audiovisual Teaching Recipient Patient Response to Teaching Verbalize understanding ST Recommendations Diet Consistency Regular Liquid Consistency Regular Thin Safe Swallow Compensatory Strategies Compensatory Strategies Upright Position for all meals ,Small bites and drinks, Alternate solids/liquids Medication Instructions Per Patient Preference Rehabilitation Potential: GOOD Additional Comments: PATIENT WITH FUNCTIONAL SWALLOW DURING THIS MBS STUDY. Signatures Speech Therapist Signature DAJUAN, MS, [facility]/OFFICE MESSENGER HELPER Physician Signature DR Mely ARAGON, RADIOLOGIST Electronically signed by Beverley(L#[id number],[facility] on 08/16/24 15:33 Initialized on 08/16/24 15:33 - END OF NOTE 08/16/24 13:27 Case Management Note by Chary Rodriguez REFERRAL FAXED TO [facility]. THEY WILL NEED NOTIFIED OF DC AT [phone]. THEY WILL NEED FAXED THE DC INSTRUCTIONS, DC MED LIST AND DC SUMMARY TO [phone] Initialized on 08/16/24 13:27 - END OF NOTE 08/16/24 13:26 Case Management Note by Chary Rodriguez S/W PATIENT- SHE CONTINUES TO PLAN TO DC HOME AT TIME OF DC. SHE REPORTS SHE HAS S/W HER MOTHER AND THEY ARE GOING TO DO A BATHROOM REMODEL FOR HER TO MAKE IT EASIER FOR HER AT HOME. SHE WOULD LIKE TO HAVE HHC. [facility] SHE DENIES OTHER NEEDS AT THIS TIME. Initialized on 08/16/24 13:26 - END OF NOTE Assessment/Plan (1) Hyperglycemia due to type 2 diabetes mellitus Current Visit: No Status: Acute Assessment & Plan: -SSI high dose -ADA diet when able - soft diet for now -Lantus -A1c > 14 -Follows with Dr. Rodarte OP 08/16: -added mealtime insulin 25 units -Lantus- may need dose adjusted - patient states recent changes with human resources vice president - will verify with office 08/17: -meeting DKA criteria with hyperglycemia, ph level, and low co2 -will initiate DKA protocol and start bicarb drip Code(s): E11.65 - TYPE 2 DIABETES MELLITUS WITH HYPERGLYCEMIA (2) Acute kidney injury superimposed on chronic kidney disease Current Visit: Yes Status: Acute Assessment & Plan: -baseline 1.3-1.5 -Creat reviewed on admission at 1.78 -most likely secondary to hypovolemia -Avoid nephrotoxic agents -monitor renal/lytes daily -IVF 08/16: -Increase IVF to 125 ml -creat reviewed at 2.20 -Hold losartan 08/17: -Creat reviewed and worsening at 2.30 -continue IVF -Bladder scan -continue to hold losartan Code(s): N17.9 - ACUTE KIDNEY FAILURE, UNSPECIFIED; N18.9 - CHRONIC KIDNEY DISEASE, UNSPECIFIED (3) Chest pain Current Visit: Yes Status: Acute Qualifiers: Chest pain type: unspecified Qualified Code(s): R07.9 - Chest pain, unspecified Assessment & Plan: Likely from persistent N/V, doubt cardiac in origin -Tele -Trops negative x 3 - Continue ASA 81mg -echo from 06/26/24 IMPRESSION: EF: 52% 1) LOW NORMAL CONTRACTILITY LEFT VENTRICLE. 2) MODERATE CONCENTRIC LEFT VENTRICULAR HYPERTROPHY. 3) POSSIBLE IMPAIRED LEFT VENTRICULAR RELAXATION. 4) MILD MITRAL REGURGITATIOn Cardiac nuclear stress test 07/30/24: Impression: 1. No scintigraphic evidence for pharmacologic induced reversible ischemia. 2. Normal ejection fraction. -mild when coughing Code(s): R07.9 - CHEST PAIN, UNSPECIFIED (4) Gastroenteritis Current Visit: Yes Status: Acute Assessment & Plan: Family had GI bug about two weeks ago -Supportive care - Anti-emetics, H2 blockers, Code(s): K52.9 - NONINFECTIVE GASTROENTERITIS AND COLITIS, UNSPECIFIED (5) Hypertensive chronic kidney disease with stage 1 through stage 4 chronic kidney disease, or unspecified chronic kidney disease Current Visit: Yes Status: Acute Assessment & Plan: Blood pressure under good control -Continue bp meds Code(s): I12.9 - HYPERTENSIVE CHRONIC KIDNEY DISEASE W STG 1-4/UNSP CHR KDNY (6) Hyponatremia Current Visit: Yes Status: Acute Assessment & Plan: Likely a combination of hypovolemia and elevated blood sugars (pseudo- hyponatremia) -IVFs - Check urine lytes, urine osmo - Limit free water -. Follow I/Os 08/17: -In the setting of hyperglycemia/dehydration -continue IVF Code(s): E87.1 - HYPO-OSMOLALITY AND HYPONATREMIA (7) UTI (urinary tract infection) Current Visit: Yes Status: Acute Assessment & Plan: -UA suspicious for UTI/ ucult with gram - ID will start ceftriaxone - follow culture 08/16: -Ucult positive for klebsiella- continue ceftriaxone based on sensitivity -WBC reviewed and down-trending 10.2<11.4<12.2 -No dysuria reported by patient - with urostomy 08/17: -WBC reviewed and down-trending now wnl at 9.4<10.2 -Continue ceftriaxone Code(s): N39.0 - URINARY TRACT INFECTION, SITE NOT SPECIFIED (8) Hypokalemia Current Visit: Yes Status: Acute Assessment & Plan: -Potassium reviewed at 3.0- will replace per protocol -tele 08/16: -Resolved Dysphagia -ST eval -modified barium swallow 08/17: -Barium swallow reviewed with functional swallow without deficit. ST recommendation of regular diet for compensatory strategies VTE: lovenox PPI: protonix Dispo: 1-2 days SNF pending Code(s): E87.6 - HYPOKALEMIA Code(s): E11.65 - TYPE 2 DIABETES MELLITUS WITH HYPERGLYCEMIA (2) Acute kidney injury superimposed on chronic kidney disease Current Visit: Yes Status: Acute Code(s): N17.9 - ACUTE KIDNEY FAILURE, UNSPECIFIED; N18.9 - CHRONIC KIDNEY DISEASE, UNSPECIFIED (3) Chest pain Current Visit: Yes Status: Acute Qualifiers: Chest pain type: unspecified Qualified Code(s): R07.9 - Chest pain, unspecified Code(s): R07.9 - CHEST PAIN, UNSPECIFIED (4) Gastroenteritis Current Visit: Yes Status: Acute Code(s): K52.9 - NONINFECTIVE GASTROENTERITIS AND COLITIS, UNSPECIFIED (5) Hypertensive chronic kidney disease with stage 1 through stage 4 chronic kidney disease, or unspecified chronic kidney disease Current Visit: Yes Status: Acute Code(s): I12.9 - HYPERTENSIVE CHRONIC KIDNEY DISEASE W STG 1-4/UNSP CHR KDNY (6) Hyponatremia Current Visit: Yes Status: Acute Code(s): E87.1 - HYPO-OSMOLALITY AND HYPONATREMIA (7) UTI (urinary tract infection) Current Visit: Yes Status: Acute Code(s): N39.0 - URINARY TRACT INFECTION, SITE NOT SPECIFIED (8) Hypokalemia Current Visit: Yes Status: Acute Code(s): E87.6 - HYPOKALEMIA (9) Dysphagia Current Visit: Yes Status: Acute Code(s): R13.10 - DYSPHAGIA, UNSPECIFIED (10) DKA (diabetic ketoacidosis) Current Visit: Yes Status: Acute Code(s): E11.10 - TYPE 2 DIABETES MELLITUS WITH KETOACIDOSIS WITHOUT COMA
[2024-08-17 05:50] LABS: ALBUMIN 3.1 g/dL (3.5-5.0); ANION GAP 14.4 MEQ/L (5-15); BILIRUBIN,TOTAL 0.3 mg/dL (0.2-1.3); Calcium 7.9 mg/dL (8.4-10.2); Creatinine 1 2.3 mg/dL (0.52-1.04); EST GLOMERULAR FILTRATION RATE 25.3 ML/MIN; Potassium 4.7 mmol/L (3.5-5.1); Total Protein 6.3 g/dL (6.3-8.2)
[2024-08-17 06:53] LABS: A-aADO2 14; ABG HEMOGLOBIN 11.1; ABG POTASSIUM 4.7 (3.5-5.1); ARTERIAL BLD GAS O2 SATURATION 98.7 % (95-100); ARTERIAL BLOOD GAS FIO2 21 %; ARTERIAL BLOOD GAS PCO2 39 mmHg (35-45); ARTERIAL BLOOD GAS PO2 87 mmHg (75-100); CARBOXYHEMOGLOBIN 1.3 % THgb (0.0-6.9); HGB O2 SAT 96.6 g/dF (94-100); Methhemoglobin 0.8 % (1.4-1.5); paO2 pAO1 0.86
[2024-08-17 06:54] LABS: ABG SITE LEFT RADIAL; ALLEN TEST OK? YES; ARTERIAL BLOOD GAS pH 7.22 (7.35-7.45)
[2024-08-17] MEDS ORDERED: HUMULIN R SQ PRN (07:39)
[2024-08-17 09:47] LABS: ANION GAP 11.8 MEQ/L (5-15); Calcium 7.8 mg/dL (8.4-10.2); Creatinine 1 2.18 mg/dL (0.52-1.04); EST GLOMERULAR FILTRATION RATE 26.9 ML/MIN; MAGNESIUM 1.6 mg/dL (1.6-2.3); Potassium 4.6 mmol/L (3.5-5.1)
[2024-08-17] MEDS: HUMULIN R IV ONE (09:57)
[2024-08-17] MEDS: MYXREDLIN 100 UNIT/100 ML BAG 100 UNIT/100 ML PLAST..BAG IV PRN (10:07)
[2024-08-17] MEDS: Sodium Chloride 0.9% 1000 ML 1,000 ML IV SCH (10:29)
[2024-08-17] MEDS: Sodium Chloride 0.9% 1000 ML 1,000 ML IV STA (10:40)
--- NOTE | 2024-08-17 10:43 | PCM.NOTE ---
Date and Time: 08/17/24 1041 Subjective Assessment: Georgiana is a pleasant 48-year-old female that is currently admitted at [facility] in the ICU for DKA. At this time her swelling is progressing well. She did wear SCDs to bilateral lower extremities throughout the night and into the morning and reported no complaints. At this time she denies any signs or symptoms consistent with local or systemic infection. Physical Exam - Narrative Narrative Physical Exam: Physical exam reveals +1 edema bilateral pedal, +2 edema bilateral pretibial, and no open wounds. There is dry scaling skin to the anterior left mid tibia. Objective Data Vital Signs: Vital Signs - 24 hr Temp Pulse Resp BP Pulse Ox 08/17/24 08:00 97.9 F 76 20 139/74 98 08/17/24 07:30 76 16 97 08/17/24 03:46 76 10 L 08/16/24 23:57 97.5 F 67 18 139/70 97 08/16/24 20:00 97.8 F 60 19 95/53 97 08/16/24 19:15 62 18 93 L 08/16/24 16:00 97.3 F 60 17 97/45 97 08/16/24 12:00 97.3 F 70 18 99/54 98 Pain Assessment - Last Documented Pain Intensity 0 Pain Scale Used 0-10 Pain Scale Intake and Output: Intake & Output 08/14/24 08/15/24 08/16/24 08/17/24 11:59 11:59 11:59 11:59 Intake Total 788 4212 600 Output Total 925 1000 1150 Balance -137 3212 -550 Weight 113 kg Lab Results: Lab Results-Last 24 Hours 08/15/24 08/15/24 08/16/24 Range/Units 05:12 15:37 12:09 WBC (3.98-10.04) x10^3/uL RBC (3.93-5.22) x10^6/uL Hgb (11.2-15.7) g/dL Hct (34.1-44.9) % MCV (79.4-94.8) fL MCH (25.6-32.2) pg MCHC (32.2-35.5) g/dL RDW (11.7-14.4) % Plt Count (182-369) x10^3/uL MPV (9.4-12.3) fL Gran % (34.0-71.1) % Immature Gran % (Auto) (0.001-0.429) % Nucleat RBC Rel Count (0.00-0.2) % Eos # (Auto) (0.04-0.36) x10^3/uL Immature Gran # (Auto) (0.001-0.031) x10^3u/L Absolute Lymphs (auto) (1.18-3.74) x10^3/uL Absolute Monos (auto) (0.24-0.86) x10^3/uL Absolute Nucleated RBC (0.00-0.012) x10^3u/L Lymphocytes % (19.3-51.7) % Monocytes % (4.7-12.5) % Eosinophils % (0.7-5.8) % Basophils % (0.1-1.2) % Absolute Granulocytes (1.56-6.13) x10^3/uL Basophils # (0.01-0.08) x10^3/uL Puncture Site pCO2 (35-45) mmHg pO2 (75-100) mmHg Base Excess (-2.0-2.0) O2 Saturation (94-100) g/dF ABG pH (7.35-7.45) ABG HCO3 (22-28) ABG O2 Sat (Measured) (95-100) % Rico Test A-a Gradient a/A Ratio Hemoglobin Carboxyhemoglobin (0.0-6.9) % THgb Methemoglobin (1.4-1.5) % Temperature C POC O2 Flow Rate % Sodium (135-145) mmol/L Potassium (3.5-5.1) mmol/L Chloride (98-107) mmol/L Carbon Dioxide (22-30) mmol/L Anion Gap (5-15) MEQ/L BUN (7-17) mg/dL Creatinine (0.52-1.04) mg/dL Estimated GFR ML/MIN Glucose (74-106) mg/dL POC Glucometer 268 H (74 to 106) mg/dL Insulin Level 73.5 H (2.6-24.9) uIU/mL Calcium (8.4-10.2) mg/dL Phosphorus (2.5-4.5) mg/dL Magnesium (1.6-2.3) mg/dL Total Bilirubin (0.2-1.3) mg/dL AST (14-36) U/L ALT (0-35) U/L Alkaline Phosphatase (38-126) U/L Serum Total Protein (6.3-8.2) g/dL Albumin (3.5-5.0) g/dL C. difficile Screen NEGATIVE (NEGATIVE) C.difficile 027-NAP1-B1 PRESUMPTIVE NEGATIVE (NEGATIVE) 08/16/24 08/16/24 08/17/24 Range/Units 16:25 20:51 05:12 WBC 9.4 (3.98-10.04) x10^3/uL RBC 4.45 (3.93-5.22) x10^6/uL Hgb 11.4 (11.2-15.7) g/dL Hct 36.7 (34.1-44.9) % MCV 82.5 (79.4-94.8) fL MCH 25.6 (25.6-32.2) pg MCHC 31.1 L (32.2-35.5) g/dL RDW 15.3 H (11.7-14.4) % Plt Count 408 H (182-369) x10^3/uL MPV 9.9 (9.4-12.3) fL Gran % 70.0 (34.0-71.1) % Immature Gran % (Auto) 3.1 H (0.001-0.429) % Nucleat RBC Rel Count 0.0 (0.00-0.2) % Eos # (Auto) 0.29 (0.04-0.36) x10^3/uL Immature Gran # (Auto) 0.29 H (0.001-0.031) x10^3u/L Absolute Lymphs (auto) 1.53 (1.18-3.74) x10^3/uL Absolute Monos (auto) 0.60 (0.24-0.86) x10^3/uL Absolute Nucleated RBC 0.00 (0.00-0.012) x10^3u/L Lymphocytes % 16.3 L (19.3-51.7) % Monocytes % 6.4 (4.7-12.5) % Eosinophils % 3.1 (0.7-5.8) % Basophils % 1.1 (0.1-1.2) % Absolute Granulocytes 6.56 H (1.56-6.13) x10^3/uL Basophils # 0.10 H (0.01-0.08) x10^3/uL Puncture Site pCO2 (35-45) mmHg pO2 (75-100) mmHg Base Excess (-2.0-2.0) O2 Saturation (94-100) g/dF ABG pH (7.35-7.45) ABG HCO3 (22-28) ABG O2 Sat (Measured) (95-100) % Rico Test A-a Gradient a/A Ratio Hemoglobin Carboxyhemoglobin (0.0-6.9) % THgb Methemoglobin (1.4-1.5) % Temperature C POC O2 Flow Rate % Sodium (135-145) mmol/L Potassium (3.5-5.1) mmol/L Chloride (98-107) mmol/L Carbon Dioxide (22-30) mmol/L Anion Gap (5-15) MEQ/L BUN (7-17) mg/dL Creatinine (0.52-1.04) mg/dL Estimated GFR ML/MIN Glucose (74-106) mg/dL POC Glucometer 301 H 270 H (74 to 106) mg/dL Insulin Level (2.6-24.9) uIU/mL Calcium (8.4-10.2) mg/dL Phosphorus (2.5-4.5) mg/dL Magnesium (1.6-2.3) mg/dL Total Bilirubin (0.2-1.3) mg/dL AST (14-36) U/L ALT (0-35) U/L Alkaline Phosphatase (38-126) U/L Serum Total Protein (6.3-8.2) g/dL Albumin (3.5-5.0) g/dL C. difficile Screen (NEGATIVE) C.difficile 027-NAP1-B1 (NEGATIVE) 08/17/24 08/17/24 08/17/24 Range/Units 05:12 06:45 07:12 WBC (3.98-10.04) x10^3/uL RBC (3.93-5.22) x10^6/uL Hgb (11.2-15.7) g/dL Hct (34.1-44.9) % MCV (79.4-94.8) fL MCH (25.6-32.2) pg MCHC (32.2-35.5) g/dL RDW (11.7-14.4) % Plt Count (182-369) x10^3/uL MPV (9.4-12.3) fL Gran % (34.0-71.1) % Immature Gran % (Auto) (0.001-0.429) % Nucleat RBC Rel Count (0.00-0.2) % Eos # (Auto) (0.04-0.36) x10^3/uL Immature Gran # (Auto) (0.001-0.031) x10^3u/L Absolute Lymphs (auto) (1.18-3.74) x10^3/uL Absolute Monos (auto) (0.24-0.86) x10^3/uL Absolute Nucleated RBC (0.00-0.012) x10^3u/L Lymphocytes % (19.3-51.7) % Monocytes % (4.7-12.5) % Eosinophils % (0.7-5.8) % Basophils % (0.1-1.2) % Absolute Granulocytes (1.56-6.13) x10^3/uL Basophils # (0.01-0.08) x10^3/uL Puncture Site LEFT RADIAL pCO2 39 (35-45) mmHg pO2 87 (75-100) mmHg Base Excess -11.0 L (-2.0-2.0) O2 Saturation 96.6 (94-100) g/dF ABG pH 7.22 L* (7.35-7.45) ABG HCO3 16.0 L* (22-28) ABG O2 Sat (Measured) 98.7 (95-100) % Rico Test YES A-a Gradient 14 a/A Ratio 0.86 Hemoglobin 11.1 Carboxyhemoglobin 1.3 (0.0-6.9) % THgb Methemoglobin 0.8 L (1.4-1.5) % Temperature 37.0 C POC O2 Flow Rate 21 % Sodium 133 L (135-145) mmol/L Potassium 4.7 4.7 (3.5-5.1) mmol/L Chloride 110 H (98-107) mmol/L Carbon Dioxide 13 L* (22-30) mmol/L Anion Gap 14.4 (5-15) MEQ/L BUN 49 H (7-17) mg/dL Creatinine 2.30 H (0.52-1.04) mg/dL Estimated GFR 25.3 ML/MIN Glucose 339 H (74-106) mg/dL POC Glucometer 331 H (74 to 106) mg/dL Insulin Level (2.6-24.9) uIU/mL Calcium 7.9 L (8.4-10.2) mg/dL Phosphorus (2.5-4.5) mg/dL Magnesium (1.6-2.3) mg/dL Total Bilirubin 0.30 (0.2-1.3) mg/dL AST 19 (14-36) U/L ALT 13 (0-35) U/L Alkaline Phosphatase 112 (38-126) U/L Serum Total Protein 6.3 (6.3-8.2) g/dL Albumin 3.1 L (3.5-5.0) g/dL C. difficile Screen (NEGATIVE) C.difficile 027-NAP1-B1 (NEGATIVE) 08/17/24 08/17/24 08/17/24 Range/Units 09:31 09:33 10:24 WBC (3.98-10.04) x10^3/uL RBC (3.93-5.22) x10^6/uL Hgb (11.2-15.7) g/dL Hct (34.1-44.9) % MCV (79.4-94.8) fL MCH (25.6-32.2) pg MCHC (32.2-35.5) g/dL RDW (11.7-14.4) % Plt Count (182-369) x10^3/uL MPV (9.4-12.3) fL Gran % (34.0-71.1) % Immature Gran % (Auto) (0.001-0.429) % Nucleat RBC Rel Count (0.00-0.2) % Eos # (Auto) (0.04-0.36) x10^3/uL Immature Gran # (Auto) (0.001-0.031) x10^3u/L Absolute Lymphs (auto) (1.18-3.74) x10^3/uL Absolute Monos (auto) (0.24-0.86) x10^3/uL Absolute Nucleated RBC (0.00-0.012) x10^3u/L Lymphocytes % (19.3-51.7) % Monocytes % (4.7-12.5) % Eosinophils % (0.7-5.8) % Basophils % (0.1-1.2) % Absolute Granulocytes (1.56-6.13) x10^3/uL Basophils # (0.01-0.08) x10^3/uL Puncture Site pCO2 (35-45) mmHg pO2 (75-100) mmHg Base Excess (-2.0-2.0) O2 Saturation (94-100) g/dF ABG pH (7.35-7.45) ABG HCO3 (22-28) ABG O2 Sat (Measured) (95-100) % Rico Test A-a Gradient a/A Ratio Hemoglobin Carboxyhemoglobin (0.0-6.9) % THgb Methemoglobin (1.4-1.5) % Temperature C POC O2 Flow Rate % Sodium 131 L (135-145) mmol/L Potassium 4.6 (3.5-5.1) mmol/L Chloride 112 H (98-107) mmol/L Carbon Dioxide 12 L* (22-30) mmol/L Anion Gap 11.8 (5-15) MEQ/L BUN 48 H (7-17) mg/dL Creatinine 2.18 H (0.52-1.04) mg/dL Estimated GFR 26.9 ML/MIN Glucose 336 H (74-106) mg/dL POC Glucometer 313 H 283 H (74 to 106) mg/dL Insulin Level (2.6-24.9) uIU/mL Calcium 7.8 L (8.4-10.2) mg/dL Phosphorus 3.0 (2.5-4.5) mg/dL Magnesium 1.6 (1.6-2.3) mg/dL Total Bilirubin (0.2-1.3) mg/dL AST (14-36) U/L ALT (0-35) U/L Alkaline Phosphatase (38-126) U/L Serum Total Protein (6.3-8.2) g/dL Albumin (3.5-5.0) g/dL C. difficile Screen (NEGATIVE) C.difficile 027-NAP1-B1 (NEGATIVE) Radiology Exams: Radiology Procedures Category Date Time Status MODIFIED BARIUM SWALLOW (RAD) [MODIFIED BARIUM SWALLOW Exams 08/16/24 11:21 Completed EXAM] Urgent Multi-Disciplinary Progress Notes: Multi-Disciplinary Progress Notes 08/16/24 15:33 Mod Barium Swallow Note by Apryl#[id number] Modified Barium Swallow Study ST Modified Barium Swallow Study Start: 08/16/24 13:55 Freq: Status: Complete Protocol: Document 08/16/24 15:22 BM (Rec: 08/16/24 15:30 BM [id number]) E-Sign 08/16/24 15:22 BM Modified Barium Swallow Reason for Assessment Primary Diagnosis R13.13 - DYSPHAGIA, PHARYNGEAL PHASE Treatment Diagnosis #1 R13.13 - DYSPHAGIA, PHARYNGEAL PHASE Reason for Assessment PATIENT REFERRED FOR MBS STUDY BY [facility] WITH ADMISSION. PATIENT REPORTED DIFFICULTY SWALLOWING WITH FEELING THAT FOOD GETS STUCK, INDICATING WITH FINGER TO BASE OF NECK. Onset Date 08/16/24 Date of Evaluation/SOC 08/16/24 Past Medical History Neurological History Peripheral Neuropathy ENT History Other Endocrine History Diabetes Type II,Other Respiratory History Bronchitis Cardiac History Arrhythmia,High Cholesterol, Hypertension,Other GI History [PCS.GI] GERD History Renal Disease,Other Femal Reproductive Disorders Cervical Cancer Musculoskelatal History Fractures Pyscho-Social History Depression,Anxiety Other Medical History CERVICAL CA (CHEMO/RADIATION). REQUIRED UROSTOMY. CHRONIC RENAL FAILURE STAGE 3. WAS EVALUATED BY THORACIC SURGEON DUE TO SPOTS ON LUNG - WAS TOLD DUE TO HISTOPLASMOSIS. F/ U WITH THEM 07/25/24. [place] AND HAS BEEN TOLD HAS EARLY STAGES OF CONGESTIVE HEART FAILURE. HX OF RIGHT KNEE ARTHROSCOPY DUE TO MENISCUS TEAR. Past Surgical History Hx Anesthesia Reactions No Hx Malignant Hyperthermia No Neuro Surgical History No Pertinent History ENT Surgical History No Pertinent History Respiratory Surgical History No Pertinent History Cardiac Surgical History Other Gastrointestinal Surgical History Cholecystectomy,Hernia Repair Genitourinary Surgical History Kidney Surgery,Other Female Surgical History Hysterectomy,Other Musculskeletal Surgical Hx Other Pain Assessment Do you have pain on swallowing No Non-verbal signs & symptoms of pain No Modified Barium Swallow View This evaluation was completed to assess the functioning of the oral and pharyngeal phases of swallowing and to determine if the patient is aspirating or at risk for aspiration. Modified Barium Swallow View Lateral View Consistencies Assessed Barium trials included: Thin Liquid via Spoon,Thin Liquid via Cup,Thin Liquid via Straw,[place] Liquid via Spoon ,Thin Honey Liquid via spoon, Honey Liquid via Spoon,Pudding Liquid via spoon,Pureed Food, Paste on a Cookie Aspiration Risk Aspiration Observed No Amount of Aspiration Observed None Patient considered at risk of aspiration No during oral intake Patient is at risk for aspiration Not Applicable Severity of Aspiration Risk None Penetration into Laryngeal Vestibule No Penetration occured with None Reason for aspirational risk: PATIENT DEMONSTRATED NO ASPIRATIONAL RISK DURING THIS MBS STUDY. 8-Point Penetration-Aspiration Scale (Rosenbek) 1.Material does not enter airway Yes Consistency Thin,[place] Thick,Thin Honey, Honey,Pudding,Pureed,Paste on a cookie Method of presentation Teaspoon,Cup,Straw Residue/Retention Residue Observed None Esophageal Function No Impairment (WFL) Other UNABLE TO FULLY ASSESS ESOPHAGEAL FUNCTION DURING THIS MBS STUDY DUE TO MOVEMENT LIMITATIONS BY EQUIPMENT UTILIZED. Assessment of Swallow Phases Oral Phase Labial Closure No Impairment (WFL) Bolus Formation Yes Bolus Control Pooling L/R No Impairment (WFL) Bolus Control under Tongue No Impairment (WFL) Bolus Control Scattered Loss No Impairment (WFL) Mastication Effectiveness No Impairment (WFL) A/P Bolus Propulsion No Impairment (WFL) Premature Spillage into: None A/P Lingual Propulsion Delay No Impairment (WFL) Lingual Movement No Impairment (WFL) Residue Clearing/Sensitivity No Impairment (WFL) Aspiration No Swallow Initiation Delay No Impairment (WFL) Other Oral Phase Observations PATIENT DEMONSTRATED NO ORAL PHASE SWALLOW DEFICITS DURING THIS MBS STUDY. Pharyngeal Phase Base of Tongue Retraction No Impairment (WFL) Epiglottic Coverage No Impairment (WFL) Laryngeal Elevation No Impairment (WFL) Reduced Anterior Laryngeal Movement No Laryngeal Closure No Impairment (WFL) Vallecular Retention Clearing No Impairment (WFL) Pharyn. Wall Residue Clearing No Impairment (WFL) Pyriform Sinus Retention No Impairment (WFL) Penetration No Aspiration No Cricopharyngeal Dysfunction No Cough None Other Pharyngeal Phase Observation PATIENT WITH NO PHARYNGEAL PHASE SWALLOW DEFICITS DURING THIS MBS STUDY. Clinical Interpretation Clinical Interpretation PATIENT WITH FUNCTIONAL SWALLOW WITHOUT DEFICIT. Speech Therapy Teaching Record Teaching Summary Results/Recommendations Learning Preferences Discussion Barriers to Learning None Readiness for Learning Accepting Teaching Methods Discussion,Audiovisual Teaching Recipient Patient Response to Teaching Verbalize understanding ST Recommendations Diet Consistency Regular Liquid Consistency Regular Thin Safe Swallow Compensatory Strategies Compensatory Strategies Upright Position for all meals ,Small bites and drinks, Alternate solids/liquids Medication Instructions Per Patient Preference Rehabilitation Potential: GOOD Additional Comments: PATIENT WITH FUNCTIONAL SWALLOW DURING THIS MBS STUDY. Signatures Speech Therapist Signature DAJUAN, MS, CCC/ACCESSIONER Physician Signature DR Mely ARAGON, RADIOLOGIST Initialized on 08/16/24 15:33 - END OF NOTE 08/16/24 13:27 Case Management Note by Chary Rodriguez REFERRAL FAXED TO [facility]. THEY WILL NEED NOTIFIED OF DC AT [phone]. THEY WILL NEED FAXED THE DC INSTRUCTIONS, DC MED LIST AND DC SUMMARY TO [phone] Initialized on 08/16/24 13:27 - END OF NOTE 08/16/24 13:26 Case Management Note by Chary Rodriguez S/W PATIENT- SHE CONTINUES TO PLAN TO DC HOME AT TIME OF DC. SHE REPORTS SHE HAS S/W HER MOTHER AND THEY ARE GOING TO DO A BATHROOM REMODEL FOR HER TO MAKE IT EASIER FOR HER AT HOME. SHE WOULD LIKE TO HAVE HHC. SHE IS REQUESTING [facility]. SHE DENIES OTHER NEEDS AT THIS TIME. Initialized on 08/16/24 13:26 - END OF NOTE Assessment/Plan (1) Left ankle injury Current Visit: No Status: Acute Code(s): S99.912A - UNSPECIFIED INJURY OF LEFT ANKLE, INITIAL ENCOUNTER (2) Displaced trimalleolar fracture of left ankle Current Visit: No Status: Acute Code(s): S82.852A - DISPLACED TRIMALLEOLAR FRACTURE OF LEFT LOWER LEG, INIT (3) Uncontrolled diabetes mellitus Current Visit: No Status: Acute Code(s): HTW1294 - (4) Peripheral venous insufficiency Current Visit: No Status: Acute Assessment & Plan: Bilateral Unna boots placed at this time to help control lower extremity swelling. Recommend continued compression utilizing bilateral Unna boots until follow-up. Code(s): I87.2 - VENOUS INSUFFICIENCY (CHRONIC) (PERIPHERAL) (5) Left foot drop Current Visit: No Status: Acute Code(s): M21.372 - FOOT DROP, LEFT FOOT (6) Shortness of breath Current Visit: No Status: Acute Code(s): R06.02 - SHORTNESS OF BREATH (7) COPD with exacerbation Current Visit: No Status: Acute Code(s): J44.1 - CHRONIC OBSTRUCTIVE PULMONARY DISEASE W (ACUTE) EXACERBATION
[2024-08-17] MEDS: MAGNESIUM SULF 2 G/50 ML BAG 2 GM/50 ML PIGGYBACK IV SCH (12:07)
[2024-08-17] MEDS: Sodium Bicarbonate 50 MEQ/50 ML VIAL*** 150 MEQ in Dextrose 5%/Water IV Soln. 1000 ML 1... IV SCH ×2 (12:38→14:49)
[2024-08-17] MEDS: D5W/0.45NS W/ 20mEq KCl 1000 ML 1,000 ML IV SCH (13:30)
[2024-08-17 14:00] LABS: ANION GAP 11.9 MEQ/L (5-15); Creatinine 1 2.08 mg/dL (0.52-1.04); EST GLOMERULAR FILTRATION RATE 28.5 ML/MIN; Potassium 4.1 mmol/L (3.5-5.1)
[2024-08-17 16:21] LABS: MAGNESIUM 2.1 mg/dL (1.6-2.3); PHOSPHOROUS 2.4 mg/dL (2.5-4.5)
[2024-08-17 17:29] LABS: ANION GAP 10.6 MEQ/L (5-15); Calcium 8.1 mg/dL (8.4-10.2); Creatinine 1 2.07 mg/dL (0.52-1.04); EST GLOMERULAR FILTRATION RATE 28.7 ML/MIN; Potassium 4.2 mmol/L (3.5-5.1)
[2024-08-17] MEDS: D50W 50 ml Abboject IV ONE (19:11)
[2024-08-17 21:21] LABS: ANION GAP 9.3 MEQ/L (5-15); Creatinine 1 1.99 mg/dL (0.52-1.04); EST GLOMERULAR FILTRATION RATE 30.1 ML/MIN; Potassium 4.3 mmol/L (3.5-5.1)
[2024-08-18 01:28] LABS: Calcium 7.9 mg/dL (8.4-10.2); Creatinine 1 2.07 mg/dL (0.52-1.04); EST GLOMERULAR FILTRATION RATE 28.7 ML/MIN; Potassium 4.4 mmol/L (3.5-5.1)
[2024-08-18] MEDS: D50W 50 ml Abboject IV PRN (02:53)
--- NOTE | 2024-08-18 05:10 | PCM.NOTE ---
Date and Time: 08/18/24 0509 Subjective Assessment: real HAGAN is a 48 year old female with a past medical history significant for hypertension, diabetes, cervical cancer status post hysterectomy/urostomy and chronic kidney disease who presented 08/14/24 with complaints of nausea, vomiting and diarrhea for about two weeks culminating in development of substernal chest pain. Her family had the GI bug first and got over it, but she felt as it she got worse. Upon arrival, her blood sugars were markedly elevated associated with a sodium of 124 and creatinine of 1.8. She denies fever/chills. No shortness of breath or palpitations. No dysuria, gross hematuria or urgency. She had noticed her blood sugars going up and tried to increase her insulin but could not get them down. Ucult positive for klebsiella with sensitivity to ceftriaxone. IP treatment with Ceftriaxone initially. Wound cultures of the right big toe with MRSA and Leclericia adecaroxylata. Abx changed to levaquin for coverage of right big toe and UTI infections. Patient has severe insulin resistance. Blood sugars remaining elevated despite treatment and she was placed on insulin drip. Blood sugars starting to improve. She does have acidosis. She does not have a gap. She has chronic metabolic acidosis due to kidney disease and had diarrhea last night. Also Cr is increased. I believe this is why she is acidotic. Patient also with MARGARITO during hospitalization. She does follow with nephrology as OP with baseline creat around 1.4-1.7. 08/15/24: Met with patient bedside. Endorses improvement of N/V/D. No vomiting today. Requesting soft diet. Blood glucose levels improved. UA with gram negative ID. Ceftriaxone started. Will replenish potassium today. Patient requesting SNF placement for weakness - CM will look into this. Will consult podiatry for dressing changes. 08/16/24: Met with patient bedside. Feeling better today. No N/V/D overnight. Still having burning in the epigastric region and reported trouble swallowing which has been going on for some time. States she feels like something is in her throat. Lab findings with elevated creat above baseline and blood sugars. Plan to continue abx, IVF, and dose adjust insulins. ST ruthann with modified barium for dysphagia. 08/17/24: Met with patient bedside. Diarrhea overnight. Labs meeting DKA criteria. CO2 level is low today and chronically - patient is on 1300mg sodium bicarb as OP. Will start bicarb drip. DKA protocol with pt to be moved to ICU. Modified barium swallow negative with no changes to diet. Patient states she is feeling better today. 08/18/24: Patient not feeling well today. Reports she has developed a cough which kept her up most of the night. CXR ordered. Covid/Flu/RSV ordered. No fever overnight. Wound cultures of the right big toe with MRSA and Leclericia adecaroxylata. Will change abx to levaquin for coverage of right big toe and UTI infections. Creat levels are improving. Will continue insulin and bicarb drip until acidosis resolved. - Review of Systems Constitutional: Weakness Eyes: No Symptoms Ears, Nose, & Throat: Nose Congestion, Throat Pain Respiratory: Cough, Short Of Breath Cardiac: No Symptoms Abdominal/Gastrointestinal: Abdominal Pain Genitourinary Symptoms: No Symptoms, Other (urostomy) Musculoskeletal: Other (wound right great toe) Skin: No Symptoms Neurological: No Symptoms Psychological: No Symptoms Endocrine: No Symptoms Hematologic/Lymphatic: No Symptoms Immunological/Allergic: No Symptoms Objective Exam General Appearance: no apparent distress Neurologic Exam: alert, oriented x 3, cooperative Eye Exam: PERRL Ears, Nose, Throat Exam: normal ENT inspection Lymphatic Exam: adenopathy Respiratory Exam: crackles/rales Cardiovascular Exam: regular rate/rhythm, normal heart sounds Gastrointestinal/Abdomen Exam: soft, normal bowel sounds, other (urostomy) Extremity Exam: other (BLE compression dressings - wound to right great toe) Back Exam: normal inspection Pelvic Exam: deferred Rectal Exam: deferred Objective Data Vital Signs: Vital Signs - 24 hr Temp Pulse Resp BP BP Pulse Ox 08/18/24 04:01 97.2 F 79 16 123/78 100 08/18/24 04:00 78 08/18/24 03:04 81 18 126/64 100 08/18/24 02:01 75 23 141/71 99 08/18/24 01:01 74 14 131/66 95 08/18/24 00:11 97.2 F 76 13 132/87 100 08/18/24 00:01 76 13 93/55 100 08/18/24 00:00 74 08/17/24 23:01 77 21 117/49 88 L 08/17/24 22:01 78 10 L 127/68 92 L 08/17/24 21:01 97.5 F 78 13 134/76 98 08/17/24 20:01 75 17 131/70 95 08/17/24 20:00 78 08/17/24 19:01 77 11 L 122/66 08/17/24 18:50 76 18 100 08/17/24 18:00 77 16 135/64 95 08/17/24 17:25 75 08/17/24 17:01 76 27 H 126/71 08/17/24 16:00 68 16 124/65 100 08/17/24 15:01 85 17 105/57 100 08/17/24 14:40 76 08/17/24 14:00 74 14 114/62 99 08/17/24 13:37 77 10 L 101/58 98 08/17/24 13:31 78 24 118/63 08/17/24 13:00 78 14 123/66 99 08/17/24 12:30 79 14 118/67 95 08/17/24 12:01 83 17 105/62 94 L 08/17/24 11:42 82 16 120/59 89 L 08/17/24 11:31 83 14 126/73 08/17/24 11:11 83 25 H 103/59 94 L 08/17/24 09:08 82 24 121/71 94 L 08/17/24 09:00 77 08/17/24 08:00 97.9 F 76 20 139/74 98 08/17/24 07:30 76 16 97 Pain Assessment - Last Documented Pain Intensity 5 Pain Scale Used 0-10 Pain Scale Intake and Output: Intake & Output 08/15/24 08/16/24 08/17/24 08/18/24 11:59 11:59 11:59 11:59 Intake Total 788 4212 600 20 Output Total 925 1000 1350 1425 Balance -137 3212 -750 -1405 Weight 113 kg Lab Results: Lab Results-Last 24 Hours 08/17/24 08/17/24 08/17/24 Range/Units 05:12 05:12 06:45 WBC 9.4 (3.98-10.04) x10^3/uL RBC 4.45 (3.93-5.22) x10^6/uL Hgb 11.4 (11.2-15.7) g/dL Hct 36.7 (34.1-44.9) % MCV 82.5 (79.4-94.8) fL MCH 25.6 (25.6-32.2) pg MCHC 31.1 L (32.2-35.5) g/dL RDW 15.3 H (11.7-14.4) % Plt Count 408 H (182-369) x10^3/uL MPV 9.9 (9.4-12.3) fL Gran % 70.0 (34.0-71.1) % Immature Gran % (Auto) 3.1 H (0.001-0.429) % Nucleat RBC Rel Count 0.0 (0.00-0.2) % Eos # (Auto) 0.29 (0.04-0.36) x10^3/uL Immature Gran # (Auto) 0.29 H (0.001-0.031) x10^3u/L Absolute Lymphs (auto) 1.53 (1.18-3.74) x10^3/uL Absolute Monos (auto) 0.60 (0.24-0.86) x10^3/uL Absolute Nucleated RBC 0.00 (0.00-0.012) x10^3u/L Lymphocytes % 16.3 L (19.3-51.7) % Monocytes % 6.4 (4.7-12.5) % Eosinophils % 3.1 (0.7-5.8) % Basophils % 1.1 (0.1-1.2) % Absolute Granulocytes 6.56 H (1.56-6.13) x10^3/uL Basophils # 0.10 H (0.01-0.08) x10^3/uL Puncture Site LEFT RADIAL pCO2 39 (35-45) mmHg pO2 87 (75-100) mmHg Base Excess -11.0 L (-2.0-2.0) O2 Saturation 96.6 (94-100) g/dF ABG pH 7.22 L* (7.35-7.45) ABG HCO3 16.0 L* (22-28) ABG O2 Sat (Measured) 98.7 (95-100) % Rico Test YES A-a Gradient 14 a/A Ratio 0.86 Hemoglobin 11.1 Carboxyhemoglobin 1.3 (0.0-6.9) % THgb Methemoglobin 0.8 L (1.4-1.5) % Temperature 37.0 C POC O2 Flow Rate 21 % Sodium 133 L (135-145) mmol/L Potassium 4.7 4.7 (3.5-5.1) mmol/L Chloride 110 H (98-107) mmol/L Carbon Dioxide 13 L* (22-30) mmol/L Anion Gap 14.4 (5-15) MEQ/L BUN 49 H (7-17) mg/dL Creatinine 2.30 H (0.52-1.04) mg/dL Estimated GFR 25.3 ML/MIN Glucose 339 H (74-106) mg/dL POC Glucometer (74 to 106) mg/dL Calcium 7.9 L (8.4-10.2) mg/dL Phosphorus (2.5-4.5) mg/dL Magnesium (1.6-2.3) mg/dL Total Bilirubin 0.30 (0.2-1.3) mg/dL AST 19 (14-36) U/L ALT 13 (0-35) U/L Alkaline Phosphatase 112 (38-126) U/L Serum Total Protein 6.3 (6.3-8.2) g/dL Albumin 3.1 L (3.5-5.0) g/dL 08/17/24 08/17/24 08/17/24 Range/Units 07:12 09:31 09:33 WBC (3.98-10.04) x10^3/uL RBC (3.93-5.22) x10^6/uL Hgb (11.2-15.7) g/dL Hct (34.1-44.9) % MCV (79.4-94.8) fL MCH (25.6-32.2) pg MCHC (32.2-35.5) g/dL RDW (11.7-14.4) % Plt Count (182-369) x10^3/uL MPV (9.4-12.3) fL Gran % (34.0-71.1) % Immature Gran % (Auto) (0.001-0.429) % Nucleat RBC Rel Count (0.00-0.2) % Eos # (Auto) (0.04-0.36) x10^3/uL Immature Gran # (Auto) (0.001-0.031) x10^3u/L Absolute Lymphs (auto) (1.18-3.74) x10^3/uL Absolute Monos (auto) (0.24-0.86) x10^3/uL Absolute Nucleated RBC (0.00-0.012) x10^3u/L Lymphocytes % (19.3-51.7) % Monocytes % (4.7-12.5) % Eosinophils % (0.7-5.8) % Basophils % (0.1-1.2) % Absolute Granulocytes (1.56-6.13) x10^3/uL Basophils # (0.01-0.08) x10^3/uL Puncture Site pCO2 (35-45) mmHg pO2 (75-100) mmHg Base Excess (-2.0-2.0) O2 Saturation (94-100) g/dF ABG pH (7.35-7.45) ABG HCO3 (22-28) ABG O2 Sat (Measured) (95-100) % Rico Test A-a Gradient a/A Ratio Hemoglobin Carboxyhemoglobin (0.0-6.9) % THgb Methemoglobin (1.4-1.5) % Temperature C POC O2 Flow Rate % Sodium 131 L (135-145) mmol/L Potassium 4.6 (3.5-5.1) mmol/L Chloride 112 H (98-107) mmol/L Carbon Dioxide 12 L* (22-30) mmol/L Anion Gap 11.8 (5-15) MEQ/L BUN 48 H (7-17) mg/dL Creatinine 2.18 H (0.52-1.04) mg/dL Estimated GFR 26.9 ML/MIN Glucose 336 H (74-106) mg/dL POC Glucometer 331 H 313 H (74 to 106) mg/dL Calcium 7.8 L (8.4-10.2) mg/dL Phosphorus 3.0 (2.5-4.5) mg/dL Magnesium 1.6 (1.6-2.3) mg/dL Total Bilirubin (0.2-1.3) mg/dL AST (14-36) U/L ALT (0-35) U/L Alkaline Phosphatase (38-126) U/L Serum Total Protein (6.3-8.2) g/dL Albumin (3.5-5.0) g/dL 08/17/24 08/17/24 08/17/24 Range/Units 10:24 11:41 12:43 WBC (3.98-10.04) x10^3/uL RBC (3.93-5.22) x10^6/uL Hgb (11.2-15.7) g/dL Hct (34.1-44.9) % MCV (79.4-94.8) fL MCH (25.6-32.2) pg MCHC (32.2-35.5) g/dL RDW (11.7-14.4) % Plt Count (182-369) x10^3/uL MPV (9.4-12.3) fL Gran % (34.0-71.1) % Immature Gran % (Auto) (0.001-0.429) % Nucleat RBC Rel Count (0.00-0.2) % Eos # (Auto) (0.04-0.36) x10^3/uL Immature Gran # (Auto) (0.001-0.031) x10^3u/L Absolute Lymphs (auto) (1.18-3.74) x10^3/uL Absolute Monos (auto) (0.24-0.86) x10^3/uL Absolute Nucleated RBC (0.00-0.012) x10^3u/L Lymphocytes % (19.3-51.7) % Monocytes % (4.7-12.5) % Eosinophils % (0.7-5.8) % Basophils % (0.1-1.2) % Absolute Granulocytes (1.56-6.13) x10^3/uL Basophils # (0.01-0.08) x10^3/uL Puncture Site pCO2 (35-45) mmHg pO2 (75-100) mmHg Base Excess (-2.0-2.0) O2 Saturation (94-100) g/dF ABG pH (7.35-7.45) ABG HCO3 (22-28) ABG O2 Sat (Measured) (95-100) % Rico Test A-a Gradient a/A Ratio Hemoglobin Carboxyhemoglobin (0.0-6.9) % THgb Methemoglobin (1.4-1.5) % Temperature C POC O2 Flow Rate % Sodium (135-145) mmol/L Potassium (3.5-5.1) mmol/L Chloride (98-107) mmol/L Carbon Dioxide (22-30) mmol/L Anion Gap (5-15) MEQ/L BUN (7-17) mg/dL Creatinine (0.52-1.04) mg/dL Estimated GFR ML/MIN Glucose (74-106) mg/dL POC Glucometer 283 H 270 H 207 H (74 to 106) mg/dL Calcium (8.4-10.2) mg/dL Phosphorus (2.5-4.5) mg/dL Magnesium (1.6-2.3) mg/dL Total Bilirubin (0.2-1.3) mg/dL AST (14-36) U/L ALT (0-35) U/L Alkaline Phosphatase (38-126) U/L Serum Total Protein (6.3-8.2) g/dL Albumin (3.5-5.0) g/dL 08/17/24 08/17/24 08/17/24 Range/Units 13:39 13:46 14:39 WBC (3.98-10.04) x10^3/uL RBC (3.93-5.22) x10^6/uL Hgb (11.2-15.7) g/dL Hct (34.1-44.9) % MCV (79.4-94.8) fL MCH (25.6-32.2) pg MCHC (32.2-35.5) g/dL RDW (11.7-14.4) % Plt Count (182-369) x10^3/uL MPV (9.4-12.3) fL Gran % (34.0-71.1) % Immature Gran % (Auto) (0.001-0.429) % Nucleat RBC Rel Count (0.00-0.2) % Eos # (Auto) (0.04-0.36) x10^3/uL Immature Gran # (Auto) (0.001-0.031) x10^3u/L Absolute Lymphs (auto) (1.18-3.74) x10^3/uL Absolute Monos (auto) (0.24-0.86) x10^3/uL Absolute Nucleated RBC (0.00-0.012) x10^3u/L Lymphocytes % (19.3-51.7) % Monocytes % (4.7-12.5) % Eosinophils % (0.7-5.8) % Basophils % (0.1-1.2) % Absolute Granulocytes (1.56-6.13) x10^3/uL Basophils # (0.01-0.08) x10^3/uL Puncture Site pCO2 (35-45) mmHg pO2 (75-100) mmHg Base Excess (-2.0-2.0) O2 Saturation (94-100) g/dF ABG pH (7.35-7.45) ABG HCO3 (22-28) ABG O2 Sat (Measured) (95-100) % Rico Test A-a Gradient a/A Ratio Hemoglobin Carboxyhemoglobin (0.0-6.9) % THgb Methemoglobin (1.4-1.5) % Temperature C POC O2 Flow Rate % Sodium 134 L (135-145) mmol/L Potassium 4.1 (3.5-5.1) mmol/L Chloride 113 H (98-107) mmol/L Carbon Dioxide 13 L* (22-30) mmol/L Anion Gap 11.9 (5-15) MEQ/L BUN 47 H (7-17) mg/dL Creatinine 2.08 H (0.52-1.04) mg/dL Estimated GFR 28.5 ML/MIN Glucose 219 H (74-106) mg/dL POC Glucometer 199 H 189 H (74 to 106) mg/dL Calcium 8.0 L (8.4-10.2) mg/dL Phosphorus 2.4 L (2.5-4.5) mg/dL Magnesium 2.1 (1.6-2.3) mg/dL Total Bilirubin (0.2-1.3) mg/dL AST (14-36) U/L ALT (0-35) U/L Alkaline Phosphatase (38-126) U/L Serum Total Protein (6.3-8.2) g/dL Albumin (3.5-5.0) g/dL 08/17/24 08/17/24 08/17/24 Range/Units 15:33 16:33 17:15 WBC (3.98-10.04) x10^3/uL RBC (3.93-5.22) x10^6/uL Hgb (11.2-15.7) g/dL Hct (34.1-44.9) % MCV (79.4-94.8) fL MCH (25.6-32.2) pg MCHC (32.2-35.5) g/dL RDW (11.7-14.4) % Plt Count (182-369) x10^3/uL MPV (9.4-12.3) fL Gran % (34.0-71.1) % Immature Gran % (Auto) (0.001-0.429) % Nucleat RBC Rel Count (0.00-0.2) % Eos # (Auto) (0.04-0.36) x10^3/uL Immature Gran # (Auto) (0.001-0.031) x10^3u/L Absolute Lymphs (auto) (1.18-3.74) x10^3/uL Absolute Monos (auto) (0.24-0.86) x10^3/uL Absolute Nucleated RBC (0.00-0.012) x10^3u/L Lymphocytes % (19.3-51.7) % Monocytes % (4.7-12.5) % Eosinophils % (0.7-5.8) % Basophils % (0.1-1.2) % Absolute Granulocytes (1.56-6.13) x10^3/uL Basophils # (0.01-0.08) x10^3/uL Puncture Site pCO2 (35-45) mmHg pO2 (75-100) mmHg Base Excess (-2.0-2.0) O2 Saturation (94-100) g/dF ABG pH (7.35-7.45) ABG HCO3 (22-28) ABG O2 Sat (Measured) (95-100) % Rico Test A-a Gradient a/A Ratio Hemoglobin Carboxyhemoglobin (0.0-6.9) % THgb Methemoglobin (1.4-1.5) % Temperature C POC O2 Flow Rate % Sodium 134 L (135-145) mmol/L Potassium 4.2 (3.5-5.1) mmol/L Chloride 114 H (98-107) mmol/L Carbon Dioxide 14 L* (22-30) mmol/L Anion Gap 10.6 (5-15) MEQ/L BUN 45 H (7-17) mg/dL Creatinine 2.07 H (0.52-1.04) mg/dL Estimated GFR 28.7 ML/MIN Glucose 120 H (74-106) mg/dL POC Glucometer 150 H 140 H (74 to 106) mg/dL Calcium 8.1 L (8.4-10.2) mg/dL Phosphorus (2.5-4.5) mg/dL Magnesium (1.6-2.3) mg/dL Total Bilirubin (0.2-1.3) mg/dL AST (14-36) U/L ALT (0-35) U/L Alkaline Phosphatase (38-126) U/L Serum Total Protein (6.3-8.2) g/dL Albumin (3.5-5.0) g/dL 08/17/24 08/17/24 08/17/24 Range/Units 17:40 18:49 19:49 WBC (3.98-10.04) x10^3/uL RBC (3.93-5.22) x10^6/uL Hgb (11.2-15.7) g/dL Hct (34.1-44.9) % MCV (79.4-94.8) fL MCH (25.6-32.2) pg MCHC (32.2-35.5) g/dL RDW (11.7-14.4) % Plt Count (182-369) x10^3/uL MPV (9.4-12.3) fL Gran % (34.0-71.1) % Immature Gran % (Auto) (0.001-0.429) % Nucleat RBC Rel Count (0.00-0.2) % Eos # (Auto) (0.04-0.36) x10^3/uL Immature Gran # (Auto) (0.001-0.031) x10^3u/L Absolute Lymphs (auto) (1.18-3.74) x10^3/uL Absolute Monos (auto) (0.24-0.86) x10^3/uL Absolute Nucleated RBC (0.00-0.012) x10^3u/L Lymphocytes % (19.3-51.7) % Monocytes % (4.7-12.5) % Eosinophils % (0.7-5.8) % Basophils % (0.1-1.2) % Absolute Granulocytes (1.56-6.13) x10^3/uL Basophils # (0.01-0.08) x10^3/uL Puncture Site pCO2 (35-45) mmHg pO2 (75-100) mmHg Base Excess (-2.0-2.0) O2 Saturation (94-100) g/dF ABG pH (7.35-7.45) ABG HCO3 (22-28) ABG O2 Sat (Measured) (95-100) % Rico Test A-a Gradient a/A Ratio Hemoglobin Carboxyhemoglobin (0.0-6.9) % THgb Methemoglobin (1.4-1.5) % Temperature C POC O2 Flow Rate % Sodium (135-145) mmol/L Potassium (3.5-5.1) mmol/L Chloride (98-107) mmol/L Carbon Dioxide (22-30) mmol/L Anion Gap (5-15) MEQ/L BUN (7-17) mg/dL Creatinine (0.52-1.04) mg/dL Estimated GFR ML/MIN Glucose (74-106) mg/dL POC Glucometer 116 H 93 148 H (74 to 106) mg/dL Calcium (8.4-10.2) mg/dL Phosphorus (2.5-4.5) mg/dL Magnesium (1.6-2.3) mg/dL Total Bilirubin (0.2-1.3) mg/dL AST (14-36) U/L ALT (0-35) U/L Alkaline Phosphatase (38-126) U/L Serum Total Protein (6.3-8.2) g/dL Albumin (3.5-5.0) g/dL 08/17/24 08/17/24 08/17/24 Range/Units 20:52 21:05 21:46 WBC (3.98-10.04) x10^3/uL RBC (3.93-5.22) x10^6/uL Hgb (11.2-15.7) g/dL Hct (34.1-44.9) % MCV (79.4-94.8) fL MCH (25.6-32.2) pg MCHC (32.2-35.5) g/dL RDW (11.7-14.4) % Plt Count (182-369) x10^3/uL MPV (9.4-12.3) fL Gran % (34.0-71.1) % Immature Gran % (Auto) (0.001-0.429) % Nucleat RBC Rel Count (0.00-0.2) % Eos # (Auto) (0.04-0.36) x10^3/uL Immature Gran # (Auto) (0.001-0.031) x10^3u/L Absolute Lymphs (auto) (1.18-3.74) x10^3/uL Absolute Monos (auto) (0.24-0.86) x10^3/uL Absolute Nucleated RBC (0.00-0.012) x10^3u/L Lymphocytes % (19.3-51.7) % Monocytes % (4.7-12.5) % Eosinophils % (0.7-5.8) % Basophils % (0.1-1.2) % Absolute Granulocytes (1.56-6.13) x10^3/uL Basophils # (0.01-0.08) x10^3/uL Puncture Site pCO2 (35-45) mmHg pO2 (75-100) mmHg Base Excess (-2.0-2.0) O2 Saturation (94-100) g/dF ABG pH (7.35-7.45) ABG HCO3 (22-28) ABG O2 Sat (Measured) (95-100) % Rico Test A-a Gradient a/A Ratio Hemoglobin Carboxyhemoglobin (0.0-6.9) % THgb Methemoglobin (1.4-1.5) % Temperature C POC O2 Flow Rate % Sodium 135 (135-145) mmol/L Potassium 4.3 (3.5-5.1) mmol/L Chloride 113 H (98-107) mmol/L Carbon Dioxide 16 L* (22-30) mmol/L Anion Gap 9.3 (5-15) MEQ/L BUN 43 H (7-17) mg/dL Creatinine 1.99 H (0.52-1.04) mg/dL Estimated GFR 30.1 ML/MIN Glucose 136 H (74-106) mg/dL POC Glucometer 123 H 124 H (74 to 106) mg/dL Calcium 8.0 L (8.4-10.2) mg/dL Phosphorus (2.5-4.5) mg/dL Magnesium (1.6-2.3) mg/dL Total Bilirubin (0.2-1.3) mg/dL AST (14-36) U/L ALT (0-35) U/L Alkaline Phosphatase (38-126) U/L Serum Total Protein (6.3-8.2) g/dL Albumin (3.5-5.0) g/dL 08/17/24 08/17/24 08/18/24 Range/Units 22:52 23:47 00:46 WBC (3.98-10.04) x10^3/uL RBC (3.93-5.22) x10^6/uL Hgb (11.2-15.7) g/dL Hct (34.1-44.9) % MCV (79.4-94.8) fL MCH (25.6-32.2) pg MCHC (32.2-35.5) g/dL RDW (11.7-14.4) % Plt Count (182-369) x10^3/uL MPV (9.4-12.3) fL Gran % (34.0-71.1) % Immature Gran % (Auto) (0.001-0.429) % Nucleat RBC Rel Count (0.00-0.2) % Eos # (Auto) (0.04-0.36) x10^3/uL Immature Gran # (Auto) (0.001-0.031) x10^3u/L Absolute Lymphs (auto) (1.18-3.74) x10^3/uL Absolute Monos (auto) (0.24-0.86) x10^3/uL Absolute Nucleated RBC (0.00-0.012) x10^3u/L Lymphocytes % (19.3-51.7) % Monocytes % (4.7-12.5) % Eosinophils % (0.7-5.8) % Basophils % (0.1-1.2) % Absolute Granulocytes (1.56-6.13) x10^3/uL Basophils # (0.01-0.08) x10^3/uL Puncture Site pCO2 (35-45) mmHg pO2 (75-100) mmHg Base Excess (-2.0-2.0) O2 Saturation (94-100) g/dF ABG pH (7.35-7.45) ABG HCO3 (22-28) ABG O2 Sat (Measured) (95-100) % Rico Test A-a Gradient a/A Ratio Hemoglobin Carboxyhemoglobin (0.0-6.9) % THgb Methemoglobin (1.4-1.5) % Temperature C POC O2 Flow Rate % Sodium (135-145) mmol/L Potassium (3.5-5.1) mmol/L Chloride (98-107) mmol/L Carbon Dioxide (22-30) mmol/L Anion Gap (5-15) MEQ/L BUN (7-17) mg/dL Creatinine (0.52-1.04) mg/dL Estimated GFR ML/MIN Glucose (74-106) mg/dL POC Glucometer 116 H 127 H 115 H (74 to 106) mg/dL Calcium (8.4-10.2) mg/dL Phosphorus (2.5-4.5) mg/dL Magnesium (1.6-2.3) mg/dL Total Bilirubin (0.2-1.3) mg/dL AST (14-36) U/L ALT (0-35) U/L Alkaline Phosphatase (38-126) U/L Serum Total Protein (6.3-8.2) g/dL Albumin (3.5-5.0) g/dL 08/18/24 08/18/24 08/18/24 Range/Units 01:00 01:47 02:46 WBC (3.98-10.04) x10^3/uL RBC (3.93-5.22) x10^6/uL Hgb (11.2-15.7) g/dL Hct (34.1-44.9) % MCV (79.4-94.8) fL MCH (25.6-32.2) pg MCHC (32.2-35.5) g/dL RDW (11.7-14.4) % Plt Count (182-369) x10^3/uL MPV (9.4-12.3) fL Gran % (34.0-71.1) % Immature Gran % (Auto) (0.001-0.429) % Nucleat RBC Rel Count (0.00-0.2) % Eos # (Auto) (0.04-0.36) x10^3/uL Immature Gran # (Auto) (0.001-0.031) x10^3u/L Absolute Lymphs (auto) (1.18-3.74) x10^3/uL Absolute Monos (auto) (0.24-0.86) x10^3/uL Absolute Nucleated RBC (0.00-0.012) x10^3u/L Lymphocytes % (19.3-51.7) % Monocytes % (4.7-12.5) % Eosinophils % (0.7-5.8) % Basophils % (0.1-1.2) % Absolute Granulocytes (1.56-6.13) x10^3/uL Basophils # (0.01-0.08) x10^3/uL Puncture Site pCO2 (35-45) mmHg pO2 (75-100) mmHg Base Excess (-2.0-2.0) O2 Saturation (94-100) g/dF ABG pH (7.35-7.45) ABG HCO3 (22-28) ABG O2 Sat (Measured) (95-100) % Rico Test A-a Gradient a/A Ratio Hemoglobin Carboxyhemoglobin (0.0-6.9) % THgb Methemoglobin (1.4-1.5) % Temperature C POC O2 Flow Rate % Sodium 136 (135-145) mmol/L Potassium 4.4 (3.5-5.1) mmol/L Chloride 112 H (98-107) mmol/L Carbon Dioxide 17 L (22-30) mmol/L Anion Gap 11.0 (5-15) MEQ/L BUN 41 H (7-17) mg/dL Creatinine 2.07 H (0.52-1.04) mg/dL Estimated GFR 28.7 ML/MIN Glucose 115 H (74-106) mg/dL POC Glucometer 116 H 94 (74 to 106) mg/dL Calcium 7.9 L (8.4-10.2) mg/dL Phosphorus (2.5-4.5) mg/dL Magnesium (1.6-2.3) mg/dL Total Bilirubin (0.2-1.3) mg/dL AST (14-36) U/L ALT (0-35) U/L Alkaline Phosphatase (38-126) U/L Serum Total Protein (6.3-8.2) g/dL Albumin (3.5-5.0) g/dL 08/18/24 08/18/24 Range/Units 03:45 04:45 WBC (3.98-10.04) x10^3/uL RBC (3.93-5.22) x10^6/uL Hgb (11.2-15.7) g/dL Hct (34.1-44.9) % MCV (79.4-94.8) fL MCH (25.6-32.2) pg MCHC (32.2-35.5) g/dL RDW (11.7-14.4) % Plt Count (182-369) x10^3/uL MPV (9.4-12.3) fL Gran % (34.0-71.1) % Immature Gran % (Auto) (0.001-0.429) % Nucleat RBC Rel Count (0.00-0.2) % Eos # (Auto) (0.04-0.36) x10^3/uL Immature Gran # (Auto) (0.001-0.031) x10^3u/L Absolute Lymphs (auto) (1.18-3.74) x10^3/uL Absolute Monos (auto) (0.24-0.86) x10^3/uL Absolute Nucleated RBC (0.00-0.012) x10^3u/L Lymphocytes % (19.3-51.7) % Monocytes % (4.7-12.5) % Eosinophils % (0.7-5.8) % Basophils % (0.1-1.2) % Absolute Granulocytes (1.56-6.13) x10^3/uL Basophils # (0.01-0.08) x10^3/uL Puncture Site pCO2 (35-45) mmHg pO2 (75-100) mmHg Base Excess (-2.0-2.0) O2 Saturation (94-100) g/dF ABG pH (7.35-7.45) ABG HCO3 (22-28) ABG O2 Sat (Measured) (95-100) % Rico Test A-a Gradient a/A Ratio Hemoglobin Carboxyhemoglobin (0.0-6.9) % THgb Methemoglobin (1.4-1.5) % Temperature C POC O2 Flow Rate % Sodium (135-145) mmol/L Potassium (3.5-5.1) mmol/L Chloride (98-107) mmol/L Carbon Dioxide (22-30) mmol/L Anion Gap (5-15) MEQ/L BUN (7-17) mg/dL Creatinine (0.52-1.04) mg/dL Estimated GFR ML/MIN Glucose (74-106) mg/dL POC Glucometer 123 H 114 H (74 to 106) mg/dL Calcium (8.4-10.2) mg/dL Phosphorus (2.5-4.5) mg/dL Magnesium (1.6-2.3) mg/dL Total Bilirubin (0.2-1.3) mg/dL AST (14-36) U/L ALT (0-35) U/L Alkaline Phosphatase (38-126) U/L Serum Total Protein (6.3-8.2) g/dL Albumin (3.5-5.0) g/dL Radiology Exams: Radiology Procedures Category Date Time Status MODIFIED BARIUM SWALLOW (RAD) [MODIFIED BARIUM SWALLOW Exams 08/16/24 11:21 Completed EXAM] Urgent Multi-Disciplinary Progress Notes: Multi-Disciplinary Progress Notes 08/18/24 01:36 Respiratory Note by Rossy Phillips This RT asked patient about her cpap use at home. Patient states that she used to have a cpap but has not worn one in over a year. RT offered our CPAP for her remaining hospital stay but pt refused. Benefits of cpap were reviewed with patient. Pt was placed on 3L O2. Initialized on 08/18/24 01:36 - END OF NOTE 08/17/24 16:15 Respiratory Note by Pati Benito Pt family states she wears a bipap at night. This RT can only find where she had a sleep study and cpap +8 was ordered. Pt states she does not wear anything at as of right now. Placed on 2L NC Initialized on 08/17/24 16:15 - END OF NOTE 08/17/24 13:56 Case Management Note by Chary Rodriguez PATIENT CONTINUES TO PLAN TO DC HOME AT TIME OF DC. SHE REPORTS HER AND MOTHER WILL HEP HER AT HOME. SHE HAS ALL THE MEDICAL EQUIPMENT NEEDED AT HOME. [facility] HAS ACCEPTED PATIENT WELL. NO OTHER NEW NEEDS IDENTIFIED AT THIS TIME Initialized on 08/17/24 13:56 - END OF NOTE Assessment/Plan (1) Hyperglycemia due to type 2 diabetes mellitus Current Visit: No Status: Acute Assessment & Plan: -SSI high dose -ADA diet when able - soft diet for now -Lantus -A1c > 14 -Follows with Dr. Rodarte OP 2: -added mealtime insulin 25 units -Lantus- may need dose adjusted - patient states recent changes with visual associate - will verify with office 08/17: -meeting DKA criteria with hyperglycemia, ph level, and low co2 -will initiate DKA protocol and start bicarb drip 08/18: -Blood glucose levels improving - will continue insulin drip until acidosis corrected Code(s): E11.65 - TYPE 2 DIABETES MELLITUS WITH HYPERGLYCEMIA (2) Acute kidney injury superimposed on chronic kidney disease Current Visit: Yes Status: Acute Assessment & Plan: -baseline 1.3-1.5 -Creat reviewed on admission at 1.78 -most likely secondary to hypovolemia -Avoid nephrotoxic agents -monitor renal/lytes daily -IVF 2: -Increase IVF to 125 ml -creat reviewed at 2.20 -Hold losartan 08/17: -Creat reviewed and worsening at 2.30 -continue IVF -Bladder scan -continue to hold losartan 08/18: -Creat reviewed at 1.98 - improved -hold losartan -Continue IVF Code(s): N17.9 - ACUTE KIDNEY FAILURE, UNSPECIFIED; N18.9 - CHRONIC KIDNEY DISEASE, UNSPECIFIED (3) Chest pain Current Visit: Yes Status: Acute Qualifiers: Chest pain type: unspecified Qualified Code(s): R07.9 - Chest pain, unspecified Assessment & Plan: Likely from persistent N/V, doubt cardiac in origin -Tele -Trops negative x 3 - Continue ASA 81mg -echo from 06/26/24 IMPRESSION: EF: 52% 1) LOW NORMAL CONTRACTILITY LEFT VENTRICLE. 2) MODERATE CONCENTRIC LEFT VENTRICULAR HYPERTROPHY. 3) POSSIBLE IMPAIRED LEFT VENTRICULAR RELAXATION. 4) MILD MITRAL REGURGITATIOn Cardiac nuclear stress test 07/30/24: Impression: 1. No scintigraphic evidence for pharmacologic induced reversible ischemia. 2. Normal ejection fraction. -mild when coughing Code(s): R07.9 - CHEST PAIN, UNSPECIFIED (4) Gastroenteritis Current Visit: Yes Status: Acute Assessment & Plan: Family had GI bug about two weeks ago -Supportive care - Anti-emetics, H2 blockers, Code(s): K52.9 - NONINFECTIVE GASTROENTERITIS AND COLITIS, UNSPECIFIED (5) Hypertensive chronic kidney disease with stage 1 through stage 4 chronic kidney disease, or unspecified chronic kidney disease Current Visit: Yes Status: Acute Assessment & Plan: Blood pressure under good control -Continue bp meds Code(s): I12.9 - HYPERTENSIVE CHRONIC KIDNEY DISEASE W STG 1-4/UNSP CHR KDNY (6) Hyponatremia Current Visit: Yes Status: Acute Assessment & Plan: Likely a combination of hypovolemia and elevated blood sugars (pseudo- hyponatremia) -IVFs - Check urine lytes, urine osmo - Limit free water -. Follow I/Os 08/17: -In the setting of hyperglycemia/dehydration -continue IVF 08/18: -Resolved Code(s): E87.1 - HYPO-OSMOLALITY AND HYPONATREMIA (7) UTI (urinary tract infection) Current Visit: Yes Status: Acute Assessment & Plan: -UA suspicious for UTI/ ucult with gram - ID will start ceftriaxone - follow culture 08/16: -Ucult positive for klebsiella- continue ceftriaxone based on sensitivity -WBC reviewed and down-trending 10.2<11.4<12.2 -No dysuria reported by patient - with urostomy 08/17: -WBC reviewed and down-trending now wnl at 9.4<10.2 -Continue ceftriaxone 08/18: -Abx changed to levaquin for coverage of right toe wound and UTI infections - pharmacy to renal dose Code(s): N39.0 - URINARY TRACT INFECTION, SITE NOT SPECIFIED (8) Hypokalemia Current Visit: Yes Status: Acute Assessment & Plan: -Potassium reviewed at 3.0- will replace per protocol -tele 08/16: -Resolved 08/18: -resolved Dysphagia -ST eval -modified barium swallow 08/17: -Barium swallow reviewed with functional swallow without deficit. 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 Will change abx to levaquin for coverage of right big toe and UTI infections. -Podiatry following -dressing changes per podiatry FluA -FluA positive -isolation -Tamiflu -renal dosed by pharmacy VTE: lovenox PPI: protonix Dispo: 1-2 days SNF pending Code(s): E87.6 - HYPOKALEMIA ( Code(s): E11.65 - TYPE 2 DIABETES MELLITUS WITH HYPERGLYCEMIA (2) Acute kidney injury superimposed on chronic kidney disease Current Visit: Yes Status: Acute Code(s): N17.9 - ACUTE KIDNEY FAILURE, UNSPECIFIED; N18.9 - CHRONIC KIDNEY DISEASE, UNSPECIFIED (3) Chest pain Current Visit: Yes Status: Acute Qualifiers: Chest pain type: unspecified Qualified Code(s): R07.9 - Chest pain, unsp ecified Code(s): R07.9 - CHEST PAIN, UNSPECIFIED (4) Gastroenteritis Current Visit: Yes Status: Acute Code(s): K52.9 - NONINFECTIVE GASTROENTERITIS AND COLITIS, UNSPECIFIED (5) Hypertensive chronic kidney disease with stage 1 through stage 4 chronic kidney disease, or unspecified chronic kidney disease Current Visit: Yes Status: Acute Code(s): I12.9 - HYPERTENSIVE CHRONIC KIDNE Y DISEASE W STG 1-4/UNSP CHR KDNY (6) Hyponatremia Current Visit: Yes Status: Acute Code(s): E87.1 - HYPO-OSMOLALITY AND HYPONATREMIA (7) UTI (urinary tract infection) Current Visit: Yes Status: Acute Code(s): N39.0 - URINARY TRACT INFECTION, SITE NOT SPECIFIED (8) Hypokalemia Current Visit: Yes Status: Acute Code(s): E87.6 - HYPOKALEMIA (9) Dysphagia Current Visit: Yes Status: Acute Code(s): R13.10 - DYSPHAGIA, UNSPECIFIED (10) DKA (diabetic ketoacidosis) Current Visit: Yes Status: Acute Code(s): E11.10 - TYPE 2 DIABETES MELLITUS WITH KETOACIDOSIS WITHOUT COMA
[2024-08-18] MEDS: PROVENTIL 2.5 MG/3 ML NEB IH PRN (05:35)
[2024-08-18 05:53] LABS: Absolute Neutrophil Ct (ANC) 8.78 x10^3/uL (1.56-6.13); BASOPHIL % 0.7 % (0.1-1.2); Basophil (Absolute #) 0.07 x10^3/uL (0.01-0.08); Eosinophil % 1.9 % (0.7-5.8); Hematocrit 39.6 % (34.1-44.9); Hemoglobin 11.7 g/dL (11.2-15.7); IMMATURE GRAN # 0.19 x10^3u/L (0.001-0.031); IMMATURE GRAN % 1.8 % (0.001-0.429); Lymphocyte (Absolute #) 0.67 x10^3/uL (1.18-3.74); Lymphocytes % 6.3 % (19.3-51.7); Mean Cell Volume 86.8 fL (79.4-94.8); Mean Corpuscular Hemoglobin 25.7 pg (25.6-32.2); Mean Corpuscular Hgb Concent. 29.5 g/dL (32.2-35.5); Mean Platelet Volume 9.3 fL (9.4-12.3); Monocyte (Absolute #) 0.66 x10^3/uL (0.24-0.86); Monocytes % 6.2 % (4.7-12.5); Neutrophil % 83.1 % (34.0-71.1); Platelet Count 378 x10^3/uL (182-369); Red Blood Count 4.56 x10^6/uL (3.93-5.22); Red Cell Distribution Width 15.4 % (11.7-14.4); White Blood Count 10.6 x10^3/uL (3.98-10.04)
[2024-08-18 06:12] LABS: ALBUMIN 3.2 g/dL (3.5-5.0); ANION GAP 12.2 MEQ/L (5-15); BILIRUBIN,TOTAL 0.3 mg/dL (0.2-1.3); Calcium 7.9 mg/dL (8.4-10.2); Creatinine 1 1.98 mg/dL (0.52-1.04); EST GLOMERULAR FILTRATION RATE 30.2 ML/MIN; MAGNESIUM 1.8 mg/dL (1.6-2.3); Potassium 4.3 mmol/L (3.5-5.1); Total Protein 6.4 g/dL (6.3-8.2)
[2024-08-18] MEDS ORDERED: Robitussin-Dm Syrup PO PRN (08:14)
[2024-08-18] MEDS: Robitussin-Dm Syrup PO PRN (09:30)
[2024-08-18 10:10] LABS: ANION GAP 11.6 MEQ/L (5-15); Calcium 7.7 mg/dL (8.4-10.2); Creatinine 1 1.81 mg/dL (0.52-1.04); EST GLOMERULAR FILTRATION RATE 33.7 ML/MIN; Potassium 4.4 mmol/L (3.5-5.1)
[2024-08-18 10:18] LABS: INFLUENZA B NEGATIVE (NEGATIVE); RESPIRATORY SYNCTIAL VIRUS NEGATIVE (NEGATIVE); SARS-CoV-2 Xpert Express NEGATIVE (NEGATIVE)
[2024-08-18 10:19] LABS: INFLUENZA A POSITIVE (NEGATIVE)
[2024-08-18] MEDS: Tamiflu 75MG Capsule PO ONE (11:45)
[2024-08-18] MEDS: LEVOFLOXACIN 750MG/150ML D5W 750 MG/150 ML BAG IV SCH (12:04)
[2024-08-18 13:58] LABS: ANION GAP 12.1 MEQ/L (5-15); Calcium 7.5 mg/dL (8.4-10.2); Creatinine 1 1.71 mg/dL (0.52-1.04); EST GLOMERULAR FILTRATION RATE 36.1 ML/MIN; Potassium 4.4 mmol/L (3.5-5.1)
[2024-08-18] MEDS: Bactroban OINTMENT TP SCH (14:14)
[2024-08-18 17:49] LABS: A-aADO2 65; ABG HEMOGLOBIN 11.5; ABG POTASSIUM 4.8 (3.5-5.1); ARTERIAL BLD GAS O2 SATURATION 97.8 % (95-100); ARTERIAL BLOOD GAS FIO2 28 %; ARTERIAL BLOOD GAS PCO2 48 mmHg (35-45); ARTERIAL BLOOD GAS PO2 75 mmHg (75-100); CARBOXYHEMOGLOBIN 1.6 % THgb (0.0-6.9); HCO3- 19.6 (22-28); HGB O2 SAT 95.3 g/dF (94-100); paO2 pAO1 0.54
[2024-08-18 17:50] LABS: ABG SITE RIGHT RADIAL; ALLEN TEST OK? YES; ARTERIAL BLOOD GAS pH 7.22 (7.35-7.45)
[2024-08-18 17:59] LABS: Calcium 7.6 mg/dL (8.4-10.2); Creatinine 1 1.7 mg/dL (0.52-1.04); EST GLOMERULAR FILTRATION RATE 36.3 ML/MIN; Potassium 4.8 mmol/L (3.5-5.1)
[2024-08-18] MEDS ORDERED: Furosemide 100mg/10 ml Vial ONE (18:45)
[2024-08-18] MEDS: Furosemide 100mg/10 ml Vial IV ONE (18:50)
[2024-08-18] MEDS: Lasix 40 MG/4 ML IV ONE (18:50)
[2024-08-18] MEDS: PHARMACY DOSING REQUEST MC ONE (20:36)
[2024-08-18 21:52] LABS: A-aADO2 85; ABG HEMOGLOBIN 11.2; ABG POTASSIUM 4.5 (3.5-5.1); ARTERIAL BLD GAS O2 SATURATION 99.6 % (95-100); ARTERIAL BLD GAS TIDAL VOLUME 450 cc; ARTERIAL BLOOD GAS BASE EXCESS -4.7 (-2.0-2.0); ARTERIAL BLOOD GAS FIO2 40 %; ARTERIAL BLOOD GAS PCO2 52 mmHg (35-45); ARTERIAL BLOOD GAS PO2 135 mmHg (75-100); ARTERIAL BLOOD GAS VENT MODE AVAPS; ARTERIAL BLOOD GAS VENT RATE 10 /MIN; ARTERIAL BLOOD GAS pH 7.25 (7.35-7.45); CARBOXYHEMOGLOBIN 1.4 % THgb (0.0-6.9); HCO3- 22.8 (22-28); HGB O2 SAT 97.3 g/dF (94-100); Methhemoglobin 0.9 % (1.4-1.5); paO2 pAO1 0.61
[2024-08-18 21:53] LABS: ABG SITE RIGHT RADIAL; ALLEN TEST OK? YES; BIPAP(E) 6
--- NOTE | 2024-08-18 21:53 | XRAY ---
CLINICAL HISTORY: lethargy COMPARISON: NONE TECHNIQUE: Axial non-contrast CT scan of the brain was performed from the skull base to the high parietal region. One of the following dose reduction techniques were utilized for this exam: Automated exposure control, adjustment of the mA and/or kV according to patient size, and use of iterative reconstruction. CTDI: 107.8 , DLP: 2197.4 FINDINGS: Brain Parenchyma: Subtle left occipital deep white matter hypodensity may be due to beam hardening artifact, for further investigation, if clinically indicated. Ventricular System: Ventricles are normal in size and configuration. No evidence of hydrocephalus or ventricular enlargement. Subarachnoid Spaces: Normal sulci and cisterns. No evidence of subarachnoid hemorrhage or extra-axial fluid collections. Cerebellum and Brainstem: Normal size and signal. No masses, lesions, or areas of abnormal signal. Orbits: Normal appearance of the globes, optic nerves, and extraocular muscles. No evidence of orbital masses or abnormal signal. Sinuses: Clear paranasal sinuses. No evidence of sinusitis or mucosal thickening. Mastoid Air Cells: Clear mastoid air cells. No evidence of mastoiditis. Skull: Normal skull morphology. IMPRESSION: 1. Subtle left occipital deep white matter hypodensity may be due to beam hardening artifact, for further investigation if clinically indicated. 2. No other abnormalities seen. Electronically Signed by: Letty Brooks MD. (08/18/2024 21:48:40 EST)
[2024-08-18 21:59] LABS: ANION GAP 11.3 MEQ/L (5-15); Creatinine 1 1.84 mg/dL (0.52-1.04); Potassium 4.3 mmol/L (3.5-5.1)
--- NOTE | 2024-08-18 23:09 | XRAY ---
CLINICAL HISTORY: Right great toe infection, osteo? COMPARISON: compared to prior Foot x-ray 04/18/2024. TECHNIQUE: X-ray images of the right foot were obtained in anteroposterior (AP), lateral, and oblique projections. FINDINGS: Bone Structure: The bone structure is normal and aligned. No evidence of fracture or dislocation. No osseous lesions or abnormalities were identified. Joint Spaces: Joint spaces are normal. No evidence of joint effusion or subluxation. Soft Tissues: Soft tissues appear normal and unremarkable. No soft tissue swelling, calcifications, or foreign bodies were noted. Additional Findings: Calcaneal spur. IMPRESSION: 1. No osteolytic or sclerotic changes in the great toe. Suggest MRI for further evaluation if clinically warranted. 2. Calcaneal spur. (unchanged) 3. No evidence of acute fracture, or dislocation. Disclaimer: A subtle bone abnormality or fracture may not be readily apparent on X-rays, thus clinical correlation and further imaging including follow-up CT, MRI, or follow-up X-rays are advised as needed. Electronically Signed by: Letty Brooks MD. (08/18/2024 23:06:30 EST)
[2024-08-18 23:14] LABS: A-aADO2 92; ABG HEMOGLOBIN 11.2; ABG POTASSIUM 4.3 (3.5-5.1); ARTERIAL BLD GAS O2 SATURATION 99.3 % (95-100); ARTERIAL BLOOD GAS BASE EXCESS -4.3 (-2.0-2.0); ARTERIAL BLOOD GAS FIO2 35 %; ARTERIAL BLOOD GAS PCO2 53 mmHg (35-45); ARTERIAL BLOOD GAS PO2 91 mmHg (75-100); CARBOXYHEMOGLOBIN 1.8 % THgb (0.0-6.9); HCO3- 23.2 (22-28); HGB O2 SAT 96.8 g/dF (94-100); Methhemoglobin 0.7 % (1.4-1.5)
[2024-08-18 23:15] LABS: ABG SITE RIGHT RADIAL; ALLEN TEST OK? YES; ARTERIAL BLD GAS TIDAL VOLUME 450 cc; ARTERIAL BLOOD GAS VENT MODE AVAPS; ARTERIAL BLOOD GAS VENT RATE 10 /MIN; ARTERIAL BLOOD GAS pH 7.25 (7.35-7.45); BIPAP(E) 8
[2024-08-18] MEDS: OSELTAMIVIR PHOSPHATE 30 MG CAP PO SCH (23:25)
[2024-08-19] MEDS ORDERED: MYXREDLIN 100 UNIT/100 ML BAG 100 UNIT/100 ML PLAST..BAG IV ONE (00:17)
[2024-08-19 02:09] LABS: ANION GAP 10.5 MEQ/L (5-15); Calcium 7.5 mg/dL (8.4-10.2); Creatinine 1 1.81 mg/dL (0.52-1.04); EST GLOMERULAR FILTRATION RATE 33.7 ML/MIN; Potassium 4.2 mmol/L (3.5-5.1)
[2024-08-19] MEDS: Lantus Insulin SQ PRN (03:13)
--- NOTE | 2024-08-19 05:23 | PCM.NOTE ---
Date and Time: 08/19/24 0522 Subjective Assessment: real HAGAN is a 48 year old female with a past medical history significant for hypertension, diabetes, cervical cancer status post hysterectomy/urostomy and chronic kidney disease who presented 08/14/24 with complaints of nausea, vomiting and diarrhea for about two weeks culminating in development of substernal chest pain. Her family had the GI bug first and got over it, but she felt as it she got worse. Upon arrival, her blood sugars were markedly elevated associated with a sodium of 124 and creatinine of 1.8. She denies fever/chills. No shortness of breath or palpitations. No dysuria, gross hematuria or urgency. She had noticed her blood sugars going up and tried to increase her insulin but could not get them down. Ucult positive for klebsiella with sensitivity to ceftriaxone. IP treatment with Ceftriaxone initially. Wound cultures of the right big toe with MRSA and Leclericia adecaroxylata. Abx changed to levaquin for coverage of right big toe and UTI infections. Patient has severe insulin resistance. Blood sugars remaining elevated despite treatment and she was placed on insulin drip. Blood sugars starting to improve. She does have acidosis. She does not have a gap. She has chronic metabolic acidosis due to kidney disease and had diarrhea last night. Also Cr is increased. I believe this is why she is acidotic. Patient also with MARGARITO during hospitalization. She does follow with nephrology as OP with baseline creat around 1.4-1.7. 08/15/24: Met with patient bedside. Endorses improvement of N/V/D. No vomiting today. Requesting soft diet. Blood glucose levels improved. UA with gram negative ID. Ceftriaxone started. Will replenish potassium today. Patient requesting SNF placement for weakness - CM will look into this. Will consult podiatry for dressing changes. 08/16/24: Met with patient bedside. Feeling better today. No N/V/D overnight. Still having burning in the epigastric region and reported trouble swallowing which has been going on for some time. States she feels like something is in her throat. Lab findings with elevated creat above baseline and blood sugars. Plan to continue abx, IVF, and dose adjust insulins. ST ruthann with modified barium for dysphagia. 08/17/24: Met with patient bedside. Diarrhea overnight. Labs meeting DKA criteria. CO2 level is low today and chronically - patient is on 1300mg sodium bicarb as OP. Will start bicarb drip. DKA protocol with pt to be moved to ICU. Modified barium swallow negative with no changes to diet. Patient states she is feeling better today. 08/18/24: Patient not feeling well today. Reports she has developed a cough which kept her up most of the night. CXR ordered. Covid/Flu/RSV ordered. No fever overnight. Wound cultures of the right big toe with MRSA and Leclericia adecaroxylata. Will change abx to levaquin for coverage of right big toe and UTI infections. Creat levels are improving. Will continue insulin and bicarb drip until acidosis resolved. 08/19/24: Met with patient bedside. Endorses much improvement overnight with BIPAP. Now on RA. ABGs have improved. Discussed case with Dr. Boudreaux (nephrology) 08/18/24- he reviewed patients ABGs and recommended continuation of bicarb drip at increased rate and continue BIPAP based on these findings. Patient has chronic metabolic acidosis. Labs/ABGs improved today - can discontinue bicarb/insulin drip. Patient to continue on increased dose of sodium bicarb at 1300mg TID per nephrology. She has additional complaints of sore throat and mouth sores - will order MMP. Podiatry following patient for wound to right great toe. - Review of Systems Constitutional: Fever, Chills, Weakness Eyes: No Symptoms Ears, Nose, & Throat: No Symptoms Respiratory: Cough, Short Of Breath, Wheezing Cardiac: No Symptoms Abdominal/Gastrointestinal: Abdominal Pain, Other (urostomy) Genitourinary Symptoms: No Symptoms Musculoskeletal: No Symptoms Skin: Skin Lesions (right great toe) Neurological: No Symptoms Psychological: No Symptoms Endocrine: No Symptoms Hematologic/Lymphatic: No Symptoms Immunological/Allergic: No Symptoms Objective Exam General Appearance: no apparent distress Neurologic Exam: alert, oriented x 3, cooperative Skin Exam: other (right great toe wound) Eye Exam: PERRL Ears, Nose, Throat Exam: normal ENT inspection Neck Exam: normal inspection Respiratory Exam: crackles/rales, wheezing Cardiovascular Exam: regular rate/rhythm, normal heart sounds Gastrointestinal/Abdomen Exam: soft, normal bowel sounds Extremity Exam: normal inspection Back Exam: normal inspection Pelvic Exam: deferred Rectal Exam: deferred Objective Data Vital Signs: Vital Signs - 24 hr Temp Pulse Resp BP Pulse Ox 08/19/24 05:01 100 F 95 H 18 144/81 98 08/19/24 04:01 99.4 F 96 H 22 176/85 97 08/19/24 04:00 96 H 08/19/24 03:01 99.4 F 96 H 18 151/79 99 08/19/24 02:01 99.5 F 95 H 21 168/96 100 08/19/24 01:00 100.9 F 96 H 18 135/95 99 08/19/24 00:01 100.9 F 101 H 15 113/71 98 08/19/24 00:00 99 H 08/18/24 23:00 101.3 F 102 H 19 136/98 100 08/18/24 22:04 101 F 103 H 18 149/67 98 08/18/24 21:15 101.9 F 102 H 16 140/60 98 08/18/24 20:00 100.2 F 103 H 15 162/113 97 08/18/24 19:01 103 H 15 141/61 92 L 08/18/24 18:01 99 H 139/65 92 L 08/18/24 17:01 88 19 146/70 08/18/24 16:26 86 19 139/62 08/18/24 16:25 83 26 H 08/18/24 16:20 83 26 H 08/18/24 16:10 81 25 H 08/18/24 16:02 81 21 08/18/24 16:00 98.7 F 80 08/18/24 15:00 80 21 101/68 95 08/18/24 14:00 90 21 102/63 08/18/24 13:01 98 H 24 112/62 08/18/24 12:01 104 H 21 154/73 08/18/24 12:00 99.5 F 107 H 08/18/24 11:44 106 H 14 152/66 97 08/18/24 11:01 107 H 20 89/61 08/18/24 10:01 103 H 18 121/98 08/18/24 09:44 99.1 F 08/18/24 09:01 101 H 18 132/61 96 08/18/24 08:01 99 H 14 143/56 100 08/18/24 08:00 95 H 08/18/24 07:01 96 H 18 126/64 08/18/24 06:01 91 H 15 143/87 90 L 08/18/24 05:59 95 08/18/24 05:35 81 16 97 Pain Assessment - Last Documented Pain Intensity 4 Pain Scale Used 0-10 Pain Scale Intake and Output: Intake & Output 08/16/24 08/17/24 08/18/24 08/19/24 11:59 11:59 11:59 11:59 Intake Total 4212 600 9783 4504 Output Total 1000 8818 0945 5664 Balance 3212 750 8558 -1171 Weight 126.6 kg Lab Results: Lab Results-Last 24 Hours 08/18/24 08/18/24 08/18/24 Range/Units 05:47 05:50 05:50 WBC 10.6 H (3.98-10.04) x10^3/uL RBC 4.56 (3.93-5.22) x10^6/uL Hgb 11.7 (11.2-15.7) g/dL Hct 39.6 (34.1-44.9) % MCV 86.8 (79.4-94.8) fL MCH 25.7 (25.6-32.2) pg MCHC 29.5 L (32.2-35.5) g/dL RDW 15.4 H (11.7-14.4) % Plt Count 378 H (182-369) x10^3/uL MPV 9.3 L (9.4-12.3) fL Gran % 83.1 H (34.0-71.1) % Immature Gran % (Auto) 1.8 H (0.001-0.429) % Nucleat RBC Rel Count 0.0 (0.00-0.2) % Eos # (Auto) 0.20 (0.04-0.36) x10^3/uL Immature Gran # (Auto) 0.19 H (0.001-0.031) x10^3u/L Absolute Lymphs (auto) 0.67 L (1.18-3.74) x10^3/uL Absolute Monos (auto) 0.66 (0.24-0.86) x10^3/uL Absolute Nucleated RBC 0.00 (0.00-0.012) x10^3u/L Lymphocytes % 6.3 L (19.3-51.7) % Monocytes % 6.2 (4.7-12.5) % Eosinophils % 1.9 (0.7-5.8) % Basophils % 0.7 (0.1-1.2) % Absolute Granulocytes 8.78 H (1.56-6.13) x10^3/uL Basophils # 0.07 (0.01-0.08) x10^3/uL Puncture Site pCO2 (35-45) mmHg pO2 (75-100) mmHg Base Excess (-2.0-2.0) O2 Saturation (94-100) g/dF ABG pH (7.35-7.45) ABG HCO3 (22-28) ABG O2 Sat (Measured) (95-100) % Rico Test A-a Gradient a/A Ratio Hemoglobin Carboxyhemoglobin (0.0-6.9) % THgb Methemoglobin (1.4-1.5) % Temperature C POC O2 Flow Rate % Vent Mode Vent Rate /MIN Tidal Volume cc Expiratory BiPAP Sodium 136 (135-145) mmol/L Potassium 4.3 (3.5-5.1) mmol/L Chloride 111 H (98-107) mmol/L Carbon Dioxide 17 L (22-30) mmol/L Anion Gap 12.2 (5-15) MEQ/L BUN 38 H (7-17) mg/dL Creatinine 1.98 H (0.52-1.04) mg/dL Estimated GFR 30.2 ML/MIN Glucose 142 H (74-106) mg/dL POC Glucometer 134 H (74 to 106) mg/dL Calcium 7.9 L (8.4-10.2) mg/dL Magnesium 1.8 (1.6-2.3) mg/dL Total Bilirubin 0.30 (0.2-1.3) mg/dL AST 60 H (14-36) U/L ALT 28 (0-35) U/L Alkaline Phosphatase 155 H (38-126) U/L Serum Total Protein 6.4 (6.3-8.2) g/dL Albumin 3.2 L (3.5-5.0) g/dL Influenza Type A Ag (NEGATIVE) Influenza Type B Ag (NEGATIVE) RSV (PCR) (NEGATIVE) SARS-CoV-2 (PCR) (NEGATIVE) 02/08/25 02/08/25 02/08/25 Range/Units 06:45 08:01 09:39 WBC (3.98-10.04) x10^3/uL RBC (3.93-5.22) x10^6/uL Hgb (11.2-15.7) g/dL Hct (34.1-44.9) % MCV (79.4-94.8) fL MCH (25.6-32.2) pg MCHC (32.2-35.5) g/dL RDW (11.7-14.4) % Plt Count (182-369) x10^3/uL MPV (9.4-12.3) fL Gran % (34.0-71.1) % Immature Gran % (Auto) (0.001-0.429) % Nucleat RBC Rel Count (0.00-0.2) % Eos # (Auto) (0.04-0.36) x10^3/uL Immature Gran # (Auto) (0.001-0.031) x10^3u/L Absolute Lymphs (auto) (1.18-3.74) x10^3/uL Absolute Monos (auto) (0.24-0.86) x10^3/uL Absolute Nucleated RBC (0.00-0.012) x10^3u/L Lymphocytes % (19.3-51.7) % Monocytes % (4.7-12.5) % Eosinophils % (0.7-5.8) % Basophils % (0.1-1.2) % Absolute Granulocytes (1.56-6.13) x10^3/uL Basophils # (0.01-0.08) x10^3/uL Puncture Site pCO2 (35-45) mmHg pO2 (75-100) mmHg Base Excess (-2.0-2.0) O2 Saturation (94-100) g/dF ABG pH (7.35-7.45) ABG HCO3 (22-28) ABG O2 Sat (Measured) (95-100) % Rico Test A-a Gradient a/A Ratio Hemoglobin Carboxyhemoglobin (0.0-6.9) % THgb Methemoglobin (1.4-1.5) % Temperature C POC O2 Flow Rate % Vent Mode Vent Rate /MIN Tidal Volume cc Expiratory BiPAP Sodium (135-145) mmol/L Potassium (3.5-5.1) mmol/L Chloride (98-107) mmol/L Carbon Dioxide (22-30) mmol/L Anion Gap (5-15) MEQ/L BUN (7-17) mg/dL Creatinine (0.52-1.04) mg/dL Estimated GFR ML/MIN Glucose (74-106) mg/dL POC Glucometer 126 H 131 H 173 H (74 to 106) mg/dL Calcium (8.4-10.2) mg/dL Magnesium (1.6-2.3) mg/dL Total Bilirubin (0.2-1.3) mg/dL AST (14-36) U/L ALT (0-35) U/L Alkaline Phosphatase (38-126) U/L Serum Total Protein (6.3-8.2) g/dL Albumin (3.5-5.0) g/dL Influenza Type A Ag (NEGATIVE) Influenza Type B Ag (NEGATIVE) RSV (PCR) (NEGATIVE) SARS-CoV-2 (PCR) (NEGATIVE) 08/18/24 08/18/24 08/18/24 Range/Units 09:40 09:40 10:11 WBC (3.98-10.04) x10^3/uL RBC (3.93-5.22) x10^6/uL Hgb (11.2-15.7) g/dL Hct (34.1-44.9) % MCV (79.4-94.8) fL MCH (25.6-32.2) pg MCHC (32.2-35.5) g/dL RDW (11.7-14.4) % Plt Count (182-369) x10^3/uL MPV (9.4-12.3) fL Gran % (34.0-71.1) % Immature Gran % (Auto) (0.001-0.429) % Nucleat RBC Rel Count (0.00-0.2) % Eos # (Auto) (0.04-0.36) x10^3/uL Immature Gran # (Auto) (0.001-0.031) x10^3u/L Absolute Lymphs (auto) (1.18-3.74) x10^3/uL Absolute Monos (auto) (0.24-0.86) x10^3/uL Absolute Nucleated RBC (0.00-0.012) x10^3u/L Lymphocytes % (19.3-51.7) % Monocytes % (4.7-12.5) % Eosinophils % (0.7-5.8) % Basophils % (0.1-1.2) % Absolute Granulocytes (1.56-6.13) x10^3/uL Basophils # (0.01-0.08) x10^3/uL Puncture Site pCO2 (35-45) mmHg pO2 (75-100) mmHg Base Excess (-2.0-2.0) O2 Saturation (94-100) g/dF ABG pH (7.35-7.45) ABG HCO3 (22-28) ABG O2 Sat (Measured) (95-100) % Rico Test A-a Gradient a/A Ratio Hemoglobin Carboxyhemoglobin (0.0-6.9) % THgb Methemoglobin (1.4-1.5) % Temperature C POC O2 Flow Rate % Vent Mode Vent Rate /MIN Tidal Volume cc Expiratory BiPAP Sodium 134 L (135-145) mmol/L Potassium 4.4 (3.5-5.1) mmol/L Chloride 110 H (98-107) mmol/L Carbon Dioxide 16 L* (22-30) mmol/L Anion Gap 11.6 (5-15) MEQ/L BUN 36 H (7-17) mg/dL Creatinine 1.81 H (0.52-1.04) mg/dL Estimated GFR 33.7 ML/MIN Glucose 186 H (74-106) mg/dL POC Glucometer 177 H (74 to 106) mg/dL Calcium 7.7 L (8.4-10.2) mg/dL Magnesium (1.6-2.3) mg/dL Total Bilirubin (0.2-1.3) mg/dL AST (14-36) U/L ALT (0-35) U/L Alkaline Phosphatase (38-126) U/L Serum Total Protein (6.3-8.2) g/dL Albumin (3.5-5.0) g/dL Influenza Type A Ag POSITIVE A (NEGATIVE) Influenza Type B Ag NEGATIVE (NEGATIVE) RSV (PCR) NEGATIVE (NEGATIVE) SARS-CoV-2 (PCR) NEGATIVE (NEGATIVE) 08/18/24 08/18/24 08/18/24 Range/Units 11:05 11:42 12:56 WBC (3.98-10.04) x10^3/uL RBC (3.93-5.22) x10^6/uL Hgb (11.2-15.7) g/dL Hct (34.1-44.9) % MCV (79.4-94.8) fL MCH (25.6-32.2) pg MCHC (32.2-35.5) g/dL RDW (11.7-14.4) % Plt Count (182-369) x10^3/uL MPV (9.4-12.3) fL Gran % (34.0-71.1) % Immature Gran % (Auto) (0.001-0.429) % Nucleat RBC Rel Count (0.00-0.2) % Eos # (Auto) (0.04-0.36) x10^3/uL Immature Gran # (Auto) (0.001-0.031) x10^3u/L Absolute Lymphs (auto) (1.18-3.74) x10^3/uL Absolute Monos (auto) (0.24-0.86) x10^3/uL Absolute Nucleated RBC (0.00-0.012) x10^3u/L Lymphocytes % (19.3-51.7) % Monocytes % (4.7-12.5) % Eosinophils % (0.7-5.8) % Basophils % (0.1-1.2) % Absolute Granulocytes (1.56-6.13) x10^3/uL Basophils # (0.01-0.08) x10^3/uL Puncture Site pCO2 (35-45) mmHg pO2 (75-100) mmHg Base Excess (-2.0-2.0) O2 Saturation (94-100) g/dF ABG pH (7.35-7.45) ABG HCO3 (22-28) ABG O2 Sat (Measured) (95-100) % Rico Test A-a Gradient a/A Ratio Hemoglobin Carboxyhemoglobin (0.0-6.9) % THgb Methemoglobin (1.4-1.5) % Temperature C POC O2 Flow Rate % Vent Mode Vent Rate /MIN Tidal Volume cc Expiratory BiPAP Sodium (135-145) mmol/L Potassium (3.5-5.1) mmol/L Chloride (98-107) mmol/L Carbon Dioxide (22-30) mmol/L Anion Gap (5-15) MEQ/L BUN (7-17) mg/dL Creatinine (0.52-1.04) mg/dL Estimated GFR ML/MIN Glucose (74-106) mg/dL POC Glucometer 183 H 183 H 198 H (74 to 106) mg/dL Calcium (8.4-10.2) mg/dL Magnesium (1.6-2.3) mg/dL Total Bilirubin (0.2-1.3) mg/dL AST (14-36) U/L ALT (0-35) U/L Alkaline Phosphatase (38-126) U/L Serum Total Protein (6.3-8.2) g/dL Albumin (3.5-5.0) g/dL Influenza Type A Ag (NEGATIVE) Influenza Type B Ag (NEGATIVE) RSV (PCR) (NEGATIVE) SARS-CoV-2 (PCR) (NEGATIVE) 08/18/24 08/18/24 08/18/24 Range/Units 13:30 13:54 15:08 WBC (3.98-10.04) x10^3/uL RBC (3.93-5.22) x10^6/uL Hgb (11.2-15.7) g/dL Hct (34.1-44.9) % MCV (79.4-94.8) fL MCH (25.6-32.2) pg MCHC (32.2-35.5) g/dL RDW (11.7-14.4) % Plt Count (182-369) x10^3/uL MPV (9.4-12.3) fL Gran % (34.0-71.1) % Immature Gran % (Auto) (0.001-0.429) % Nucleat RBC Rel Count (0.00-0.2) % Eos # (Auto) (0.04-0.36) x10^3/uL Immature Gran # (Auto) (0.001-0.031) x10^3u/L Absolute Lymphs (auto) (1.18-3.74) x10^3/uL Absolute Monos (auto) (0.24-0.86) x10^3/uL Absolute Nucleated RBC (0.00-0.012) x10^3u/L Lymphocytes % (19.3-51.7) % Monocytes % (4.7-12.5) % Eosinophils % (0.7-5.8) % Basophils % (0.1-1.2) % Absolute Granulocytes (1.56-6.13) x10^3/uL Basophils # (0.01-0.08) x10^3/uL Puncture Site pCO2 (35-45) mmHg pO2 (75-100) mmHg Base Excess (-2.0-2.0) O2 Saturation (94-100) g/dF ABG pH (7.35-7.45) ABG HCO3 (22-28) ABG O2 Sat (Measured) (95-100) % Rico Test A-a Gradient a/A Ratio Hemoglobin Carboxyhemoglobin (0.0-6.9) % THgb Methemoglobin (1.4-1.5) % Temperature C POC O2 Flow Rate % Vent Mode Vent Rate /MIN Tidal Volume cc Expiratory BiPAP Sodium 134 L (135-145) mmol/L Potassium 4.4 (3.5-5.1) mmol/L Chloride 109 H (98-107) mmol/L Carbon Dioxide 17 L (22-30) mmol/L Anion Gap 12.1 (5-15) MEQ/L BUN 34 H (7-17) mg/dL Creatinine 1.71 H (0.52-1.04) mg/dL Estimated GFR 36.1 ML/MIN Glucose 218 H (74-106) mg/dL POC Glucometer 215 H 199 H (74 to 106) mg/dL Calcium 7.5 L (8.4-10.2) mg/dL Magnesium (1.6-2.3) mg/dL Total Bilirubin (0.2-1.3) mg/dL AST (14-36) U/L ALT (0-35) U/L Alkaline Phosphatase (38-126) U/L Serum Total Protein (6.3-8.2) g/dL Albumin (3.5-5.0) g/dL Influenza Type A Ag (NEGATIVE) Influenza Type B Ag (NEGATIVE) RSV (PCR) (NEGATIVE) SARS-CoV-2 (PCR) (NEGATIVE) 08/18/24 08/18/24 08/18/24 Range/Units 16:24 17:20 17:43 WBC (3.98-10.04) x10^3/uL RBC (3.93-5.22) x10^6/uL Hgb (11.2-15.7) g/dL Hct (34.1-44.9) % MCV (79.4-94.8) fL MCH (25.6-32.2) pg MCHC (32.2-35.5) g/dL RDW (11.7-14.4) % Plt Count (182-369) x10^3/uL MPV (9.4-12.3) fL Gran % (34.0-71.1) % Immature Gran % (Auto) (0.001-0.429) % Nucleat RBC Rel Count (0.00-0.2) % Eos # (Auto) (0.04-0.36) x10^3/uL Immature Gran # (Auto) (0.001-0.031) x10^3u/L Absolute Lymphs (auto) (1.18-3.74) x10^3/uL Absolute Monos (auto) (0.24-0.86) x10^3/uL Absolute Nucleated RBC (0.00-0.012) x10^3u/L Lymphocytes % (19.3-51.7) % Monocytes % (4.7-12.5) % Eosinophils % (0.7-5.8) % Basophils % (0.1-1.2) % Absolute Granulocytes (1.56-6.13) x10^3/uL Basophils # (0.01-0.08) x10^3/uL Puncture Site pCO2 (35-45) mmHg pO2 (75-100) mmHg Base Excess (-2.0-2.0) O2 Saturation (94-100) g/dF ABG pH (7.35-7.45) ABG HCO3 (22-28) ABG O2 Sat (Measured) (95-100) % Rico Test A-a Gradient a/A Ratio Hemoglobin Carboxyhemoglobin (0.0-6.9) % THgb Methemoglobin (1.4-1.5) % Temperature C POC O2 Flow Rate % Vent Mode Vent Rate /MIN Tidal Volume cc Expiratory BiPAP Sodium 132 L (135-145) mmol/L Potassium 4.8 (3.5-5.1) mmol/L Chloride 110 H (98-107) mmol/L Carbon Dioxide 15 L* (22-30) mmol/L Anion Gap 12.0 (5-15) MEQ/L BUN 31 H (7-17) mg/dL Creatinine 1.70 H (0.52-1.04) mg/dL Estimated GFR 36.3 ML/MIN Glucose 205 H (74-106) mg/dL POC Glucometer 194 H 190 H (74 to 106) mg/dL Calcium 7.6 L (8.4-10.2) mg/dL Magnesium (1.6-2.3) mg/dL Total Bilirubin (0.2-1.3) mg/dL AST (14-36) U/L ALT (0-35) U/L Alkaline Phosphatase (38-126) U/L Serum Total Protein (6.3-8.2) g/dL Albumin (3.5-5.0) g/dL Influenza Type A Ag (NEGATIVE) Influenza Type B Ag (NEGATIVE) RSV (PCR) (NEGATIVE) SARS-CoV-2 (PCR) (NEGATIVE) 08/18/24 08/18/24 08/18/24 Range/Units 17:48 19:04 19:59 WBC (3.98-10.04) x10^3/uL RBC (3.93-5.22) x10^6/uL Hgb (11.2-15.7) g/dL Hct (34.1-44.9) % MCV (79.4-94.8) fL MCH (25.6-32.2) pg MCHC (32.2-35.5) g/dL RDW (11.7-14.4) % Plt Count (182-369) x10^3/uL MPV (9.4-12.3) fL Gran % (34.0-71.1) % Immature Gran % (Auto) (0.001-0.429) % Nucleat RBC Rel Count (0.00-0.2) % Eos # (Auto) (0.04-0.36) x10^3/uL Immature Gran # (Auto) (0.001-0.031) x10^3u/L Absolute Lymphs (auto) (1.18-3.74) x10^3/uL Absolute Monos (auto) (0.24-0.86) x10^3/uL Absolute Nucleated RBC (0.00-0.012) x10^3u/L Lymphocytes % (19.3-51.7) % Monocytes % (4.7-12.5) % Eosinophils % (0.7-5.8) % Basophils % (0.1-1.2) % Absolute Granulocytes (1.56-6.13) x10^3/uL Basophils # (0.01-0.08) x10^3/uL Puncture Site RIGHT RADIAL pCO2 48 H (35-45) mmHg pO2 75 (75-100) mmHg Base Excess -8.0 L (-2.0-2.0) O2 Saturation 95.3 (94-100) g/dF ABG pH 7.22 L* (7.35-7.45) ABG HCO3 19.6 L (22-28) ABG O2 Sat (Measured) 97.8 (95-100) % Rico Test YES A-a Gradient 65 a/A Ratio 0.54 Hemoglobin 11.5 Carboxyhemoglobin 1.6 (0.0-6.9) % THgb Methemoglobin 1.0 L (1.4-1.5) % Temperature 37.0 C POC O2 Flow Rate 28 % Vent Mode Vent Rate /MIN Tidal Volume cc Expiratory BiPAP Sodium (135-145) mmol/L Potassium 4.8 (3.5-5.1) mmol/L Chloride (98-107) mmol/L Carbon Dioxide (22-30) mmol/L Anion Gap (5-15) MEQ/L BUN (7-17) mg/dL Creatinine (0.52-1.04) mg/dL Estimated GFR ML/MIN Glucose (74-106) mg/dL POC Glucometer 188 H 201 H (74 to 106) mg/dL Calcium (8.4-10.2) mg/dL Magnesium (1.6-2.3) mg/dL Total Bilirubin (0.2-1.3) mg/dL AST (14-36) U/L ALT (0-35) U/L Alkaline Phosphatase (38-126) U/L Serum Total Protein (6.3-8.2) g/dL Albumin (3.5-5.0) g/dL Influenza Type A Ag (NEGATIVE) Influenza Type B Ag (NEGATIVE) RSV (PCR) (NEGATIVE) SARS-CoV-2 (PCR) (NEGATIVE) 08/18/24 08/18/24 08/18/24 Range/Units 21:24 21:30 21:51 WBC (3.98-10.04) x10^3/uL RBC (3.93-5.22) x10^6/uL Hgb (11.2-15.7) g/dL Hct (34.1-44.9) % MCV (79.4-94.8) fL MCH (25.6-32.2) pg MCHC (32.2-35.5) g/dL RDW (11.7-14.4) % Plt Count (182-369) x10^3/uL MPV (9.4-12.3) fL Gran % (34.0-71.1) % Immature Gran % (Auto) (0.001-0.429) % Nucleat RBC Rel Count (0.00-0.2) % Eos # (Auto) (0.04-0.36) x10^3/uL Immature Gran # (Auto) (0.001-0.031) x10^3u/L Absolute Lymphs (auto) (1.18-3.74) x10^3/uL Absolute Monos (auto) (0.24-0.86) x10^3/uL Absolute Nucleated RBC (0.00-0.012) x10^3u/L Lymphocytes % (19.3-51.7) % Monocytes % (4.7-12.5) % Eosinophils % (0.7-5.8) % Basophils % (0.1-1.2) % Absolute Granulocytes (1.56-6.13) x10^3/uL Basophils # (0.01-0.08) x10^3/uL Puncture Site RIGHT RADIAL pCO2 52 H (35-45) mmHg pO2 135 H* (75-100) mmHg Base Excess -4.7 L (-2.0-2.0) O2 Saturation 97.3 (94-100) g/dF ABG pH 7.25 L* (7.35-7.45) ABG HCO3 22.8 (22-28) ABG O2 Sat (Measured) 99.6 (95-100) % Rico Test YES A-a Gradient 85 a/A Ratio 0.61 Hemoglobin 11.2 Carboxyhemoglobin 1.4 (0.0-6.9) % THgb Methemoglobin 0.9 L (1.4-1.5) % Temperature 37.0 C POC O2 Flow Rate 40 % Vent Mode AVAPS Vent Rate 10 /MIN Tidal Volume 450 cc Expiratory BiPAP 6 Sodium 133 L (135-145) mmol/L Potassium 4.3 4.5 (3.5-5.1) mmol/L Chloride 106 (98-107) mmol/L Carbon Dioxide 19 L (22-30) mmol/L Anion Gap 11.3 (5-15) MEQ/L BUN 30 H (7-17) mg/dL Creatinine 1.84 H (0.52-1.04) mg/dL Estimated GFR 33.0 ML/MIN Glucose 200 H (74-106) mg/dL POC Glucometer 169 H (74 to 106) mg/dL Calcium 8.0 L (8.4-10.2) mg/dL Magnesium (1.6-2.3) mg/dL Total Bilirubin (0.2-1.3) mg/dL AST (14-36) U/L ALT (0-35) U/L Alkaline Phosphatase (38-126) U/L Serum Total Protein (6.3-8.2) g/dL Albumin (3.5-5.0) g/dL Influenza Type A Ag (NEGATIVE) Influenza Type B Ag (NEGATIVE) RSV (PCR) (NEGATIVE) SARS-CoV-2 (PCR) (NEGATIVE) 08/18/24 08/18/24 08/18/24 Range/Units 22:08 22:57 23:10 WBC (3.98-10.04) x10^3/uL RBC (3.93-5.22) x10^6/uL Hgb (11.2-15.7) g/dL Hct (34.1-44.9) % MCV (79.4-94.8) fL MCH (25.6-32.2) pg MCHC (32.2-35.5) g/dL RDW (11.7-14.4) % Plt Count (182-369) x10^3/uL MPV (9.4-12.3) fL Gran % (34.0-71.1) % Immature Gran % (Auto) (0.001-0.429) % Nucleat RBC Rel Count (0.00-0.2) % Eos # (Auto) (0.04-0.36) x10^3/uL Immature Gran # (Auto) (0.001-0.031) x10^3u/L Absolute Lymphs (auto) (1.18-3.74) x10^3/uL Absolute Monos (auto) (0.24-0.86) x10^3/uL Absolute Nucleated RBC (0.00-0.012) x10^3u/L Lymphocytes % (19.3-51.7) % Monocytes % (4.7-12.5) % Eosinophils % (0.7-5.8) % Basophils % (0.1-1.2) % Absolute Granulocytes (1.56-6.13) x10^3/uL Basophils # (0.01-0.08) x10^3/uL Puncture Site RIGHT RADIAL pCO2 53 H (35-45) mmHg pO2 91 (75-100) mmHg Base Excess -4.3 L (-2.0-2.0) O2 Saturation 96.8 (94-100) g/dF ABG pH 7.25 L* (7.35-7.45) ABG HCO3 23.2 (22-28) ABG O2 Sat (Measured) 99.3 (95-100) % Rico Test YES A-a Gradient 92 a/A Ratio 0.50 Hemoglobin 11.2 Carboxyhemoglobin 1.8 (0.0-6.9) % THgb Methemoglobin 0.7 L (1.4-1.5) % Temperature 37.0 C POC O2 Flow Rate 35 % Vent Mode AVAPS Vent Rate 10 /MIN Tidal Volume 450 cc Expiratory BiPAP 8 Sodium (135-145) mmol/L Potassium 4.3 (3.5-5.1) mmol/L Chloride (98-107) mmol/L Carbon Dioxide (22-30) mmol/L Anion Gap (5-15) MEQ/L BUN (7-17) mg/dL Creatinine (0.52-1.04) mg/dL Estimated GFR ML/MIN Glucose (74-106) mg/dL POC Glucometer 186 H 176 H (74 to 106) mg/dL Calcium (8.4-10.2) mg/dL Magnesium (1.6-2.3) mg/dL Total Bilirubin (0.2-1.3) mg/dL AST (14-36) U/L ALT (0-35) U/L Alkaline Phosphatase (38-126) U/L Serum Total Protein (6.3-8.2) g/dL Albumin (3.5-5.0) g/dL Influenza Type A Ag (NEGATIVE) Influenza Type B Ag (NEGATIVE) RSV (PCR) (NEGATIVE) SARS-CoV-2 (PCR) (NEGATIVE) 08/19/24 08/19/24 08/19/24 Range/Units 00:00 00:54 01:49 WBC (3.98-10.04) x10^3/uL RBC (3.93-5.22) x10^6/uL Hgb (11.2-15.7) g/dL Hct (34.1-44.9) % MCV (79.4-94.8) fL MCH (25.6-32.2) pg MCHC (32.2-35.5) g/dL RDW (11.7-14.4) % Plt Count (182-369) x10^3/uL MPV (9.4-12.3) fL Gran % (34.0-71.1) % Immature Gran % (Auto) (0.001-0.429) % Nucleat RBC Rel Count (0.00-0.2) % Eos # (Auto) (0.04-0.36) x10^3/uL Immature Gran # (Auto) (0.001-0.031) x10^3u/L Absolute Lymphs (auto) (1.18-3.74) x10^3/uL Absolute Monos (auto) (0.24-0.86) x10^3/uL Absolute Nucleated RBC (0.00-0.012) x10^3u/L Lymphocytes % (19.3-51.7) % Monocytes % (4.7-12.5) % Eosinophils % (0.7-5.8) % Basophils % (0.1-1.2) % Absolute Granulocytes (1.56-6.13) x10^3/uL Basophils # (0.01-0.08) x10^3/uL Puncture Site pCO2 (35-45) mmHg pO2 (75-100) mmHg Base Excess (-2.0-2.0) O2 Saturation (94-100) g/dF ABG pH (7.35-7.45) ABG HCO3 (22-28) ABG O2 Sat (Measured) (95-100) % Rico Test A-a Gradient a/A Ratio Hemoglobin Carboxyhemoglobin (0.0-6.9) % THgb Methemoglobin (1.4-1.5) % Temperature C POC O2 Flow Rate % Vent Mode Vent Rate /MIN Tidal Volume cc Expiratory BiPAP Sodium (135-145) mmol/L Potassium (3.5-5.1) mmol/L Chloride (98-107) mmol/L Carbon Dioxide (22-30) mmol/L Anion Gap (5-15) MEQ/L BUN (7-17) mg/dL Creatinine (0.52-1.04) mg/dL Estimated GFR ML/MIN Glucose (74-106) mg/dL POC Glucometer 169 H 177 H 170 H (74 to 106) mg/dL Calcium (8.4-10.2) mg/dL Magnesium (1.6-2.3) mg/dL Total Bilirubin (0.2-1.3) mg/dL AST (14-36) U/L ALT (0-35) U/L Alkaline Phosphatase (38-126) U/L Serum Total Protein (6.3-8.2) g/dL Albumin (3.5-5.0) g/dL Influenza Type A Ag (NEGATIVE) Influenza Type B Ag (NEGATIVE) RSV (PCR) (NEGATIVE) SARS-CoV-2 (PCR) (NEGATIVE) 08/19/24 08/19/24 08/19/24 Range/Units 01:56 02:50 03:48 WBC (3.98-10.04) x10^3/uL RBC (3.93-5.22) x10^6/uL Hgb (11.2-15.7) g/dL Hct (34.1-44.9) % MCV (79.4-94.8) fL MCH (25.6-32.2) pg MCHC (32.2-35.5) g/dL RDW (11.7-14.4) % Plt Count (182-369) x10^3/uL MPV (9.4-12.3) fL Gran % (34.0-71.1) % Immature Gran % (Auto) (0.001-0.429) % Nucleat RBC Rel Count (0.00-0.2) % Eos # (Auto) (0.04-0.36) x10^3/uL Immature Gran # (Auto) (0.001-0.031) x10^3u/L Absolute Lymphs (auto) (1.18-3.74) x10^3/uL Absolute Monos (auto) (0.24-0.86) x10^3/uL Absolute Nucleated RBC (0.00-0.012) x10^3u/L Lymphocytes % (19.3-51.7) % Monocytes % (4.7-12.5) % Eosinophils % (0.7-5.8) % Basophils % (0.1-1.2) % Absolute Granulocytes (1.56-6.13) x10^3/uL Basophils # (0.01-0.08) x10^3/uL Puncture Site pCO2 (35-45) mmHg pO2 (75-100) mmHg Base Excess (-2.0-2.0) O2 Saturation (94-100) g/dF ABG pH (7.35-7.45) ABG HCO3 (22-28) ABG O2 Sat (Measured) (95-100) % Rico Test A-a Gradient a/A Ratio Hemoglobin Carboxyhemoglobin (0.0-6.9) % THgb Methemoglobin (1.4-1.5) % Temperature C POC O2 Flow Rate % Vent Mode Vent Rate /MIN Tidal Volume cc Expiratory BiPAP Sodium 132 L (135-145) mmol/L Potassium 4.2 (3.5-5.1) mmol/L Chloride 103 (98-107) mmol/L Carbon Dioxide 23 (22-30) mmol/L Anion Gap 10.5 (5-15) MEQ/L BUN 29 H (7-17) mg/dL Creatinine 1.81 H (0.52-1.04) mg/dL Estimated GFR 33.7 ML/MIN Glucose 196 H (74-106) mg/dL POC Glucometer 169 H 176 H (74 to 106) mg/dL Calcium 7.5 L (8.4-10.2) mg/dL Magnesium (1.6-2.3) mg/dL Total Bilirubin (0.2-1.3) mg/dL AST (14-36) U/L ALT (0-35) U/L Alkaline Phosphatase (38-126) U/L Serum Total Protein (6.3-8.2) g/dL Albumin (3.5-5.0) g/dL Influenza Type A Ag (NEGATIVE) Influenza Type B Ag (NEGATIVE) RSV (PCR) (NEGATIVE) SARS-CoV-2 (PCR) (NEGATIVE) 08/19/24 Range/Units 04:52 WBC (3.98-10.04) x10^3/uL RBC (3.93-5.22) x10^6/uL Hgb (11.2-15.7) g/dL Hct (34.1-44.9) % MCV (79.4-94.8) fL MCH (25.6-32.2) pg MCHC (32.2-35.5) g/dL RDW (11.7-14.4) % Plt Count (182-369) x10^3/uL MPV (9.4-12.3) fL Gran % (34.0-71.1) % Immature Gran % (Auto) (0.001-0.429) % Nucleat RBC Rel Count (0.00-0.2) % Eos # (Auto) (0.04-0.36) x10^3/uL Immature Gran # (Auto) (0.001-0.031) x10^3u/L Absolute Lymphs (auto) (1.18-3.74) x10^3/uL Absolute Monos (auto) (0.24-0.86) x10^3/uL Absolute Nucleated RBC (0.00-0.012) x10^3u/L Lymphocytes % (19.3-51.7) % Monocytes % (4.7-12.5) % Eosinophils % (0.7-5.8) % Basophils % (0.1-1.2) % Absolute Granulocytes (1.56-6.13) x10^3/uL Basophils # (0.01-0.08) x10^3/uL Puncture Site pCO2 (35-45) mmHg pO2 (75-100) mmHg Base Excess (-2.0-2.0) O2 Saturation (94-100) g/dF ABG pH (7.35-7.45) ABG HCO3 (22-28) ABG O2 Sat (Measured) (95-100) % Rico Test A-a Gradient a/A Ratio Hemoglobin Carboxyhemoglobin (0.0-6.9) % THgb Methemoglobin (1.4-1.5) % Temperature C POC O2 Flow Rate % Vent Mode Vent Rate /MIN Tidal Volume cc Expiratory BiPAP Sodium (135-145) mmol/L Potassium (3.5-5.1) mmol/L Chloride (98-107) mmol/L Carbon Dioxide (22-30) mmol/L Anion Gap (5-15) MEQ/L BUN (7-17) mg/dL Creatinine (0.52-1.04) mg/dL Estimated GFR ML/MIN Glucose (74-106) mg/dL POC Glucometer 161 H (74 to 106) mg/dL Calcium (8.4-10.2) mg/dL Magnesium (1.6-2.3) mg/dL Total Bilirubin (0.2-1.3) mg/dL AST (14-36) U/L ALT (0-35) U/L Alkaline Phosphatase (38-126) U/L Serum Total Protein (6.3-8.2) g/dL Albumin (3.5-5.0) g/dL Influenza Type A Ag (NEGATIVE) Influenza Type B Ag (NEGATIVE) RSV (PCR) (NEGATIVE) SARS-CoV-2 (PCR) (NEGATIVE) Radiology Exams: Radiology Procedures Category Date Time Status CHEST 1 VIEW (PORTABLE) Routine Exams 08/18/24 09:50 Taken CHEST 1 VIEW (PORTABLE) Routine Exams 08/19/24 07:00 Ordered FOOT (MINIMUM 3 VIEWS) Stat Exams 08/18/24 20:24 Completed HEAD WITHOUT CONTRAST [CT] Urgent Exams 08/18/24 20:22 Completed Multi-Disciplinary Progress Notes: Multi-Disciplinary Progress Notes 08/18/24 19:47 Respiratory Note by Rossy Phillips Pt was placed on bipap at 1810 due to impending resp failure as indicated on ABG. Pt took mask off and refused bipap at 1817. Risks of not wearing bipap and benefits of bipap were reviewed with patient but she continues to refuse bipap. Pt was placed on 2L nasal cannula. Noe Chacon NP was notified of patients refusal of bipap. Initialized on 08/18/24 19:47 - END OF NOTE 08/18/24 17:50 Respiratory Note by Vika Danielson RESULTS OF ABG GIVEN TO NOE CHACON PUMP MECHANIC Initialized on 08/18/24 17:50 - END OF NOTE Assessment/Plan (1) Hyperglycemia due to type 2 diabetes mellitus Current Visit: No Status: Acute Assessment & Plan: -SSI high dose -ADA diet when able - soft diet for now -Lantus -A1c > 14 -Follows with Dr. 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 - will verify with office 08/17: -meeting DKA criteria with hyperglycemia, ph level, and low co2 -will initiate DKA protocol and start bicarb drip 08/18: -Blood glucose levels improving - will continue insulin drip until acidosis corrected 08/19: -DKA resolved - insulin drip discontinued -Resume patient's home insulin regimen Code(s): E11.65 - TYPE 2 DIABETES MELLITUS WITH HYPERGLYCEMIA (2) Acute kidney injury superimposed on chronic kidney disease Current Visit: Yes Status: Acute Assessment & Plan: -baseline 1.3-1.5 -Creat reviewed on admission at 1.78 -most likely secondary to hypovolemia -Avoid nephrotoxic agents -monitor renal/lytes daily -IVF 08/16: -Increase IVF to 125 ml -creat reviewed at 2.20 -Hold losartan 7: -Creat reviewed and worsening at 2.30 -continue IVF -Bladder scan -continue to hold losartan 08/18: -Creat reviewed at 1.98 - improved -hold losartan -Continue IVF 08/19: -creat reviewed - continues to improve - baseline 1.3-1.5 patient at 1.60 today Code(s): N17.9 - ACUTE KIDNEY FAILURE, UNSPECIFIED; N18.9 - CHRONIC KIDNEY DISEASE, UNSPECIFIED (3) Chest pain Current Visit: Yes Status: Acute Qualifiers: Chest pain type: unspecified Qualified Code(s): R07.9 - Chest pain, unspecified Assessment & Plan: Likely from persistent N/V, doubt cardiac in origin -Tele -Trops negative x 3 - Continue ASA 81mg -echo from 06/26/24 IMPRESSION: EF: 52% 1) LOW NORMAL CONTRACTILITY LEFT VENTRICLE. 2) MODERATE CONCENTRIC LEFT VENTRICULAR HYPERTROPHY. 3) POSSIBLE IMPAIRED LEFT VENTRICULAR RELAXATION. 4) MILD MITRAL REGURGITATIOn Cardiac nuclear stress test 07/30/24: Impression: 1. No scintigraphic evidence for pharmacologic induced reversible ischemia. 2. Normal ejection fraction. -mild when coughing 08/19: -resolved Code(s): R07.9 - CHEST PAIN, UNSPECIFIED (4) Gastroenteritis Current Visit: Yes Status: Acute Assessment & Plan: Family had GI bug about two weeks ago -Supportive care - Anti-emetics, H2 blockers, 08/19: -Resolved Code(s): K52.9 - NONINFECTIVE GASTROENTERITIS AND COLITIS, UNSPECIFIED (5) Hypertensive chronic kidney disease with stage 1 through stage 4 chronic kidney disease, or unspecified chronic kidney disease Current Visit: Yes Status: Acute Assessment & Plan: Blood pressure under good control -Continue bp meds 08/19: -Continue to hold losartan until creat at baseline Code(s): I12.9 - HYPERTENSIVE CHRONIC KIDNEY DISEASE W STG 1-4/UNSP CHR KDNY (6) Hyponatremia Current Visit: Yes Status: Acute Assessment & Plan: Likely a combination of hypovolemia and elevated blood sugars (pseudo- hyponatremia) -IVFs - Check urine lytes, urine osmo - Limit free water -. Follow I/Os 08/17: -In the setting of hyperglycemia/dehydration -continue IVF 08/18: -Resolved Code(s): E87.1 - HYPO-OSMOLALITY AND HYPONATREMIA (7) UTI (urinary tract infection) Current Visit: Yes Status: Acute Assessment & Plan: -UA suspicious for UTI/ ucult with gram - ID will start ceftriaxone - follow culture 08/16: -Ucult positive for klebsiella- continue ceftriaxone based on sensitivity -WBC reviewed and down-trending 10.2<11.4<12.2 -No dysuria reported by patient - with urostomy 08/17: -WBC reviewed and down-trending now wnl at 9.4<10.2 -Continue ceftriaxone 08/18: -Abx changed to levaquin for coverage of right toe wound and UTI infections - pharmacy to renal dose Code(s): N39.0 - URINARY TRACT INFECTION, SITE NOT SPECIFIED (8) Hypokalemia Current Visit: Yes Status: Acute Assessment & Plan: -Potassium reviewed at 3.0- will replace per protocol -tele 08/16: -Resolved 08/18: -resolved Dysphagia -ST eval -modified barium swallow 08/17: -Barium swallow reviewed with functional swallow without deficit. 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 Will change abx to levaquin for coverage of right big toe and UTI infections. -Podiatry following -dressing changes per podiatry 08/19: -Discussed case with podiatry - possible bedside debridement - he will decide if he wants further imaging -Xray of right foot with no acute findings -Continue Levaquin FluA -FluA positive -isolation -Tamiflu -renal dosed by pharmacy 08/19: -CXR reviewed from 08/19 with mild haziness to right lower zone -continue levaquin -lasix 40mg x 1 dose -IS -DuoNebs Acute Respiratory failure with hypoxia -Patient presenting with lethargy 08/18/24 reported by RT and RN - ABGs reviewed showing respiratory acidosis with secondary metabolic acidosis -BIPAP ordered - repeat ABG reviewed and improved. -Patient now on Metabolic Acidosis -Chronic - discussed case with Dr. Boudreaux (patient's buyer assistant) and PUMP MECHANIC Mindy Singh - they have reviewed ABGs from 08/18/24 - advised continuation of bicarb drip at that time with increased rate to 150. ABGs improved 08/19/24. Advised to discontinue bicarb drip. Continue home sodium bicarb at 1300mg - increase to TID - they will see patient on discharge VTE: lovenox PPI: protonix Dispo: 1-2 days SNF pending Code(s): E11.65 - TYPE 2 DIABETES MELLITUS WITH HYPERGLYCEMIA (2) Acute kidney injury superimposed on chronic kidney disease Current Visit: Yes Status: Acute Code(s): N17.9 - ACUTE KIDNEY FAILURE, UNSPECIFIED; N18.9 - CHRONIC KIDNEY DISEASE, UNSPECIFIED (3) Chest pain Current Visit: Yes Status: Acute Qualifiers: Chest pain type: unspecified Qualified Code(s): R07.9 - Chest pain, unspecified Code(s): R07.9 - CHEST PAIN, UNSPECIFIED (4) Gastroenteritis Current Visit: Yes Status: Acute Code(s): K52.9 - NONINFECTIVE GASTROENTERITIS AND COLITIS, UNSPECIFIED (5) Hypertensive chronic kidney disease with stage 1 through stage 4 chronic kidney disease, or unspecified chronic kidney disease Current Visit: Yes Status: Acute Code(s): I12.9 - HYPERTENSIVE CHRONIC KIDNEY DISEASE W STG 1-4/UNSP CHR KDNY (6) Hyponatremia Current Visit: Yes Status: Acute Code(s): E87.1 - HYPO-OSMOLALITY AND HYPONATREMIA (7) UTI (urinary tract infection) Current Visit: Yes Status: Acute Code(s): N39.0 - URINARY TRACT INFECTION, SITE NOT SPECIFIED (8) Hypokalemia Current Visit: Yes Status: Acute Code(s): E87.6 - HYPOKALEMIA (9) Dysphagia Current Visit: Yes Status: Acute Code(s): R13.10 - DYSPHAGIA, UNSPECIFIED (10) DKA (diabetic ketoacidosis) Current Visit: Yes Status: Acute Code(s): E11.10 - TYPE 2 DIABETES MELLITUS WITH KETOACIDOSIS WITHOUT COMA (11) Acute respiratory failure with hypoxia Current Visit: Yes Status: Acute Code(s): J96.01 - ACUTE RESPIRATORY FAILURE WITH HYPOXIA (12) Metabolic acidosis Current Visit: Yes Status: Acute Code(s): E87.20 - ACIDOSIS, UNSPECIFIED
[2024-08-19 05:31] LABS: A-aADO2 58; ABG HEMOGLOBIN 11.5; ABG SITE RIGHT RADIAL; ALLEN TEST OK? YES; ARTERIAL BLD GAS O2 SATURATION 99.5 % (95-100); ARTERIAL BLD GAS TIDAL VOLUME 450 cc; ARTERIAL BLOOD GAS BASE EXCESS -1.9 (-2.0-2.0); ARTERIAL BLOOD GAS FIO2 35 %; ARTERIAL BLOOD GAS PCO2 43 mmHg (35-45); ARTERIAL BLOOD GAS PO2 138 mmHg (75-100); ARTERIAL BLOOD GAS VENT MODE AVAPS; ARTERIAL BLOOD GAS VENT RATE 10 /MIN; ARTERIAL BLOOD GAS pH 7.35 (7.35-7.45); BIPAP(E) 6; CARBOXYHEMOGLOBIN 1.8 % THgb (0.0-6.9); HCO3- 23.7 (22-28); Methhemoglobin 0.7 % (1.4-1.5)
[2024-08-19] MEDS: HUMALOG SQ PRN (05:45)
[2024-08-19 05:55] LABS: ALBUMIN 3.1 g/dL (3.5-5.0); ANION GAP 11.7 MEQ/L (5-15); BILIRUBIN,TOTAL 0.3 mg/dL (0.2-1.3); Calcium 7.3 mg/dL (8.4-10.2); Creatinine 1 1.6 mg/dL (0.52-1.04); EST GLOMERULAR FILTRATION RATE 39.1 ML/MIN; Total Protein 6.1 g/dL (6.3-8.2)
[2024-08-19 06:49] LABS: Absolute Neutrophil Ct (ANC) 7.49 x10^3/uL (1.56-6.13); BASOPHIL % 0.9 % (0.1-1.2); Basophil (Absolute #) 0.08 x10^3/uL (0.01-0.08); Eosinophil % 1.1 % (0.7-5.8); Hematocrit 36.9 % (34.1-44.9); Hemoglobin 11.3 g/dL (11.2-15.7); IMMATURE GRAN % 2.2 % (0.001-0.429); Lymphocyte (Absolute #) 0.35 x10^3/uL (1.18-3.74); Lymphocytes % 3.9 % (19.3-51.7); Mean Cell Volume 83.1 fL (79.4-94.8); Mean Corpuscular Hemoglobin 25.5 pg (25.6-32.2); Mean Corpuscular Hgb Concent. 30.6 g/dL (32.2-35.5); Mean Platelet Volume 9.1 fL (9.4-12.3); Monocytes % 8.9 % (4.7-12.5); Platelet Count 330 x10^3/uL (182-369); Red Blood Count 4.44 x10^6/uL (3.93-5.22)
--- NOTE | 2024-08-19 07:55 | XRAY ---
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 FINDINGS: Mild haziness in right lower zone. Rest of the lungs are clear and well-expanded with no pulmonary infiltrate or pleural effusion. The cardiomediastinal silhouette is within normal limits. Right sided aortic knuckle. No acute osseous abnormality. IMPRESSION: 1. Mild haziness in right lower zone. Rest of the lungs are clear. (New finding) 2. Right sided aortic knuckle. Electronically Signed by: Dakotah Beverly MD. (08/19/2024 07:50:28 EST)
[2024-08-19 08:25] LABS: Slide Review 1 YES
[2024-08-19] MEDS: Bactroban OINTMENT TP SCH (09:29)
[2024-08-19] MEDS: VITAMIN D2 PO SCH (09:31)
[2024-08-19] MEDS ORDERED: LEVOFLOXACIN 750MG/150ML D5W 750 MG/150 ML BAG IV SCH (10:00)
[2024-08-19] MEDS ORDERED: APRESOLINE 20 MG/ML INJ IV PRN (10:29)
[2024-08-19] MEDS ORDERED: Glutose 15 GM ORAL GEL PO PRN (10:52)
[2024-08-19] MEDS ORDERED: GlucaGen 1 MG IM PRN (10:52)
[2024-08-19] MEDS: Lasix 40 MG/4 ML IV ONE (10:55)
[2024-08-19] MEDS: HUMALOG SQ SCH (12:18)
[2024-08-19] MEDS: MARY'S MOUTHWASH PO PRN (12:56)
[2024-08-19] MEDS: DUONEB 0.5-3 MG/3 ml Neb IH PRN (13:09)
[2024-08-19] MEDS: SODIUM BICARBONATE PO SCH (15:45)
[2024-08-19 18:45] LABS: ANION GAP 10.2 MEQ/L (5-15); Calcium 7.4 mg/dL (8.4-10.2); Creatinine 1 1.79 mg/dL (0.52-1.04); EST GLOMERULAR FILTRATION RATE 34.1 ML/MIN; Potassium 3.9 mmol/L (3.5-5.1)
[2024-08-19] MEDS: Lantus Insulin SQ SCH (22:06)
[2024-08-20 04:34] LABS: Absolute Neutrophil Ct (ANC) 4.01 x10^3/uL (1.56-6.13); BASOPHIL % 0.7 % (0.1-1.2); Basophil (Absolute #) 0.04 x10^3/uL (0.01-0.08); Eosinophil % 1.9 % (0.7-5.8); Eosinophil (Absolute #) 0.11 x10^3/uL (0.04-0.36); Hematocrit 30.9 % (34.1-44.9); Hemoglobin 9.5 g/dL (11.2-15.7); IMMATURE GRAN # 0.12 x10^3u/L (0.001-0.031); IMMATURE GRAN % 2.1 % (0.001-0.429); Lymphocyte (Absolute #) 0.66 x10^3/uL (1.18-3.74); Lymphocytes % 11.7 % (19.3-51.7); Mean Cell Volume 82.8 fL (79.4-94.8); Mean Corpuscular Hemoglobin 25.5 pg (25.6-32.2); Mean Corpuscular Hgb Concent. 30.7 g/dL (32.2-35.5); Mean Platelet Volume 9.5 fL (9.4-12.3); Monocyte (Absolute #) 0.72 x10^3/uL (0.24-0.86); Monocytes % 12.7 % (4.7-12.5); Neutrophil % 70.9 % (34.0-71.1); Platelet Count 292 x10^3/uL (182-369); Red Blood Count 3.73 x10^6/uL (3.93-5.22); Red Cell Distribution Width 15.2 % (11.7-14.4); White Blood Count 5.7 x10^3/uL (3.98-10.04)
[2024-08-20 04:49] LABS: ALBUMIN 2.5 g/dL (3.5-5.0); ANION GAP 9.5 MEQ/L (5-15); BILIRUBIN,TOTAL 0.2 mg/dL (0.2-1.3); Calcium 7.4 mg/dL (8.4-10.2); Creatinine 1 1.74 mg/dL (0.52-1.04); EST GLOMERULAR FILTRATION RATE 35.3 ML/MIN; Potassium 4.1 mmol/L (3.5-5.1); Total Protein 5.3 g/dL (6.3-8.2)
--- NOTE | 2024-08-20 10:37 | PCM.NOTE ---
Date and Time: 08/20/24 1032 Subjective Assessment: Ms. HAGAN is a 48 year old female with a past medical history significant for hypertension, diabetes, cervical cancer status post hysterectomy/urostomy and chronic kidney disease. She presented 08/14/24 with complaints of nausea, vomiting and diarrhea for about two weeks culminating in development of substernal chest pain. Her family had the GI bug first and got over it, but she felt as it she got worse. Upon arrival, her blood sugars were markedly elevated associated with a sodium of 124 and creatinine of 1.8. She denies fever/chills. No shortness of breath or palpitations. No dysuria, gross hematuria or urgency. She had noticed her blood sugars going up and tried to increase her insulin but could not get them down. Ucult positive for klebsiella with sensitivity to ceftriaxone. IP treatment with Ceftriaxone initially. Wound cultures of the right big toe with MRSA and Leclericia adecaroxylata. Abx changed to levaquin for coverage of right big toe and UTI infections. Patient has severe insulin resistance. Blood sugars remaining elevated despite treatment and she was placed on insulin drip for DKA. Blood sugars improved and finally off DKA protocol 08/19. She has chronic metabolic acidosis due to kidney disease. She does follow with nephrology as OP with baseline creat around 1.4-1.7. Today she is at baseline renal function. Nephrology advised to d/c with Sodium bicarb 1,300 TID and start IP as well. Metabolic acidosis resolved. She is Flu A + and receiving Tamiflu. She did have a fever all night and received tylenol. She is asking for mucinex and throat spray. She is receiving Terri's magic mouthwash for mouth sores. She was weak when working with PT and will discussed OP plan with family today. - Review of Systems Constitutional: Fever, Fatigue, Malaise, Weakness, No Chills Eyes: No Symptoms Ears, Nose, & Throat: No Symptoms Respiratory: No Cough, No Short Of Breath Cardiac: No Chest Pain, No Edema, No Syncope Abdominal/Gastrointestinal: No Abdominal Pain, No Nausea, No Vomiting, No Diarrhea Genitourinary Symptoms: No Dysuria Musculoskeletal: No Back Pain, No Neck Pain Skin: Other (BLLE wrapped), No Rash Neurological: No Dizziness, No Focal Weakness, No Sensory Changes Psychological: No Symptoms Endocrine: No Symptoms Hematologic/Lymphatic: No Symptoms Immunological/Allergic: No Symptoms Objective Exam General Appearance: no apparent distress, alert, obese Neurologic Exam: alert, oriented x 3, cooperative, normal mood/affect, nml cereb ellar function, sensation nml, motor weakness, No motor deficits Skin Exam: normal color, warm, dry Eye Exam: PERRL, EOMI, eyes nml inspection Ears, Nose, Throat Exam: normal ENT inspection, pharynx normal, moist mucous membranes Neck Exam: normal inspection, non-tender, supple, full range of motion Respiratory Exam: normal breath sounds, lungs clear, No respiratory distress Cardiovascular Exam: regular rate/rhythm, normal heart sounds Gastrointestinal/Abdomen Exam: soft, No tenderness, No mass Extremity Exam: normal inspection, normal range of motion, other (BLLE wrapped) Back Exam: normal inspection, normal range of motion, No CVA tenderness, No vertebral tenderness Pelvic Exam: deferred Rectal Exam: deferred Objective Data Vital Signs: Vital Signs - 24 hr Temp Pulse Resp BP Pulse Ox 08/20/24 09:01 91 H 157/68 93 L 08/20/24 08:46 89 16 97 08/20/24 08:30 89 08/20/24 08:01 98.4 F 90 108/47 90 L 08/20/24 07:01 98.9 F 84 13 121/64 97 08/20/24 06:01 99.1 F 83 26 H 112/66 95 08/20/24 05:01 99.5 F 82 16 122/63 99 08/20/24 04:15 79 12 115/63 98 08/20/24 04:01 99.2 F 80 15 97/40 98 08/20/24 04:00 79 08/20/24 03:01 99.5 F 86 14 99/44 94 L 08/20/24 02:01 99.2 F 89 15 124/67 99 08/20/24 01:01 100.2 F 90 19 132/83 98 08/20/24 00:01 100.5 F 89 18 137/73 97 08/20/24 00:00 89 08/19/24 23:05 88 15 98 08/19/24 23:01 99.4 F 89 13 151/93 99 08/19/24 22:01 99.5 F 91 H 19 150/83 98 08/19/24 21:02 99.5 F 87 15 97 08/19/24 20:01 100.0 F 90 19 109/62 98 08/19/24 20:00 90 08/19/24 19:02 99.0 F 08/19/24 19:01 83 20 133/65 75 L 08/19/24 18:55 81 16 98 08/19/24 18:01 80 25 H 119/73 08/19/24 17:01 80 21 101/57 08/19/24 16:01 69 18 119/87 08/19/24 16:00 77 08/19/24 15:35 100.2 F 08/19/24 15:01 76 15 116/81 90 L 08/19/24 14:01 87 15 127/95 08/19/24 13:09 86 16 97 08/19/24 13:01 89 17 130/64 08/19/24 12:33 98.6 F 08/19/24 12:01 89 19 132/68 08/19/24 12:00 90 08/19/24 11:01 87 13 149/68 97 08/19/24 10:45 98.7 F Pain Assessment - Last Documented Pain Intensity 7 Pain Scale Used 0-10 Pain Scale Intake and Output: Intake & Output 08/17/24 08/18/24 08/19/24 08/20/24 11:59 11:59 11:59 11:59 Intake Total 600 9783 8292 640 Output Total 1350 1925 6125 4050 Balance -750 7858 2167 -3410 Weight 125.9 kg Lab Results: Lab Results-Last 24 Hours 08/19/24 08/19/24 08/19/24 Range/Units 10:58 12:13 13:23 WBC (3.98-10.04) x10^3/uL RBC (3.93-5.22) x10^6/uL Hgb (11.2-15.7) g/dL Hct (34.1-44.9) % MCV (79.4-94.8) fL MCH (25.6-32.2) pg MCHC (32.2-35.5) g/dL RDW (11.7-14.4) % Plt Count (182-369) x10^3/uL MPV (9.4-12.3) fL Gran % (34.0-71.1) % Immature Gran % (Auto) (0.001-0.429) % Nucleat RBC Rel Count (0.00-0.2) % Eos # (Auto) (0.04-0.36) x10^3/uL Immature Gran # (Auto) (0.001-0.031) x10^3u/L Absolute Lymphs (auto) (1.18-3.74) x10^3/uL Absolute Monos (auto) (0.24-0.86) x10^3/uL Absolute Nucleated RBC (0.00-0.012) x10^3u/L Lymphocytes % (19.3-51.7) % Monocytes % (4.7-12.5) % Eosinophils % (0.7-5.8) % Basophils % (0.1-1.2) % Absolute Granulocytes (1.56-6.13) x10^3/uL Basophils # (0.01-0.08) x10^3/uL Sodium (135-145) mmol/L Potassium (3.5-5.1) mmol/L Chloride (98-107) mmol/L Carbon Dioxide (22-30) mmol/L Anion Gap (5-15) MEQ/L BUN (7-17) mg/dL Creatinine (0.52-1.04) mg/dL Estimated GFR ML/MIN Glucose (74-106) mg/dL POC Glucometer 215 H 246 H 242 H (74 to 106) mg/dL Calcium (8.4-10.2) mg/dL Total Bilirubin (0.2-1.3) mg/dL AST (14-36) U/L ALT (0-35) U/L Alkaline Phosphatase (38-126) U/L Serum Total Protein (6.3-8.2) g/dL Albumin (3.5-5.0) g/dL 08/19/24 08/19/24 08/19/24 Range/Units 15:32 17:45 18:28 WBC (3.98-10.04) x10^3/uL RBC (3.93-5.22) x10^6/uL Hgb (11.2-15.7) g/dL Hct (34.1-44.9) % MCV (79.4-94.8) fL MCH (25.6-32.2) pg MCHC (32.2-35.5) g/dL RDW (11.7-14.4) % Plt Count (182-369) x10^3/uL MPV (9.4-12.3) fL Gran % (34.0-71.1) % Immature Gran % (Auto) (0.001-0.429) % Nucleat RBC Rel Count (0.00-0.2) % Eos # (Auto) (0.04-0.36) x10^3/uL Immature Gran # (Auto) (0.001-0.031) x10^3u/L Absolute Lymphs (auto) (1.18-3.74) x10^3/uL Absolute Monos (auto) (0.24-0.86) x10^3/uL Absolute Nucleated RBC (0.00-0.012) x10^3u/L Lymphocytes % (19.3-51.7) % Monocytes % (4.7-12.5) % Eosinophils % (0.7-5.8) % Basophils % (0.1-1.2) % Absolute Granulocytes (1.56-6.13) x10^3/uL Basophils # (0.01-0.08) x10^3/uL Sodium 133 L (135-145) mmol/L Potassium 3.9 (3.5-5.1) mmol/L Chloride 100 (98-107) mmol/L Carbon Dioxide 26 (22-30) mmol/L Anion Gap 10.2 (5-15) MEQ/L BUN 30 H (7-17) mg/dL Creatinine 1.79 H (0.52-1.04) mg/dL Estimated GFR 34.1 ML/MIN Glucose 235 H (74-106) mg/dL POC Glucometer 218 H 205 H (74 to 106) mg/dL Calcium 7.4 L (8.4-10.2) mg/dL Total Bilirubin (0.2-1.3) mg/dL AST (14-36) U/L ALT (0-35) U/L Alkaline Phosphatase (38-126) U/L Serum Total Protein (6.3-8.2) g/dL Albumin (3.5-5.0) g/dL 08/19/24 08/19/24 08/20/24 Range/Units 20:09 21:53 00:12 WBC (3.98-10.04) x10^3/uL RBC (3.93-5.22) x10^6/uL Hgb (11.2-15.7) g/dL Hct (34.1-44.9) % MCV (79.4-94.8) fL MCH (25.6-32.2) pg MCHC (32.2-35.5) g/dL RDW (11.7-14.4) % Plt Count (182-369) x10^3/uL MPV (9.4-12.3) fL Gran % (34.0-71.1) % Immature Gran % (Auto) (0.001-0.429) % Nucleat RBC Rel Count (0.00-0.2) % Eos # (Auto) (0.04-0.36) x10^3/uL Immature Gran # (Auto) (0.001-0.031) x10^3u/L Absolute Lymphs (auto) (1.18-3.74) x10^3/uL Absolute Monos (auto) (0.24-0.86) x10^3/uL Absolute Nucleated RBC (0.00-0.012) x10^3u/L Lymphocytes % (19.3-51.7) % Monocytes % (4.7-12.5) % Eosinophils % (0.7-5.8) % Basophils % (0.1-1.2) % Absolute Granulocytes (1.56-6.13) x10^3/uL Basophils # (0.01-0.08) x10^3/uL Sodium (135-145) mmol/L Potassium (3.5-5.1) mmol/L Chloride (98-107) mmol/L Carbon Dioxide (22-30) mmol/L Anion Gap (5-15) MEQ/L BUN (7-17) mg/dL Creatinine (0.52-1.04) mg/dL Estimated GFR ML/MIN Glucose (74-106) mg/dL POC Glucometer 216 H 167 H 219 H (74 to 106) mg/dL Calcium (8.4-10.2) mg/dL Total Bilirubin (0.2-1.3) mg/dL AST (14-36) U/L ALT (0-35) U/L Alkaline Phosphatase (38-126) U/L Serum Total Protein (6.3-8.2) g/dL Albumin (3.5-5.0) g/dL 08/20/24 08/20/24 08/20/24 Range/Units 01:59 04:00 04:15 WBC 5.7 (3.98-10.04) x10^3/uL RBC 3.73 L (3.93-5.22) x10^6/uL Hgb 9.5 L (11.2-15.7) g/dL Hct 30.9 L (34.1-44.9) % MCV 82.8 (79.4-94.8) fL MCH 25.5 L (25.6-32.2) pg MCHC 30.7 L (32.2-35.5) g/dL RDW 15.2 H (11.7-14.4) % Plt Count 292 (182-369) x10^3/uL MPV 9.5 (9.4-12.3) fL Gran % 70.9 (34.0-71.1) % Immature Gran % (Auto) 2.1 H (0.001-0.429) % Nucleat RBC Rel Count 0.0 (0.00-0.2) % Eos # (Auto) 0.11 (0.04-0.36) x10^3/uL Immature Gran # (Auto) 0.12 H (0.001-0.031) x10^3u/L Absolute Lymphs (auto) 0.66 L (1.18-3.74) x10^3/uL Absolute Monos (auto) 0.72 (0.24-0.86) x10^3/uL Absolute Nucleated RBC 0.00 (0.00-0.012) x10^3u/L Lymphocytes % 11.7 L (19.3-51.7) % Monocytes % 12.7 H (4.7-12.5) % Eosinophils % 1.9 (0.7-5.8) % Basophils % 0.7 (0.1-1.2) % Absolute Granulocytes 4.01 (1.56-6.13) x10^3/uL Basophils # 0.04 (0.01-0.08) x10^3/uL Sodium (135-145) mmol/L Potassium (3.5-5.1) mmol/L Chloride (98-107) mmol/L Carbon Dioxide (22-30) mmol/L Anion Gap (5-15) MEQ/L BUN (7-17) mg/dL Creatinine (0.52-1.04) mg/dL Estimated GFR ML/MIN Glucose (74-106) mg/dL POC Glucometer 212 H 118 H (74 to 106) mg/dL Calcium (8.4-10.2) mg/dL Total Bilirubin (0.2-1.3) mg/dL AST (14-36) U/L ALT (0-35) U/L Alkaline Phosphatase (38-126) U/L Serum Total Protein (6.3-8.2) g/dL Albumin (3.5-5.0) g/dL 08/20/24 08/20/24 08/20/24 Range/Units 04:15 06:18 07:57 WBC (3.98-10.04) x10^3/uL RBC (3.93-5.22) x10^6/uL Hgb (11.2-15.7) g/dL Hct (34.1-44.9) % MCV (79.4-94.8) fL MCH (25.6-32.2) pg MCHC (32.2-35.5) g/dL RDW (11.7-14.4) % Plt Count (182-369) x10^3/uL MPV (9.4-12.3) fL Gran % (34.0-71.1) % Immature Gran % (Auto) (0.001-0.429) % Nucleat RBC Rel Count (0.00-0.2) % Eos # (Auto) (0.04-0.36) x10^3/uL Immature Gran # (Auto) (0.001-0.031) x10^3u/L Absolute Lymphs (auto) (1.18-3.74) x10^3/uL Absolute Monos (auto) (0.24-0.86) x10^3/uL Absolute Nucleated RBC (0.00-0.012) x10^3u/L Lymphocytes % (19.3-51.7) % Monocytes % (4.7-12.5) % Eosinophils % (0.7-5.8) % Basophils % (0.1-1.2) % Absolute Granulocytes (1.56-6.13) x10^3/uL Basophils # (0.01-0.08) x10^3/uL Sodium 133 L (135-145) mmol/L Potassium 4.1 (3.5-5.1) mmol/L Chloride 103 (98-107) mmol/L Carbon Dioxide 25 (22-30) mmol/L Anion Gap 9.5 (5-15) MEQ/L BUN 32 H (7-17) mg/dL Creatinine 1.74 H (0.52-1.04) mg/dL Estimated GFR 35.3 ML/MIN Glucose 123 H (74-106) mg/dL POC Glucometer 102 140 H (74 to 106) mg/dL Calcium 7.4 L (8.4-10.2) mg/dL Total Bilirubin 0.20 (0.2-1.3) mg/dL AST 24 (14-36) U/L ALT 17 (0-35) U/L Alkaline Phosphatase 100 (38-126) U/L Serum Total Protein 5.3 L (6.3-8.2) g/dL Albumin 2.5 L (3.5-5.0) g/dL 08/20/24 Range/Units 10:09 WBC (3.98-10.04) x10^3/uL RBC (3.93-5.22) x10^6/uL Hgb (11.2-15.7) g/dL Hct (34.1-44.9) % MCV (79.4-94.8) fL MCH (25.6-32.2) pg MCHC (32.2-35.5) g/dL RDW (11.7-14.4) % Plt Count (182-369) x10^3/uL MPV (9.4-12.3) fL Gran % (34.0-71.1) % Immature Gran % (Auto) (0.001-0.429) % Nucleat RBC Rel Count (0.00-0.2) % Eos # (Auto) (0.04-0.36) x10^3/uL Immature Gran # (Auto) (0.001-0.031) x10^3u/L Absolute Lymphs (auto) (1.18-3.74) x10^3/uL Absolute Monos (auto) (0.24-0.86) x10^3/uL Absolute Nucleated RBC (0.00-0.012) x10^3u/L Lymphocytes % (19.3-51.7) % Monocytes % (4.7-12.5) % Eosinophils % (0.7-5.8) % Basophils % (0.1-1.2) % Absolute Granulocytes (1.56-6.13) x10^3/uL Basophils # (0.01-0.08) x10^3/uL Sodium (135-145) mmol/L Potassium (3.5-5.1) mmol/L Chloride (98-107) mmol/L Carbon Dioxide (22-30) mmol/L Anion Gap (5-15) MEQ/L BUN (7-17) mg/dL Creatinine (0.52-1.04) mg/dL Estimated GFR ML/MIN Glucose (74-106) mg/dL POC Glucometer 195 H (74 to 106) mg/dL Calcium (8.4-10.2) mg/dL Total Bilirubin (0.2-1.3) mg/dL AST (14-36) U/L ALT (0-35) U/L Alkaline Phosphatase (38-126) U/L Serum Total Protein (6.3-8.2) g/dL Albumin (3.5-5.0) g/dL Radiology Exams: Radiology Procedures Category Date Time Status CHEST 1 VIEW (PORTABLE) Routine Exams 08/18/24 09:50 Taken CHEST 1 VIEW (PORTABLE) Stat Exams 08/19/24 07:00 Completed FOOT (MINIMUM 3 VIEWS) Stat Exams 08/18/24 20:24 Completed HEAD WITHOUT CONTRAST [CT] Urgent Exams 08/18/24 20:22 Completed Assessment/Plan (1) Open wound of toe of right foot Current Visit: Yes Status: Acute Assessment & Plan: - podiatry consult - BLLE wrapped by podiatry - prostat 64 - PT eval and treat - Levaquin IV - Right great toe culture: + MRSA and Leclercia Adecarboxylata - CBC reviewed - BC x2 neg Code(s): S91.109A - UNSP OPEN WOUND OF UNSP TOE(S) W/O DAMAGE TO NAIL, INIT (2) Influenza A Current Visit: Yes Status: Acute Assessment & Plan: - tamiflu - tylenol for fever PRN - fever all night last night - mucinex, throat spray Code(s): J10.1 - FLU DUE TO OTH IDENT INFLUENZA VIRUS W OTH RESP MANIFEST (3) Hypokalemia Current Visit: No Status: Acute Assessment & Plan: - Na+ 133- mild hyponatremia Code(s): E87.6 - HYPOKALEMIA (4) Aphthous stomatitis Current Visit: Yes Status: Acute Assessment & Plan: - Terri's magic mouthwash PRN Code(s): K12.0 - RECURRENT ORAL APHTHAE (5) GRETA (obstructive sleep apnea) Current Visit: Yes Status: Acute Assessment & Plan: - BMI 43.5 - OP sleep study ordered- RT to set up - Pt reports she had a sleep study over [address] Carr and did not f/u. - She does not have a cpap at home - Using bipap here at night - Overnight pulse ox ordered as O2 drops when sleeping into 70's. - Sleep study will likely need to be done with oxygen. Code(s): G47.33 - OBSTRUCTIVE SLEEP APNEA (ADULT) (PEDIATRIC) (6) Hypertensive chronic kidney disease with stage 1 through stage 4 chronic kidney disease, or unspecified chronic kidney disease Current Visit: Yes Status: Acute Assessment & Plan: - Continue to hold losartan until creat. at baseline- consider restarting tomorrow - Continue bp meds - Blood pressure under good control - CMP reviewdd - Creat 1.74- near baseline Code(s): I12.9 - HYPERTENSIVE CHRONIC KIDNEY DISEASE W STG 1-4/UNSP CHR KDNY (7) Hyponatremia Current Visit: Yes Status: Acute Assessment & Plan: - Mild Na+ 133- trend Code(s): E87.1 - HYPO-OSMOLALITY AND HYPONATREMIA (8) UTI (urinary tract infection) Current Visit: No Status: Acute Assessment & Plan: - Levaquin IV- pharmacy renal dosing - Ucult positive for klebsiella Code(s): N39.0 - URINARY TRACT INFECTION, SITE NOT SPECIFIED (9) Hyperglycemia due to type 2 diabetes mellitus Current Visit: No Status: Chronic Assessment & Plan: - continue home dose of insulin - accuchecks ac/hs Code(s): E11.65 - TYPE 2 DIABETES MELLITUS WITH HYPERGLYCEMIA (10) Acute respiratory failure with hypoxia Current Visit: Yes Status: Resolved Assessment & Plan: - resolved - Pt worse bipap last night- today RA - move to med surg bed. - Needs OP sleep study with O2 - overnight pulse ox - O2 drops when sleeping. Code(s): J96.01 - ACUTE RESPIRATORY FAILURE WITH HYPOXIA (11) Peripheral venous insufficiency Current Visit: No Status: Chronic Assessment & Plan: - Per podiatry recs on 08/16: Bilateral Unna boots placed to help control lower extremity swelling. Recommend continued compression utilizing bilateral Unna boots until follow-up. - reviewed podiatry note and agree with plan of care Code(s): I87.2 - VENOUS INSUFFICIENCY (CHRONIC) (PERIPHERAL) (12) Uncontrolled diabetes mellitus Current Visit: No Status: Chronic Assessment & Plan: - A1C > 14 08/15/24 - nutrition consult - Carb controlled diet - Home insulin dosing, accuchecks ac/hs - Discussed good glycemic control for wound healing. Code(s): WTE2810 - (13) Morbid obesity Current Visit: Yes Status: Chronic Assessment & Plan: - Advised ADA diet and exercise control Code(s): E66.01 - MORBID (SEVERE) OBESITY DUE TO EXCESS CALORIES (14) DKA (diabetic ketoacidosis) Current Visit: Yes Status: Resolved Qualifiers: Diabetes mellitus type: type 2 Diabetes mellitus complication detail: without coma Qualified Code(s): E11.10 - Type 2 diabetes mellitus with ketoacidosis without coma Assessment & Plan: - resolved Code(s): E11.10 - TYPE 2 DIABETES MELLITUS WITH KETOACIDOSIS WITHOUT COMA (15) Dysphagia Current Visit: Yes Status: Resolved Assessment & Plan: - on 08/17 Barium swallow reviewed with functional swallow without deficit. ST recommendation of regular diet for compensatory strategies. Code(s): R13.10 - DYSPHAGIA, UNSPECIFIED (16) Displaced trimalleolar fracture of left ankle Current Visit: No Status: Chronic Assessment & Plan: - ongoing for over 1 year- Podiatry following Code(s): S82.852A - DISPLACED TRIMALLEOLAR FRACTURE OF LEFT LOWER LEG, INIT (17) Metabolic acidosis Current Visit: Yes Status: Resolved Assessment & Plan: - resolved - Per nephrology continue sodium bicarb 1,300mg TID OP Code(s): E87.20 - ACIDOSIS, UNSPECIFIED (18) Gastroenteritis Current Visit: Yes Status: Resolved Assessment & Plan: - sxs resolved - 2:2 Flu A Code(s): K52.9 - NONINFECTIVE GASTROENTERITIS AND COLITIS, UNSPECIFIED (19) Chest pain Current Visit: Yes Status: Resolved Qualifiers: Chest pain type: unspecified Qualified Code(s): R07.9 - Chest pain, unspecified Assessment & Plan: - resolved - Likely from persistent N/V, doubt cardiac in origin -Tele -Trops negative x 3 - Continue ASA 81mg -echo from 06/26/24 IMPRESSION: EF: 52% 1) LOW NORMAL CONTRACTILITY LEFT VENTRICLE. 2) MODERATE CONCENTRIC LEFT VENTRICULAR HYPERTROPHY. 3) POSSIBLE IMPAIRED LEFT VENTRICULAR RELAXATION. 4) MILD MITRAL REGURGITATIOn Cardiac nuclear stress test 07/30/24: Impression: 1. No scintigraphic evidence for pharmacologic induced reversible ischemia. 2. Normal ejection fraction. VTE: Lovenox PPI: Protonix Dispo: tomorrow? Next of KIN: Spouse Brain [phone] Code status: Full Code(s): R07.9 - CHEST PAIN, UNSPECIFIED
[2024-08-20] MEDS: Lantus Insulin SQ SCH (11:43)
[2024-08-20] MEDS: Mucinex 600MG ER Tabs PO SCH (11:43)
--- NOTE | 2024-08-20 16:40 | PCM.NOTE ---
Date and Time: 08/20/24 Jasen Subjective Assessment: Georgiana is a pleasant 48-year-old female that is currently admitted at [facility] in the ICU for DKA. At this time her swelling is progressing well. She did wear SCDs to bilateral lower extremities throughout the night and into the morning and reported no complaints. At this time she denies any signs or symptoms consistent with local or systemic infection. Physical Exam - Narrative Narrative Physical Exam: Podiatry Physical Exam Objective Data Vital Signs: Vital Signs - 24 hr Temp Pulse Resp BP Pulse Ox 08/20/24 16:01 76 5 L 128/69 94 L 08/20/24 15:01 81 19 116/86 97 08/20/24 14:01 83 15 116/59 99 08/20/24 13:01 87 14 120/60 92 L 08/20/24 12:00 99.2 F 89 10 L 133/68 78 L 08/20/24 11:43 88 11 L 106/70 89 L 08/20/24 11:42 91 H 13 96 08/20/24 11:40 87 15 08/20/24 11:30 94 H 14 08/20/24 11:21 91 H 12 08/20/24 11:10 92 H 08/20/24 11:00 91 H 08/20/24 10:50 97 H 08/20/24 10:40 98 H 08/20/24 10:38 97 H 27 H 08/20/24 10:10 93 H 14 94 L 08/20/24 10:00 98 H 16 08/20/24 09:01 91 H 157/68 93 L 08/20/24 08:46 89 16 97 08/20/24 08:30 89 08/20/24 08:01 98.4 F 90 108/47 90 L 08/20/24 07:01 98.9 F 84 13 121/64 97 08/20/24 06:01 99.1 F 83 26 H 112/66 95 08/20/24 05:01 99.5 F 82 16 122/63 99 08/20/24 04:15 79 12 115/63 98 08/20/24 04:01 99.2 F 80 15 97/40 98 08/20/24 04:00 79 08/20/24 03:01 99.5 F 86 14 99/44 94 L 08/20/24 02:01 99.2 F 89 15 124/67 99 08/20/24 01:01 100.2 F 90 19 132/83 98 08/20/24 00:01 100.5 F 89 18 137/73 97 08/20/24 00:00 89 08/19/24 23:05 88 15 98 08/19/24 23:01 99.4 F 89 13 151/93 99 08/19/24 22:01 99.5 F 91 H 19 150/83 98 08/19/24 21:02 99.5 F 87 15 97 08/19/24 20:01 100.0 F 90 19 109/62 98 08/19/24 20:00 90 08/19/24 19:02 99.0 F 08/19/24 19:01 83 20 133/65 75 L 08/19/24 18:55 81 16 98 08/19/24 18:01 80 25 H 119/73 08/19/24 17:01 80 21 101/57 Pain Assessment - Last Documented Pain Intensity 4 Pain Scale Used 0-10 Pain Scale Intake and Output: Intake & Output 08/18/24 08/19/24 08/20/24 08/21/24 11:59 11:59 11:59 11:59 Intake Total 9787 8231 1120 Output Total 7256 8838 9023 Balance 7858 2167 -4300 Weight 125.9 kg 125.9 kg Lab Results: Lab Results-Last 24 Hours 08/19/24 08/19/24 08/19/24 Range/Units 17:45 18:28 20:09 WBC (3.98-10.04) x10^3/uL RBC (3.93-5.22) x10^6/uL Hgb (11.2-15.7) g/dL Hct (34.1-44.9) % MCV (79.4-94.8) fL MCH (25.6-32.2) pg MCHC (32.2-35.5) g/dL RDW (11.7-14.4) % Plt Count (182-369) x10^3/uL MPV (9.4-12.3) fL Gran % (34.0-71.1) % Immature Gran % (Auto) (0.001-0.429) % Nucleat RBC Rel Count (0.00-0.2) % Eos # (Auto) (0.04-0.36) x10^3/uL Immature Gran # (Auto) (0.001-0.031) x10^3u/L Absolute Lymphs (auto) (1.18-3.74) x10^3/uL Absolute Monos (auto) (0.24-0.86) x10^3/uL Absolute Nucleated RBC (0.00-0.012) x10^3u/L Lymphocytes % (19.3-51.7) % Monocytes % (4.7-12.5) % Eosinophils % (0.7-5.8) % Basophils % (0.1-1.2) % Absolute Granulocytes (1.56-6.13) x10^3/uL Basophils # (0.01-0.08) x10^3/uL Sodium 133 L (135-145) mmol/L Potassium 3.9 (3.5-5.1) mmol/L Chloride 100 (98-107) mmol/L Carbon Dioxide 26 (22-30) mmol/L Anion Gap 10.2 (5-15) MEQ/L BUN 30 H (7-17) mg/dL Creatinine 1.79 H (0.52-1.04) mg/dL Estimated GFR 34.1 ML/MIN Glucose 235 H (74-106) mg/dL POC Glucometer 205 H 216 H (74 to 106) mg/dL Calcium 7.4 L (8.4-10.2) mg/dL Total Bilirubin (0.2-1.3) mg/dL AST (14-36) U/L ALT (0-35) U/L Alkaline Phosphatase (38-126) U/L Serum Total Protein (6.3-8.2) g/dL Albumin (3.5-5.0) g/dL 08/19/24 08/20/24 08/20/24 Range/Units 21:53 00:12 01:59 WBC (3.98-10.04) x10^3/uL RBC (3.93-5.22) x10^6/uL Hgb (11.2-15.7) g/dL Hct (34.1-44.9) % MCV (79.4-94.8) fL MCH (25.6-32.2) pg MCHC (32.2-35.5) g/dL RDW (11.7-14.4) % Plt Count (182-369) x10^3/uL MPV (9.4-12.3) fL Gran % (34.0-71.1) % Immature Gran % (Auto) (0.001-0.429) % Nucleat RBC Rel Count (0.00-0.2) % Eos # (Auto) (0.04-0.36) x10^3/uL Immature Gran # (Auto) (0.001-0.031) x10^3u/L Absolute Lymphs (auto) (1.18-3.74) x10^3/uL Absolute Monos (auto) (0.24-0.86) x10^3/uL Absolute Nucleated RBC (0.00-0.012) x10^3u/L Lymphocytes % (19.3-51.7) % Monocytes % (4.7-12.5) % Eosinophils % (0.7-5.8) % Basophils % (0.1-1.2) % Absolute Granulocytes (1.56-6.13) x10^3/uL Basophils # (0.01-0.08) x10^3/uL Sodium (135-145) mmol/L Potassium (3.5-5.1) mmol/L Chloride (98-107) mmol/L Carbon Dioxide (22-30) mmol/L Anion Gap (5-15) MEQ/L BUN (7-17) mg/dL Creatinine (0.52-1.04) mg/dL Estimated GFR ML/MIN Glucose (74-106) mg/dL POC Glucometer 167 H 219 H 212 H (74 to 106) mg/dL Calcium (8.4-10.2) mg/dL Total Bilirubin (0.2-1.3) mg/dL AST (14-36) U/L ALT (0-35) U/L Alkaline Phosphatase (38-126) U/L Serum Total Protein (6.3-8.2) g/dL Albumin (3.5-5.0) g/dL 08/20/24 08/20/24 08/20/24 Range/Units 04:00 04:15 04:15 WBC 5.7 (3.98-10.04) x10^3/uL RBC 3.73 L (3.93-5.22) x10^6/uL Hgb 9.5 L (11.2-15.7) g/dL Hct 30.9 L (34.1-44.9) % MCV 82.8 (79.4-94.8) fL MCH 25.5 L (25.6-32.2) pg MCHC 30.7 L (32.2-35.5) g/dL RDW 15.2 H (11.7-14.4) % Plt Count 292 (182-369) x10^3/uL MPV 9.5 (9.4-12.3) fL Gran % 70.9 (34.0-71.1) % Immature Gran % (Auto) 2.1 H (0.001-0.429) % Nucleat RBC Rel Count 0.0 (0.00-0.2) % Eos # (Auto) 0.11 (0.04-0.36) x10^3/uL Immature Gran # (Auto) 0.12 H (0.001-0.031) x10^3u/L Absolute Lymphs (auto) 0.66 L (1.18-3.74) x10^3/uL Absolute Monos (auto) 0.72 (0.24-0.86) x10^3/uL Absolute Nucleated RBC 0.00 (0.00-0.012) x10^3u/L Lymphocytes % 11.7 L (19.3-51.7) % Monocytes % 12.7 H (4.7-12.5) % Eosinophils % 1.9 (0.7-5.8) % Basophils % 0.7 (0.1-1.2) % Absolute Granulocytes 4.01 (1.56-6.13) x10^3/uL Basophils # 0.04 (0.01-0.08) x10^3/uL Sodium 133 L (135-145) mmol/L Potassium 4.1 (3.5-5.1) mmol/L Chloride 103 (98-107) mmol/L Carbon Dioxide 25 (22-30) mmol/L Anion Gap 9.5 (5-15) MEQ/L BUN 32 H (7-17) mg/dL Creatinine 1.74 H (0.52-1.04) mg/dL Estimated GFR 35.3 ML/MIN Glucose 123 H (74-106) mg/dL POC Glucometer 118 H (74 to 106) mg/dL Calcium 7.4 L (8.4-10.2) mg/dL Total Bilirubin 0.20 (0.2-1.3) mg/dL AST 24 (14-36) U/L ALT 17 (0-35) U/L Alkaline Phosphatase 100 (38-126) U/L Serum Total Protein 5.3 L (6.3-8.2) g/dL Albumin 2.5 L (3.5-5.0) g/dL 08/20/24 08/20/24 08/20/24 Range/Units 06:18 07:57 10:09 WBC (3.98-10.04) x10^3/uL RBC (3.93-5.22) x10^6/uL Hgb (11.2-15.7) g/dL Hct (34.1-44.9) % MCV (79.4-94.8) fL MCH (25.6-32.2) pg MCHC (32.2-35.5) g/dL RDW (11.7-14.4) % Plt Count (182-369) x10^3/uL MPV (9.4-12.3) fL Gran % (34.0-71.1) % Immature Gran % (Auto) (0.001-0.429) % Nucleat RBC Rel Count (0.00-0.2) % Eos # (Auto) (0.04-0.36) x10^3/uL Immature Gran # (Auto) (0.001-0.031) x10^3u/L Absolute Lymphs (auto) (1.18-3.74) x10^3/uL Absolute Monos (auto) (0.24-0.86) x10^3/uL Absolute Nucleated RBC (0.00-0.012) x10^3u/L Lymphocytes % (19.3-51.7) % Monocytes % (4.7-12.5) % Eosinophils % (0.7-5.8) % Basophils % (0.1-1.2) % Absolute Granulocytes (1.56-6.13) x10^3/uL Basophils # (0.01-0.08) x10^3/uL Sodium (135-145) mmol/L Potassium (3.5-5.1) mmol/L Chloride (98-107) mmol/L Carbon Dioxide (22-30) mmol/L Anion Gap (5-15) MEQ/L BUN (7-17) mg/dL Creatinine (0.52-1.04) mg/dL Estimated GFR ML/MIN Glucose (74-106) mg/dL POC Glucometer 102 140 H 195 H (74 to 106) mg/dL Calcium (8.4-10.2) mg/dL Total Bilirubin (0.2-1.3) mg/dL AST (14-36) U/L ALT (0-35) U/L Alkaline Phosphatase (38-126) U/L Serum Total Protein (6.3-8.2) g/dL Albumin (3.5-5.0) g/dL 08/20/24 08/20/24 08/20/24 Range/Units 12:01 14:10 16:13 WBC (3.98-10.04) x10^3/uL RBC (3.93-5.22) x10^6/uL Hgb (11.2-15.7) g/dL Hct (34.1-44.9) % MCV (79.4-94.8) fL MCH (25.6-32.2) pg MCHC (32.2-35.5) g/dL RDW (11.7-14.4) % Plt Count (182-369) x10^3/uL MPV (9.4-12.3) fL Gran % (34.0-71.1) % Immature Gran % (Auto) (0.001-0.429) % Nucleat RBC Rel Count (0.00-0.2) % Eos # (Auto) (0.04-0.36) x10^3/uL Immature Gran # (Auto) (0.001-0.031) x10^3u/L Absolute Lymphs (auto) (1.18-3.74) x10^3/uL Absolute Monos (auto) (0.24-0.86) x10^3/uL Absolute Nucleated RBC (0.00-0.012) x10^3u/L Lymphocytes % (19.3-51.7) % Monocytes % (4.7-12.5) % Eosinophils % (0.7-5.8) % Basophils % (0.1-1.2) % Absolute Granulocytes (1.56-6.13) x10^3/uL Basophils # (0.01-0.08) x10^3/uL Sodium (135-145) mmol/L Potassium (3.5-5.1) mmol/L Chloride (98-107) mmol/L Carbon Dioxide (22-30) mmol/L Anion Gap (5-15) MEQ/L BUN (7-17) mg/dL Creatinine (0.52-1.04) mg/dL Estimated GFR ML/MIN Glucose (74-106) mg/dL POC Glucometer 196 H 237 H 138 H (74 to 106) mg/dL Calcium (8.4-10.2) mg/dL Total Bilirubin (0.2-1.3) mg/dL AST (14-36) U/L ALT (0-35) U/L Alkaline Phosphatase (38-126) U/L Serum Total Protein (6.3-8.2) g/dL Albumin (3.5-5.0) g/dL Radiology Exams: Radiology Procedures Category Date Time Status CHEST 1 VIEW (PORTABLE) Stat Exams 08/19/24 07:00 Completed FOOT (MINIMUM 3 VIEWS) Stat Exams 08/18/24 20:24 Completed HEAD WITHOUT CONTRAST [CT] Urgent Exams 08/18/24 20:22 Completed Multi-Disciplinary Progress Notes: Multi-Disciplinary Progress Notes 08/20/24 13:45 Case Management Note by Chary Rodriguez S/W PATIENT- SHE HAS S/W HER - SHE CONTINUES TO DECLINE REHAB STAY EVEN AFTER WORKING WITH PHYSICAL THERAPY- SHE CONTINUES TO WISH TO DC HOME WITH HER AND HER MOTHER TO HELP. SHE SAID HER IS WITH HER 31/01 AT HOME. SHE HAS A WALKER AND W/C AT HOME TO USE. [facility] HAS BEEN SET UP ALREADY Initialized on 08/20/24 13:45 - END OF NOTE Assessment/Plan (1) Left ankle injury Current Visit: No Status: Acute Code(s): S99.912A - UNSPECIFIED INJURY OF LEFT ANKLE, INITIAL ENCOUNTER (2) Displaced trimalleolar fracture of left ankle Current Visit: No Status: Chronic Code(s): S82.852A - DISPLACED TRIMALLEOLAR FRACTURE OF LEFT LOWER LEG, INIT (3) Uncontrolled diabetes mellitus Current Visit: No Status: Chronic Code(s): [id number] - (4) Peripheral venous insufficiency Current Visit: No Status: Chronic Assessment & Plan: Bilateral Unna boots placed at this time to help control lower extremity swelling. Recommend continued compression utilizing bilateral Unna boots until follow-up. wound to toe debrided at bedside. Code(s): I87.2 - VENOUS INSUFFICIENCY (CHRONIC) (PERIPHERAL) (5) Left foot drop Current Visit: No Status: Acute Code(s): M21.372 - FOOT DROP, LEFT FOOT (6) Shortness of breath Current Visit: No Status: Acute Code(s): R06.02 - SHORTNESS OF BREATH (7) COPD with exacerbation Current Visit: No Status: Acute Code(s): J44.1 - CHRONIC OBSTRUCTIVE PULMONARY DISEASE W (ACUTE) EXACERBATION
[2024-08-20] MEDS: CHLORASEPTIC SPRAY 180 ML PO PRN (18:03)
[2024-08-21 04:50] VITALS: O2SAT 96
[2024-08-21 05:11] LABS: Absolute Neutrophil Ct (ANC) 3.37 x10^3/uL (1.56-6.13); BASOPHIL % 0.9 % (0.1-1.2); Basophil (Absolute #) 0.05 x10^3/uL (0.01-0.08); Eosinophil % 3.2 % (0.7-5.8); Eosinophil (Absolute #) 0.17 x10^3/uL (0.04-0.36); IMMATURE GRAN # 0.13 x10^3u/L (0.001-0.031); IMMATURE GRAN % 2.4 % (0.001-0.429); Lymphocyte (Absolute #) 0.83 x10^3/uL (1.18-3.74); Lymphocytes % 15.6 % (19.3-51.7); Mean Cell Volume 83.3 fL (79.4-94.8); Mean Corpuscular Hgb Concent. 31.3 g/dL (32.2-35.5); Monocyte (Absolute #) 0.78 x10^3/uL (0.24-0.86); Monocytes % 14.6 % (4.7-12.5); Neutrophil % 63.3 % (34.0-71.1); Platelet Count 325 x10^3/uL (182-369); Red Blood Count 3.84 x10^6/uL (3.93-5.22); Red Cell Distribution Width 15.2 % (11.7-14.4); White Blood Count 5.3 x10^3/uL (3.98-10.04)
[2024-08-21 05:24] LABS: ALBUMIN 2.9 g/dL (3.5-5.0); ANION GAP 8.4 MEQ/L (5-15); BILIRUBIN,TOTAL 0.3 mg/dL (0.2-1.3); Calcium 7.8 mg/dL (8.4-10.2); Creatinine 1 1.81 mg/dL (0.52-1.04); EST GLOMERULAR FILTRATION RATE 33.7 ML/MIN; Potassium 3.9 mmol/L (3.5-5.1); Total Protein 5.9 g/dL (6.3-8.2)
[2024-08-21 08:25] VITALS: TEMP 98
[2024-08-21] MEDS ORDERED: Levofloxacin 500 MG Tablet PO SCH (10:00)
--- NOTE | 2024-08-21 11:17 | PCM.DS ---
Discharge Summary Date of Admission: 08/17/24 08:16 Date of Discharge: 08/21/24 Admitting Physician: RONEL JOHNSON MD Consults: Consults on Case 08/14/24 15:43 ACO SDOH Referral ONCE 08/16/24 10:31 Consult Podiatry ROUTINE 08/20/24 12:44 Nutritional Consult ROUTINE Primary Care Provider: JENNIFER NAPOLES Allergies Allergies metoprolol Allergy (Severe, Verified 08/14/24 15:35) adhesive tape Allergy (Verified 08/14/24 15:35) latex Allergy (Verified 08/14/24 15:35) sulfamethoxazole [From Bactrim] Adverse Reaction (Severe, Verified 08/14/24 15:35) "messes up my kidneys" trimethoprim [From Bactrim] Adverse Reaction (Severe, Verified 08/14/24 15:35) "messes up my kidneys" metformin Adverse Reaction (Intermediate, Verified 08/14/24 15:35) Hospital Summary - Hospital Course Hospital Course: 08/20/24 Ms. HAGAN is a 48 year old female with a past medical history significant for hypertension, diabetes, cervical cancer status post hysterectomy/urostomy and chronic kidney disease. She presented 08/14/24 with complaints of nausea, vomiting and diarrhea for about two weeks culminating in development of substernal chest pain. Her family had the GI bug first and got over it, but she felt as it she got worse. Upon arrival, her blood sugars were markedly elevated associated with a sodium of 124 and creatinine of 1.8. She denies fever/chills. No shortness of breath or palpitations. No dysuria, gross hematuria or urgency. She had noticed her blood sugars going up and tried to increase her insulin but could not get them down. Ucult positive for klebsiella with sensitivity to ceftriaxone. IP treatment with Ceftriaxone initially. Wound cultures of the right big toe with MRSA and Leclericia adecaroxylata. Abx changed to levaquin for coverage of right big toe and UTI infections. Patient has severe insulin resistance. Blood sugars remaining elevated despite treatment and she was placed on insulin drip for DKA. Blood sugars improved and finally off DKA protocol 08/19. She has chronic metabolic acidosis due to kidney disease. She does follow with nephrology as OP with baseline creat around 1.4-1.7. Today she is at baseline renal function. Nephrology advised to d/c with Sodium bicarb 1,300 TID and start IP as well. Metabolic acidosis resolved. She is Flu A + and receiving Tamiflu. She did have a fever all night and received tylenol. She is asking for mucinex and throat s pray. She is receiving Terri's magic mouthwash for mouth sores. She was weak when working with PT and will discussed OP plan with family today. 08/21/24 Pt resting in the chair. Labs reviewed and discussed with pt. She is feeling better. No overnight fever. She is to d/c today with [facility]. She refuses rehab. Will continue PO antibiotics OP. kidney function at baseline. Ok to d/c per podiatry. She denies any further concerns at this time. - Vitals & Intake/Output Vital Signs: Vital Signs Temperature 98.0 F 08/21/24 08:24 Pulse Rate 84 08/21/24 07:53 Respiratory Rate 18 08/21/24 07:53 Blood Pressure 169/94 08/21/24 07:53 O2 Sat by Pulse Oximetry 96 08/21/24 07:53 Intake & Output: Intake & Output 08/18/24 08/19/24 08/20/24 08/21/24 11:59 11:59 11:59 11:59 Intake Total 9783 8292 1120 1080 Output Total 8649 8153 8197 9910 Balance 7878 3801 -1146 -2008 Weight 125.9 kg 125.9 kg 125.9 kg - Lab Result Diagrams: 08/21/24 05:09 08/21/24 05:09 Lab Results-Last 24 Hrs: Lab Results-Last 24 Hours 08/20/24 08/20/24 08/20/24 Range/Units 12:01 14:10 16:13 WBC (3.98-10.04) x10^3/uL RBC (3.93-5.22) x10^6/uL Hgb (11.2-15.7) g/dL Hct (34.1-44.9) % MCV (79.4-94.8) fL MCH (25.6-32.2) pg MCHC (32.2-35.5) g/dL RDW (11.7-14.4) % Plt Count (182-369) x10^3/uL MPV (9.4-12.3) fL Gran % (34.0-71.1) % Immature Gran % (Auto) (0.001-0.429) % Nucleat RBC Rel Count (0.00-0.2) % Eos # (Auto) (0.04-0.36) x10^3/uL Immature Gran # (Auto) (0.001-0.031) x10^3u/L Absolute Lymphs (auto) (1.18-3.74) x10^3/uL Absolute Monos (auto) (0.24-0.86) x10^3/uL Absolute Nucleated RBC (0.00-0.012) x10^3u/L Lymphocytes % (19.3-51.7) % Monocytes % (4.7-12.5) % Eosinophils % (0.7-5.8) % Basophils % (0.1-1.2) % Absolute Granulocytes (1.56-6.13) x10^3/uL Basophils # (0.01-0.08) x10^3/uL Sodium (135-145) mmol/L Potassium (3.5-5.1) mmol/L Chloride (98-107) mmol/L Carbon Dioxide (22-30) mmol/L Anion Gap (5-15) MEQ/L BUN (7-17) mg/dL Creatinine (0.52-1.04) mg/dL Estimated GFR ML/MIN Glucose (74-106) mg/dL POC Glucometer 196 H 237 H 138 H (74 to 106) mg/dL Calcium (8.4-10.2) mg/dL Total Bilirubin (0.2-1.3) mg/dL AST (14-36) U/L ALT (0-35) U/L Alkaline Phosphatase (38-126) U/L Serum Total Protein (6.3-8.2) g/dL Albumin (3.5-5.0) g/dL 08/20/24 08/20/24 08/20/24 Range/Units 18:05 20:20 22:02 WBC (3.98-10.04) x10^3/uL RBC (3.93-5.22) x10^6/uL Hgb (11.2-15.7) g/dL Hct (34.1-44.9) % MCV (79.4-94.8) fL MCH (25.6-32.2) pg MCHC (32.2-35.5) g/dL RDW (11.7-14.4) % Plt Count (182-369) x10^3/uL MPV (9.4-12.3) fL Gran % (34.0-71.1) % Immature Gran % (Auto) (0.001-0.429) % Nucleat RBC Rel Count (0.00-0.2) % Eos # (Auto) (0.04-0.36) x10^3/uL Immature Gran # (Auto) (0.001-0.031) x10^3u/L Absolute Lymphs (auto) (1.18-3.74) x10^3/uL Absolute Monos (auto) (0.24-0.86) x10^3/uL Absolute Nucleated RBC (0.00-0.012) x10^3u/L Lymphocytes % (19.3-51.7) % Monocytes % (4.7-12.5) % Eosinophils % (0.7-5.8) % Basophils % (0.1-1.2) % Absolute Granulocytes (1.56-6.13) x10^3/uL Basophils # (0.01-0.08) x10^3/uL Sodium (135-145) mmol/L Potassium (3.5-5.1) mmol/L Chloride (98-107) mmol/L Carbon Dioxide (22-30) mmol/L Anion Gap (5-15) MEQ/L BUN (7-17) mg/dL Creatinine (0.52-1.04) mg/dL Estimated GFR ML/MIN Glucose (74-106) mg/dL POC Glucometer 174 H 152 H 142 H (74 to 106) mg/dL Calcium (8.4-10.2) mg/dL Total Bilirubin (0.2-1.3) mg/dL AST (14-36) U/L ALT (0-35) U/L Alkaline Phosphatase (38-126) U/L Serum Total Protein (6.3-8.2) g/dL Albumin (3.5-5.0) g/dL 08/21/24 08/21/24 08/21/24 Range/Units 00:11 04:43 05:09 WBC 5.3 (3.98-10.04) x10^3/uL RBC 3.84 L (3.93-5.22) x10^6/uL Hgb 10.0 L (11.2-15.7) g/dL Hct 32.0 L (34.1-44.9) % MCV 83.3 (79.4-94.8) fL MCH 26.0 (25.6-32.2) pg MCHC 31.3 L (32.2-35.5) g/dL RDW 15.2 H (11.7-14.4) % Plt Count 325 (182-369) x10^3/uL MPV 9.0 L (9.4-12.3) fL Gran % 63.3 (34.0-71.1) % Immature Gran % (Auto) 2.4 H (0.001-0.429) % Nucleat RBC Rel Count 0.0 (0.00-0.2) % Eos # (Auto) 0.17 (0.04-0.36) x10^3/uL Immature Gran # (Auto) 0.13 H (0.001-0.031) x10^3u/L Absolute Lymphs (auto) 0.83 L (1.18-3.74) x10^3/uL Absolute Monos (auto) 0.78 (0.24-0.86) x10^3/uL Absolute Nucleated RBC 0.00 (0.00-0.012) x10^3u/L Lymphocytes % 15.6 L (19.3-51.7) % Monocytes % 14.6 H (4.7-12.5) % Eosinophils % 3.2 (0.7-5.8) % Basophils % 0.9 (0.1-1.2) % Absolute Granulocytes 3.37 (1.56-6.13) x10^3/uL Basophils # 0.05 (0.01-0.08) x10^3/uL Sodium (135-145) mmol/L Potassium (3.5-5.1) mmol/L Chloride (98-107) mmol/L Carbon Dioxide (22-30) mmol/L Anion Gap (5-15) MEQ/L BUN (7-17) mg/dL Creatinine (0.52-1.04) mg/dL Estimated GFR ML/MIN Glucose (74-106) mg/dL POC Glucometer 131 H 117 H (74 to 106) mg/dL Calcium (8.4-10.2) mg/dL Total Bilirubin (0.2-1.3) mg/dL AST (14-36) U/L ALT (0-35) U/L Alkaline Phosphatase (38-126) U/L Serum Total Protein (6.3-8.2) g/dL Albumin (3.5-5.0) g/dL 08/21/24 08/21/24 Range/Units 05:09 07:50 WBC (3.98-10.04) x10^3/uL RBC (3.93-5.22) x10^6/uL Hgb (11.2-15.7) g/dL Hct (34.1-44.9) % MCV (79.4-94.8) fL MCH (25.6-32.2) pg MCHC (32.2-35.5) g/dL RDW (11.7-14.4) % Plt Count (182-369) x10^3/uL MPV (9.4-12.3) fL Gran % (34.0-71.1) % Immature Gran % (Auto) (0.001-0.429) % Nucleat RBC Rel Count (0.00-0.2) % Eos # (Auto) (0.04-0.36) x10^3/uL Immature Gran # (Auto) (0.001-0.031) x10^3u/L Absolute Lymphs (auto) (1.18-3.74) x10^3/uL Absolute Monos (auto) (0.24-0.86) x10^3/uL Absolute Nucleated RBC (0.00-0.012) x10^3u/L Lymphocytes % (19.3-51.7) % Monocytes % (4.7-12.5) % Eosinophils % (0.7-5.8) % Basophils % (0.1-1.2) % Absolute Granulocytes (1.56-6.13) x10^3/uL Basophils # (0.01-0.08) x10^3/uL Sodium 137 (135-145) mmol/L Potassium 3.9 (3.5-5.1) mmol/L Chloride 102 (98-107) mmol/L Carbon Dioxide 30 (22-30) mmol/L Anion Gap 8.4 (5-15) MEQ/L BUN 37 H (7-17) mg/dL Creatinine 1.81 H (0.52-1.04) mg/dL Estimated GFR 33.7 ML/MIN Glucose 118 H (74-106) mg/dL POC Glucometer 89 (74 to 106) mg/dL Calcium 7.8 L (8.4-10.2) mg/dL Total Bilirubin 0.30 (0.2-1.3) mg/dL AST 23 (14-36) U/L ALT 16 (0-35) U/L Alkaline Phosphatase 92 (38-126) U/L Serum Total Protein 5.9 L (6.3-8.2) g/dL Albumin 2.9 L (3.5-5.0) g/dL Micro Results-Entire Visit: Microbiology 08/15/24 15:37 Salmonella/Shigella Screen - Final Stool Stool Culture Result 1 - Final Escherichia coli Shiga Toxins EIA - Final Ova and Parasite Concentrate Exam - Final Ova and Parasite Result 1 - Final Giardia lamblia (PCR) - Final Cryptosporidium Antigen - Final 08/18/24 23:17 Blood Culture - Preliminary Blood 08/18/24 23:06 Blood Culture - Preliminary Blood 08/16/24 14:40 Wound Culture - Final Toe - R Big (Greater) Methicillin Resist Staph Aur Leclercia Adecarboxylata 08/14/24 18:52 Urine Culture - Final Clean Catch Midstream Klebsiella Pneumoniae Accuchecks Date 08/21/24 Date 08/21/24 Date 08/20/24 Date 08/20/24 Date 08/20/24 Date 08/20/24 Date 08/20/24 Date 08/20/24 Time 04:43 Time 00:11 Time 22:02 Time 22:00 - Procedures and Test Procedures and Tests throughout Hospitalization: Therapy Orders & Screens 08/14/24 22:30 RT Screen per Nursing Assess ONCE Comment: Protocol Order Physician Instructions: Greater than 3 points order RT Admission Screen Reason For Exam: Triggered on Admission Diagnosis: Chest pain, nausea vomiting, hyperglycemia, acute renal injury Diagnosis: Chest pain, nausea vomiting, hyperglycemia, acute renal injury Pneumonia: No Home O2: No Asthma: Yes CHF: Yes Home CPAP/BIPAP: No Home Nebs/MDI: Yes Total Points: 12 08/14/24 23:50 Respiratory Therapy Assessment DAILY Comment: Diagnosis: Chest pain, nausea vomiting, hyperglycemia, acute renal injury 08/15/24 12:53 PT Eval & Treat ( Order) ONCE Reason for Eval:: WEAKNESS, REHAB STAY Diagnosis: Chest pain, nausea vomiting, hyperglycemia, acute renal injury 08/16/24 11:21 Speech Therapy Eval & Treat [ Eval & Treat (MD Order)] .as ordered Comment: x Physician Instructions: x Reason For Exam: dysphagia - modified barium ordered Evaluate: Dysphagia Treat: Yes Reason for Eval: x Diagnosis: Chest pain, nausea vomiting, hyperglycemia, acute renal injury 08/17/24 16:09 Oxygen Nasal Cannula 2 lpm Comment: Diagnosis: DKA 08/18/24 08:14 Incentive Spirometry UD Comment: Diagnosis: DKA 08/18/24 17:53 BiPap/CPAP ROUTINE Comment: Diagnosis: DKA Discharge Exam General Appearance: no apparent distress, alert, obese Neurologic Exam: alert, oriented x 3, cooperative, normal mood/affect, nml cereb ellar function, sensation nml, motor weakness, No motor deficits Eye Exam: PERRL, EOMI, eyes nml inspection Ears, Nose, Throat Exam: normal ENT inspection, pharynx normal, moist mucous membranes Neck Exam: normal inspection, non-tender, supple, full range of motion Respiratory Exam: normal breath sounds, lungs clear, No respiratory distress Cardiovascular Exam: regular rate/rhythm, normal heart sounds Gastrointestinal/Abdomen Exam: soft, No tenderness, No mass Pelvic Exam: deferred Rectal Exam: deferred Back Exam: normal inspection, normal range of motion, No CVA tenderness, No vertebral tenderness Extremity Exam: normal inspection, normal range of motion Skin Exam: normal color, warm, dry Final Diagnosis/Problem List - Final Discharge Diagnosis/Problem (1) Open wound of toe of right foot Current Visit: Yes Status: Acute Code(s): S91.109A - UNSP OPEN WOUND OF UNSP TOE(S) W/O DAMAGE TO NAIL, INIT (2) Influenza A Current Visit: Yes Status: Acute Code(s): J10.1 - FLU DUE TO OTH IDENT INFLUENZA VIRUS W OTH RESP MANIFEST (3) Hypokalemia Current Visit: No Status: Acute Code(s): E87.6 - HYPOKALEMIA (4) Aphthous stomatitis Current Visit: Yes Status: Acute Code(s): K12.0 - RECURRENT ORAL APHTHAE (5) GRETA (obstructive sleep apnea) Current Visit: Yes Status: Acute Code(s): G47.33 - OBSTRUCTIVE SLEEP APNEA (ADULT) (PEDIATRIC) (6) Hypertensive chronic kidney disease with stage 1 through stage 4 chronic kidney disease, or unspecified chronic kidney disease Current Visit: Yes Status: Acute Code(s): I12.9 - HYPERTENSIVE CHRONIC KIDNEY DISEASE W STG 1-4/UNSP CHR KDNY (7) Hyponatremia Current Visit: Yes Status: Acute Code(s): E87.1 - HYPO-OSMOLALITY AND HYPONATREMIA (8) UTI (urinary tract infection) Current Visit: No Status: Acute Code(s): N39.0 - URINARY TRACT INFECTION, SITE NOT SPECIFIED (9) Hyperglycemia due to type 2 diabetes mellitus Current Visit: No Status: Chronic Code(s): E11.65 - TYPE 2 DIABETES MELLITUS WITH HYPERGLYCEMIA (10) Acute respiratory failure with hypoxia Current Visit: Yes Status: Resolved Code(s): J96.01 - ACUTE RESPIRATORY FAILURE WITH HYPOXIA (11) Peripheral venous insufficiency Current Visit: No Status: Chronic Code(s): I87.2 - VENOUS INSUFFICIENCY (CHRONIC) (PERIPHERAL) (12) Uncontrolled diabetes mellitus Current Visit: No Status: Chronic Code(s): JKC3134 - (13) Morbid obesity Current Visit: Yes Status: Chronic Code(s): E66.01 - MORBID (SEVERE) OBESITY DUE TO EXCESS CALORIES (14) DKA (diabetic ketoacidosis) Current Visit: Yes Status: Resolved Code(s): E11.10 - TYPE 2 DIABETES MELLITUS WITH KETOACIDOSIS WITHOUT COMA (15) Dysphagia Current Visit: Yes Status: Resolved Code(s): R13.10 - DYSPHAGIA, UNSPECIFIED (16) Displaced trimalleolar fracture of left ankle Current Visit: No Status: Chronic Code(s): S82.852A - DISPLACED TRIMALLEOLAR FRACTURE OF LEFT LOWER LEG, INIT (17) Metabolic acidosis Current Visit: Yes Status: Resolved Code(s): E87.20 - ACIDOSIS, UNSPECIFIED (18) Gastroenteritis Current Visit: Yes Status: Resolved Code(s): K52.9 - NONINFECTIVE GASTROENTERITIS AND COLITIS, UNSPECIFIED (19) Chest pain Current Visit: Yes Status: Resolved Assessment & Plan: (1) Open wound of toe of right foot Current Visit: Yes Status: Acute Assessment & Plan: - podiatry consult - BLLE wrapped by podiatry - prostat 64 - PT eval and treat - Levaquin IV - Right great toe culture: + MRSA and Leclercia Adecarboxylata - CBC reviewed - BC x2 neg 08/21 - Ok to d/c per podiatry- f/u OP - CBC, CMP reviewed - Levaquin changed to PO Code(s): S91.109A - UNSP OPEN WOUND OF UNSP TOE(S) W/O DAMAGE TO NAIL, INIT (2) Influenza A Current Visit: Yes Status: Acute Assessment & Plan: - tamiflu - tylenol for fever PRN - fever all night last night - mucinex, throat spray 08/21 - no fever overnight Code(s): J10.1 - FLU DUE TO OTH IDENT INFLUENZA VIRUS W OTH RESP MANIFEST (3) Hypokalemia Current Visit: No Status: Acute Assessment & Plan: - resolved Code(s): E87.6 - HYPOKALEMIA (4) Aphthous stomatitis Current Visit: Yes Status: Acute Assessment & Plan: - Terri's magic mouthwash PRN Code(s): K12.0 - RECURRENT ORAL APHTHAE (5) GRETA (obstructive sleep apnea) Current Visit: Yes Status: Acute Assessment & Plan: - BMI 43.5 - OP sleep study ordered- RT to set up - Pt reports she had a sleep study over [address] Carr and did not f/u. - She does not have a cpap at home - Using bipap here at night - Overnight pulse ox ordered as O2 drops when sleeping into 70's. - Sleep study will likely need to be done with oxygen. 08/21 - Per RT and overnight pulse ox results pt qualifies for 2lNC at night- case management to set up for OP. Code(s): G47.33 - OBSTRUCTIVE SLEEP APNEA (ADULT) (PEDIATRIC) (6) Hypertensive chronic kidney disease with stage 1 through stage 4 chronic kidney disease, or unspecified chronic kidney disease Current Visit: Yes Status: Acute Assessment & Plan: - Continue to hold losartan until creat. at baseline- consider restarting tomorrow - Continue bp meds - Blood pressure under good control - CMP reviewed - Creat 1.74- near baseline 08/21 -F/U with Dr. Mitchell OP - CMP reviewed Code(s): I12.9 - HYPERTENSIVE CHRONIC KIDNEY DISEASE W STG 1-4/UNSP CHR KDNY (7) Hyponatremia Current Visit: Yes Status: Acute Assessment & Plan: - Mild Na+ 133- trend 08/21 - resolved Code(s): E87.1 - HYPO-OSMOLALITY AND HYPONATREMIA (8) UTI (urinary tract infection) Current Visit: No Status: Acute Assessment & Plan: - Levaquin IV- pharmacy renal dosing - Ucult positive for klebsiella 08/21 - antbx changed to oral Code(s): N39.0 - URINARY TRACT INFECTION, SITE NOT SPECIFIED (9) Hyperglycemia due to type 2 diabetes mellitus Current Visit: No Status: Chronic Assessment & Plan: - continue home dose of insulin - accuchecks ac/hs Code(s): E11.65 - TYPE 2 DIABETES MELLITUS WITH HYPERGLYCEMIA (10) Acute respiratory failure with hypoxia Current Visit: Yes Status: Resolved Assessment & Plan: - resolved - Pt worse bipap last night- today RA - move to med surg bed. - Needs OP sleep study with O2 - overnight pulse ox - O2 drops when sleeping. 08/21 - 2lNC at HS- CM to set up home O2 Code(s): J96.01 - ACUTE RESPIRATORY FAILURE WITH HYPOXIA (11) Peripheral venous insufficiency Current Visit: No Status: Chronic Assessment & Plan: - Per podiatry recs on 08/16: Bilateral Unna boots placed to help control lower extremity swelling. Recommend continued compression utilizing bilateral Unna boots until follow-up. - reviewed podiatry note and agree with plan of care Code(s): I87.2 - VENOUS INSUFFICIENCY (CHRONIC) (PERIPHERAL) (12) Uncontrolled diabetes mellitus Current Visit: No Status: Chronic Assessment & Plan: - A1C > 14 08/15/24- uncontrolled - nutrition consult - Carb controlled diet - Home insulin dosing, accuchecks ac/hs - Discussed good glycemic control for wound healing. Code(s): CZX1583 - (13) Morbid obesity Current Visit: Yes Status: Chronic Assessment & Plan: - Advised ADA diet and exercise control Code(s): E66.01 - MORBID (SEVERE) OBESITY DUE TO EXCESS CALORIES (14) DKA (diabetic ketoacidosis) Current Visit: Yes Status: Resolved Qualifiers: Diabetes mellitus type: type 2 Diabetes mellitus complication detail: without coma Qualified Code(s): E11.10 - Type 2 diabetes mellitus with ketoacidosis without coma Assessment & Plan: - resolved - F/u with Dr. Leong OP Code(s): E11.10 - TYPE 2 DIABETES MELLITUS WITH KETOACIDOSIS WITHOUT COMA (15) Dysphagia Current Visit: Yes Status: Resolved Assessment & Plan: - on 08/17 Barium swallow reviewed with functional swallow without deficit. ST recommendation of regular diet for compensatory strategies. Code(s): R13.10 - DYSPHAGIA, UNSPECIFIED (16) Displaced trimalleolar fracture of left ankle Current Visit: No Status: Chronic Assessment & Plan: - ongoing for over 1 year- Podiatry following Code(s): S82.852A - DISPLACED TRIMALLEOLAR FRACTURE OF LEFT LOWER LEG, INIT (17) Metabolic acidosis Current Visit: Yes Status: Resolved Assessment & Plan: - resolved - Per nephrology continue sodium bicarb 1,300mg TID OP Code(s): E87.20 - ACIDOSIS, UNSPECIFIED (18) Gastroenteritis Current Visit: Yes Status: Resolved Assessment & Plan: - sxs resolved - 2:2 Flu A Code(s): K52.9 - NONINFECTIVE GASTROENTERITIS AND COLITIS, UNSPECIFIED (19) Chest pain Current Visit: Yes Status: Resolved Qualifiers: Chest pain type: unspecified Qualified Code(s): R07.9 - Chest pain, unspecified Assessment & Plan: - resolved - Likely from persistent N/V, doubt cardiac in origin -Tele -Trops negative x 3 - Continue ASA 81mg -echo from 06/26/24 IMPRESSION: EF: 52% 1) LOW NORMAL CONTRACTILITY LEFT VENTRICLE. 2) MODERATE CONCENTRIC LEFT VENTRICULAR HYPERTROPHY. 3) POSSIBLE IMPAIRED LEFT VENTRICULAR RELAXATION. 4) MILD MITRAL REGURGITATIOn Cardiac nuclear stress test 07/30/24: Impression: 1. No scintigraphic evidence for pharmacologic induced reversible ischemia. 2. Normal ejection fraction. Code(s): R07.9 - CHEST PAIN, UNSPECIFIED - Discharge Discharge Date: 08/21/24 Disposition: Home, Self-Care Condition: Stable Prescriptions: New Levofloxacin [Levofloxacin 500 MG Tablet] 750 mg PO Q48H 10 Days #10 tablet Nystatin/TCN/Hc/Diphenhydramin [Terri's Mouthwash] 10 ml PO QID PRN PRN Continue Insulin Glargine [Lantus Insulin] 95 units SQ BID Ferrous Sulfate 325 mg PO TID Acetaminophen [Tylenol Extra Strength] 1,000 mg PO Q6H PRN PRN PRN Reason: Pain Omeprazole 40 mg PO DAILY Magnesium Oxide 400 mg [Mag-Ox 400] 400 mg PO DAILY Fluoxetine HCl 20 mg [Prozac 20 MG] 20 mg PO DAILY Furosemide [Lasix] 20 mg PO DAILY ALPRAZolam 1 MG [Xanax 1 mg] 1 mg PO DAILY 3 Days #3 tablet Sodium Bicarbonate 1,300 mg PO BID Potassium Chloride [Klor-Con M20] 20 meq PO BID Polyethylene Glycol 3350 17 gm [Miralax Powder 17GM PACKET] 17 gm PO DAILY PRN PRN PRN Reason: Constipation Ondansetron ODT 4 MG [Zofran Odt 4 mg] 8 mg PO Q6HPRN PRN PRN Reason: Nausea/Vomiting Losartan Potassium [Cozaar] 25 mg PO DAILY Levalbuterol Tartrate [Xopenex Hfa] 2 puffs IH Q4HPRN PRN PRN Reason: wheezing Insulin Lispro [Humalog Kwikpen U-100] 25 unit SQ TIDWMEALS Gabapentin [Neurontin ] 100 mg PO TID Fluticasone Propionate [Flonase NASAL] 2 spray NS DAILY PRN PRN PRN Reason: Allergies Ergocalciferol (Vitamin D2) [Vitamin D2] 1,250 mcg PO WEEKLY Dexlansoprazole [Dexilant] 60 mg PO DAILY buPROPion HCL [Bupropion Xl] 150 mg PO DAILY Aspirin EC 81 mg [Ecotrin 81 mg] 81 mg PO DAILY Albuterol 2.5 mg/3 ml Neb [Proventil 2.5 mg/3 ml Neb] 1 neb IH Q4HPRN PRN PRN Reason: Shortness Of Breath/Wheezing Diltiazem HCl Cd [Cardizem CD ] 240 mg PO DAILY Oxycodone HCl/Acetaminophen [Oxycodone-Acetaminophen 5-325] 1 each PO Q4HPRN PRN PRN Reason: Pain Outpatient Orders: Sleep Study Time Frame: 1 Day, Facility: [facility], Location: RESPIRATORY THERAPY Additional Instructions: [facility] HAS BEEN SET UP FOR YOU. THEY WILL CALL YOU TO ARRANGE A TIME TO CO ME SEE YOU. THEIR PHONE NUMBER IS [phone] IF YOU NEED ANYTHING PRIOR TO THEIR FIRST VISIT Follow up with: KASSY MITCHELL MD [CONSULTING PHYSICIAN] - 08/31/24 11:50 am (at [place] Office ) JENNIFER NAPOLES MD [Primary Care Provider] - 08/30/24 11:00 am LEONA LEONG [NON-STAFF PHY W/O PRIVILEGES] - 08/28/24 1:15 pm (at [facility] office)
[2024-08-21 11:54] VITALS: BP 132/79; PULSE 89; RESP 15
--- NOTE | 2024-08-21 12:44 | XRAY ---
CLINICAL HISTORY: cough/sob COMPARISON: Prior study dated 08/14/2024. TECHNIQUE: An X-ray image of the chest is obtained in AP projection. FINDINGS: Pulmonary Parenchyma: Stable bilateral lower lung zones diffuse increase in density with associated prominent bronchovascular markings and hilar vessels bilaterally. The thickening of the right paratracheal stripe could be due to patient rotation. No evidence of pleural effusion or pleural thickening. Heart and Mediastinum: Cardiomegaly Bony Thorax: The bony thorax appears intact without fractures or deformities. Soft Tissues: Soft tissues overlying the chest wall are unremarkable. IMPRESSION: 1. No interval changes. 2. Stable bilateral lower lung zones diffuse increase in density with associated prominent bronchovascular markings and hilar vessels bilaterally. 3. The thickening of the right paratracheal strip could be due to patient rotation. 4. Cardiomegaly. Electronically Signed by: Letty Brooks MD. (08/18/2024 09:29:50 EST)
[2024-08-22] MEDS ORDERED: Levofloxacin 500 MG Tablet PO SCH (10:00)
== END 2024-08-21 16:57 | disposition home health service (06) | DRG 604 ==
LOC: ED 15:30 → MED SURG 19:48 → ICU 08-17 08:16 → OBSVTOIN 08-17 08:16
PROVIDERS: ADMIT Internal Medicine Nephrology; ATTEND Internal Medicine Nephrology
PROC: 2W1MX6Z Compression of Left Lower Extremity using Pressure Dressing (ICD-10-PCS; principal; 2024-08-17)
PROC: 2W1LX6Z Compression of Right Lower Extremity using Pressure Dressing (ICD-10-PCS; 2024-08-17)
DX: S91.101A Unspecified open wound of right great toe without damage to nail, initial encounter (principal); E11.10 Type 2 diabetes mellitus with ketoacidosis without coma; J96.01 Acute respiratory failure with hypoxia; Z59.12 Inadequate housing utilities; N17.9 Acute kidney failure, unspecified; E87.1 Hypo-osmolality and hyponatremia; N39.0 Urinary tract infection, site not specified; J10.1 Influenza due to other identified influenza virus with other respiratory manifestations; Z59.48 Other specified lack of adequate food; Z59.82 Transportation insecurity; E87.6 Hypokalemia; K12.0 Recurrent oral aphthae; G47.33 Obstructive sleep apnea (adult) (pediatric); E11.22 Type 2 diabetes mellitus with diabetic chronic kidney disease; I12.9 Hypertensive chronic kidney disease with stage 1 through stage 4 chronic kidney disease, or unspecified chronic kidney disease; N18.9 Chronic kidney disease, unspecified; B96.1 Klebsiella pneumoniae [K. pneumoniae] as the cause of diseases classified elsewhere; E11.65 Type 2 diabetes mellitus with hyperglycemia; I87.2 Venous insufficiency (chronic) (peripheral); E66.01 Morbid (severe) obesity due to excess calories; R13.0 Aphagia; R13.10 Dysphagia, unspecified; S82.852A Displaced trimalleolar fracture of left lower leg, initial encounter for closed fracture; E78.5 Hyperlipidemia, unspecified; K52.9 Noninfective gastroenteritis and colitis, unspecified; R07.9 Chest pain, unspecified; R11.2 Nausea with vomiting, unspecified; Z79.899 Other long term (current) drug therapy; Z85.41 Personal history of malignant neoplasm of cervix uteri
CPT/HCPCS: 0241U; 11042; 29580; 36415; 36600; 70450; 71045; 73630; 74230; 80048; 80053; 81001; 82375; 82803; 82947; 83036; 83525; 83735; 83880; 84100; 84132; 84484; 85025; 85379; 87040; 87045; 87046; 87070; 87077; 87086; 87177; 87186; 87209; 87328; 87329; 87427; 87493; 87651; 92611; 93005; 93041; 93268; 94002; 94003; 94640; 94760; 96372; 97163; 99223; 99231; 99232; 99285; G0378; Q3014; 94762; J0696; J1650; J1815; J1817; J1940; J1956; J2405; J7609; A9270-GY; J3475

== ENCOUNTER 2024-10-25 10:40 | Day surgery (SDC) | payer MEDICARE ==
[~2024-10-25 10:40] MED LIST: CEFAZOLIN 2 GM/100 ML NaCl 2 GM/100 ML IVPB IV ONE; Decadron 4 MG ONE; NEURONTIN ONE; TYLENOL EXTRA STRENGTH 500 MG ONE
[2024-10-25] MEDS ORDERED: Sodium Chloride 0.9% 1000 ML 1,000 ML ONE ×2 (10:41→13:28)
[2024-10-25] MEDS: Sodium Chloride 0.9% 1000 ML 1,000 ML IV SCH (11:00)
[2024-10-25] MEDS: TYLENOL EXTRA STRENGTH 500 MG PO ONE (11:10)
[2024-10-25] MEDS: NEURONTIN PO ONE (11:10)
[2024-10-25] MEDS ORDERED: Reglan 10 MG/2 ML ONE (12:02)
[2024-10-25] MEDS ORDERED: Pepcid 20 MG VIAL IV ONE (12:02)
[2024-10-25] MEDS ORDERED: ROCURONIUM BROMIDE IV ONE (12:11)
[2024-10-25] MEDS ORDERED: Zofran 4 MG/2 ML VIAL ONE ×2 (12:11→16:05)
[2024-10-25] MEDS ORDERED: DEXMEDETOMIDINE 80 MCG/20ML-NS IV ONE (12:12)
[2024-10-25] MEDS ORDERED: propofoL IV ONE (12:12)
[2024-10-25] MEDS ORDERED: Xylocaine-Mpf 2% 5 Ml Vial ONE (12:12)
[2024-10-25] MEDS ORDERED: Versed 2 MG/2 ML Injection ONE (12:13)
[2024-10-25] MEDS ORDERED: SUBLIMAZE 100 MCG/2 ML ONE (12:14)
[2024-10-25] MEDS ORDERED: Marcaine Mpf 0.5% Vial 30 Ml ONE (12:16)
[2024-10-25] MEDS ORDERED: EXPAREL 133 MG/10 ML VIAL IJ ONE (12:17)
[2024-10-25] MEDS ORDERED: Pre-Attached Lta Kit TP ONE (12:17)
[2024-10-25] MEDS: Reglan 10 MG/2 ML IV ONE (12:19)
[2024-10-25] MEDS: Pepcid 20 MG VIAL IV ONE (12:19)
[2024-10-25 12:36] LABS: ALBUMIN 3.6 g/dL (3.5-5.0); ANION GAP 13.6 MEQ/L (5-15); BILIRUBIN,TOTAL 0.4 mg/dL (0.2-1.3); Calcium 8.8 mg/dL (8.4-10.2); Creatinine 1 1.81 mg/dL (0.52-1.04); EST GLOMERULAR FILTRATION RATE 33.5 ML/MIN; Potassium 4.4 mmol/L (3.5-5.1); Total Protein 6.8 g/dL (6.3-8.2)
[2024-10-25 12:42] LABS: Hematocrit 32.9 % (34.1-44.9); Hemoglobin 10.2 g/dL (11.2-15.7); Mean Cell Volume 83.3 fL (79.4-94.8); Mean Corpuscular Hemoglobin 25.8 pg (25.6-32.2); Mean Platelet Volume 8.9 fL (9.4-12.3); Platelet Count 420 x10^3/uL (182-369); Red Blood Count 3.95 x10^6/uL (3.93-5.22); Red Cell Distribution Width 15.3 % (11.7-14.4); White Blood Count 8.9 x10^3/uL (3.98-10.04)
[2024-10-25] MEDS: Decadron 4 MG PO ONE (12:59)
[2024-10-25] MEDS ORDERED: Quelicin Fliptop 200 MG/10 ML ONE (13:11)
[2024-10-25] MEDS ORDERED: Ephedrine Sulfate 50 MG/ML ONE (13:26)
[2024-10-25] MEDS ORDERED: PHENYLEPHRINE HCL ONE (13:26)
[2024-10-25] MEDS ORDERED: PHENYLEPHRINE HCL 10 MG in Dextrose 5%/Water IV Soln. 250 ML 249 ML IV PRN (13:38)
[2024-10-25] MEDS ORDERED: Compazine 10 MG/2 ML ONE (16:54)
[2024-10-25 17:26] VITALS: O2SAT 99
[2024-10-25 17:47] VITALS: RESP 20
[2024-10-25 19:04] VITALS: BP 143/67; PULSE 92; TEMP 97.6
--- NOTE | 2024-10-25 19:52 | XRAY ---
Indication: Left heel ORIF surgery. Intraoperative fluoroscopy provided for 9 minutes 28 seconds. 24 digital spot images submitted for interpretation demonstrates 5 orthopedic screws fixating midanterior calcaneal fracture. Fracture apposition/alignment near-anatomic. Correlate with operative findings/report.
--- NOTE | 2024-10-26 09:36 | OP ---
SURGERY DATE/TIME: 10/25/2024 [id number] PREOPERATIVE DIAGNOSES: 1) Left calcaneus fracture. 2) Left heel pain. 3) Difficulty with ambulation. 4) Uncontrolled diabetes. 5) Rheumatoid arthritis. 6) Venous insufficiency. POSTOPERATIVE DIAGNOSES: 1) Left calcaneus fracture. 2) Left heel pain. 3) Difficulty with ambulation. 4) Uncontrolled diabetes. 5) Rheumatoid arthritis. 6) Venous insufficiency. PROCEDURE: Open reduction and internal fixation of calcaneal fracture. SURGEON: Toy Mccauley DPM FISH NET MAKER: WILBER Crandall and Lara Davila, Student Surgical Physician Support Coordinator. ANESTHESIA: Popliteal block, left lower extremity. See Anesthesia report for details and general anesthesia. HEMOSTASIS: Thigh tourniquet set to 250 mmHg for a total of 65 total tourniquet minutes. ESTIMATED BLOOD LOSS: Approximately 10 mL. MATERIALS: 3-0 nylon; 4-0 fully-threaded cannulated screw 38 mm, 42 mm, 60 mm, and 55 mm and then a 4.0 headless cannulated screw which was 42 mm in length. INDICATIONS: The patient is a very pleasant 49-year-old female who presented to my service for significant leg swelling to the left lower extremity and increasing pain to the left lower extremity on Tuesday of this week. Patient had new x-rays given sensation of hardware coming out of her skin from a previous ankle fracture that was taken care of approximately 1-1/2 years ago. From that standpoint, patient demonstrated significant compression fracture of the calcaneus that has led to a compression of the posterior facet of the calcaneus, loss of height of Dathanes angle and then, an anterior process fracture, as well as once a CT scan was obtained, a sustentaculum danica fracture. Patient is an uncontrolled diabetic with an A1c of 11 and has chronic venous insufficiency, as well as multiple comorbidities that increase her risk of a possible wound complication, as well as wound healing and infection. All options were discussed regarding treatment with the patient. Treatment option of an open reduction and internal fixation was discussed, however, with very small incisions to reduce the risk of a wound healing or infection complication. Patient's A1c was measured to be 11. She understands the risk of proceeding. All risks, complications and benefits of surgical intervention were including but not limited to infection; hematoma; seroma; possibility of delayed wound healing, nonwound healing were discussed at this time. There is a possibility she develops a nonunion of the calcaneus and there may be a possibility of irritating or loosening of hardware as time goes on. Given these options, patient wishes to proceed. Plenty of time was allowed for her to ask questions, which were answered to her apparent satisfaction. It is at this time we decided to proceed. DESCRIPTION OF PROCEDURE AND FINDINGS: Patient was brought to the operating room, placed on the operating room table in a lazy lateral position. At this time patient was provided anesthesia until she was adequately sedated a popliteal block was provided until the patient was adequately regionalized. Once this occurred, the well-padded thigh tourniquet was applied to the patient's left thigh, and the tourniquet was set to 250 mmHg. At this time, the left lower extremity was prepped and draped in the typical sterile fashion and lowered onto the surgical field. Attention was directed under fluoroscopic guidance to the calcaneal axial on the lateral view where under fluoroscopic guidance a transfixation pin was placed in the calcaneal tuber. Utilizing distraction of the calcaneus while the foot was held in the plantar flex and counter pressure was held, the calcaneus was reduced into an improved position under fluoroscopic guidance of the calcaneal axial view. This was checked on a lateral view. A stab incision was made, allowing for access of a [place] to enter and lift the posterior facet from the calcaneal tuber while distracting the calcaneal transfixation pin. Once this was performed, a multitude of 1.45 K-wires was introduced to hold the position along the longitudinal access, as well as the Raptor screws for the posterior facet. Once these were placed, this was checked under calcaneal axial view and the sustentaculum danica fracture was identified and reduced utilizing a K-wire in this orientation. Once this was performed, sequentially the Raptor screws were placed first and then the transfixation pin was removed, then our [id number] screws were placed utilizing a combination of 4.0 headed fully-threaded screws. Once this was performed, the sustentaculum danica screw was then thrown in an orientation from lateral to medial. Once this was performed, a significant improvement in the calcaneal height was identified, as well as the reduction of the lateral displacement of the calcaneal tuber to approximately 5% to 10% displacement at this time. From that standpoint, final shots were taken. Copious amounts of sterile saline were utilized to flush the surgical sites, which were coapted utilizing a 3-0 nylon in a horizontal mattress simple interrupted-type fashion. A dressing consisting of Betadine, Adaptic, 4 x 4, Kerlix, ABD and a well-padded posterior splint with sugar-tong was applied to the patient's left lower extremity with moderate amounts of compression and the foot held at 90 degrees relative to long axis of the leg. Patient was then reversed from anesthesia and returned to the postoperative anesthesia care unit with vital signs stable and vascular status intact. The patient handled the anesthesia, as well as the procedure, without significant complication. Postoperative orders as indicated in the patient's discharge chart.
--- NOTE | 2024-10-26 18:03 | XRAY ---
Nine minutes and 28 seconds of fluoroscopy was used in surgery for a left heel ORIF surgery.
== END 2024-10-25 18:55 | disposition home or self-care (01) ==
LOC: SDC 10:40 → MED SURG 17:10 → SDC 18:55
PROVIDERS: ATTEND Podiatrist Foot & Ankle Surgery
DX: S92.002A Unspecified fracture of left calcaneus, initial encounter for closed fracture (principal); M79.672 Pain in left foot; R26.2 Difficulty in walking, not elsewhere classified; E11.65 Type 2 diabetes mellitus with hyperglycemia; M06.9 Rheumatoid arthritis, unspecified; I87.2 Venous insufficiency (chronic) (peripheral)
CPT/HCPCS: 28415; 36415; 73650; 76000; 76937; 80053; 82947; 83036; 85027; 93005; C1713; J0330; J0666; J0690; J2250; J2371; J2405; J2704; J3010; A9270-GY

== ENCOUNTER 2025-03-21 16:18 | Observation (INO) | payer MEDICARE ==
[2025-03-21 17:22] LABS: VBG BASE EXCESS -10.9 (-2.0-2.0); VBG FIO2 21.0 %; VBG HCO3- 15.9 meq/L (22-28); VBG HEMOGLOBIN 13.1; VBG O2 SATURATION 71.0 (95-100); VBG PCO2 38.0 mm/Hg (42-55); VBG PO2 35.0 mm/Hg (25-40); VBG POTASSIUM 4.3 (3.5-5.1)
[2025-03-21 17:23] LABS: VBG CARBOXYHEMOGLOBIN 7.3 % T HGB (0.0-6.9)
--- NOTE | 2025-03-21 17:26 | ERPHSYRPT ---
- History of Present Illness Patient Subjective Stated Complaint: pt. states, "I haven't been feeling good, im just really really tired. They have just recently restarted me on insulin. I went to see Dr. Napoles and he sent me here." Triage Nursing Assessment: Pt. arrives via w/c, A&O x 3, Skin P/W/D, Resp. even unlabored. compression wrap in place on left lower ext with heel protectorl. mucous membranes sl. dry. Timing/Duration: day(s) Severity: moderate Associated Symptoms: nausea, loss of appetite, malaise Hx Tetanus, Diphtheria Vaccination/Date Given: No Hx Influenza Vaccination/Date Given: No Hx Pneumococcal Vaccination/Date Given: No Immunizations Up to Date: No <WHITNEY BABCOCK - Last Filed: 03/21/25 19:19> <PAOLA BAE - Last Filed: 03/21/25 22:06> - History of Present Illness Physician History: Sent from primary care clinic with elevated blood sugar, the patient has known history of Insupen diabetes and she apparently was in subacute rehab had her insulin stopped because she had several insulin reactions, she states she is having difficulty controlling her sugar, She is concerned that she may be in DKA (WHITNEY BABCOCK) Allergies/Adverse Reactions: metoprolol Allergy (Severe, Verified 02/18/25 10:10) "flat lined" adhesive tape Allergy (Verified 02/18/25 10:10) Rash latex Allergy (Verified 02/18/25 10:10) Rash Sulfa (Sulfonamide Antibiotics) Allergy (Verified 02/18/25 10:10) Difficulty Breathing sulfamethoxazole [From Bactrim] Adverse Reaction (Severe, Verified 02/18/25 10:10) "messes up my kidneys" trimethoprim [From Bactrim] Adverse Reaction (Severe, Verified 02/18/25 10:10) "messes up my kidneys" metformin Adverse Reaction (Intermediate, Verified 02/18/25 10:10) liver problems Home Medications: Ferrous Sulfate 325 mg PO DAILY 11/06/15 [History] Insulin Glargine [Lantus Insulin] 85 units SQ BID 11/06/15 [History] Acetaminophen [Tylenol Extra Strength] 1,000 mg PO Q6H PRN PRN 08/01/17 [History] Fluoxetine HCl 20 mg [Prozac 20 MG] 20 mg PO DAILY 08/06/23 [History] Magnesium Oxide 400 mg [Mag-Ox 400] 400 mg PO DAILY 08/06/23 [History] Omeprazole 40 mg PO DAILY 08/06/23 [History] Aspirin EC 81 mg [Ecotrin 81 mg] 81 mg PO DAILY 08/15/24 [History] Ergocalciferol (Vitamin D2) [Vitamin D2] 1,250 mcg PO WEEKLY 08/15/24 [History] Fluticasone Propionate [Flonase NASAL] 2 spray NS DAILY PRN PRN 08/15/24 [History] Insulin Lispro [Humalog Kwikpen U-100] 35 unit SQ TIDWMEALS 08/15/24 [History] buPROPion HCL [Bupropion Xl] 150 mg PO DAILY 08/15/24 [History] Dapagliflozin Propanediol [Farxiga] 1 tab PO DAILY 10/24/24 [History] Fluticasone/Vilanterol [Breo Ellipta 100-25 Mcg Inhalr] 1 spray IH DAILY 10/24/24 [History] Levalbuterol Tartrate [Xopenex Hfa] 1 spray IH DAILY 10/24/24 [History] dilTIAZem HCL [Tiadylt ER] 420 mg PO DAILY 10/24/24 [History] Losartan/Hydrochlorothiazide [Losartan-Hctz 100-25 mg Tab] 1 each PO DAILY 11/28/24 [History] Potassium Chloride [Klor-Con 10] 10 meq PO DAILY 11/28/24 [History] Furosemide 20 mg [Lasix 20 mg] 20 mg PO DAILY 03/21/25 [History] Hydrocodone/Acetaminophen [Hydrocodone-Acetamin 7.5-325] 1 tab PO Q6H PRN PRN 03/21/25 [History] Travel Risk - International Travel Have you traveled outside of the country in past 3 weeks: No - Emerging Infectious Disease Are you exhibiting symptoms associated with any current EIDs: No Symptoms: Cough: New Onset, Diarrhea, Vomitting <SADIQWHITNEY - Last Filed: 03/21/25 19:19> - Past Medical History Pertinent Past Medical History: Yes Neurological History: Peripheral Neuropathy ENT History: Other Cardiac History: Arrhythmia, Deep Vein Thrombosis, High Cholesterol, Hypertension, Other Respiratory History: Bronchitis Endocrine Medical History: Diabetes Type II, Other Musculoskeletal History: Fractures GI Medical History: GERD History: Renal Disease, Other Psycho-Social History: Depression, Anxiety Female Reproductive Disorders: Cervical Cancer Other Medical History: CERVICAL CA (CHEMO/RADIATION). REQUIRED UROSTOMY. CHRONIC RENAL FAILURE STAGE 3. WAS EVALUATED BY THORACIC SURGEON DUE TO SPOTS ON LUNG - WAS TOLD DUE TO HISTOPLASMOSIS. F/U WITH THEM 07/25/24. STATES [place] AND HAS BEEN TOLD HAS EARLY STAGES OF CONGESTIVE HEART FAILURE. HX OF RIGHT KNEE ARTHROSCOPY DUE TO MENISCUS TEAR. diastolic dysfunction - Past Surgical History Past Surgical History: Yes Neuro Surgical History: No Pertinent History Cardiac: Other Respiratory: No Pertinent History Gastrointestinal: Cholecystectomy, Hernia Repair Genitourinary: Kidney Surgery, Other Musculoskeletal: Other Female Surgical History: Hysterectomy, Other Other Surgical History: colonoscopy Jun 2023 "wall was very thin," urostomy, renal stents placed then removed, left heel surgery, port place and removal, abcess, degridement coccyx, left ankle Significant Family History: no pertinent family hx - Female History Hx Last Menstrual Period: complete hysterectomy Hx Now: No - Social History Smoking Status: Never smoker Exposure to second hand smoke: Yes Drug Use: none - Social Determinants of Health Will the patient participate in the screening: Declined to provide <WHITNEY BABCOCK - Last Filed: 03/21/25 19:19> - Physical Exam General Appearance: no apparent distress, alert, lethargy Eye Exam: PERRL/EOMI Ears, Nose, Throat Exam: normal ENT inspection, pharynx normal, moist mucous membranes Neck Exam: normal inspection, non-tender, supple, full range of motion, No Brudzinski, No Kernig's Respiratory Exam: normal breath sounds, lungs clear Cardiovascular Exam: regular rate/rhythm, normal heart sounds, normal peripheral pulses Gastrointestinal/Abdomen Exam: soft, No tenderness Extremity Exam: normal inspection, normal range of motion, pelvis stable Neurologic Exam: alert, oriented x 3, cooperative, conveyor mechanic II-XII nml as tested, normal mood/affect Skin Exam: normal color, warm, dry SpO2 Interpretation: normal SpO2: 98 <WHITNEY BABCOCK - Last Filed: 03/21/25 19:19> - Nursing Vital Signs Nursing Vital Signs: Initial Vital Signs Temperature 97.8 F 03/21/25 16:19 Pulse Rate 98 H 03/21/25 16:19 Respiratory Rate 18 03/21/25 16:19 Blood Pressure 166/89 03/21/25 16:19 O2 Sat by Pulse Oximetry 98 03/21/25 16:19 Pain Scale Pain Intensity 0 Ordered Tests: Active Orders 24 hr Category Date Time Status Orthopedic Podiatrist STAT Care 03/21/25 20:26 Active EKG-ER Only STAT Care 03/21/25 17:04 Active POCT Glucose Check STAT Care 03/21/25 17:04 Active CHEST 1 VIEW (PORTABLE) Stat Exams 03/21/25 17:04 Taken CBC W DIFF Stat Lab 03/21/25 20:40 Completed CMP Stat Lab 03/21/25 20:40 Completed Lactic Acid Stat Lab 03/21/25 20:45 Completed MAGNESIUM Stat Lab 03/21/25 15:57 Completed POCT GLUCOSE Stat Lab 03/21/25 16:27 Completed POCT GLUCOSE Stat Lab 03/21/25 20:01 Completed UA W/RFX UR CULTURE Stat Lab 03/21/25 17:30 Completed VENOUS BLOOD GAS Urgent Lab 03/21/25 17:15 Completed Medication Summary Generic Name Dose Route Start Last Admin Trade Name Freq PRN Reason Stop Dose Admin INSULIN REGULAR IN 0.9 % NACL 100 unit in 100 mls @ 10.82 mls/hr 03/21/25 21:14 03/21/25 21:28 Myxredlin 100 Unit/100 Ml Bag IV 04/20/25 21:13 0.1 unit/kg/hr .Q9H15M PRN 10.82 mls/hr HYPERGLYCEMIA Administration Protocol 0.1 UNIT/KG/HR Discontinued Medications Generic Name Dose Route Start Last Admin Trade Name Freq PRN Reason Stop Dose Admin Sodium Chloride 1,000 mls @ 999 mls/hr 03/21/25 17:04 03/21/25 18:26 Sodium Chloride 0.9% 1000 Ml IV 03/21/25 18:04 Infused .Q1H1M STA Infusion Sodium Chloride Confirm 03/21/25 17:13 Sodium Chloride 0.9% 1000 Ml Administered 03/21/25 17:14 Dose 1,000 mls @ ud .ROUTE .STK-MED ONE Insulin Human Lispro 15 unit 03/21/25 17:26 03/21/25 17:48 Insulin Lispro 1 Unit SQ 03/21/25 17:27 15 unit STAT ONE Administration Insulin Human Lispro Confirm 03/21/25 17:41 Insulin Lispro 1 Unit Administered 03/21/25 17:42 Dose 15 unit .ROUTE .STK-MED ONE Potassium Chloride 20 meq 03/21/25 21:15 03/21/25 21:27 Potassium Chloride Tab 10 Meq Tab PO 03/21/25 21:16 20 meq STAT ONE Administration Potassium Chloride Confirm 03/21/25 21:27 Potassium Chloride Tab 10 Meq Tab Administered 03/21/25 21:28 Dose 20 meq .ROUTE .STK-MED ONE Lab/Rad Data: Laboratory Result Diagrams 03/21/25 20:40 03/21/25 20:40 Laboratory Results 03/21/25 03/21/25 03/21/25 Range/Units 20:45 20:40 20:40 WBC 9.3 (3.98-10.04) x10^3/uL RBC 4.62 (3.93-5.22) x10^6/uL Hgb 11.7 (11.2-15.7) g/dL Hct 37.2 (34.1-44.9) % MCV 80.5 (79.4-94.8) fL MCH 25.3 L (25.6-32.2) pg MCHC 31.5 L (32.2-35.5) g/dL RDW 15.9 H (11.7-14.4) % Plt Count 392 H (182-369) x10^3/uL MPV 9.5 (9.4-12.3) fL Gran % 63.8 (34.0-71.1) % Immature Gran % (Auto) 1.9 H (0.001-0.429) % Nucleat RBC Rel Count 0.0 (0.00-0.2) % Eos # (Auto) 0.29 (0.04-0.36) x10^3/uL Immature Gran # (Auto) 0.18 H (0.001-0.031) x10^3u/L Absolute Lymphs (auto) 1.99 (1.18-3.74) x10^3/uL Absolute Monos (auto) 0.79 (0.24-0.86) x10^3/uL Absolute Nucleated RBC 0.00 (0.00-0.012) x10^3u/L Lymphocytes % 21.5 (19.3-51.7) % Monocytes % 8.5 (4.7-12.5) % Eosinophils % 3.1 (0.7-5.8) % Basophils % 1.2 (0.1-1.2) % Absolute Granulocytes 5.91 (1.56-6.13) x10^3/uL Basophils # 0.11 H (0.01-0.08) x10^3/uL pO2/FiO2 Ratio % VBG pH (7.32-7.42) VBG pCO2 at Pat Temp (42-55) mm/Hg VBG pO2 at Pat Temp (25-40) mm/Hg VBG HCO3 (22-28) meq/L VBG O2 Sat (Lisa) (95-100) VBG Base Excess (-2.0-2.0) VBG Hemoglobin VBG Carboxyhemoglobin (0.0-6.9) % T HGB POC Potassium (3.5-5.1) Sodium 132 L (135-145) mmol/L Potassium 3.4 L (3.5-5.1) mmol/L Chloride 108 H (98-107) mmol/L Carbon Dioxide 12 L* (22-30) mmol/L Anion Gap 15.0 (5-15) MEQ/L BUN 48 H (7-17) mg/dL Creatinine 1.84 H (0.52-1.04) mg/dL Estimated GFR 32.8 ML/MIN Glucose 282 H (74-106) mg/dL POC Glucometer (74 to 106) mg/dL Lactic Acid 1.1 (0.4-2.0) Calcium 8.7 (8.4-10.2) mg/dL Magnesium (1.6-2.3) mg/dL Total Bilirubin < 0.10 L (0.2-1.3) mg/dL AST 17 (14-36) U/L ALT 16 (0-35) U/L Alkaline Phosphatase 136 H (38-126) U/L Serum Total Protein 6.7 (6.3-8.2) g/dL Albumin 3.3 L (3.5-5.0) g/dL Urine Color (Yellow) Urine Appearance (Clear) Urine pH (4.6-8.0) Ur Specific [place] (1.005-1.030) Urine Protein (Negative) Urine Glucose (UA) (Negative) mg/dL Urine Ketones (Negative) Urine Blood (Negative) Urine Nitrite (Negative) Urine Bilirubin (Negative) Urine Urobilinogen (0.2) mg/dL Ur Leukocyte Esterase (Negative) U Hyaline Cast (Auto) (0-2) /LPF Urine Microscopic RBC (0-5) /HPF Urine Microscopic WBC (0-5) /HPF Ur Epithelial Cells (None Seen) /HPF Urine Bacteria (None Seen) /HPF Urine Culture Reflexed (NO) 03/21/25 03/21/25 03/21/25 Range/Units 20:01 17:30 17:15 WBC (3.98-10.04) x10^3/uL RBC (3.93-5.22) x10^6/uL Hgb (11.2-15.7) g/dL Hct (34.1-44.9) % MCV (79.4-94.8) fL MCH (25.6-32.2) pg MCHC (32.2-35.5) g/dL RDW (11.7-14.4) % Plt Count (182-369) x10^3/uL MPV (9.4-12.3) fL Gran % (34.0-71.1) % Immature Gran % (Auto) (0.001-0.429) % Nucleat RBC Rel Count (0.00-0.2) % Eos # (Auto) (0.04-0.36) x10^3/uL Immature Gran # (Auto) (0.001-0.031) x10^3u/L Absolute Lymphs (auto) (1.18-3.74) x10^3/uL Absolute Monos (auto) (0.24-0.86) x10^3/uL Absolute Nucleated RBC (0.00-0.012) x10^3u/L Lymphocytes % (19.3-51.7) % Monocytes % (4.7-12.5) % Eosinophils % (0.7-5.8) % Basophils % (0.1-1.2) % Absolute Granulocytes (1.56-6.13) x10^3/uL Basophils # (0.01-0.08) x10^3/uL pO2/FiO2 Ratio 21.0 % VBG pH 7.23 L* (7.32-7.42) VBG pCO2 at Pat Temp 38 L (42-55) mm/Hg VBG pO2 at Pat Temp 35 (25-40) mm/Hg VBG HCO3 15.9 L* (22-28) meq/L VBG O2 Sat (Lisa) 71.0 L (95-100) VBG Base Excess -10.9 L (-2.0-2.0) VBG Hemoglobin 13.1 VBG Carboxyhemoglobin 7.3 H* (0.0-6.9) % T HGB POC Potassium 4.3 (3.5-5.1) Sodium (135-145) mmol/L Potassium (3.5-5.1) mmol/L Chloride (98-107) mmol/L Carbon Dioxide (22-30) mmol/L Anion Gap (5-15) MEQ/L BUN (7-17) mg/dL Creatinine (0.52-1.04) mg/dL Estimated GFR ML/MIN Glucose (74-106) mg/dL POC Glucometer 299 H (74 to 106) mg/dL Lactic Acid (0.4-2.0) Calcium (8.4-10.2) mg/dL Magnesium (1.6-2.3) mg/dL Total Bilirubin (0.2-1.3) mg/dL AST (14-36) U/L ALT (0-35) U/L Alkaline Phosphatase (38-126) U/L Serum Total Protein (6.3-8.2) g/dL Albumin (3.5-5.0) g/dL Urine Color Yellow (Yellow) Urine Appearance Clear (Clear) Urine pH 7.0 (4.6-8.0) Ur Specific [place] 1.010 (1.005-1.030) Urine Protein 300 A (Negative) Urine Glucose (UA) 250 A (Negative) mg/dL Urine Ketones Negative (Negative) Urine Blood Small A (Negative) Urine Nitrite Negative (Negative) Urine Bilirubin Negative (Negative) Urine Urobilinogen 0.2 (0.2) mg/dL Ur Leukocyte Esterase Negative (Negative) U Hyaline Cast (Auto) NONE SEEN (0-2) /LPF Urine Microscopic RBC 3-5 (0-5) /HPF Urine Microscopic WBC 6-10 A (0-5) /HPF Ur Epithelial Cells None Seen (None Seen) /HPF Urine Bacteria None Seen (None Seen) /HPF Urine Culture Reflexed NO (NO) 03/21/25 03/21/25 Range/Units 16:27 15:57 WBC (3.98-10.04) x10^3/uL RBC (3.93-5.22) x10^6/uL Hgb (11.2-15.7) g/dL Hct (34.1-44.9) % MCV (79.4-94.8) fL MCH (25.6-32.2) pg MCHC (32.2-35.5) g/dL RDW (11.7-14.4) % Plt Count (182-369) x10^3/uL MPV (9.4-12.3) fL Gran % (34.0-71.1) % Immature Gran % (Auto) (0.001-0.429) % Nucleat RBC Rel Count (0.00-0.2) % Eos # (Auto) (0.04-0.36) x10^3/uL Immature Gran # (Auto) (0.001-0.031) x10^3u/L Absolute Lymphs (auto) (1.18-3.74) x10^3/uL Absolute Monos (auto) (0.24-0.86) x10^3/uL Absolute Nucleated RBC (0.00-0.012) x10^3u/L Lymphocytes % (19.3-51.7) % Monocytes % (4.7-12.5) % Eosinophils % (0.7-5.8) % Basophils % (0.1-1.2) % Absolute Granulocytes (1.56-6.13) x10^3/uL Basophils # (0.01-0.08) x10^3/uL pO2/FiO2 Ratio % VBG pH (7.32-7.42) VBG pCO2 at Pat Temp (42-55) mm/Hg VBG pO2 at Pat Temp (25-40) mm/Hg VBG HCO3 (22-28) meq/L VBG O2 Sat (Lisa) (95-100) VBG Base Excess (-2.0-2.0) VBG Hemoglobin VBG Carboxyhemoglobin (0.0-6.9) % T HGB POC Potassium (3.5-5.1) Sodium (135-145) mmol/L Potassium (3.5-5.1) mmol/L Chloride (98-107) mmol/L Carbon Dioxide (22-30) mmol/L Anion Gap (5-15) MEQ/L BUN (7-17) mg/dL Creatinine (0.52-1.04) mg/dL Estimated GFR ML/MIN Glucose (74-106) mg/dL POC Glucometer 394 H (74 to 106) mg/dL Lactic Acid (0.4-2.0) Calcium (8.4-10.2) mg/dL Magnesium 1.7 (1.6-2.3) mg/dL Total Bilirubin (0.2-1.3) mg/dL AST (14-36) U/L ALT (0-35) U/L Alkaline Phosphatase (38-126) U/L Serum Total Protein (6.3-8.2) g/dL Albumin (3.5-5.0) g/dL Urine Color (Yellow) Urine Appearance (Clear) Urine pH (4.6-8.0) Ur Specific [place] (1.005-1.030) Urine Protein (Negative) Urine Glucose (UA) (Negative) mg/dL Urine Ketones (Negative) Urine Blood (Negative) Urine Nitrite (Negative) Urine Bilirubin (Negative) Urine Urobilinogen (0.2) mg/dL Ur Leukocyte Esterase (Negative) U Hyaline Cast (Auto) (0-2) /LPF Urine Microscopic RBC (0-5) /HPF Urine Microscopic WBC (0-5) /HPF Ur Epithelial Cells (None Seen) /HPF Urine Bacteria (None Seen) /HPF Urine Culture Reflexed (NO) <WHITNEY BABCOCK - Last Filed: 03/21/25 19:19> <PAOLA BAE - Last Filed: 03/21/25 22:06> - Progress Progress Note: 03/21/25 19:[address] Bae (WHITNEY BABCOCK) Patient has an elevated bicarb with a low pH elevated blood sugar concerning for DKA patient restarted on insulin drip patient's potassium is 3.4 will be given 20 mill equivalents p.o. potassium will need to be admitted to the hospital service for hyperglycemia hide Po kalemia as well as concerns for early DKA 03/21/25 21:23 03/21/25 22:06 Scotty with the hospitalist who accepts the patient for admission to the ICU for DKA on insulin drip (PAOLA BAE) - Departure Critical Care Time: Yes Critical Care Time(excluding separately billable procedures): Critical 30-74 mins <WHITNEY BABCOCK - Last Filed: 03/21/25 19:19> - Departure Departure Disposition: In-patient Admission <PAOLA BAE - Last Filed: 03/21/25 22:06> - Departure Clinical Impression: Hypokalemia DKA (diabetic ketoacidosis) Qualifiers: Diabetes mellitus type: type 1 Diabetes mellitus complication detail: without coma Qualified Code(s): E10.10 - Type 1 diabetes mellitus with ketoacidosis without coma Condition: Stable Referrals: JENNIFER NAPOLES MD [Primary Care Provider, [facility]] - Follow up/PCP as directed
[2025-03-21] MEDS ORDERED: HUMALOG ONE (17:41)
[2025-03-21] MEDS: HUMALOG SQ ONE (17:48)
[2025-03-21 18:13] LABS: Glucose, Urine 250 mg/dL (Negative); Protein,Urine Dip 300 (Negative)
[2025-03-21 20:45] LABS: BASOPHIL % 1.2 % (0.1-1.2); Basophil (Absolute #) 0.11 x10^3/uL (0.01-0.08); Eosinophil (Absolute #) 0.29 x10^3/uL (0.04-0.36); Hematocrit 37.2 % (34.1-44.9); Hemoglobin 11.7 g/dL (11.2-15.7); IMMATURE GRAN # 0.18 x10^3u/L (0.001-0.031); IMMATURE GRAN % 1.9 % (0.001-0.429); Lymphocyte (Absolute #) 1.99 x10^3/uL (1.18-3.74); Mean Corpuscular Hemoglobin 25.3 pg (25.6-32.2); Mean Corpuscular Hgb Concent. 31.5 g/dL (32.2-35.5); Monocyte (Absolute #) 0.79 x10^3/uL (0.24-0.86); NUCLEATED RBC # 0.00 x10^3u/L (0.00-0.012); NUCLEATED RBC % 0.0 % (0.00-0.2); Platelet Count 392 x10^3/uL (182-369); Red Blood Count 4.62 x10^6/uL (3.93-5.22); White Blood Count 9.3 x10^3/uL (3.98-10.04)
[2025-03-21 20:58] LABS: Calcium 8.7 mg/dL (8.4-10.2); Creatinine 1 1.84 mg/dL (0.52-1.04); EST GLOMERULAR FILTRATION RATE 32.8 ML/MIN; Glucose 282 mg/dL (74-106); Potassium 3.4 mmol/L (3.5-5.1); SGOT/AST 17 U/L (14-36); SGPT/ALT 16 U/L (0-35); Total Protein 6.7 g/dL (6.3-8.2)
[2025-03-21 21:05] LABS: Carbon Dioxide 12 mmol/L (22-30)
[2025-03-21] MEDS: Klor Con PO ONE (21:27)
[2025-03-21] MEDS ORDERED: Klor Con ONE (21:27)
[2025-03-21] MEDS: MYXREDLIN 100 UNIT/100 ML BAG 100 UNIT/100 ML PLAST..BAG IV PRN (21:28)
[2025-03-21] MEDS ORDERED: TYLENOL EXTRA STRENGTH 500 MG PO PRN (23:30)
[2025-03-21] MEDS ORDERED: Flonase NASAL NS PRN (23:30)
[2025-03-21] MEDS ORDERED: D50W 50 ml Abboject IV PRN (23:42)
--- NOTE | 2025-03-21 23:47 | PCM.HP ---
History of Present Illness - Chief Complaint Chief Complaint: dka, hypokalemia History of Present Illness: is a 49 year old female from clinic with past medical history of hypertension, hyperlipidemia, DVT, arrhythmia, type 2 diabetes mellitus, GERD, CKD stage III, depression, anxiety, cervical cancer status post chemo and radiation and urostomy, histoplasmosis, diastolic heart failure presented to the ED complaining of feeling unwell for the past several days. Reports that her bl ood sugar was elevated and when she went to visit her primary care provider. Mentions that she has not had high insulin requirements in the past taking up to 90 units of Lantus twice daily along with 35 units 3 times daily of Humalog. She was having hypoglycemic episodes earlier in the year and all insulin was stopped in mid January. Around mid February her primary care provider started to restart her insulin initially by having her on 20 units of Lantus twice daily and then today she was instructed to start taking 85 units twice daily. She does have an marketing and development coordinator that she has previously established care with but has not seen them in several months. In the ED, the patient had an elevated blood pressure 166/89 but otherwise hemodynamically stable. Her lab work was notable for low glucose of 282, bicarb of 12, anion gap of 15. Calcium was mildly decreased at 3.4 and magnesium was 1.7. Sodium was 132 and lactic acid was 1.1. She was started on an insulin drip in the ED. Patient mentions experiencing polydipsia and polyuria along with abdominal pain, nausea and vomiting (1 episode of nonbloody nonbilious emesis). Her pH was 7.23 on the initial VBG. Urinalysis was negative for UTI. - Review of Systems Constitutional: Fatigue, Lethargy, Malaise Eyes: No Symptoms Ears, Nose, & Throat: No Symptoms Respiratory: No Symptoms Cardiac: No Symptoms Abdominal/Gastrointestinal: Abdominal Pain, Nausea, Vomiting Genitourinary Symptoms: Frequency, Urgency Musculoskeletal: No Symptoms Skin: No Symptoms Neurological: No Symptoms Psychological: No Symptoms Endocrine: No Symptoms, Polyuria, Polydipsia Hematologic/Lymphatic: No Symptoms Immunological/Allergic: No Symptoms All Other Systems: Reviewed and Negative Medications & Allergies Home Medications: Home Medication List Ferrous Sulfate 325 mg PO DAILY 11/06/15 [History Confirmed 03/21/25] Insulin Glargine [Lantus Insulin] 85 units SQ BID 11/06/15 [History Confirmed 03/21/25] Acetaminophen [Tylenol Extra Strength] 1,000 mg PO Q6H PRN PRN 08/01/17 [History Confirmed 03/21/25] Fluoxetine HCl 20 mg [Prozac 20 MG] 20 mg PO DAILY 08/06/23 [History Confirmed 03/21/25] Magnesium Oxide 400 mg [Mag-Ox 400] 400 mg PO DAILY 08/06/23 [History Confirmed 03/21/25] Omeprazole 40 mg PO DAILY 08/06/23 [History Confirmed 03/21/25] Aspirin EC 81 mg [Ecotrin 81 mg] 81 mg PO DAILY 08/15/24 [History Confirmed 03/21/25] Ergocalciferol (Vitamin D2) [Vitamin D2] 1,250 mcg PO WEEKLY 08/15/24 [History Confirmed 03/21/25] Fluticasone Propionate [Flonase NASAL] 2 spray NS DAILY PRN PRN 08/15/24 [History Confirmed 03/21/25] Insulin Lispro [Humalog Kwikpen U-100] 35 unit SQ TIDWMEALS 08/15/24 [History Confirmed 03/21/25] buPROPion HCL [Bupropion Xl] 150 mg PO DAILY 08/15/24 [History Confirmed 03/21/25] Dapagliflozin Propanediol [Farxiga] 1 tab PO DAILY 10/24/24 [History Confirmed 03/21/25] Fluticasone/Vilanterol [Breo Ellipta 100-25 Mcg Inhalr] 1 spray IH DAILY 10/24/24 [History Confirmed 03/21/25] Levalbuterol Tartrate [Xopenex Hfa] 1 spray IH DAILY 10/24/24 [History Confirmed 03/21/25] dilTIAZem HCL [Tiadylt ER] 420 mg PO DAILY 10/24/24 [History Confirmed 03/21/25] Losartan/Hydrochlorothiazide [Losartan-Hctz 100-25 mg Tab] 1 each PO DAILY 11/28/24 [History Confirmed 03/21/25] Potassium Chloride [Klor-Con 10] 10 meq PO DAILY 11/28/24 [History Confirmed 03/21/25] Sodium Bicarbonate 650 mg PO BID 3 Days #6 tablet 01/25/25 [Rx Confirmed 03/21/25] Furosemide 20 mg [Lasix 20 mg] 20 mg PO DAILY 03/21/25 [History Confirmed 03/21/25] Hydrocodone/Acetaminophen [Hydrocodone-Acetamin 7.5-325] 1 tab PO Q6H PRN PRN 03/21/25 [History Confirmed 03/21/25] Allergies/Adverse Reactions: Allergies Allergy/AdvReac Type Severity Reaction Status Date / Time metoprolol Allergy Severe "flat Verified 02/18/25 10:10 lined" adhesive tape Allergy Rash Verified 02/18/25 10:10 latex Allergy Rash Verified 02/18/25 10:10 Sulfa (Sulfonamide Allergy Difficulty Verified 02/18/25 10:10 Antibiotics) Breathing sulfamethoxazole AdvReac Severe "messes up Verified 02/18/25 10:10 [From Bactrim] my kidneys" trimethoprim [From Bactrim] AdvReac Severe "messes up Verified 02/18/25 10:10 my kidneys" metformin AdvReac Intermediate liver Verified 02/18/25 10:10 problems - Past Medical History Past Medical History: Yes Neurological History: Peripheral Neuropathy ENT History: Other Cardiac History: Arrhythmia, Congestive Heart Failure, Deep Vein Thrombosis, High Cholesterol, Hypertension Respiratory History: Bronchitis Endocrine Medical History: Diabetes Type II, Other Musculoskelatal History: Fractures GI Medical History: GERD History: Renal Disease, Other Pyscho-Social History: Depression, Anxiety Reproductive Disorders: Cervical Cancer Comment: CERVICAL CA (CHEMO/RADIATION). REQUIRED UROSTOMY. CHRONIC RENAL FAILURE STAGE 3. WAS EVALUATED BY THORACIC SURGEON DUE TO SPOTS ON LUNG - WAS TOLD DUE TO HISTOPLASMOSIS. F/U WITH THEM 07/25/24. STATES Lot[employer] AND HAS BEEN TOLD HAS EARLY STAGES OF CONGESTIVE HEART FAILURE. HX OF RIGHT KNEE ARTHROSCOPY DUE TO MENISCUS TEAR. diastolic dysfunction - Female History Hx Last Menstrual Period: complete hysterectomy Are you now?: No - Past Surgical History Past Surgical History: Yes Neuro Surgical History: No Pertinent History Cardiac History: Other Respiratory Surgery: No Pertinent History GI Surgical History: Cholecystectomy, Hernia Repair Genitourinary Surgical Hx: Kidney Surgery, Other Musculskeletal Surgical Hx: Other Female Surgical History: Hysterectomy, Other Other Surgical History: colonoscopy Jun 2023 "wall was very thin," urostomy, renal stents placed then removed, left heel surgery, port place and removal, abcess, degridement coccyx, left ankle Significant Family History: no pertinent family hx - Social History Smoking Status: Never smoker Exposure to second hand smoke: Yes Alcohol: None Drug Use: none - Social Determinants of Health Will the patient participate in the screening: Declined to provide Do you worry about a steady place to live?: No In the past 12 months,have you had to go without utilities?: Yes Have you or anyone in your house had to go without enough: Yes Transportation Issues: Yes Has anyone in your support network made you feel unsafe?: No Does the patient want assistance with any of the above?: No Comment: PATIENT STRUGGLES WITH GROCERIES WHEN SHE HAS APTS IN [place] THAT MONTH - Physical Exam Vital Signs: Vital Signs - 24 hr Temp Pulse Resp BP BP Pulse Ox 03/21/25 23:34 97 03/21/25 22:30 92 H 18 112/63 100 03/21/25 22:00 91 H 18 141/83 100 03/21/25 21:31 125/83 98 03/21/25 21:00 92 H 112/83 99 03/21/25 20:30 90 141/89 100 03/21/25 20:00 92 H 18 134/90 99 03/21/25 19:30 159/120 85 L 03/21/25 19:19 98 03/21/25 19:00 88 18 151/101 98 03/21/25 18:30 89 18 137/72 98 03/21/25 18:00 172/79 97 03/21/25 17:30 89 149/86 98 03/21/25 17:00 175/94 99 03/21/25 16:30 147/93 99 03/21/25 16:19 97.8 F 98 H 18 166/89 98 General Appearance: no apparent distress Neurologic Exam: alert, oriented x 3, cooperative Eye Exam: PERRL/EOMI, eyes nml inspection Ears, Nose, Throat Exam: normal ENT inspection, moist mucous membranes Neck Exam: normal inspection, non-tender Respiratory Exam: normal breath sounds Cardiovascular Exam: regular rate/rhythm, normal heart sounds Gastrointestinal/Abdomen Exam: soft, normal bowel sounds, tenderness (diffuse) Pelvic Exam: deferred Rectal Exam: deferred Extremity Exam: pedal edema Skin Exam: normal color Results - Labs Lab/Micro Results: Lab Results-Last 24 Hours 03/21/25 03/21/25 03/21/25 Range/Units 15:57 16:27 17:15 WBC (3.98-10.04) x10^3/uL RBC (3.93-5.22) x10^6/uL Hgb (11.2-15.7) g/dL Hct (34.1-44.9) % MCV (79.4-94.8) fL MCH (25.6-32.2) pg MCHC (32.2-35.5) g/dL RDW (11.7-14.4) % Plt Count (182-369) x10^3/uL MPV (9.4-12.3) fL Gran % (34.0-71.1) % Immature Gran % (Auto) (0.001-0.429) % Nucleat RBC Rel Count (0.00-0.2) % Eos # (Auto) (0.04-0.36) x10^3/uL Immature Gran # (Auto) (0.001-0.031) x10^3u/L Absolute Lymphs (auto) (1.18-3.74) x10^3/uL Absolute Monos (auto) (0.24-0.86) x10^3/uL Absolute Nucleated RBC (0.00-0.012) x10^3u/L Lymphocytes % (19.3-51.7) % Monocytes % (4.7-12.5) % Eosinophils % (0.7-5.8) % Basophils % (0.1-1.2) % Absolute Granulocytes (1.56-6.13) x10^3/uL Basophils # (0.01-0.08) x10^3/uL pO2/FiO2 Ratio 21.0 % VBG pH 7.23 L* (7.32-7.42) VBG pCO2 at Pat Temp 38 L (42-55) mm/Hg VBG pO2 at Pat Temp 35 (25-40) mm/Hg VBG HCO3 15.9 L* (22-28) meq/L VBG O2 Sat (Lisa) 71.0 L (95-100) VBG Base Excess -10.9 L (-2.0-2.0) VBG Hemoglobin 13.1 VBG Carboxyhemoglobin 7.3 H* (0.0-6.9) % T HGB POC Potassium 4.3 (3.5-5.1) Sodium (135-145) mmol/L Potassium (3.5-5.1) mmol/L Chloride (98-107) mmol/L Carbon Dioxide (22-30) mmol/L Anion Gap (5-15) MEQ/L BUN (7-17) mg/dL Creatinine (0.52-1.04) mg/dL Estimated GFR ML/MIN Glucose (74-106) mg/dL POC Glucometer 394 H (74 to 106) mg/dL Lactic Acid (0.4-2.0) Calcium (8.4-10.2) mg/dL Magnesium 1.7 (1.6-2.3) mg/dL Total Bilirubin (0.2-1.3) mg/dL AST (14-36) U/L ALT (0-35) U/L Alkaline Phosphatase (38-126) U/L Serum Total Protein (6.3-8.2) g/dL Albumin (3.5-5.0) g/dL Urine Color (Yellow) Urine Appearance (Clear) Urine pH (4.6-8.0) Ur Specific [place] (1.005-1.030) Urine Protein (Negative) Urine Glucose (UA) (Negative) mg/dL Urine Ketones (Negative) Urine Blood (Negative) Urine Nitrite (Negative) Urine Bilirubin (Negative) Urine Urobilinogen (0.2) mg/dL Ur Leukocyte Esterase (Negative) U Hyaline Cast (Auto) (0-2) /LPF Urine Microscopic RBC (0-5) /HPF Urine Microscopic WBC (0-5) /HPF Ur Epithelial Cells (None Seen) /HPF Urine Bacteria (None Seen) /HPF Urine Culture Reflexed (NO) 03/21/25 03/21/25 03/21/25 Range/Units 17:30 20:01 20:40 WBC 9.3 (3.98-10.04) x10^3/uL RBC 4.62 (3.93-5.22) x10^6/uL Hgb 11.7 (11.2-15.7) g/dL Hct 37.2 (34.1-44.9) % MCV 80.5 (79.4-94.8) fL MCH 25.3 L (25.6-32.2) pg MCHC 31.5 L (32.2-35.5) g/dL RDW 15.9 H (11.7-14.4) % Plt Count 392 H (182-369) x10^3/uL MPV 9.5 (9.4-12.3) fL Gran % 63.8 (34.0-71.1) % Immature Gran % (Auto) 1.9 H (0.001-0.429) % Nucleat RBC Rel Count 0.0 (0.00-0.2) % Eos # (Auto) 0.29 (0.04-0.36) x10^3/uL Immature Gran # (Auto) 0.18 H (0.001-0.031) x10^3u/L Absolute Lymphs (auto) 1.99 (1.18-3.74) x10^3/uL Absolute Monos (auto) 0.79 (0.24-0.86) x10^3/uL Absolute Nucleated RBC 0.00 (0.00-0.012) x10^3u/L Lymphocytes % 21.5 (19.3-51.7) % Monocytes % 8.5 (4.7-12.5) % Eosinophils % 3.1 (0.7-5.8) % Basophils % 1.2 (0.1-1.2) % Absolute Granulocytes 5.91 (1.56-6.13) x10^3/uL Basophils # 0.11 H (0.01-0.08) x10^3/uL pO2/FiO2 Ratio % VBG pH (7.32-7.42) VBG pCO2 at Pat Temp (42-55) mm/Hg VBG pO2 at Pat Temp (25-40) mm/Hg VBG HCO3 (22-28) meq/L VBG O2 Sat (Lisa) (95-100) VBG Base Excess (-2.0-2.0) VBG Hemoglobin VBG Carboxyhemoglobin (0.0-6.9) % T HGB POC Potassium (3.5-5.1) Sodium (135-145) mmol/L Potassium (3.5-5.1) mmol/L Chloride (98-107) mmol/L Carbon Dioxide (22-30) mmol/L Anion Gap (5-15) MEQ/L BUN (7-17) mg/dL Creatinine (0.52-1.04) mg/dL Estimated GFR ML/MIN Glucose (74-106) mg/dL POC Glucometer 299 H (74 to 106) mg/dL Lactic Acid (0.4-2.0) Calcium (8.4-10.2) mg/dL Magnesium (1.6-2.3) mg/dL Total Bilirubin (0.2-1.3) mg/dL AST (14-36) U/L ALT (0-35) U/L Alkaline Phosphatase (38-126) U/L Serum Total Protein (6.3-8.2) g/dL Albumin (3.5-5.0) g/dL Urine Color Yellow (Yellow) Urine Appearance Clear (Clear) Urine pH 7.0 (4.6-8.0) Ur Specific [place] 1.010 (1.005-1.030) Urine Protein 300 A (Negative) Urine Glucose (UA) 250 A (Negative) mg/dL Urine Ketones Negative (Negative) Urine Blood Small A (Negative) Urine Nitrite Negative (Negative) Urine Bilirubin Negative (Negative) Urine Urobilinogen 0.2 (0.2) mg/dL Ur Leukocyte Esterase Negative (Negative) U Hyaline Cast (Auto) NONE SEEN (0-2) /LPF Urine Microscopic RBC 3-5 (0-5) /HPF Urine Microscopic WBC 6-10 A (0-5) /HPF Ur Epithelial Cells None Seen (None Seen) /HPF Urine Bacteria None Seen (None Seen) /HPF Urine Culture Reflexed NO (NO) 03/21/25 03/21/25 03/21/25 Range/Units 20:40 20:45 22:27 WBC (3.98-10.04) x10^3/uL RBC (3.93-5.22) x10^6/uL Hgb (11.2-15.7) g/dL Hct (34.1-44.9) % MCV (79.4-94.8) fL MCH (25.6-32.2) pg MCHC (32.2-35.5) g/dL RDW (11.7-14.4) % Plt Count (182-369) x10^3/uL MPV (9.4-12.3) fL Gran % (34.0-71.1) % Immature Gran % (Auto) (0.001-0.429) % Nucleat RBC Rel Count (0.00-0.2) % Eos # (Auto) (0.04-0.36) x10^3/uL Immature Gran # (Auto) (0.001-0.031) x10^3u/L Absolute Lymphs (auto) (1.18-3.74) x10^3/uL Absolute Monos (auto) (0.24-0.86) x10^3/uL Absolute Nucleated RBC (0.00-0.012) x10^3u/L Lymphocytes % (19.3-51.7) % Monocytes % (4.7-12.5) % Eosinophils % (0.7-5.8) % Basophils % (0.1-1.2) % Absolute Granulocytes (1.56-6.13) x10^3/uL Basophils # (0.01-0.08) x10^3/uL pO2/FiO2 Ratio % VBG pH (7.32-7.42) VBG pCO2 at Pat Temp (42-55) mm/Hg VBG pO2 at Pat Temp (25-40) mm/Hg VBG HCO3 (22-28) meq/L VBG O2 Sat (Lisa) (95-100) VBG Base Excess (-2.0-2.0) VBG Hemoglobin VBG Carboxyhemoglobin (0.0-6.9) % T HGB POC Potassium (3.5-5.1) Sodium 132 L (135-145) mmol/L Potassium 3.4 L (3.5-5.1) mmol/L Chloride 108 H (98-107) mmol/L Carbon Dioxide 12 L* (22-30) mmol/L Anion Gap 15.0 (5-15) MEQ/L BUN 48 H (7-17) mg/dL Creatinine 1.84 H (0.52-1.04) mg/dL Estimated GFR 32.8 ML/MIN Glucose 282 H (74-106) mg/dL POC Glucometer 158 H (74 to 106) mg/dL Lactic Acid 1.1 (0.4-2.0) Calcium 8.7 (8.4-10.2) mg/dL Magnesium (1.6-2.3) mg/dL Total Bilirubin < 0.10 L (0.2-1.3) mg/dL AST 17 (14-36) U/L ALT 16 (0-35) U/L Alkaline Phosphatase 136 H (38-126) U/L Serum Total Protein 6.7 (6.3-8.2) g/dL Albumin 3.3 L (3.5-5.0) g/dL Urine Color (Yellow) Urine Appearance (Clear) Urine pH (4.6-8.0) Ur Specific [place] (1.005-1.030) Urine Protein (Negative) Urine Glucose (UA) (Negative) mg/dL Urine Ketones (Negative) Urine Blood (Negative) Urine Nitrite (Negative) Urine Bilirubin (Negative) Urine Urobilinogen (0.2) mg/dL Ur Leukocyte Esterase (Negative) U Hyaline Cast (Auto) (0-2) /LPF Urine Microscopic RBC (0-5) /HPF Urine Microscopic WBC (0-5) /HPF Ur Epithelial Cells (None Seen) /HPF Urine Bacteria (None Seen) /HPF Urine Culture Reflexed (NO) 03/21/25 Range/Units 23:02 WBC (3.98-10.04) x10^3/uL RBC (3.93-5.22) x10^6/uL Hgb (11.2-15.7) g/dL Hct (34.1-44.9) % MCV (79.4-94.8) fL MCH (25.6-32.2) pg MCHC (32.2-35.5) g/dL RDW (11.7-14.4) % Plt Count (182-369) x10^3/uL MPV (9.4-12.3) fL Gran % (34.0-71.1) % Immature Gran % (Auto) (0.001-0.429) % Nucleat RBC Rel Count (0.00-0.2) % Eos # (Auto) (0.04-0.36) x10^3/uL Immature Gran # (Auto) (0.001-0.031) x10^3u/L Absolute Lymphs (auto) (1.18-3.74) x10^3/uL Absolute Monos (auto) (0.24-0.86) x10^3/uL Absolute Nucleated RBC (0.00-0.012) x10^3u/L Lymphocytes % (19.3-51.7) % Monocytes % (4.7-12.5) % Eosinophils % (0.7-5.8) % Basophils % (0.1-1.2) % Absolute Granulocytes (1.56-6.13) x10^3/uL Basophils # (0.01-0.08) x10^3/uL pO2/FiO2 Ratio % VBG pH (7.32-7.42) VBG pCO2 at Pat Temp (42-55) mm/Hg VBG pO2 at Pat Temp (25-40) mm/Hg VBG HCO3 (22-28) meq/L VBG O2 Sat (Lisa) (95-100) VBG Base Excess (-2.0-2.0) VBG Hemoglobin VBG Carboxyhemoglobin (0.0-6.9) % T HGB POC Potassium (3.5-5.1) Sodium (135-145) mmol/L Potassium (3.5-5.1) mmol/L Chloride (98-107) mmol/L Carbon Dioxide (22-30) mmol/L Anion Gap (5-15) MEQ/L BUN (7-17) mg/dL Creatinine (0.52-1.04) mg/dL Estimated GFR ML/MIN Glucose (74-106) mg/dL POC Glucometer 104 (74 to 106) mg/dL Lactic Acid (0.4-2.0) Calcium (8.4-10.2) mg/dL Magnesium (1.6-2.3) mg/dL Total Bilirubin (0.2-1.3) mg/dL AST (14-36) U/L ALT (0-35) U/L Alkaline Phosphatase (38-126) U/L Serum Total Protein (6.3-8.2) g/dL Albumin (3.5-5.0) g/dL Urine Color (Yellow) Urine Appearance (Clear) Urine pH (4.6-8.0) Ur Specific [place] (1.005-1.030) Urine Protein (Negative) Urine Glucose (UA) (Negative) mg/dL Urine Ketones (Negative) Urine Blood (Negative) Urine Nitrite (Negative) Urine Bilirubin (Negative) Urine Urobilinogen (0.2) mg/dL Ur Leukocyte Esterase (Negative) U Hyaline Cast (Auto) (0-2) /LPF Urine Microscopic RBC (0-5) /HPF Urine Microscopic WBC (0-5) /HPF Ur Epithelial Cells (None Seen) /HPF Urine Bacteria (None Seen) /HPF Urine Culture Reflexed (NO) - Radiology Impressions Radiology Exams & Impressions: Radiology Procedures Category Date Time Status CHEST 1 VIEW (PORTABLE) Stat Exams 03/21/25 17:04 Taken Assessment/Plan (1) DKA (diabetic ketoacidosis) Current Visit: Yes Status: Acute Qualifiers: Diabetes mellitus type: type 1 Diabetes mellitus complication detail: without coma Qualified Code(s): E10.10 - Type 1 diabetes mellitus with ketoacidosis without coma Assessment & Plan: Continue insulin drip and IV fluids per protocol, monitor electrolytes and correct any abnormalities, monitor anion gap -Will transition to long-acting insulin after anion gap is closed. Check hemoglobin A1c. Needs outpatient follow-up with endocrinology. Code(s): E11.10 - TYPE 2 DIABETES MELLITUS WITH KETOACIDOSIS WITHOUT COMA (2) Acute kidney injury superimposed on CKD Current Visit: Yes Status: Acute Assessment & Plan: Most probably due to hypovolemia from DKA Hydrate with IV fluids, monitor I's and O's, avoid nephrotoxic medications Code(s): N17.9 - ACUTE KIDNEY FAILURE, UNSPECIFIED; N18.9 - CHRONIC KIDNEY DISEASE, UNSPECIFIED (3) Hypokalemia Current Visit: Yes Status: Acute Assessment & Plan: Replete intravenously with fluids Code(s): E87.6 - HYPOKALEMIA (4) Hypomagnesemia Current Visit: Yes Status: Acute Assessment & Plan: Repleted Code(s): E83.42 - HYPOMAGNESEMIA (5) Left ankle injury Current Visit: Yes Status: Chronic Assessment & Plan: Elective surgery scheduled for Sunday 03/25 Code(s): S99.912A - UNSPECIFIED INJURY OF LEFT ANKLE, INITIAL ENCOUNTER Telemedicine Encounter - Telemedicine Encounter Telemedicine Encounter: "The entirety of this encounter was performed via Telemedicine" This visit was performed using real-time audio and video connection between my location and thepatients locationwith the assistance of a surrogateat the patients location. Written or verbal consent was obtained from the patient/guardian to perform this visit usingsynchrGray Hawk Payment [employer]iest[employer]medicine technology. Any patient questions regarding the telemedicine interaction were answered.
[2025-03-22] MEDS ORDERED: D5W/0.45NS W/ 20mEq KCl 1000 ML 1,000 ML IV ONE ×2 (00:05→05:18)
[2025-03-22] MEDS: D5W/0.45NS W/ 20mEq KCl 1000 ML 1,000 ML IV SCH (00:10)
[2025-03-22 00:23] LABS: VBG BASE EXCESS -11.9 (-2.0-2.0); VBG CARBOXYHEMOGLOBIN 2.6 % T HGB (0.0-6.9); VBG FIO2 21.0 %; VBG HCO3- 12.4 meq/L (22-28); VBG HEMOGLOBIN 12.9; VBG O2 SATURATION 98.2 (95-100); VBG PCO2 24.0 mm/Hg (42-55); VBG PO2 80.0 mm/Hg (25-40); VBG POTASSIUM 3.3 (3.5-5.1)
[2025-03-22 00:28] LABS: Hematocrit 39.0 % (34.1-44.9); Hemoglobin 12.6 g/dL (11.2-15.7); Mean Corpuscular Hemoglobin 25.9 pg (25.6-32.2); Mean Corpuscular Hgb Concent. 32.3 g/dL (32.2-35.5); Platelet Count 444 x10^3/uL (182-369); Red Blood Count 4.87 x10^6/uL (3.93-5.22); White Blood Count 10.1 x10^3/uL (3.98-10.04)
[2025-03-22 00:37] LABS: Calcium 9.2 mg/dL (8.4-10.2); Creatinine 1 1.77 mg/dL (0.52-1.04); EST GLOMERULAR FILTRATION RATE 34.4 ML/MIN; Glucose 64.0 mg/dL (74-106); Potassium 3.2 mmol/L (3.5-5.1)
[2025-03-22 00:44] LABS: Carbon Dioxide 11.0 mmol/L (22-30)
[2025-03-22] MEDS: Magnesium 1 Gm / 100 Ml D5W*** 100 ML IV ONE (01:57)
[2025-03-22] MEDS: POTASSIUM CHLORIDE 20 mEq IN WATER 100ML 20 MEQ/100 ML BAG IV SCH (01:57)
[2025-03-22] MEDS ORDERED: VENTOLIN COMMON CANISTER IH PRN (04:33)
[2025-03-22 05:41] LABS: Hematocrit 34.8 % (34.1-44.9); Hemoglobin 11.0 g/dL (11.2-15.7); Mean Corpuscular Hemoglobin 25.5 pg (25.6-32.2); Mean Corpuscular Hgb Concent. 31.6 g/dL (32.2-35.5); Platelet Count 396 x10^3/uL (182-369); Red Blood Count 4.31 x10^6/uL (3.93-5.22); White Blood Count 7.8 x10^3/uL (3.98-10.04)
[2025-03-22 06:11] LABS: Calcium 8.5 mg/dL (8.4-10.2); Creatinine 1 1.61 mg/dL (0.52-1.04); EST GLOMERULAR FILTRATION RATE 38.5 ML/MIN; Glucose 230.0 mg/dL (74-106); Potassium 4.1 mmol/L (3.5-5.1)
[2025-03-22 06:13] LABS: Carbon Dioxide 9.0 mmol/L (22-30)
[2025-03-22] MEDS: Lantus Insulin SQ ONE (07:04)
[2025-03-22 07:17] LABS: ETHYL ALCOHOL < 10 mg/dL (0-10)
[2025-03-22 07:31] LABS: VBG BASE EXCESS -13.4 (-2.0-2.0); VBG CARBOXYHEMOGLOBIN 4.8 % T HGB (0.0-6.9); VBG FIO2 28.0 %; VBG HCO3- 12.1 meq/L (22-28); VBG HEMOGLOBIN 12.2; VBG O2 SATURATION 95.6 (95-100); VBG PCO2 27.0 mm/Hg (42-55); VBG PO2 63.0 mm/Hg (25-40); VBG POTASSIUM 4.2 (3.5-5.1)
[2025-03-22] MEDS ORDERED: MEDICATION INTERVENTION MC SCH (08:00)
[2025-03-22 08:15] LABS: Calcium 8.4 mg/dL (8.4-10.2); Creatinine 1 1.66 mg/dL (0.52-1.04); EST GLOMERULAR FILTRATION RATE 37.1 ML/MIN; Glucose 241 mg/dL (74-106); Potassium 3.9 mmol/L (3.5-5.1); SGOT/AST 20 U/L (14-36); SGPT/ALT 14 U/L (0-35); Total Protein 5.8 g/dL (6.3-8.2)
[2025-03-22 08:17] LABS: Carbon Dioxide 10 mmol/L (22-30)
--- NOTE | 2025-03-22 08:40 | XRAY ---
Indication: Diabetic ketoacidosis. Comparison: January 24, 2025 Portable chest better inflated and remains clear. Heart not enlarged. Bony thorax intact again with osteopenia and mild degenerative changes. No new/acute findings.
[2025-03-22] MEDS ORDERED: PATIENT OWN MEDICATION IH SCH (10:00)
[2025-03-22] MEDS ORDERED: NON-FORMULARY ITEM (Fluticasone/Vilanterol [Breo Ellipta 100-25 Mcg Inhalr] 1 EACH Blst.W. IH SCH (10:00)
[2025-03-22] MEDS ORDERED: DILTIAZEM HCL 420 MG PO SCH (10:00)
[2025-03-22] MEDS ORDERED: LEVALBUTEROL TARTRATE AD IH SCH (10:00)
[2025-03-22] MEDS: Prozac 20 MG PO SCH (10:12)
[2025-03-22] MEDS: FEOSOL 325 MG PO SCH (10:12)
[2025-03-22] MEDS: NORCO 7.5/325 MG TAB PO PRN (10:12)
[2025-03-22] MEDS: Protonix 40MG Tablet PO SCH (10:12)
[2025-03-22] MEDS: MAG-OX 400 PO SCH (10:12)
[2025-03-22] MEDS: ECOTRIN 81 MG PO SCH (10:12)
[2025-03-22] MEDS: Cardizem CD PO SCH ×2 (10:13→10:15)
[2025-03-22] MEDS: Klor Con PO ONE (10:13)
[2025-03-22] MEDS: SODIUM BICARBONATE PO SCH (10:15)
[2025-03-22] MEDS: Wellbutrin XL 150 MG PO SCH (10:16)
[2025-03-22] MEDS: Sodium Bicarbonate 50 MEQ/50 ML VIAL*** 150 MEQ in Dextrose 5%/Water IV Soln. 1000 ML 1... IV SCH ×2 (11:01→16:38)
[2025-03-22 12:27] VITALS: TEMP 98
[2025-03-22] MEDS: Klor Con PO SCH (12:37)
[2025-03-22] MEDS: HUMALOG SQ PRN (12:37)
[2025-03-22 13:01] LABS: Calcium 8.2 mg/dL (8.4-10.2); Creatinine 1 1.56 mg/dL (0.52-1.04); EST GLOMERULAR FILTRATION RATE 40.0 ML/MIN; Glucose 292 mg/dL (74-106); Potassium 4.1 mmol/L (3.5-5.1); SGOT/AST 19 U/L (14-36); SGPT/ALT 14 U/L (0-35); Total Protein 5.9 g/dL (6.3-8.2)
[2025-03-22 13:08] LABS: Carbon Dioxide 9 mmol/L (22-30)
--- NOTE | 2025-03-22 13:21 | PCM.NOTE ---
Date and Time: 03/22/25 0629 Subjective Assessment: is a 49-year-old female with a past medical history of hypertension, hyperlipidemia, DVT, arrhythmia, type 2 diabetes mellitus, GERD, CKD stage III, depression, anxiety, cervical cancer status post chemotherapy and radiation with urostomy, histoplasmosis, and diastolic heart failure presented to the ED on 03/21/25 with several days of feeling unwell. She reported elevated blood sugars at her primary care visit. Historically, she required up to 90 units of Lantus twice daily and 35 units of Humalog three times daily, but all insulin was stopped in January after recurrent hypoglycemia. Insulin was restarted in mid- February with 20 units of Lantus twice daily, and on the day of admission she was instructed to increase to 85 units twice daily. She follows with an motor polarizer but has not been seen for several months. In the ED, she was hypertensive at 166/89 but otherwise hemodynamically stable. Labs showed glucose 282, CO2 12, anion gap 15, calcium 3.4, magnesium 1.7, sodium 132, and lactic acid 1.1. VBG revealed a pH of 7.23, consistent with acidosis. Urinalysis was negative for infection. She reported polydipsia, polyuria, abdominal pain, nausea, and one episode of nonbloody, nonbilious emesis. Chest X-ray was negative. She was started on an insulin drip and IV fluids in the ED. On 03/22, the patient reported not feeling well. Her morning CO2 was 10. The insulin drip had been discontinued the previous night and Lantus was administered. She received a 1-liter normal saline bolus and was started on a sodium bicarbonate infusion. Plans were made to recheck labs at noon, with consideration to restart the insulin drip if CO2 did not improve. Costa catheter was discontinued. Creatinine was 1.56, showing improvement from prior. She denied any additional concerns at this time. - Review of Systems Constitutional: Fatigue, No Fever, No Chills Eyes: No Symptoms Ears, Nose, & Throat: No Symptoms Respiratory: No Cough, No Short Of Breath Cardiac: No Chest Pain, No Edema, No Syncope Abdominal/Gastrointestinal: No Abdominal Pain, No Nausea, No Vomiting, No Diarrhea Genitourinary Symptoms: No Dysuria Musculoskeletal: No Back Pain, No Neck Pain Skin: No Rash Neurological: No Dizziness, No Focal Weakness, No Sensory Changes Psychological: No Symptoms Endocrine: No Symptoms Hematologic/Lymphatic: No Symptoms Immunological/Allergic: No Symptoms Objective Exam General Appearance: no apparent distress, alert, obese Neurologic Exam: alert, oriented x 3, cooperative, normal mood/affect, nml cerebellar function, sensation nml, No motor deficits Skin Exam: normal color, warm, dry Eye Exam: PERRL, EOMI, eyes nml inspection Ears, Nose, Throat Exam: normal ENT inspection, pharynx normal, moist mucous membranes Neck Exam: normal inspection, non-tender, supple, full range of motion Respiratory Exam: normal breath sounds, lungs clear, No respiratory distress Cardiovascular Exam: regular rate/rhythm, normal heart sounds Gastrointestinal/Abdomen Exam: soft, No tenderness, No mass Extremity Exam: normal inspection, normal range of motion Back Exam: normal inspection, normal range of motion, No CVA tenderness, No vertebral tenderness Pelvic Exam: deferred Rectal Exam: deferred Objective Data Vital Signs: Vital Signs - 24 hr Temp Pulse Resp BP BP Pulse Ox 03/22/25 12:13 82 16 114/74 99 03/22/25 12:00 98.0 F 87 9 L 99 03/22/25 11:20 92 H 15 100 03/22/25 11:10 90 20 100 03/22/25 10:04 86 19 152/80 100 03/22/25 10:00 89 9 L 99 03/22/25 09:50 86 12 100 03/22/25 09:30 84 17 100 03/22/25 09:00 84 17 99 03/22/25 08:40 81 10 L 100 03/22/25 08:30 98.2 F 82 8 L 99 03/22/25 08:20 81 13 99 03/22/25 08:10 81 14 99 03/22/25 08:00 80 03/22/25 07:16 82 12 98 03/22/25 07:00 81 28 H 163/73 99 03/22/25 06:01 81 13 103/73 99 03/22/25 05:00 85 13 150/86 98 03/22/25 04:29 85 16 98 03/22/25 04:07 97.5 F 85 16 128/84 98 03/22/25 04:00 85 03/22/25 03:00 94 H 10 L 171/78 98 03/22/25 02:04 84 9 L 144/80 97 03/22/25 01:00 81 9 L 135/81 98 03/22/25 00:00 79 9 L 161/78 98 03/21/25 23:34 97 03/21/25 23:00 92 H 12 142/83 100 03/21/25 22:56 97.7 F 90 10 L 163/138 100 03/21/25 22:51 90 18 163/138 100 03/21/25 22:30 92 H 18 112/63 100 03/21/25 22:00 91 H 18 141/83 100 03/21/25 21:31 125/83 98 03/21/25 21:00 92 H 112/83 99 03/21/25 20:30 90 141/89 100 03/21/25 20:00 92 H 18 134/90 99 03/21/25 19:30 159/120 85 L 03/21/25 19:19 98 03/21/25 19:00 88 18 151/101 98 03/21/25 18:30 89 18 137/72 98 03/21/25 18:00 172/79 97 03/21/25 17:30 89 149/86 98 03/21/25 17:00 175/94 99 03/21/25 16:30 147/93 99 03/21/25 16:19 97.8 F 98 H 18 166/89 98 Pain Assessment - Last Documented Pain Intensity 7 Pain Scale Used 0-10 Pain Scale Intake and Output: Intake & Output 03/20/25 03/21/25 03/22/25 03/23/25 11:59 11:59 11:59 11:59 Intake Total 1861 Output Total 525 Balance 1336 Weight 101.8 kg Lab Results: Lab Results-Last 24 Hours 03/21/25 03/21/25 03/21/25 Range/Units 00:05 15:57 16:27 WBC 10.1 H (3.98-10.04) x10^3/uL RBC 4.87 (3.93-5.22) x10^6/uL Hgb 12.6 (11.2-15.7) g/dL Hct 39.0 (34.1-44.9) % MCV 80.1 (79.4-94.8) fL MCH 25.9 (25.6-32.2) pg MCHC 32.3 (32.2-35.5) g/dL RDW 15.9 H (11.7-14.4) % Plt Count 444 H (182-369) x10^3/uL MPV 9.7 (9.4-12.3) fL Gran % (34.0-71.1) % Immature Gran % (Auto) (0.001-0.429) % Nucleat RBC Rel Count (0.00-0.2) % Eos # (Auto) (0.04-0.36) x10^3/uL Immature Gran # (Auto) (0.001-0.031) x10^3u/L Absolute Lymphs (auto) (1.18-3.74) x10^3/uL Absolute Monos (auto) (0.24-0.86) x10^3/uL Absolute Nucleated RBC (0.00-0.012) x10^3u/L Lymphocytes % (19.3-51.7) % Monocytes % (4.7-12.5) % Eosinophils % (0.7-5.8) % Basophils % (0.1-1.2) % Absolute Granulocytes (1.56-6.13) x10^3/uL Basophils # (0.01-0.08) x10^3/uL pO2/FiO2 Ratio % VBG pH (7.32-7.42) VBG pCO2 at Pat Temp (42-55) mm/Hg VBG pO2 at Pat Temp (25-40) mm/Hg VBG HCO3 (22-28) meq/L VBG O2 Sat (Lisa) (95-100) VBG Base Excess (-2.0-2.0) VBG Hemoglobin VBG Carboxyhemoglobin (0.0-6.9) % T HGB POC Potassium (3.5-5.1) Sodium (135-145) mmol/L Potassium (3.5-5.1) mmol/L Chloride (98-107) mmol/L Carbon Dioxide (22-30) mmol/L Anion Gap (5-15) MEQ/L BUN (7-17) mg/dL Creatinine (0.52-1.04) mg/dL Estimated GFR ML/MIN Glucose (74-106) mg/dL POC Glucometer 394 H (74 to 106) mg/dL Lactic Acid (0.4-2.0) Calcium (8.4-10.2) mg/dL Phosphorus (2.5-4.5) mg/dL Magnesium 1.7 (1.6-2.3) mg/dL Total Bilirubin (0.2-1.3) mg/dL AST (14-36) U/L ALT (0-35) U/L Alkaline Phosphatase (38-126) U/L Serum Total Protein (6.3-8.2) g/dL Albumin (3.5-5.0) g/dL Prealbumin (17.6-36.0) mg/dL Urine Color (Yellow) Urine Appearance (Clear) Urine pH (4.6-8.0) Ur Specific Mchenry (1.005-1.030) Urine Protein (Negative) Urine Glucose (UA) (Negative) mg/dL Urine Ketones (Negative) Urine Blood (Negative) Urine Nitrite (Negative) Urine Bilirubin (Negative) Urine Urobilinogen (0.2) mg/dL Ur Leukocyte Esterase (Negative) U Hyaline Cast (Auto) (0-2) /LPF Urine Microscopic RBC (0-5) /HPF Urine Microscopic WBC (0-5) /HPF Ur Epithelial Cells (None Seen) /HPF Urine Bacteria (None Seen) /HPF Urine Culture Reflexed (NO) Salicylates (2-20) mg/dL Acetaminophen (10-30) ug/ml Ethyl Alcohol (0-10) mg/dL 03/21/25 03/21/25 03/21/25 Range/Units 17:15 17:30 20:01 WBC (3.98-10.04) x10^3/uL RBC (3.93-5.22) x10^6/uL Hgb (11.2-15.7) g/dL Hct (34.1-44.9) % MCV (79.4-94.8) fL MCH (25.6-32.2) pg MCHC (32.2-35.5) g/dL RDW (11.7-14.4) % Plt Count (182-369) x10^3/uL MPV (9.4-12.3) fL Gran % (34.0-71.1) % Immature Gran % (Auto) (0.001-0.429) % Nucleat RBC Rel Count (0.00-0.2) % Eos # (Auto) (0.04-0.36) x10^3/uL Immature Gran # (Auto) (0.001-0.031) x10^3u/L Absolute Lymphs (auto) (1.18-3.74) x10^3/uL Absolute Monos (auto) (0.24-0.86) x10^3/uL Absolute Nucleated RBC (0.00-0.012) x10^3u/L Lymphocytes % (19.3-51.7) % Monocytes % (4.7-12.5) % Eosinophils % (0.7-5.8) % Basophils % (0.1-1.2) % Absolute Granulocytes (1.56-6.13) x10^3/uL Basophils # (0.01-0.08) x10^3/uL pO2/FiO2 Ratio 21.0 % VBG pH 7.23 L* (7.32-7.42) VBG pCO2 at Pat Temp 38 L (42-55) mm/Hg VBG pO2 at Pat Temp 35 (25-40) mm/Hg VBG HCO3 15.9 L* (22-28) meq/L VBG O2 Sat (Lisa) 71.0 L (95-100) VBG Base Excess -10.9 L (-2.0-2.0) VBG Hemoglobin 13.1 VBG Carboxyhemoglobin 7.3 H* (0.0-6.9) % T HGB POC Potassium 4.3 (3.5-5.1) Sodium (135-145) mmol/L Potassium (3.5-5.1) mmol/L Chloride (98-107) mmol/L Carbon Dioxide (22-30) mmol/L Anion Gap (5-15) MEQ/L BUN (7-17) mg/dL Creatinine (0.52-1.04) mg/dL Estimated GFR ML/MIN Glucose (74-106) mg/dL POC Glucometer 299 H (74 to 106) mg/dL Lactic Acid (0.4-2.0) Calcium (8.4-10.2) mg/dL Phosphorus (2.5-4.5) mg/dL Magnesium (1.6-2.3) mg/dL Total Bilirubin (0.2-1.3) mg/dL AST (14-36) U/L ALT (0-35) U/L Alkaline Phosphatase (38-126) U/L Serum Total Protein (6.3-8.2) g/dL Albumin (3.5-5.0) g/dL Prealbumin (17.6-36.0) mg/dL Urine Color Yellow (Yellow) Urine Appearance Clear (Clear) Urine pH 7.0 (4.6-8.0) Ur Specific Mchenry 1.010 (1.005-1.030) Urine Protein 300 A (Negative) Urine Glucose (UA) 250 A (Negative) mg/dL Urine Ketones Negative (Negative) Urine Blood Small A (Negative) Urine Nitrite Negative (Negative) Urine Bilirubin Negative (Negative) Urine Urobilinogen 0.2 (0.2) mg/dL Ur Leukocyte Esterase Negative (Negative) U Hyaline Cast (Auto) NONE SEEN (0-2) /LPF Urine Microscopic RBC 3-5 (0-5) /HPF Urine Microscopic WBC 6-10 A (0-5) /HPF Ur Epithelial Cells None Seen (None Seen) /HPF Urine Bacteria None Seen (None Seen) /HPF Urine Culture Reflexed NO (NO) Salicylates (2-20) mg/dL Acetaminophen (10-30) ug/ml Ethyl Alcohol (0-10) mg/dL 03/21/25 03/21/25 03/21/25 Range/Units 20:40 20:40 20:45 WBC 9.3 (3.98-10.04) x10^3/uL RBC 4.62 (3.93-5.22) x10^6/uL Hgb 11.7 (11.2-15.7) g/dL Hct 37.2 (34.1-44.9) % MCV 80.5 (79.4-94.8) fL MCH 25.3 L (25.6-32.2) pg MCHC 31.5 L (32.2-35.5) g/dL RDW 15.9 H (11.7-14.4) % Plt Count 392 H (182-369) x10^3/uL MPV 9.5 (9.4-12.3) fL Gran % 63.8 (34.0-71.1) % Immature Gran % (Auto) 1.9 H (0.001-0.429) % Nucleat RBC Rel Count 0.0 (0.00-0.2) % Eos # (Auto) 0.29 (0.04-0.36) x10^3/uL Immature Gran # (Auto) 0.18 H (0.001-0.031) x10^3u/L Absolute Lymphs (auto) 1.99 (1.18-3.74) x10^3/uL Absolute Monos (auto) 0.79 (0.24-0.86) x10^3/uL Absolute Nucleated RBC 0.00 (0.00-0.012) x10^3u/L Lymphocytes % 21.5 (19.3-51.7) % Monocytes % 8.5 (4.7-12.5) % Eosinophils % 3.1 (0.7-5.8) % Basophils % 1.2 (0.1-1.2) % Absolute Granulocytes 5.91 (1.56-6.13) x10^3/uL Basophils # 0.11 H (0.01-0.08) x10^3/uL pO2/FiO2 Ratio % VBG pH (7.32-7.42) VBG pCO2 at Pat Temp (42-55) mm/Hg VBG pO2 at Pat Temp (25-40) mm/Hg VBG HCO3 (22-28) meq/L VBG O2 Sat (Lisa) (95-100) VBG Base Excess (-2.0-2.0) VBG Hemoglobin VBG Carboxyhemoglobin (0.0-6.9) % T HGB POC Potassium (3.5-5.1) Sodium 132 L (135-145) mmol/L Potassium 3.4 L (3.5-5.1) mmol/L Chloride 108 H (98-107) mmol/L Carbon Dioxide 12 L* (22-30) mmol/L Anion Gap 15.0 (5-15) MEQ/L BUN 48 H (7-17) mg/dL Creatinine 1.84 H (0.52-1.04) mg/dL Estimated GFR 32.8 ML/MIN Glucose 282 H (74-106) mg/dL POC Glucometer (74 to 106) mg/dL Lactic Acid 1.1 (0.4-2.0) Calcium 8.7 (8.4-10.2) mg/dL Phosphorus (2.5-4.5) mg/dL Magnesium (1.6-2.3) mg/dL Total Bilirubin < 0.10 L (0.2-1.3) mg/dL AST 17 (14-36) U/L ALT 16 (0-35) U/L Alkaline Phosphatase 136 H (38-126) U/L Serum Total Protein 6.7 (6.3-8.2) g/dL Albumin 3.3 L (3.5-5.0) g/dL Prealbumin (17.6-36.0) mg/dL Urine Color (Yellow) Urine Appearance (Clear) Urine pH (4.6-8.0) Ur Specific Mchenry (1.005-1.030) Urine Protein (Negative) Urine Glucose (UA) (Negative) mg/dL Urine Ketones (Negative) Urine Blood (Negative) Urine Nitrite (Negative) Urine Bilirubin (Negative) Urine Urobilinogen (0.2) mg/dL Ur Leukocyte Esterase (Negative) U Hyaline Cast (Auto) (0-2) /LPF Urine Microscopic RBC (0-5) /HPF Urine Microscopic WBC (0-5) /HPF Ur Epithelial Cells (None Seen) /HPF Urine Bacteria (None Seen) /HPF Urine Culture Reflexed (NO) Salicylates (2-20) mg/dL Acetaminophen (10-30) ug/ml Ethyl Alcohol (0-10) mg/dL 03/21/25 03/21/25 03/22/25 Range/Units 22:27 23:02 00:05 WBC (3.98-10.04) x10^3/uL RBC (3.93-5.22) x10^6/uL Hgb (11.2-15.7) g/dL Hct (34.1-44.9) % MCV (79.4-94.8) fL MCH (25.6-32.2) pg MCHC (32.2-35.5) g/dL RDW (11.7-14.4) % Plt Count (182-369) x10^3/uL MPV (9.4-12.3) fL Gran % (34.0-71.1) % Immature Gran % (Auto) (0.001-0.429) % Nucleat RBC Rel Count (0.00-0.2) % Eos # (Auto) (0.04-0.36) x10^3/uL Immature Gran # (Auto) (0.001-0.031) x10^3u/L Absolute Lymphs (auto) (1.18-3.74) x10^3/uL Absolute Monos (auto) (0.24-0.86) x10^3/uL Absolute Nucleated RBC (0.00-0.012) x10^3u/L Lymphocytes % (19.3-51.7) % Monocytes % (4.7-12.5) % Eosinophils % (0.7-5.8) % Basophils % (0.1-1.2) % Absolute Granulocytes (1.56-6.13) x10^3/uL Basophils # (0.01-0.08) x10^3/uL pO2/FiO2 Ratio % VBG pH (7.32-7.42) VBG pCO2 at Pat Temp (42-55) mm/Hg VBG pO2 at Pat Temp (25-40) mm/Hg VBG HCO3 (22-28) meq/L VBG O2 Sat (Lisa) (95-100) VBG Base Excess (-2.0-2.0) VBG Hemoglobin VBG Carboxyhemoglobin (0.0-6.9) % T HGB POC Potassium (3.5-5.1) Sodium 136 (135-145) mmol/L Potassium 3.2 L (3.5-5.1) mmol/L Chloride 112 H (98-107) mmol/L Carbon Dioxide 11 L* (22-30) mmol/L Anion Gap 15.5 H (5-15) MEQ/L BUN 47 H (7-17) mg/dL Creatinine 1.77 H (0.52-1.04) mg/dL Estimated GFR 34.4 ML/MIN Glucose 64 L (74-106) mg/dL POC Glucometer 158 H 104 (74 to 106) mg/dL Lactic Acid (0.4-2.0) Calcium 9.2 (8.4-10.2) mg/dL Phosphorus 2.8 (2.5-4.5) mg/dL Magnesium 1.8 (1.6-2.3) mg/dL Total Bilirubin (0.2-1.3) mg/dL AST (14-36) U/L ALT (0-35) U/L Alkaline Phosphatase (38-126) U/L Serum Total Protein (6.3-8.2) g/dL Albumin (3.5-5.0) g/dL Prealbumin (17.6-36.0) mg/dL Urine Color (Yellow) Urine Appearance (Clear) Urine pH (4.6-8.0) Ur Specific Mchenry (1.005-1.030) Urine Protein (Negative) Urine Glucose (UA) (Negative) mg/dL Urine Ketones (Negative) Urine Blood (Negative) Urine Nitrite (Negative) Urine Bilirubin (Negative) Urine Urobilinogen (0.2) mg/dL Ur Leukocyte Esterase (Negative) U Hyaline Cast (Auto) (0-2) /LPF Urine Microscopic RBC (0-5) /HPF Urine Microscopic WBC (0-5) /HPF Ur Epithelial Cells (None Seen) /HPF Urine Bacteria (None Seen) /HPF Urine Culture Reflexed (NO) Salicylates (2-20) mg/dL Acetaminophen (10-30) ug/ml Ethyl Alcohol (0-10) mg/dL 03/22/25 03/22/25 03/22/25 Range/Units 00:17 00:19 00:43 WBC (3.98-10.04) x10^3/uL RBC (3.93-5.22) x10^6/uL Hgb (11.2-15.7) g/dL Hct (34.1-44.9) % MCV (79.4-94.8) fL MCH (25.6-32.2) pg MCHC (32.2-35.5) g/dL RDW (11.7-14.4) % Plt Count (182-369) x10^3/uL MPV (9.4-12.3) fL Gran % (34.0-71.1) % Immature Gran % (Auto) (0.001-0.429) % Nucleat RBC Rel Count (0.00-0.2) % Eos # (Auto) (0.04-0.36) x10^3/uL Immature Gran # (Auto) (0.001-0.031) x10^3u/L Absolute Lymphs (auto) (1.18-3.74) x10^3/uL Absolute Monos (auto) (0.24-0.86) x10^3/uL Absolute Nucleated RBC (0.00-0.012) x10^3u/L Lymphocytes % (19.3-51.7) % Monocytes % (4.7-12.5) % Eosinophils % (0.7-5.8) % Basophils % (0.1-1.2) % Absolute Granulocytes (1.56-6.13) x10^3/uL Basophils # (0.01-0.08) x10^3/uL pO2/FiO2 Ratio 21.0 % VBG pH 7.32 (7.32-7.42) VBG pCO2 at Pat Temp 24 L (42-55) mm/Hg VBG pO2 at Pat Temp 80 H (25-40) mm/Hg VBG HCO3 12.4 L* (22-28) meq/L VBG O2 Sat (Lisa) 98.2 (95-100) VBG Base Excess -11.9 L (-2.0-2.0) VBG Hemoglobin 12.9 VBG Carboxyhemoglobin 2.6 (0.0-6.9) % T HGB POC Potassium 3.3 L (3.5-5.1) Sodium (135-145) mmol/L Potassium (3.5-5.1) mmol/L Chloride (98-107) mmol/L Carbon Dioxide (22-30) mmol/L Anion Gap (5-15) MEQ/L BUN (7-17) mg/dL Creatinine (0.52-1.04) mg/dL Estimated GFR ML/MIN Glucose (74-106) mg/dL POC Glucometer 56 L 120 H (74 to 106) mg/dL Lactic Acid (0.4-2.0) Calcium (8.4-10.2) mg/dL Phosphorus (2.5-4.5) mg/dL Magnesium (1.6-2.3) mg/dL Total Bilirubin (0.2-1.3) mg/dL AST (14-36) U/L ALT (0-35) U/L Alkaline Phosphatase (38-126) U/L Serum Total Protein (6.3-8.2) g/dL Albumin (3.5-5.0) g/dL Prealbumin (17.6-36.0) mg/dL Urine Color (Yellow) Urine Appearance (Clear) Urine pH (4.6-8.0) Ur Specific Mchenry (1.005-1.030) Urine Protein (Negative) Urine Glucose (UA) (Negative) mg/dL Urine Ketones (Negative) Urine Blood (Negative) Urine Nitrite (Negative) Urine Bilirubin (Negative) Urine Urobilinogen (0.2) mg/dL Ur Leukocyte Esterase (Negative) U Hyaline Cast (Auto) (0-2) /LPF Urine Microscopic RBC (0-5) /HPF Urine Microscopic WBC (0-5) /HPF Ur Epithelial Cells (None Seen) /HPF Urine Bacteria (None Seen) /HPF Urine Culture Reflexed (NO) Salicylates (2-20) mg/dL Acetaminophen (10-30) ug/ml Ethyl Alcohol (0-10) mg/dL 03/22/25 03/22/25 03/22/25 Range/Units 01:20 02:07 03:03 WBC (3.98-10.04) x10^3/uL RBC (3.93-5.22) x10^6/uL Hgb (11.2-15.7) g/dL Hct (34.1-44.9) % MCV (79.4-94.8) fL MCH (25.6-32.2) pg MCHC (32.2-35.5) g/dL RDW (11.7-14.4) % Plt Count (182-369) x10^3/uL MPV (9.4-12.3) fL Gran % (34.0-71.1) % Immature Gran % (Auto) (0.001-0.429) % Nucleat RBC Rel Count (0.00-0.2) % Eos # (Auto) (0.04-0.36) x10^3/uL Immature Gran # (Auto) (0.001-0.031) x10^3u/L Absolute Lymphs (auto) (1.18-3.74) x10^3/uL Absolute Monos (auto) (0.24-0.86) x10^3/uL Absolute Nucleated RBC (0.00-0.012) x10^3u/L Lymphocytes % (19.3-51.7) % Monocytes % (4.7-12.5) % Eosinophils % (0.7-5.8) % Basophils % (0.1-1.2) % Absolute Granulocytes (1.56-6.13) x10^3/uL Basophils # (0.01-0.08) x10^3/uL pO2/FiO2 Ratio % VBG pH (7.32-7.42) VBG pCO2 at Pat Temp (42-55) mm/Hg VBG pO2 at Pat Temp (25-40) mm/Hg VBG HCO3 (22-28) meq/L VBG O2 Sat (Lisa) (95-100) VBG Base Excess (-2.0-2.0) VBG Hemoglobin VBG Carboxyhemoglobin (0.0-6.9) % T HGB POC Potassium (3.5-5.1) Sodium (135-145) mmol/L Potassium (3.5-5.1) mmol/L Chloride (98-107) mmol/L Carbon Dioxide (22-30) mmol/L Anion Gap (5-15) MEQ/L BUN (7-17) mg/dL Creatinine (0.52-1.04) mg/dL Estimated GFR ML/MIN Glucose (74-106) mg/dL POC Glucometer 105 125 H 167 H (74 to 106) mg/dL Lactic Acid (0.4-2.0) Calcium (8.4-10.2) mg/dL Phosphorus (2.5-4.5) mg/dL Magnesium (1.6-2.3) mg/dL Total Bilirubin (0.2-1.3) mg/dL AST (14-36) U/L ALT (0-35) U/L Alkaline Phosphatase (38-126) U/L Serum Total Protein (6.3-8.2) g/dL Albumin (3.5-5.0) g/dL Prealbumin (17.6-36.0) mg/dL Urine Color (Yellow) Urine Appearance (Clear) Urine pH (4.6-8.0) Ur Specific Mchenry (1.005-1.030) Urine Protein (Negative) Urine Glucose (UA) (Negative) mg/dL Urine Ketones (Negative) Urine Blood (Negative) Urine Nitrite (Negative) Urine Bilirubin (Negative) Urine Urobilinogen (0.2) mg/dL Ur Leukocyte Esterase (Negative) U Hyaline Cast (Auto) (0-2) /LPF Urine Microscopic RBC (0-5) /HPF Urine Microscopic WBC (0-5) /HPF Ur Epithelial Cells (None Seen) /HPF Urine Bacteria (None Seen) /HPF Urine Culture Reflexed (NO) Salicylates (2-20) mg/dL Acetaminophen (10-30) ug/ml Ethyl Alcohol (0-10) mg/dL 03/22/25 03/22/25 03/22/25 Range/Units 04:08 05:14 05:30 WBC 7.8 (3.98-10.04) x10^3/uL RBC 4.31 (3.93-5.22) x10^6/uL Hgb 11.0 L (11.2-15.7) g/dL Hct 34.8 (34.1-44.9) % MCV 80.7 (79.4-94.8) fL MCH 25.5 L (25.6-32.2) pg MCHC 31.6 L (32.2-35.5) g/dL RDW 16.3 H (11.7-14.4) % Plt Count 396 H (182-369) x10^3/uL MPV 9.8 (9.4-12.3) fL Gran % (34.0-71.1) % Immature Gran % (Auto) (0.001-0.429) % Nucleat RBC Rel Count (0.00-0.2) % Eos # (Auto) (0.04-0.36) x10^3/uL Immature Gran # (Auto) (0.001-0.031) x10^3u/L Absolute Lymphs (auto) (1.18-3.74) x10^3/uL Absolute Monos (auto) (0.24-0.86) x10^3/uL Absolute Nucleated RBC (0.00-0.012) x10^3u/L Lymphocytes % (19.3-51.7) % Monocytes % (4.7-12.5) % Eosinophils % (0.7-5.8) % Basophils % (0.1-1.2) % Absolute Granulocytes (1.56-6.13) x10^3/uL Basophils # (0.01-0.08) x10^3/uL pO2/FiO2 Ratio % VBG pH (7.32-7.42) VBG pCO2 at Pat Temp (42-55) mm/Hg VBG pO2 at Pat Temp (25-40) mm/Hg VBG HCO3 (22-28) meq/L VBG O2 Sat (Lisa) (95-100) VBG Base Excess (-2.0-2.0) VBG Hemoglobin VBG Carboxyhemoglobin (0.0-6.9) % T HGB POC Potassium (3.5-5.1) Sodium (135-145) mmol/L Potassium (3.5-5.1) mmol/L Chloride (98-107) mmol/L Carbon Dioxide (22-30) mmol/L Anion Gap (5-15) MEQ/L BUN (7-17) mg/dL Creatinine (0.52-1.04) mg/dL Estimated GFR ML/MIN Glucose (74-106) mg/dL POC Glucometer 196 H 209 H (74 to 106) mg/dL Lactic Acid (0.4-2.0) Calcium (8.4-10.2) mg/dL Phosphorus (2.5-4.5) mg/dL Magnesium (1.6-2.3) mg/dL Total Bilirubin (0.2-1.3) mg/dL AST (14-36) U/L ALT (0-35) U/L Alkaline Phosphatase (38-126) U/L Serum Total Protein (6.3-8.2) g/dL Albumin (3.5-5.0) g/dL Prealbumin (17.6-36.0) mg/dL Urine Color (Yellow) Urine Appearance (Clear) Urine pH (4.6-8.0) Ur Specific Mchenry (1.005-1.030) Urine Protein (Negative) Urine Glucose (UA) (Negative) mg/dL Urine Ketones (Negative) Urine Blood (Negative) Urine Nitrite (Negative) Urine Bilirubin (Negative) Urine Urobilinogen (0.2) mg/dL Ur Leukocyte Esterase (Negative) U Hyaline Cast (Auto) (0-2) /LPF Urine Microscopic RBC (0-5) /HPF Urine Microscopic WBC (0-5) /HPF Ur Epithelial Cells (None Seen) /HPF Urine Bacteria (None Seen) /HPF Urine Culture Reflexed (NO) Salicylates (2-20) mg/dL Acetaminophen (10-30) ug/ml Ethyl Alcohol (0-10) mg/dL 03/22/25 03/22/25 03/22/25 Range/Units 05:30 05:30 05:54 WBC (3.98-10.04) x10^3/uL RBC (3.93-5.22) x10^6/uL Hgb (11.2-15.7) g/dL Hct (34.1-44.9) % MCV (79.4-94.8) fL MCH (25.6-32.2) pg MCHC (32.2-35.5) g/dL RDW (11.7-14.4) % Plt Count (182-369) x10^3/uL MPV (9.4-12.3) fL Gran % (34.0-71.1) % Immature Gran % (Auto) (0.001-0.429) % Nucleat RBC Rel Count (0.00-0.2) % Eos # (Auto) (0.04-0.36) x10^3/uL Immature Gran # (Auto) (0.001-0.031) x10^3u/L Absolute Lymphs (auto) (1.18-3.74) x10^3/uL Absolute Monos (auto) (0.24-0.86) x10^3/uL Absolute Nucleated RBC (0.00-0.012) x10^3u/L Lymphocytes % (19.3-51.7) % Monocytes % (4.7-12.5) % Eosinophils % (0.7-5.8) % Basophils % (0.1-1.2) % Absolute Granulocytes (1.56-6.13) x10^3/uL Basophils # (0.01-0.08) x10^3/uL pO2/FiO2 Ratio % VBG pH (7.32-7.42) VBG pCO2 at Pat Temp (42-55) mm/Hg VBG pO2 at Pat Temp (25-40) mm/Hg VBG HCO3 (22-28) meq/L VBG O2 Sat (Lisa) (95-100) VBG Base Excess (-2.0-2.0) VBG Hemoglobin VBG Carboxyhemoglobin (0.0-6.9) % T HGB POC Potassium (3.5-5.1) Sodium 131 L (135-145) mmol/L Potassium 4.1 D (3.5-5.1) mmol/L Chloride 113 H (98-107) mmol/L Carbon Dioxide 9 L* (22-30) mmol/L Anion Gap 13.7 (5-15) MEQ/L BUN 44 H (7-17) mg/dL Creatinine 1.61 H (0.52-1.04) mg/dL Estimated GFR 38.5 ML/MIN Glucose 230 H (74-106) mg/dL POC Glucometer 211 H (74 to 106) mg/dL Lactic Acid (0.4-2.0) Calcium 8.5 (8.4-10.2) mg/dL Phosphorus (2.5-4.5) mg/dL Magnesium (1.6-2.3) mg/dL Total Bilirubin (0.2-1.3) mg/dL AST (14-36) U/L ALT (0-35) U/L Alkaline Phosphatase (38-126) U/L Serum Total Protein (6.3-8.2) g/dL Albumin (3.5-5.0) g/dL Prealbumin 14.64 L (17.6-36.0) mg/dL Urine Color (Yellow) Urine Appearance (Clear) Urine pH (4.6-8.0) Ur Specific Mchenry (1.005-1.030) Urine Protein (Negative) Urine Glucose (UA) (Negative) mg/dL Urine Ketones (Negative) Urine Blood (Negative) Urine Nitrite (Negative) Urine Bilirubin (Negative) Urine Urobilinogen (0.2) mg/dL Ur Leukocyte Esterase (Negative) U Hyaline Cast (Auto) (0-2) /LPF Urine Microscopic RBC (0-5) /HPF Urine Microscopic WBC (0-5) /HPF Ur Epithelial Cells (None Seen) /HPF Urine Bacteria (None Seen) /HPF Urine Culture Reflexed (NO) Salicylates < 1.0 L (2-20) mg/dL Acetaminophen < 10 L (10-30) ug/ml Ethyl Alcohol < 10 (0-10) mg/dL 03/22/25 03/22/25 03/22/25 Range/Units 06:35 07:25 07:55 WBC (3.98-10.04) x10^3/uL RBC (3.93-5.22) x10^6/uL Hgb (11.2-15.7) g/dL Hct (34.1-44.9) % MCV (79.4-94.8) fL MCH (25.6-32.2) pg MCHC (32.2-35.5) g/dL RDW (11.7-14.4) % Plt Count (182-369) x10^3/uL MPV (9.4-12.3) fL Gran % (34.0-71.1) % Immature Gran % (Auto) (0.001-0.429) % Nucleat RBC Rel Count (0.00-0.2) % Eos # (Auto) (0.04-0.36) x10^3/uL Immature Gran # (Auto) (0.001-0.031) x10^3u/L Absolute Lymphs (auto) (1.18-3.74) x10^3/uL Absolute Monos (auto) (0.24-0.86) x10^3/uL Absolute Nucleated RBC (0.00-0.012) x10^3u/L Lymphocytes % (19.3-51.7) % Monocytes % (4.7-12.5) % Eosinophils % (0.7-5.8) % Basophils % (0.1-1.2) % Absolute Granulocytes (1.56-6.13) x10^3/uL Basophils # (0.01-0.08) x10^3/uL pO2/FiO2 Ratio 28.0 % VBG pH 7.26 L (7.32-7.42) VBG pCO2 at Pat Temp 27 L (42-55) mm/Hg VBG pO2 at Pat Temp 63 H (25-40) mm/Hg VBG HCO3 12.1 L* (22-28) meq/L VBG O2 Sat (Lisa) 95.6 (95-100) VBG Base Excess -13.4 L (-2.0-2.0) VBG Hemoglobin 12.2 VBG Carboxyhemoglobin 4.8 (0.0-6.9) % T HGB POC Potassium 4.2 (3.5-5.1) Sodium 133 L (135-145) mmol/L Potassium 3.9 (3.5-5.1) mmol/L Chloride 113 H (98-107) mmol/L Carbon Dioxide 10 L* (22-30) mmol/L Anion Gap 13.4 (5-15) MEQ/L BUN 41 H (7-17) mg/dL Creatinine 1.66 H (0.52-1.04) mg/dL Estimated GFR 37.1 ML/MIN Glucose 241 H (74-106) mg/dL POC Glucometer 214 H (74 to 106) mg/dL Lactic Acid (0.4-2.0) Calcium 8.4 (8.4-10.2) mg/dL Phosphorus (2.5-4.5) mg/dL Magnesium (1.6-2.3) mg/dL Total Bilirubin < 0.10 L (0.2-1.3) mg/dL AST 20 (14-36) U/L ALT 14 (0-35) U/L Alkaline Phosphatase 112 (38-126) U/L Serum Total Protein 5.8 L (6.3-8.2) g/dL Albumin 2.7 L (3.5-5.0) g/dL Prealbumin (17.6-36.0) mg/dL Urine Color (Yellow) Urine Appearance (Clear) Urine pH (4.6-8.0) Ur Specific Mchenry (1.005-1.030) Urine Protein (Negative) Urine Glucose (UA) (Negative) mg/dL Urine Ketones (Negative) Urine Blood (Negative) Urine Nitrite (Negative) Urine Bilirubin (Negative) Urine Urobilinogen (0.2) mg/dL Ur Leukocyte Esterase (Negative) U Hyaline Cast (Auto) (0-2) /LPF Urine Microscopic RBC (0-5) /HPF Urine Microscopic WBC (0-5) /HPF Ur Epithelial Cells (None Seen) /HPF Urine Bacteria (None Seen) /HPF Urine Culture Reflexed (NO) Salicylates (2-20) mg/dL Acetaminophen (10-30) ug/ml Ethyl Alcohol (0-10) mg/dL 03/22/25 03/22/25 03/22/25 Range/Units 07:58 10:01 12:08 WBC (3.98-10.04) x10^3/uL RBC (3.93-5.22) x10^6/uL Hgb (11.2-15.7) g/dL Hct (34.1-44.9) % MCV (79.4-94.8) fL MCH (25.6-32.2) pg MCHC (32.2-35.5) g/dL RDW (11.7-14.4) % Plt Count (182-369) x10^3/uL MPV (9.4-12.3) fL Gran % (34.0-71.1) % Immature Gran % (Auto) (0.001-0.429) % Nucleat RBC Rel Count (0.00-0.2) % Eos # (Auto) (0.04-0.36) x10^3/uL Immature Gran # (Auto) (0.001-0.031) x10^3u/L Absolute Lymphs (auto) (1.18-3.74) x10^3/uL Absolute Monos (auto) (0.24-0.86) x10^3/uL Absolute Nucleated RBC (0.00-0.012) x10^3u/L Lymphocytes % (19.3-51.7) % Monocytes % (4.7-12.5) % Eosinophils % (0.7-5.8) % Basophils % (0.1-1.2) % Absolute Granulocytes (1.56-6.13) x10^3/uL Basophils # (0.01-0.08) x10^3/uL pO2/FiO2 Ratio % VBG pH (7.32-7.42) VBG pCO2 at Pat Temp (42-55) mm/Hg VBG pO2 at Pat Temp (25-40) mm/Hg VBG HCO3 (22-28) meq/L VBG O2 Sat (Lisa) (95-100) VBG Base Excess (-2.0-2.0) VBG Hemoglobin VBG Carboxyhemoglobin (0.0-6.9) % T HGB POC Potassium (3.5-5.1) Sodium (135-145) mmol/L Potassium (3.5-5.1) mmol/L Chloride (98-107) mmol/L Carbon Dioxide (22-30) mmol/L Anion Gap (5-15) MEQ/L BUN (7-17) mg/dL Creatinine (0.52-1.04) mg/dL Estimated GFR ML/MIN Glucose (74-106) mg/dL POC Glucometer 220 H 206 H 259 H (74 to 106) mg/dL Lactic Acid (0.4-2.0) Calcium (8.4-10.2) mg/dL Phosphorus (2.5-4.5) mg/dL Magnesium (1.6-2.3) mg/dL Total Bilirubin (0.2-1.3) mg/dL AST (14-36) U/L ALT (0-35) U/L Alkaline Phosphatase (38-126) U/L Serum Total Protein (6.3-8.2) g/dL Albumin (3.5-5.0) g/dL Prealbumin (17.6-36.0) mg/dL Urine Color (Yellow) Urine Appearance (Clear) Urine pH (4.6-8.0) Ur Specific Mchenry (1.005-1.030) Urine Protein (Negative) Urine Glucose (UA) (Negative) mg/dL Urine Ketones (Negative) Urine Blood (Negative) Urine Nitrite (Negative) Urine Bilirubin (Negative) Urine Urobilinogen (0.2) mg/dL Ur Leukocyte Esterase (Negative) U Hyaline Cast (Auto) (0-2) /LPF Urine Microscopic RBC (0-5) /HPF Urine Microscopic WBC (0-5) /HPF Ur Epithelial Cells (None Seen) /HPF Urine Bacteria (None Seen) /HPF Urine Culture Reflexed (NO) Salicylates (2-20) mg/dL Acetaminophen (10-30) ug/ml Ethyl Alcohol (0-10) mg/dL Radiology Exams: Radiology Procedures Category Date Time Status CHEST 1 VIEW (PORTABLE) Stat Exams 03/21/25 17:04 Completed Medications: Medications Generic Name Dose Route Start Last Admin Trade Name Freq PRN Reason Stop Dose Admin Acetaminophen 1,000 mg 03/21/25 23:30 Acetaminophen 500 Mg Tablet PO 04/20/25 23:29 Q6H PRN PRN PAIN Hydrocodone Bitart/Acetaminophen 1 tab 03/21/25 23:30 03/22/25 10:12 Hydrocodone /Apap 7.5/325 Mg 1 Each Tablet PO 03/26/25 23:29 1 tab Q6H PRN PRN Administration PAIN Albuterol Sulfate 2 puff 03/22/25 04:33 Albuterol Common Canister Inhaler IH 04/21/25 04:32 Q4H PRN PRN SHORTNESS OF BREATH/WHEEZING Aspirin 81 mg 03/22/25 10:00 03/22/25 10:12 Aspirin 81 Mg Tablet.Ec PO 04/21/25 09:59 81 mg DAILY JELLY Administration Bupropion HCl 150 mg 03/22/25 10:00 03/22/25 10:16 Bupropion Hcl 150 Mg Tablet Xl PO 04/21/25 09:59 150 mg DAILY JELLY Administration Dextrose 25 ml 03/21/25 23:42 Dextrose 50%-Water 50 Ml Abboject IV 04/20/25 23:41 PRN PRN HYPOGLYCEMIA Diltiazem HCl 300 mg 03/22/25 10:00 03/22/25 10:15 Diltiazem Hcl Cd 300 Mg Cap PO 04/21/25 09:59 300 mg DAILY JELLY Administration Diltiazem HCl 120 mg 03/22/25 10:00 03/22/25 10:13 Diltiazem Hcl Cd 120 Mg Cap.Sr.24h PO 04/21/25 09:59 120 mg DAILY JELLY Administration Ergocalciferol 50,000 unit 03/24/25 10:00 Ergocalciferol (Vitamin D2) 50,000 Unit Capsule PO 04/23/25 09:59 Dozier JELLY Ferrous Sulfate 325 mg 03/22/25 10:00 03/22/25 10:12 Ferrous Sulfate 325 Mg Tablet PO 04/21/25 09:59 325 mg DAILY JELLY Administration Fluoxetine HCl 20 mg 03/22/25 10:00 03/22/25 10:12 Fluoxetine Hcl 20 Mg Cap PO 04/21/25 09:59 20 mg DAILY JELLY Administration Fluticasone Propionate 0 gm 03/21/25 23:30 Fluticasone Propionate 16 Gm Bottle Nasal [place] NS 04/20/25 23:29 DAILY PRN PRN ALLERGIES Sodium Bicarbonate 150 meq/ 1,150 mls @ 100 mls/hr 03/22/25 10:30 03/22/25 11:01 Dextrose IV 04/21/25 10:29 100 mls/hr .[id number] JELLY 100 mls/hr Administration Insulin Human Lispro 0 unit 03/22/25 10:40 03/22/25 12:37 Insulin Lispro 1 Unit SQ 04/21/25 10:39 10 unit UD PRN Administration HYPERGLYCEMIA Magnesium Oxide 400 mg 03/22/25 10:00 03/22/25 10:12 Magnesium Oxide 400 Mg Tablet PO 04/21/25 09:59 400 mg DAILY JELLY Administration Miscellaneous Information 1 each 03/22/25 08:00 Medication Intervention 1 Each Each 04/21/25 07:59 .RT TO CHECK JELLY Pantoprazole Sodium 40 mg 03/22/25 10:00 03/22/25 10:12 Protonix (Pantoprazole) 40 Mg Tablet PO 04/21/25 09:59 40 mg DAILY JELLY Administration Breo 100-25 Inhaler 1 each 03/22/25 10:00 IH 04/21/25 09:59 DAILY JELLY Potassium Chloride 10 meq 03/22/25 10:00 03/22/25 12:37 Potassium Chloride Tab 10 Meq Tab PO 04/21/25 09:59 10 meq DAILY JELLY Administration Discontinued Medications Generic Name Dose Route Start Last Admin Trade Name Freq PRN Reason Stop Dose Admin Sodium Chloride 1,000 mls @ 999 mls/hr 03/21/25 17:04 03/21/25 18:26 Sodium Chloride 0.9% 1000 Ml IV 03/21/25 18:04 Infused .Q1H1M STA Infusion Sodium Chloride Confirm 03/21/25 17:13 Sodium Chloride 0.9% 1000 Ml Administered 03/21/25 17:14 Dose 1,000 mls @ ud .ROUTE .STK-MED ONE INSULIN REGULAR IN 0.9 % NACL 100 unit in 100 mls @ 10.82 mls/hr 03/21/25 21:14 03/22/25 09:12 Myxredlin 100 Unit/100 Ml Bag IV 03/22/25 08:00 0 unit/kg/hr .Q9H15M PRN 0 mls/hr HYPERGLYCEMIA Titration Protocol 0.1 UNIT/KG/HR Potassium Chloride/Dextrose/Sod Cl 1,000 mls @ 150 mls/hr 03/21/25 23:45 03/22/25 05:18 D5w/0.45ns W/ 20meq Kcl 1000 Ml IV 04/20/25 23:44 150 mls/hr .Q6H40M JELLY Administration Magnesium Sulfate/Dextrose 100 mls @ 200 mls/hr 03/22/25 01:32 03/22/25 01:57 Magnesium 1 Gm / 100 Ml D5w IV 03/22/25 02:01 200 mls/hr STAT ONE Administration Potassium Chloride 20 meq in 100 mls @ 50 mls/hr 03/22/25 01:45 03/22/25 04:01 Potassium Chloride 20 Meq In Water 100ml IV 03/22/25 05:44 50 mls/hr Q2H JELLY Administration Potassium Chloride/Dextrose/Sod Cl Confirm 03/22/25 00:05 D5w/0.45ns W/ 20meq Kcl 1000 Ml Administered 03/22/25 00:06 Dose 1,000 mls @ ud IV .STK-MED ONE Potassium Chloride/Dextrose/Sod Cl Confirm 03/22/25 05:18 D5w/0.45ns W/ 20meq Kcl 1000 Ml Administered 03/22/25 05:19 Dose 1,000 mls @ ud IV .STK-MED ONE Sodium Chloride 1,000 mls @ 250 mls/hr 03/22/25 08:30 03/22/25 09:17 Sodium Chloride 0.9% 1000 Ml IV 04/21/25 08:29 250 mls/hr .Q4H JELLY Administration Insulin Glargine 60 unit 03/22/25 06:48 03/22/25 07:04 Insulin Glargine 1 Unit SQ 03/22/25 06:49 60 unit STAT ONE Administration Insulin Human Lispro 15 unit 03/21/25 17:26 03/21/25 17:48 Insulin Lispro 1 Unit SQ 03/21/25 17:27 15 unit STAT ONE Administration Insulin Human Lispro Confirm 03/21/25 17:41 Insulin Lispro 1 Unit Administered 03/21/25 17:42 Dose 15 unit .ROUTE .STK-MED ONE Potassium Chloride 20 meq 03/21/25 21:15 03/21/25 21:27 Potassium Chloride Tab 10 Meq Tab PO 03/21/25 21:16 20 meq STAT ONE Administration Potassium Chloride Confirm 03/21/25 21:27 Potassium Chloride Tab 10 Meq Tab Administered 03/21/25 21:28 Dose 20 meq .ROUTE .STK-MED ONE Potassium Chloride 40 meq 03/22/25 09:00 03/22/25 10:13 Potassium Chloride Tab 10 Meq Tab PO 03/22/25 09:01 40 meq STAT ONE Administration Sodium Bicarbonate 650 mg 03/22/25 10:00 03/22/25 10:15 Sodium Bicarbonate 650 Mg Tablet PO 04/21/25 09:59 Not Given BID JELLY Multi-Disciplinary Progress Notes: Multi-Disciplinary Progress Notes 03/22/25 11:52 Case Management Note by Simran Newell PATIENT HAS [facility]. THEY WERE NOTIFIED THAT PATIENT WAS HERE OBS. THEY WILL NEED NOTIFIED AT TIME OF DC AT [phone]. THEY WILL NEED FAXED THE DC INSTRUCTIONS, DC MED LIST AND DC SUMMARY (IF AVAILABLE) TO [phone]. Initialized on 03/22/25 11:52 - END OF NOTE Assessment/Plan (1) DKA (diabetic ketoacidosis) Current Visit: Yes Status: Acute Qualifiers: Diabetes mellitus type: type 1 Diabetes mellitus complication detail: without coma Qualified Code(s): E10.10 - Type 1 diabetes mellitus with ketoacidosis without coma Assessment & Plan: - DKA protocol - Was off insulin gtt this AM and restarted at 1330 - Restart clear liquid diet as has no N/V. - CBC, CMP reviewed - CO2 10 this AM and dropped to 9- restart of insulin gtt should help to resolve this. - trend Code(s): E11.10 - TYPE 2 DIABETES MELLITUS WITH KETOACIDOSIS WITHOUT COMA (2) Acute kidney injury superimposed on CKD Current Visit: Yes Status: Acute Assessment & Plan: - Creat 1.56- baseline 1.49 - IVF with DKA protocol Code(s): N17.9 - ACUTE KIDNEY FAILURE, UNSPECIFIED; N18.9 - CHRONIC KIDNEY DISEASE, UNSPECIFIED (3) Hypokalemia Current Visit: Yes Status: Resolved Assessment & Plan: - K+ 4.1 after repeat labs today - Replaced this AM - Tele- ICU Code(s): E87.6 - HYPOKALEMIA (4) Uncontrolled type 2 diabetes mellitus Current Visit: Yes Status: Chronic Assessment & Plan: - A1C 03/21/25 12.86 - Advised diet and exercise control - See DKA protocol above plan Code(s): QDE5749 - (5) A-fib Current Visit: No Status: Chronic Assessment & Plan: - Continue cardizem Code(s): I48.91 - UNSPECIFIED ATRIAL FIBRILLATION (6) Depression Current Visit: No Status: Acute Assessment & Plan: - Continue home med Code(s): F32.A - DEPRESSION, UNSPECIFIED (7) COPD (chronic obstructive pulmonary disease) Current Visit: No Status: Chronic Assessment & Plan: - O2 2lNC at HS- baseline - Not in acute exacerbation - CXR reviewed and non-concerning (8) Hypertension Current Visit: No Status: Chronic Assessment & Plan: - BP controlled Code(s): I10 - ESSENTIAL (PRIMARY) HYPERTENSION (9) GRETA (obstructive sleep apnea) Current Visit: No Status: Chronic Assessment & Plan: - Wears 2lNC O2 at night at baseline Code(s): G47.33 - OBSTRUCTIVE SLEEP APNEA (ADULT) (PEDIATRIC) (10) Class 2 obesity with body mass index (BMI) of 36.0 to 36.9 in adult Current Visit: Yes Status: Chronic Assessment & Plan: - Advised ADA diet and exercise control VTE: Heparin, SCD's PPI: Protonix Next of KIN: S/O D/C plan: 1-2 days Code status: Full Plan of care time : Critcal care time > 45 minutes Code(s): E66.812 - OBESITY, CLASS 2; Z68.36 - BODY MASS INDEX [BMI] 36.0-36.9, ADULT
[2025-03-22 15:13] VITALS: O2SAT 100
[2025-03-22 15:17] LABS: Potassium 4.1 mmol/L (3.5-5.1); TROPONIN < 0.012 ng/mL (0.000-0.033)
--- NOTE | 2025-03-22 15:26 | PCM.CONS ---
History of Present Illness - Date of Consult Consulting Dock Clerk: ALLA NOE MD Requesting Provider: Attending Provider: JOE TOWNSEND MD Primary Care Provider: PCP: JENNIFER NAPOLES - Consult Narrative Reason for Consult: bradycardia in setting of dilt overdose HPI: Pt is a 49 yo F w/ pMHX of HTN, HL, DVT, afib?, DM2, GERD, CKD, and anxiety who presents for concern of DKA. Please refer to initial HPI for details of her presentation. Today, the patient received double the dose of her usual dilt dosing and is now significantly bradycardic. Currently, she reports feeling very fatigued and tired. She denies any SOB or CP. She has chronic MARGO which is at her usual baseline. Cardiology is consulted regarding her symptoms and bradycardia in the setting of dilt OD. Review of rhythm strips and EKG show she is bradycardic with episodes of sinus arrest and junctional escape beats. SBP has fallen into the 90s although the patient does not have any lightheadedness while lying in bed. Of note, she is already on an insulin gtt for treatment of her initial presentation. cc:: The requesting physician will be sent a copy of the consult. Review of Systems - Review of Systems All systems: as per HPI - Past Medical History Past Medical History: Yes Neurological History: Peripheral Neuropathy ENT History: Other Cardiac History: Arrhythmia, Congestive Heart Failure, Deep Vein Thrombosis, High Cholesterol, Hypertension Respiratory History: Bronchitis Endocrine Medical History: Diabetes Type II, Other Musculoskelatal History: Fractures GI Medical History: GERD History: Renal Disease, Other Pyscho-Social History: Depression, Anxiety Reproductive Disorders: Cervical Cancer Comment: CERVICAL CA (CHEMO/RADIATION). REQUIRED UROSTOMY. CHRONIC RENAL FAILURE STAGE 3. WAS EVALUATED BY THORACIC SURGEON DUE TO SPOTS ON LUNG - WAS TOLD DUE TO HISTOPLASMOSIS. F/U WITH THEM 07/25/24. STATES HEART RACES AND HAS BEEN TOLD HAS EARLY STAGES OF CONGESTIVE HEART FAILURE. HX OF RIGHT KNEE ARTHROSCOPY DUE TO MENISCUS TEAR. diastolic dysfunction - Female History Hx Last Menstrual Period: complete hysterectomy Are you now?: No - Past Surgical History Past Surgical History: Yes Neuro Surgical History: No Pertinent History Cardiac History: Other Respiratory Surgery: No Pertinent History GI Surgical History: Cholecystectomy, Hernia Repair Genitourinary Surgical Hx: Kidney Surgery, Other Musculskeletal Surgical Hx: Other Female Surgical History: Hysterectomy, Other Other Surgical History: colonoscopy Jun 2023 "wall was very thin," urostomy, renal stents placed then removed, left heel surgery, port place and removal, abcess, degridement coccyx, left ankle Significant Family History: no pertinent family hx - Social History Smoking Status: Never smoker Exposure to second hand smoke: Yes Alcohol: None Drug Use: none - Social Determinants of Health Will the patient participate in the screening: Declined to provide Do you worry about a steady place to live?: No Do you have any problems with any of the following?: No known problems In the past 12 months,have you had to go without utilities?: Yes Have you or anyone in your house had to go without enough: Yes Transportation Issues: Yes Has anyone in your support network made you feel unsafe?: No Does the patient want assistance with any of the above?: No Comment: PATIENT STRUGGLES WITH GROCERIES WHEN SHE HAS APTS IN [place] THAT MONTH Medications & Allergies Home Medications: Home Medication List Ferrous Sulfate 325 mg PO DAILY 11/06/15 [History Confirmed 03/21/25] Insulin Glargine [Lantus Insulin] 85 units SQ BID 11/06/15 [History Confirmed 03/21/25] Acetaminophen [Tylenol Extra Strength] 1,000 mg PO Q6H PRN PRN 08/01/17 [History Confirmed 03/21/25] Fluoxetine HCl 20 mg [Prozac 20 MG] 20 mg PO DAILY 08/06/23 [History Confirmed 03/21/25] Magnesium Oxide 400 mg [Mag-Ox 400] 400 mg PO DAILY 08/06/23 [History Confirmed 03/21/25] Omeprazole 40 mg PO DAILY 08/06/23 [History Confirmed 03/21/25] Aspirin EC 81 mg [Ecotrin 81 mg] 81 mg PO DAILY 08/15/24 [History Confirmed 03/21/25] Ergocalciferol (Vitamin D2) [Vitamin D2] 1,250 mcg PO WEEKLY 08/15/24 [History Confirmed 03/21/25] Fluticasone Propionate [Flonase NASAL] 2 spray NS DAILY PRN PRN 08/15/24 [History Confirmed 03/21/25] Insulin Lispro [Humalog Kwikpen U-100] 35 unit SQ TIDWMEALS 08/15/24 [History Confirmed 03/21/25] buPROPion HCL [Bupropion Xl] 150 mg PO DAILY 08/15/24 [History Confirmed 03/21/25] Dapagliflozin Propanediol [Farxiga] 1 tab PO DAILY 10/24/24 [History Confirmed 03/21/25] Fluticasone/Vilanterol [Breo Ellipta 100-25 Mcg Inhalr] 1 spray IH DAILY 10/24/24 [History Confirmed 03/21/25] Levalbuterol Tartrate [Xopenex Hfa] 1 spray IH DAILY 10/24/24 [History Confirmed 03/21/25] Losartan/Hydrochlorothiazide [Losartan-Hctz 100-25 mg Tab] 1 each PO DAILY 11/28/24 [History Confirmed 03/21/25] Potassium Chloride [Klor-Con 10] 10 meq PO DAILY 11/28/24 [History Confirmed 03/21/25] Sodium Bicarbonate 650 mg PO BID 3 Days #6 tablet 01/25/25 [Rx Confirmed 03/21/25] Furosemide 20 mg [Lasix 20 mg] 20 mg PO DAILY 03/21/25 [History Confirmed 03/21/25] Hydrocodone/Acetaminophen [Hydrocodone-Acetamin 7.5-325] 1 tab PO Q6H PRN PRN 03/21/25 [History Confirmed 03/21/25] dilTIAZem HCL [Diltiazem ER] 240 mg PO DAILY 03/22/25 [History Confirmed 03/22/25] Allergies/Adverse Reactions: Allergies Allergy/AdvReac Type Severity Reaction Status Date / Time metoprolol Allergy Severe "flat Verified 02/18/25 10:10 lined" adhesive tape Allergy Rash Verified 02/18/25 10:10 latex Allergy Rash Verified 02/18/25 10:10 Sulfa (Sulfonamide Allergy Difficulty Verified 02/18/25 10:10 Antibiotics) Breathing sulfamethoxazole AdvReac Severe "messes up Verified 02/18/25 10:10 [From Bactrim] my kidneys" trimethoprim [From Bactrim] AdvReac Severe "messes up Verified 02/18/25 10:10 my kidneys" metformin AdvReac Intermediate liver Verified 08/11/25 10:10 problems Exam - Vitals Vital Signs: Vital Signs - 24 hr Temp Pulse Resp BP BP Pulse Ox 03/22/25 15:01 51 L 18 98/51 03/22/25 14:46 48 L 17 100/47 03/22/25 14:38 53 L 14 94/45 100 03/22/25 14:30 43 L 16 03/22/25 14:28 49 L 20 100 03/22/25 14:01 50 L 16 104/57 100 03/22/25 14:00 54 L 19 100 03/22/25 13:50 50 L 20 100 03/22/25 13:40 60 11 L 100 03/22/25 13:30 64 19 100 03/22/25 13:20 67 12 100 03/22/25 13:10 73 28 H 100 03/22/25 13:03 78 19 100 03/22/25 12:13 82 16 114/74 99 03/22/25 12:00 98.0 F 87 9 L 99 03/22/25 11:20 92 H 15 100 03/22/25 11:10 90 20 100 03/22/25 10:04 86 19 152/80 100 03/22/25 10:00 89 9 L 99 03/22/25 09:50 86 12 100 03/22/25 09:30 84 17 100 03/22/25 09:00 84 17 99 03/22/25 08:40 81 10 L 100 03/22/25 08:30 98.2 F 82 8 L 99 03/22/25 08:20 81 13 99 03/22/25 08:10 81 14 99 03/22/25 08:00 80 03/22/25 07:16 82 12 98 03/22/25 07:00 81 28 H 163/73 99 03/22/25 06:01 81 13 103/73 99 03/22/25 05:00 85 13 150/86 98 03/22/25 04:29 85 16 98 03/22/25 04:07 97.5 F 85 16 128/84 98 03/22/25 04:00 85 03/22/25 03:00 94 H 10 L 171/78 98 03/22/25 02:04 84 9 L 144/80 97 03/22/25 01:00 81 9 L 135/81 98 03/22/25 00:00 79 9 L 161/78 98 03/21/25 23:34 97 03/21/25 23:00 92 H 12 142/83 100 03/21/25 22:56 97.7 F 90 10 L 163/138 100 03/21/25 22:51 90 18 163/138 100 03/21/25 22:30 92 H 18 112/63 100 03/21/25 22:00 91 H 18 141/83 100 03/21/25 21:31 125/83 98 03/21/25 21:00 92 H 112/83 99 03/21/25 20:30 90 141/89 100 03/21/25 20:00 92 H 18 134/90 99 03/21/25 19:30 159/120 85 L 03/21/25 19:19 98 03/21/25 19:00 88 18 151/101 98 03/21/25 18:30 89 18 137/72 98 03/21/25 18:00 172/79 97 03/21/25 17:30 89 149/86 98 03/21/25 17:00 175/94 99 03/21/25 16:30 147/93 99 03/21/25 16:19 97.8 F 98 H 18 166/89 98 General:: alert and oriented x 4, no acute distress HEENT: EOMI Cardiovascular Exam: other (diffiult to auscultate, radha, regular) Respiratory Exam: normal breath sounds SpO2: 100 Gastrointestinal/Abdomen Exam: soft, other (obese) Extremity Exam: other (leg wrapped, 1+ edema) 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 II-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 grossly intact Results Vital Signs: Vital Signs - 24 hr Temp Pulse Resp BP BP Pulse Ox 03/22/25 15:01 51 L 18 98/51 03/22/25 14:46 48 L 17 100/47 03/22/25 14:38 53 L 14 94/45 100 03/22/25 14:30 43 L 16 03/22/25 14:28 49 L 20 100 03/22/25 14:01 50 L 16 104/57 100 03/22/25 14:00 54 L 19 100 03/22/25 13:50 50 L 20 100 03/22/25 13:40 60 11 L 100 03/22/25 13:30 64 19 100 03/22/25 13:20 67 12 100 03/22/25 13:10 73 28 H 100 03/22/25 13:03 78 19 100 03/22/25 12:13 82 16 114/74 99 03/22/25 12:00 98.0 F 87 9 L 99 03/22/25 11:20 92 H 15 100 03/22/25 11:10 90 20 100 03/22/25 10:04 86 19 152/80 100 03/22/25 10:00 89 9 L 99 03/22/25 09:50 86 12 100 03/22/25 09:30 84 17 100 03/22/25 09:00 84 17 99 03/22/25 08:40 81 10 L 100 03/22/25 08:30 98.2 F 82 8 L 99 03/22/25 08:20 81 13 99 03/22/25 08:10 81 14 99 03/22/25 08:00 80 03/22/25 07:16 82 12 98 03/22/25 07:00 81 28 H 163/73 99 03/22/25 06:01 81 13 103/73 99 03/22/25 05:00 85 13 150/86 98 03/22/25 04:29 85 16 98 03/22/25 04:07 97.5 F 85 16 128/84 98 03/22/25 04:00 85 03/22/25 03:00 94 H 10 L 171/78 98 03/22/25 02:04 84 9 L 144/80 97 03/22/25 01:00 81 9 L 135/81 98 03/22/25 00:00 79 9 L 161/78 98 03/21/25 23:34 97 03/21/25 23:00 92 H 12 142/83 100 03/21/25 22:56 97.7 F 90 10 L 163/138 100 03/21/25 22:51 90 18 163/138 100 03/21/25 22:30 92 H 18 112/63 100 03/21/25 22:00 91 H 18 141/83 100 03/21/25 21:31 125/83 98 03/21/25 21:00 92 H 112/83 99 03/21/25 20:30 90 141/89 100 03/21/25 20:00 92 H 18 134/90 99 03/21/25 19:30 159/120 85 L 03/21/25 19:19 98 03/21/25 19:00 88 18 151/101 98 03/21/25 18:30 89 18 137/72 98 03/21/25 18:00 172/79 97 03/21/25 17:30 89 149/86 98 03/21/25 17:00 175/94 99 03/21/25 16:30 147/93 99 03/21/25 16:19 97.8 F 98 H 18 166/89 98 Pain Assessment - Last Documented Pain Intensity 7 Pain Scale Used 0-10 Pain Scale Intake and Output: Intake & Output 03/20/25 03/21/25 03/22/25 03/23/25 11:59 11:59 11:59 11:59 Intake Total 1861 Output Total 525 Balance 1336 Weight 101.8 kg 101.8 kg LAB: I have reviewed the Labs in [place]. Radiology Exams: Radiology Procedures Category Date Time Status CHEST 1 VIEW (PORTABLE) Stat Exams 03/21/25 17:04 Completed Multi-Disciplinary Progress Notes: Multi-Disciplinary Progress Notes 03/22/25 11:52 Case Management Note by Simran Newell PATIENT HAS [facility]. THEY WERE NOTIFIED THAT PATIENT WAS HERE OBS. THEY WILL NEED NOTIFIED AT TIME OF DC AT [phone]. THEY WILL NEED FAXED THE DC INSTRUCTIONS, DC MED LIST AND DC SUMMARY (IF AVAILABLE) TO [phone]. Initialized on 03/22/25 11:52 - END OF NOTE Assessment & Plan (1) Medication overdose Current Visit: Yes Status: Acute Assessment & Plan: Patient has received double their usual dose of long acting dilt. She is now significantly fatigued and with the aforementioned EKG changes. She is warm and well perfused on exam and no evidence of CHF/shock on current history. Given EKG changes with sinus arrest and junctional escape in the setting of BPs softening, will plan to transfer to higher level of care in case she were to decompensate further. I reinforced that this transfer is strictly precautionary as we would be unable to effectively handle her case if she did indeed have further difficulties. Furthermore, her dilt formation is long acting so would expect these effects to stay around for a prolonged period of time. Of note, she is already on an insulin gtt which is part of the therapy for dilt overdose. Should she have further issues prior to transfer, atropine could be used as needed although it's effect would be temporary. Could also consider dobutamine gtt should she decompensate. Code(s): T50.901A - POISONING BY UNSP DRUG/MEDS/BIOL SUBST, ACCIDENTAL, INIT - Encounter Encounter: "The entirety of this encounter was performed via Telemedicine using audio and visual "
--- NOTE | 2025-03-22 15:27 | PCM.DS ---
Discharge Summary Date of Admission: 03/21/25 22:36 Date of Discharge: 03/22/25 Admitting Physician: JOE TOWNSEND MD Consults: Consults on Case 03/22/25 01:27 Consult Nephrology ROUTINE 03/22/25 13:59 Consult Cardiology ROUTINE Primary Care Provider: JENNIFER NAPOLES Allergies Allergies metoprolol Allergy (Severe, Verified 02/18/25 10:10) "flat lined" adhesive tape Allergy (Verified 02/18/25 10:10) Rash latex Allergy (Verified 02/18/25 10:10) Rash Sulfa (Sulfonamide Antibiotics) Allergy (Verified 02/18/25 10:10) Difficulty Breathing sulfamethoxazole [From Bactrim] Adverse Reaction (Severe, Verified 02/18/25 10:10) "messes up my kidneys" trimethoprim [From Bactrim] Adverse Reaction (Severe, Verified 02/18/25 10:10) "messes up my kidneys" metformin Adverse Reaction (Intermediate, Verified 02/18/25 10:10) liver problems Hospital Summary - Hospital Course Hospital Course: is a 49-year-old female with a past medical history of hypertension, hyperlipidemia, DVT, arrhythmia, type 2 diabetes mellitus, GERD, CKD stage III, depression, anxiety, cervical cancer status post chemotherapy and radiation with urostomy, histoplasmosis, and diastolic heart failure presented to the ED on 03/21/25 with several days of feeling unwell. She reported elevated blood sugars at her primary care visit. Historically, she required up to 90 units of Lantus twice daily and 35 units of Humalog three times daily, but all insulin was stopped in January after recurrent hypoglycemia. Insulin was restarted in mid- February with 20 units of Lantus twice daily, and on the day of admission she was instructed to increase to 85 units twice daily. She follows with an director of cardiology service line but has not been seen for several months. In the ED, she was hypertensive at 166/89 but otherwise hemodynamically stable. Labs showed glucose 282, CO2 12, anion gap 15, calcium 3.4, magnesium 1.7, sodium 132, and lactic acid 1.1. VBG revealed a pH of 7.23, consistent with acidosis. Urinalysis was negative for infection. She reported polydipsia, polyuria, abdominal pain, nausea, and one episode of nonbloody, nonbilious emesis. Chest X-ray was negative. She was started on an insulin drip and IV fluids in the ED. On 03/22, the patient reported not feeling well. Her morning CO2 was 10. The insulin drip had been discontinued the previous night and Lantus was administered. She received a 1-liter normal saline bolus and was started on a sodium bicarbonate infusion. Plans were made to recheck labs at noon, with consideration to restart the insulin drip if CO2 did not improve. Creatinine was 1.56, showing improvement from prior. She denied any additional concerns at this time. Pt placed back on insulin gtt for DKA protocol, CO2 9. HR dropped into 30's as pt received Cardizem 420 mg this AM, only supposed to be on 240 mg daily. Nurse called pt's line maintenance technician Dr. Wilhelm and pt is supposed to be on half that dose. Repeat EKG ordered and stat consult with tele-cardiology ordered. He advised pt needs tx to higher level of care based off EKG readings and her heart hx as she could decline quickly. RNMarco called [facility] for tx of higher level of care and Dr. Muhammad made aware. - Vitals & Intake/Output Vital Signs: Vital Signs Temperature 98.0 F 03/22/25 12:00 Pulse Rate 51 L 03/22/25 15:01 Respiratory Rate 18 03/22/25 15:01 Blood Pressure 98/51 03/22/25 15:01 O2 Sat by Pulse Oximetry 100 03/22/25 14:38 Intake & Output: Intake & Output 03/20/25 03/21/25 03/22/25 03/23/25 11:59 11:59 11:59 11:59 Intake Total 1861 Output Total 525 Balance 1336 Weight 101.8 kg 101.8 kg - Lab Result Diagrams: 03/22/25 05:30 03/22/25 14:45 Lab Results-Last 24 Hrs: Lab Results-Last 24 Hours 03/21/25 03/21/25 03/21/25 Range/Units 00:05 15:57 16:27 WBC 10.1 H (3.98-10.04) x10^3/uL RBC 4.87 (3.93-5.22) x10^6/uL Hgb 12.6 (11.2-15.7) g/dL Hct 39.0 (34.1-44.9) % MCV 80.1 (79.4-94.8) fL MCH 25.9 (25.6-32.2) pg MCHC 32.3 (32.2-35.5) g/dL RDW 15.9 H (11.7-14.4) % Plt Count 444 H (182-369) x10^3/uL MPV 9.7 (9.4-12.3) fL Gran % (34.0-71.1) % Immature Gran % (Auto) (0.001-0.429) % Nucleat RBC Rel Count (0.00-0.2) % Eos # (Auto) (0.04-0.36) x10^3/uL Immature Gran # (Auto) (0.001-0.031) x10^3u/L Absolute Lymphs (auto) (1.18-3.74) x10^3/uL Absolute Monos (auto) (0.24-0.86) x10^3/uL Absolute Nucleated RBC (0.00-0.012) x10^3u/L Lymphocytes % (19.3-51.7) % Monocytes % (4.7-12.5) % Eosinophils % (0.7-5.8) % Basophils % (0.1-1.2) % Absolute Granulocytes (1.56-6.13) x10^3/uL Basophils # (0.01-0.08) x10^3/uL pO2/FiO2 Ratio % VBG pH (7.32-7.42) VBG pCO2 at Pat Temp (42-55) mm/Hg VBG pO2 at Pat Temp (25-40) mm/Hg VBG HCO3 (22-28) meq/L VBG O2 Sat (Lisa) (95-100) VBG Base Excess (-2.0-2.0) VBG Hemoglobin VBG Carboxyhemoglobin (0.0-6.9) % T HGB POC Potassium (3.5-5.1) Sodium (135-145) mmol/L Potassium (3.5-5.1) mmol/L Chloride (98-107) mmol/L Carbon Dioxide (22-30) mmol/L Anion Gap (5-15) MEQ/L BUN (7-17) mg/dL Creatinine (0.52-1.04) mg/dL Estimated GFR ML/MIN Glucose (74-106) mg/dL POC Glucometer 394 H (74 to 106) mg/dL Lactic Acid (0.4-2.0) Calcium (8.4-10.2) mg/dL Phosphorus (2.5-4.5) mg/dL Magnesium 1.7 (1.6-2.3) mg/dL Total Bilirubin (0.2-1.3) mg/dL AST (14-36) U/L ALT (0-35) U/L Alkaline Phosphatase (38-126) U/L Troponin I (0.000-0.033) ng/mL Serum Total Protein (6.3-8.2) g/dL Albumin (3.5-5.0) g/dL Prealbumin (17.6-36.0) mg/dL Urine Color (Yellow) Urine Appearance (Clear) Urine pH (4.6-8.0) Ur Specific [place] (1.005-1.030) Urine Protein (Negative) Urine Glucose (UA) (Negative) mg/dL Urine Ketones (Negative) Urine Blood (Negative) Urine Nitrite (Negative) Urine Bilirubin (Negative) Urine Urobilinogen (0.2) mg/dL Ur Leukocyte Esterase (Negative) U Hyaline Cast (Auto) (0-2) /LPF Urine Microscopic RBC (0-5) /HPF Urine Microscopic WBC (0-5) /HPF Ur Epithelial Cells (None Seen) /HPF Urine Bacteria (None Seen) /HPF Urine Culture Reflexed (NO) Salicylates (2-20) mg/dL Acetaminophen (10-30) ug/ml Ethyl Alcohol (0-10) mg/dL 03/21/25 03/21/25 03/21/25 Range/Units 17:15 17:30 20:01 WBC (3.98-10.04) x10^3/uL RBC (3.93-5.22) x10^6/uL Hgb (11.2-15.7) g/dL Hct (34.1-44.9) % MCV (79.4-94.8) fL MCH (25.6-32.2) pg MCHC (32.2-35.5) g/dL RDW (11.7-14.4) % Plt Count (182-369) x10^3/uL MPV (9.4-12.3) fL Gran % (34.0-71.1) % Immature Gran % (Auto) (0.001-0.429) % Nucleat RBC Rel Count (0.00-0.2) % Eos # (Auto) (0.04-0.36) x10^3/uL Immature Gran # (Auto) (0.001-0.031) x10^3u/L Absolute Lymphs (auto) (1.18-3.74) x10^3/uL Absolute Monos (auto) (0.24-0.86) x10^3/uL Absolute Nucleated RBC (0.00-0.012) x10^3u/L Lymphocytes % (19.3-51.7) % Monocytes % (4.7-12.5) % Eosinophils % (0.7-5.8) % Basophils % (0.1-1.2) % Absolute Granulocytes (1.56-6.13) x10^3/uL Basophils # (0.01-0.08) x10^3/uL pO2/FiO2 Ratio 21.0 % VBG pH 7.23 L* (7.32-7.42) VBG pCO2 at Pat Temp 38 L (42-55) mm/Hg VBG pO2 at Pat Temp 35 (25-40) mm/Hg VBG HCO3 15.9 L* (22-28) meq/L VBG O2 Sat (Lisa) 71.0 L (95-100) VBG Base Excess -10.9 L (-2.0-2.0) VBG Hemoglobin 13.1 VBG Carboxyhemoglobin 7.3 H* (0.0-6.9) % T HGB POC Potassium 4.3 (3.5-5.1) Sodium (135-145) mmol/L Potassium (3.5-5.1) mmol/L Chloride (98-107) mmol/L Carbon Dioxide (22-30) mmol/L Anion Gap (5-15) MEQ/L BUN (7-17) mg/dL Creatinine (0.52-1.04) mg/dL Estimated GFR ML/MIN Glucose (74-106) mg/dL POC Glucometer 299 H (74 to 106) mg/dL Lactic Acid (0.4-2.0) Calcium (8.4-10.2) mg/dL Phosphorus (2.5-4.5) mg/dL Magnesium (1.6-2.3) mg/dL Total Bilirubin (0.2-1.3) mg/dL AST (14-36) U/L ALT (0-35) U/L Alkaline Phosphatase (38-126) U/L Troponin I (0.000-0.033) ng/mL Serum Total Protein (6.3-8.2) g/dL Albumin (3.5-5.0) g/dL Prealbumin (17.6-36.0) mg/dL Urine Color Yellow (Yellow) Urine Appearance Clear (Clear) Urine pH 7.0 (4.6-8.0) Ur Specific [place] 1.010 (1.005-1.030) Urine Protein 300 A (Negative) Urine Glucose (UA) 250 A (Negative) mg/dL Urine Ketones Negative (Negative) Urine Blood Small A (Negative) Urine Nitrite Negative (Negative) Urine Bilirubin Negative (Negative) Urine Urobilinogen 0.2 (0.2) mg/dL Ur Leukocyte Esterase Negative (Negative) U Hyaline Cast (Auto) NONE SEEN (0-2) /LPF Urine Microscopic RBC 3-5 (0-5) /HPF Urine Microscopic WBC 6-10 A (0-5) /HPF Ur Epithelial Cells None Seen (None Seen) /HPF Urine Bacteria None Seen (None Seen) /HPF Urine Culture Reflexed NO (NO) Salicylates (2-20) mg/dL Acetaminophen (10-30) ug/ml Ethyl Alcohol (0-10) mg/dL 03/21/25 03/21/25 03/21/25 Range/Units 20:40 20:40 20:45 WBC 9.3 (3.98-10.04) x10^3/uL RBC 4.62 (3.93-5.22) x10^6/uL Hgb 11.7 (11.2-15.7) g/dL Hct 37.2 (34.1-44.9) % MCV 80.5 (79.4-94.8) fL MCH 25.3 L (25.6-32.2) pg MCHC 31.5 L (32.2-35.5) g/dL RDW 15.9 H (11.7-14.4) % Plt Count 392 H (182-369) x10^3/uL MPV 9.5 (9.4-12.3) fL Gran % 63.8 (34.0-71.1) % Immature Gran % (Auto) 1.9 H (0.001-0.429) % Nucleat RBC Rel Count 0.0 (0.00-0.2) % Eos # (Auto) 0.29 (0.04-0.36) x10^3/uL Immature Gran # (Auto) 0.18 H (0.001-0.031) x10^3u/L Absolute Lymphs (auto) 1.99 (1.18-3.74) x10^3/uL Absolute Monos (auto) 0.79 (0.24-0.86) x10^3/uL Absolute Nucleated RBC 0.00 (0.00-0.012) x10^3u/L Lymphocytes % 21.5 (19.3-51.7) % Monocytes % 8.5 (4.7-12.5) % Eosinophils % 3.1 (0.7-5.8) % Basophils % 1.2 (0.1-1.2) % Absolute Granulocytes 5.91 (1.56-6.13) x10^3/uL Basophils # 0.11 H (0.01-0.08) x10^3/uL pO2/FiO2 Ratio % VBG pH (7.32-7.42) VBG pCO2 at Pat Temp (42-55) mm/Hg VBG pO2 at Pat Temp (25-40) mm/Hg VBG HCO3 (22-28) meq/L VBG O2 Sat (Lisa) (95-100) VBG Base Excess (-2.0-2.0) VBG Hemoglobin VBG Carboxyhemoglobin (0.0-6.9) % T HGB POC Potassium (3.5-5.1) Sodium 132 L (135-145) mmol/L Potassium 3.4 L (3.5-5.1) mmol/L Chloride 108 H (98-107) mmol/L Carbon Dioxide 12 L* (22-30) mmol/L Anion Gap 15.0 (5-15) MEQ/L BUN 48 H (7-17) mg/dL Creatinine 1.84 H (0.52-1.04) mg/dL Estimated GFR 32.8 ML/MIN Glucose 282 H (74-106) mg/dL POC Glucometer (74 to 106) mg/dL Lactic Acid 1.1 (0.4-2.0) Calcium 8.7 (8.4-10.2) mg/dL Phosphorus (2.5-4.5) mg/dL Magnesium (1.6-2.3) mg/dL Total Bilirubin < 0.10 L (0.2-1.3) mg/dL AST 17 (14-36) U/L ALT 16 (0-35) U/L Alkaline Phosphatase 136 H (38-126) U/L Troponin I (0.000-0.033) ng/mL Serum Total Protein 6.7 (6.3-8.2) g/dL Albumin 3.3 L (3.5-5.0) g/dL Prealbumin (17.6-36.0) mg/dL Urine Color (Yellow) Urine Appearance (Clear) Urine pH (4.6-8.0) Ur Specific [place] (1.005-1.030) Urine Protein (Negative) Urine Glucose (UA) (Negative) mg/dL Urine Ketones (Negative) Urine Blood (Negative) Urine Nitrite (Negative) Urine Bilirubin (Negative) Urine Urobilinogen (0.2) mg/dL Ur Leukocyte Esterase (Negative) U Hyaline Cast (Auto) (0-2) /LPF Urine Microscopic RBC (0-5) /HPF Urine Microscopic WBC (0-5) /HPF Ur Epithelial Cells (None Seen) /HPF Urine Bacteria (None Seen) /HPF Urine Culture Reflexed (NO) Salicylates (2-20) mg/dL Acetaminophen (10-30) ug/ml Ethyl Alcohol (0-10) mg/dL 03/21/25 03/21/25 03/22/25 Range/Units 22:27 23:02 00:05 WBC (3.98-10.04) x10^3/uL RBC (3.93-5.22) x10^6/uL Hgb (11.2-15.7) g/dL Hct (34.1-44.9) % MCV (79.4-94.8) fL MCH (25.6-32.2) pg MCHC (32.2-35.5) g/dL RDW (11.7-14.4) % Plt Count (182-369) x10^3/uL MPV (9.4-12.3) fL Gran % (34.0-71.1) % Immature Gran % (Auto) (0.001-0.429) % Nucleat RBC Rel Count (0.00-0.2) % Eos # (Auto) (0.04-0.36) x10^3/uL Immature Gran # (Auto) (0.001-0.031) x10^3u/L Absolute Lymphs (auto) (1.18-3.74) x10^3/uL Absolute Monos (auto) (0.24-0.86) x10^3/uL Absolute Nucleated RBC (0.00-0.012) x10^3u/L Lymphocytes % (19.3-51.7) % Monocytes % (4.7-12.5) % Eosinophils % (0.7-5.8) % Basophils % (0.1-1.2) % Absolute Granulocytes (1.56-6.13) x10^3/uL Basophils # (0.01-0.08) x10^3/uL pO2/FiO2 Ratio % VBG pH (7.32-7.42) VBG pCO2 at Pat Temp (42-55) mm/Hg VBG pO2 at Pat Temp (25-40) mm/Hg VBG HCO3 (22-28) meq/L VBG O2 Sat (Lisa) (95-100) VBG Base Excess (-2.0-2.0) VBG Hemoglobin VBG Carboxyhemoglobin (0.0-6.9) % T HGB POC Potassium (3.5-5.1) Sodium 136 (135-145) mmol/L Potassium 3.2 L (3.5-5.1) mmol/L Chloride 112 H (98-107) mmol/L Carbon Dioxide 11 L* (22-30) mmol/L Anion Gap 15.5 H (5-15) MEQ/L BUN 47 H (7-17) mg/dL Creatinine 1.77 H (0.52-1.04) mg/dL Estimated GFR 34.4 ML/MIN Glucose 64 L (74-106) mg/dL POC Glucometer 158 H 104 (74 to 106) mg/dL Lactic Acid (0.4-2.0) Calcium 9.2 (8.4-10.2) mg/dL Phosphorus 2.8 (2.5-4.5) mg/dL Magnesium 1.8 (1.6-2.3) mg/dL Total Bilirubin (0.2-1.3) mg/dL AST (14-36) U/L ALT (0-35) U/L Alkaline Phosphatase (38-126) U/L Troponin I (0.000-0.033) ng/mL Serum Total Protein (6.3-8.2) g/dL Albumin (3.5-5.0) g/dL Prealbumin (17.6-36.0) mg/dL Urine Color (Yellow) Urine Appearance (Clear) Urine pH (4.6-8.0) Ur Specific [place] (1.005-1.030) Urine Protein (Negative) Urine Glucose (UA) (Negative) mg/dL Urine Ketones (Negative) Urine Blood (Negative) Urine Nitrite (Negative) Urine Bilirubin (Negative) Urine Urobilinogen (0.2) mg/dL Ur Leukocyte Esterase (Negative) U Hyaline Cast (Auto) (0-2) /LPF Urine Microscopic RBC (0-5) /HPF Urine Microscopic WBC (0-5) /HPF Ur Epithelial Cells (None Seen) /HPF Urine Bacteria (None Seen) /HPF Urine Culture Reflexed (NO) Salicylates (2-20) mg/dL Acetaminophen (10-30) ug/ml Ethyl Alcohol (0-10) mg/dL 03/22/25 03/22/25 03/22/25 Range/Units 00:17 00:19 00:43 WBC (3.98-10.04) x10^3/uL RBC (3.93-5.22) x10^6/uL Hgb (11.2-15.7) g/dL Hct (34.1-44.9) % MCV (79.4-94.8) fL MCH (25.6-32.2) pg MCHC (32.2-35.5) g/dL RDW (11.7-14.4) % Plt Count (182-369) x10^3/uL MPV (9.4-12.3) fL Gran % (34.0-71.1) % Immature Gran % (Auto) (0.001-0.429) % Nucleat RBC Rel Count (0.00-0.2) % Eos # (Auto) (0.04-0.36) x10^3/uL Immature Gran # (Auto) (0.001-0.031) x10^3u/L Absolute Lymphs (auto) (1.18-3.74) x10^3/uL Absolute Monos (auto) (0.24-0.86) x10^3/uL Absolute Nucleated RBC (0.00-0.012) x10^3u/L Lymphocytes % (19.3-51.7) % Monocytes % (4.7-12.5) % Eosinophils % (0.7-5.8) % Basophils % (0.1-1.2) % Absolute Granulocytes (1.56-6.13) x10^3/uL Basophils # (0.01-0.08) x10^3/uL pO2/FiO2 Ratio 21.0 % VBG pH 7.32 (7.32-7.42) VBG pCO2 at Pat Temp 24 L (42-55) mm/Hg VBG pO2 at Pat Temp 80 H (25-40) mm/Hg VBG HCO3 12.4 L* (22-28) meq/L VBG O2 Sat (Lisa) 98.2 (95-100) VBG Base Excess -11.9 L (-2.0-2.0) VBG Hemoglobin 12.9 VBG Carboxyhemoglobin 2.6 (0.0-6.9) % T HGB POC Potassium 3.3 L (3.5-5.1) Sodium (135-145) mmol/L Potassium (3.5-5.1) mmol/L Chloride (98-107) mmol/L Carbon Dioxide (22-30) mmol/L Anion Gap (5-15) MEQ/L BUN (7-17) mg/dL Creatinine (0.52-1.04) mg/dL Estimated GFR ML/MIN Glucose (74-106) mg/dL POC Glucometer 56 L 120 H (74 to 106) mg/dL Lactic Acid (0.4-2.0) Calcium (8.4-10.2) mg/dL Phosphorus (2.5-4.5) mg/dL Magnesium (1.6-2.3) mg/dL Total Bilirubin (0.2-1.3) mg/dL AST (14-36) U/L ALT (0-35) U/L Alkaline Phosphatase (38-126) U/L Troponin I (0.000-0.033) ng/mL Serum Total Protein (6.3-8.2) g/dL Albumin (3.5-5.0) g/dL Prealbumin (17.6-36.0) mg/dL Urine Color (Yellow) Urine Appearance (Clear) Urine pH (4.6-8.0) Ur Specific [place] (1.005-1.030) Urine Protein (Negative) Urine Glucose (UA) (Negative) mg/dL Urine Ketones (Negative) Urine Blood (Negative) Urine Nitrite (Negative) Urine Bilirubin (Negative) Urine Urobilinogen (0.2) mg/dL Ur Leukocyte Esterase (Negative) U Hyaline Cast (Auto) (0-2) /LPF Urine Microscopic RBC (0-5) /HPF Urine Microscopic WBC (0-5) /HPF Ur Epithelial Cells (None Seen) /HPF Urine Bacteria (None Seen) /HPF Urine Culture Reflexed (NO) Salicylates (2-20) mg/dL Acetaminophen (10-30) ug/ml Ethyl Alcohol (0-10) mg/dL 03/22/25 03/22/25 03/22/25 Range/Units 01:20 02:07 03:03 WBC (3.98-10.04) x10^3/uL RBC (3.93-5.22) x10^6/uL Hgb (11.2-15.7) g/dL Hct (34.1-44.9) % MCV (79.4-94.8) fL MCH (25.6-32.2) pg MCHC (32.2-35.5) g/dL RDW (11.7-14.4) % Plt Count (182-369) x10^3/uL MPV (9.4-12.3) fL Gran % (34.0-71.1) % Immature Gran % (Auto) (0.001-0.429) % Nucleat RBC Rel Count (0.00-0.2) % Eos # (Auto) (0.04-0.36) x10^3/uL Immature Gran # (Auto) (0.001-0.031) x10^3u/L Absolute Lymphs (auto) (1.18-3.74) x10^3/uL Absolute Monos (auto) (0.24-0.86) x10^3/uL Absolute Nucleated RBC (0.00-0.012) x10^3u/L Lymphocytes % (19.3-51.7) % Monocytes % (4.7-12.5) % Eosinophils % (0.7-5.8) % Basophils % (0.1-1.2) % Absolute Granulocytes (1.56-6.13) x10^3/uL Basophils # (0.01-0.08) x10^3/uL pO2/FiO2 Ratio % VBG pH (7.32-7.42) VBG pCO2 at Pat Temp (42-55) mm/Hg VBG pO2 at Pat Temp (25-40) mm/Hg VBG HCO3 (22-28) meq/L VBG O2 Sat (Lisa) (95-100) VBG Base Excess (-2.0-2.0) VBG Hemoglobin VBG Carboxyhemoglobin (0.0-6.9) % T HGB POC Potassium (3.5-5.1) Sodium (135-145) mmol/L Potassium (3.5-5.1) mmol/L Chloride (98-107) mmol/L Carbon Dioxide (22-30) mmol/L Anion Gap (5-15) MEQ/L BUN (7-17) mg/dL Creatinine (0.52-1.04) mg/dL Estimated GFR ML/MIN Glucose (74-106) mg/dL POC Glucometer 105 125 H 167 H (74 to 106) mg/dL Lactic Acid (0.4-2.0) Calcium (8.4-10.2) mg/dL Phosphorus (2.5-4.5) mg/dL Magnesium (1.6-2.3) mg/dL Total Bilirubin (0.2-1.3) mg/dL AST (14-36) U/L ALT (0-35) U/L Alkaline Phosphatase (38-126) U/L Troponin I (0.000-0.033) ng/mL Serum Total Protein (6.3-8.2) g/dL Albumin (3.5-5.0) g/dL Prealbumin (17.6-36.0) mg/dL Urine Color (Yellow) Urine Appearance (Clear) Urine pH (4.6-8.0) Ur Specific [place] (1.005-1.030) Urine Protein (Negative) Urine Glucose (UA) (Negative) mg/dL Urine Ketones (Negative) Urine Blood (Negative) Urine Nitrite (Negative) Urine Bilirubin (Negative) Urine Urobilinogen (0.2) mg/dL Ur Leukocyte Esterase (Negative) U Hyaline Cast (Auto) (0-2) /LPF Urine Microscopic RBC (0-5) /HPF Urine Microscopic WBC (0-5) /HPF Ur Epithelial Cells (None Seen) /HPF Urine Bacteria (None Seen) /HPF Urine Culture Reflexed (NO) Salicylates (2-20) mg/dL Acetaminophen (10-30) ug/ml Ethyl Alcohol (0-10) mg/dL 03/22/25 03/22/25 03/22/25 Range/Units 04:08 05:14 05:30 WBC 7.8 (3.98-10.04) x10^3/uL RBC 4.31 (3.93-5.22) x10^6/uL Hgb 11.0 L (11.2-15.7) g/dL Hct 34.8 (34.1-44.9) % MCV 80.7 (79.4-94.8) fL MCH 25.5 L (25.6-32.2) pg MCHC 31.6 L (32.2-35.5) g/dL RDW 16.3 H (11.7-14.4) % Plt Count 396 H (182-369) x10^3/uL MPV 9.8 (9.4-12.3) fL Gran % (34.0-71.1) % Immature Gran % (Auto) (0.001-0.429) % Nucleat RBC Rel Count (0.00-0.2) % Eos # (Auto) (0.04-0.36) x10^3/uL Immature Gran # (Auto) (0.001-0.031) x10^3u/L Absolute Lymphs (auto) (1.18-3.74) x10^3/uL Absolute Monos (auto) (0.24-0.86) x10^3/uL Absolute Nucleated RBC (0.00-0.012) x10^3u/L Lymphocytes % (19.3-51.7) % Monocytes % (4.7-12.5) % Eosinophils % (0.7-5.8) % Basophils % (0.1-1.2) % Absolute Granulocytes (1.56-6.13) x10^3/uL Basophils # (0.01-0.08) x10^3/uL pO2/FiO2 Ratio % VBG pH (7.32-7.42) VBG pCO2 at Pat Temp (42-55) mm/Hg VBG pO2 at Pat Temp (25-40) mm/Hg VBG HCO3 (22-28) meq/L VBG O2 Sat (Lisa) (95-100) VBG Base Excess (-2.0-2.0) VBG Hemoglobin VBG Carboxyhemoglobin (0.0-6.9) % T HGB POC Potassium (3.5-5.1) Sodium (135-145) mmol/L Potassium (3.5-5.1) mmol/L Chloride (98-107) mmol/L Carbon Dioxide (22-30) mmol/L Anion Gap (5-15) MEQ/L BUN (7-17) mg/dL Creatinine (0.52-1.04) mg/dL Estimated GFR ML/MIN Glucose (74-106) mg/dL POC Glucometer 196 H 209 H (74 to 106) mg/dL Lactic Acid (0.4-2.0) Calcium (8.4-10.2) mg/dL Phosphorus (2.5-4.5) mg/dL Magnesium (1.6-2.3) mg/dL Total Bilirubin (0.2-1.3) mg/dL AST (14-36) U/L ALT (0-35) U/L Alkaline Phosphatase (38-126) U/L Troponin I (0.000-0.033) ng/mL Serum Total Protein (6.3-8.2) g/dL Albumin (3.5-5.0) g/dL Prealbumin (17.6-36.0) mg/dL Urine Color (Yellow) Urine Appearance (Clear) Urine pH (4.6-8.0) Ur Specific [place] (1.005-1.030) Urine Protein (Negative) Urine Glucose (UA) (Negative) mg/dL Urine Ketones (Negative) Urine Blood (Negative) Urine Nitrite (Negative) Urine Bilirubin (Negative) Urine Urobilinogen (0.2) mg/dL Ur Leukocyte Esterase (Negative) U Hyaline Cast (Auto) (0-2) /LPF Urine Microscopic RBC (0-5) /HPF Urine Microscopic WBC (0-5) /HPF Ur Epithelial Cells (None Seen) /HPF Urine Bacteria (None Seen) /HPF Urine Culture Reflexed (NO) Salicylates (2-20) mg/dL Acetaminophen (10-30) ug/ml Ethyl Alcohol (0-10) mg/dL 03/22/25 03/22/25 03/22/25 Range/Units 05:30 05:30 05:54 WBC (3.98-10.04) x10^3/uL RBC (3.93-5.22) x10^6/uL Hgb (11.2-15.7) g/dL Hct (34.1-44.9) % MCV (79.4-94.8) fL MCH (25.6-32.2) pg MCHC (32.2-35.5) g/dL RDW (11.7-14.4) % Plt Count (182-369) x10^3/uL MPV (9.4-12.3) fL Gran % (34.0-71.1) % Immature Gran % (Auto) (0.001-0.429) % Nucleat RBC Rel Count (0.00-0.2) % Eos # (Auto) (0.04-0.36) x10^3/uL Immature Gran # (Auto) (0.001-0.031) x10^3u/L Absolute Lymphs (auto) (1.18-3.74) x10^3/uL Absolute Monos (auto) (0.24-0.86) x10^3/uL Absolute Nucleated RBC (0.00-0.012) x10^3u/L Lymphocytes % (19.3-51.7) % Monocytes % (4.7-12.5) % Eosinophils % (0.7-5.8) % Basophils % (0.1-1.2) % Absolute Granulocytes (1.56-6.13) x10^3/uL Basophils # (0.01-0.08) x10^3/uL pO2/FiO2 Ratio % VBG pH (7.32-7.42) VBG pCO2 at Pat Temp (42-55) mm/Hg VBG pO2 at Pat Temp (25-40) mm/Hg VBG HCO3 (22-28) meq/L VBG O2 Sat (Lisa) (95-100) VBG Base Excess (-2.0-2.0) VBG Hemoglobin VBG Carboxyhemoglobin (0.0-6.9) % T HGB POC Potassium (3.5-5.1) Sodium 131 L (135-145) mmol/L Potassium 4.1 D (3.5-5.1) mmol/L Chloride 113 H (98-107) mmol/L Carbon Dioxide 9 L* (22-30) mmol/L Anion Gap 13.7 (5-15) MEQ/L BUN 44 H (7-17) mg/dL Creatinine 1.61 H (0.52-1.04) mg/dL Estimated GFR 38.5 ML/MIN Glucose 230 H (74-106) mg/dL POC Glucometer 211 H (74 to 106) mg/dL Lactic Acid (0.4-2.0) Calcium 8.5 (8.4-10.2) mg/dL Phosphorus (2.5-4.5) mg/dL Magnesium (1.6-2.3) mg/dL Total Bilirubin (0.2-1.3) mg/dL AST (14-36) U/L ALT (0-35) U/L Alkaline Phosphatase (38-126) U/L Troponin I (0.000-0.033) ng/mL Serum Total Protein (6.3-8.2) g/dL Albumin (3.5-5.0) g/dL Prealbumin 14.64 L (17.6-36.0) mg/dL Urine Color (Yellow) Urine Appearance (Clear) Urine pH (4.6-8.0) Ur Specific [place] (1.005-1.030) Urine Protein (Negative) Urine Glucose (UA) (Negative) mg/dL Urine Ketones (Negative) Urine Blood (Negative) Urine Nitrite (Negative) Urine Bilirubin (Negative) Urine Urobilinogen (0.2) mg/dL Ur Leukocyte Esterase (Negative) U Hyaline Cast (Auto) (0-2) /LPF Urine Microscopic RBC (0-5) /HPF Urine Microscopic WBC (0-5) /HPF Ur Epithelial Cells (None Seen) /HPF Urine Bacteria (None Seen) /HPF Urine Culture Reflexed (NO) Salicylates < 1.0 L (2-20) mg/dL Acetaminophen < 10 L (10-30) ug/ml Ethyl Alcohol < 10 (0-10) mg/dL 03/22/25 03/22/25 03/22/25 Range/Units 06:35 07:25 07:55 WBC (3.98-10.04) x10^3/uL RBC (3.93-5.22) x10^6/uL Hgb (11.2-15.7) g/dL Hct (34.1-44.9) % MCV (79.4-94.8) fL MCH (25.6-32.2) pg MCHC (32.2-35.5) g/dL RDW (11.7-14.4) % Plt Count (182-369) x10^3/uL MPV (9.4-12.3) fL Gran % (34.0-71.1) % Immature Gran % (Auto) (0.001-0.429) % Nucleat RBC Rel Count (0.00-0.2) % Eos # (Auto) (0.04-0.36) x10^3/uL Immature Gran # (Auto) (0.001-0.031) x10^3u/L Absolute Lymphs (auto) (1.18-3.74) x10^3/uL Absolute Monos (auto) (0.24-0.86) x10^3/uL Absolute Nucleated RBC (0.00-0.012) x10^3u/L Lymphocytes % (19.3-51.7) % Monocytes % (4.7-12.5) % Eosinophils % (0.7-5.8) % Basophils % (0.1-1.2) % Absolute Granulocytes (1.56-6.13) x10^3/uL Basophils # (0.01-0.08) x10^3/uL pO2/FiO2 Ratio 28.0 % VBG pH 7.26 L (7.32-7.42) VBG pCO2 at Pat Temp 27 L (42-55) mm/Hg VBG pO2 at Pat Temp 63 H (25-40) mm/Hg VBG HCO3 12.1 L* (22-28) meq/L VBG O2 Sat (Lisa) 95.6 (95-100) VBG Base Excess -13.4 L (-2.0-2.0) VBG Hemoglobin 12.2 VBG Carboxyhemoglobin 4.8 (0.0-6.9) % T HGB POC Potassium 4.2 (3.5-5.1) Sodium 133 L (135-145) mmol/L Potassium 3.9 (3.5-5.1) mmol/L Chloride 113 H (98-107) mmol/L Carbon Dioxide 10 L* (22-30) mmol/L Anion Gap 13.4 (5-15) MEQ/L BUN 41 H (7-17) mg/dL Creatinine 1.66 H (0.52-1.04) mg/dL Estimated GFR 37.1 ML/MIN Glucose 241 H (74-106) mg/dL POC Glucometer 214 H (74 to 106) mg/dL Lactic Acid (0.4-2.0) Calcium 8.4 (8.4-10.2) mg/dL Phosphorus (2.5-4.5) mg/dL Magnesium (1.6-2.3) mg/dL Total Bilirubin < 0.10 L (0.2-1.3) mg/dL AST 20 (14-36) U/L ALT 14 (0-35) U/L Alkaline Phosphatase 112 (38-126) U/L Troponin I (0.000-0.033) ng/mL Serum Total Protein 5.8 L (6.3-8.2) g/dL Albumin 2.7 L (3.5-5.0) g/dL Prealbumin (17.6-36.0) mg/dL Urine Color (Yellow) Urine Appearance (Clear) Urine pH (4.6-8.0) Ur Specific [place] (1.005-1.030) Urine Protein (Negative) Urine Glucose (UA) (Negative) mg/dL Urine Ketones (Negative) Urine Blood (Negative) Urine Nitrite (Negative) Urine Bilirubin (Negative) Urine Urobilinogen (0.2) mg/dL Ur Leukocyte Esterase (Negative) U Hyaline Cast (Auto) (0-2) /LPF Urine Microscopic RBC (0-5) /HPF Urine Microscopic WBC (0-5) /HPF Ur Epithelial Cells (None Seen) /HPF Urine Bacteria (None Seen) /HPF Urine Culture Reflexed (NO) Salicylates (2-20) mg/dL Acetaminophen (10-30) ug/ml Ethyl Alcohol (0-10) mg/dL 03/22/25 03/22/25 03/22/25 Range/Units 07:58 10:01 12:08 WBC (3.98-10.04) x10^3/uL RBC (3.93-5.22) x10^6/uL Hgb (11.2-15.7) g/dL Hct (34.1-44.9) % MCV (79.4-94.8) fL MCH (25.6-32.2) pg MCHC (32.2-35.5) g/dL RDW (11.7-14.4) % Plt Count (182-369) x10^3/uL MPV (9.4-12.3) fL Gran % (34.0-71.1) % Immature Gran % (Auto) (0.001-0.429) % Nucleat RBC Rel Count (0.00-0.2) % Eos # (Auto) (0.04-0.36) x10^3/uL Immature Gran # (Auto) (0.001-0.031) x10^3u/L Absolute Lymphs (auto) (1.18-3.74) x10^3/uL Absolute Monos (auto) (0.24-0.86) x10^3/uL Absolute Nucleated RBC (0.00-0.012) x10^3u/L Lymphocytes % (19.3-51.7) % Monocytes % (4.7-12.5) % Eosinophils % (0.7-5.8) % Basophils % (0.1-1.2) % Absolute Granulocytes (1.56-6.13) x10^3/uL Basophils # (0.01-0.08) x10^3/uL pO2/FiO2 Ratio % VBG pH (7.32-7.42) VBG pCO2 at Pat Temp (42-55) mm/Hg VBG pO2 at Pat Temp (25-40) mm/Hg VBG HCO3 (22-28) meq/L VBG O2 Sat (Lisa) (95-100) VBG Base Excess (-2.0-2.0) VBG Hemoglobin VBG Carboxyhemoglobin (0.0-6.9) % T HGB POC Potassium (3.5-5.1) Sodium (135-145) mmol/L Potassium (3.5-5.1) mmol/L Chloride (98-107) mmol/L Carbon Dioxide (22-30) mmol/L Anion Gap (5-15) MEQ/L BUN (7-17) mg/dL Creatinine (0.52-1.04) mg/dL Estimated GFR ML/MIN Glucose (74-106) mg/dL POC Glucometer 220 H 206 H 259 H (74 to 106) mg/dL Lactic Acid (0.4-2.0) Calcium (8.4-10.2) mg/dL Phosphorus (2.5-4.5) mg/dL Magnesium (1.6-2.3) mg/dL Total Bilirubin (0.2-1.3) mg/dL AST (14-36) U/L ALT (0-35) U/L Alkaline Phosphatase (38-126) U/L Troponin I (0.000-0.033) ng/mL Serum Total Protein (6.3-8.2) g/dL Albumin (3.5-5.0) g/dL Prealbumin (17.6-36.0) mg/dL Urine Color (Yellow) Urine Appearance (Clear) Urine pH (4.6-8.0) Ur Specific [place] (1.005-1.030) Urine Protein (Negative) Urine Glucose (UA) (Negative) mg/dL Urine Ketones (Negative) Urine Blood (Negative) Urine Nitrite (Negative) Urine Bilirubin (Negative) Urine Urobilinogen (0.2) mg/dL Ur Leukocyte Esterase (Negative) U Hyaline Cast (Auto) (0-2) /LPF Urine Microscopic RBC (0-5) /HPF Urine Microscopic WBC (0-5) /HPF Ur Epithelial Cells (None Seen) /HPF Urine Bacteria (None Seen) /HPF Urine Culture Reflexed (NO) Salicylates (2-20) mg/dL Acetaminophen (10-30) ug/ml Ethyl Alcohol (0-10) mg/dL 03/22/25 03/22/25 03/22/25 Range/Units 12:40 13:55 14:45 WBC (3.98-10.04) x10^3/uL RBC (3.93-5.22) x10^6/uL Hgb (11.2-15.7) g/dL Hct (34.1-44.9) % MCV (79.4-94.8) fL MCH (25.6-32.2) pg MCHC (32.2-35.5) g/dL RDW (11.7-14.4) % Plt Count (182-369) x10^3/uL MPV (9.4-12.3) fL Gran % (34.0-71.1) % Immature Gran % (Auto) (0.001-0.429) % Nucleat RBC Rel Count (0.00-0.2) % Eos # (Auto) (0.04-0.36) x10^3/uL Immature Gran # (Auto) (0.001-0.031) x10^3u/L Absolute Lymphs (auto) (1.18-3.74) x10^3/uL Absolute Monos (auto) (0.24-0.86) x10^3/uL Absolute Nucleated RBC (0.00-0.012) x10^3u/L Lymphocytes % (19.3-51.7) % Monocytes % (4.7-12.5) % Eosinophils % (0.7-5.8) % Basophils % (0.1-1.2) % Absolute Granulocytes (1.56-6.13) x10^3/uL Basophils # (0.01-0.08) x10^3/uL pO2/FiO2 Ratio % VBG pH (7.32-7.42) VBG pCO2 at Pat Temp (42-55) mm/Hg VBG pO2 at Pat Temp (25-40) mm/Hg VBG HCO3 (22-28) meq/L VBG O2 Sat (Lisa) (95-100) VBG Base Excess (-2.0-2.0) VBG Hemoglobin VBG Carboxyhemoglobin (0.0-6.9) % T HGB POC Potassium (3.5-5.1) Sodium 132 L (135-145) mmol/L Potassium 4.1 4.1 (3.5-5.1) mmol/L Chloride 114 H (98-107) mmol/L Carbon Dioxide 9 L* (22-30) mmol/L Anion Gap 12.8 (5-15) MEQ/L BUN 38 H (7-17) mg/dL Creatinine 1.56 H (0.52-1.04) mg/dL Estimated GFR 40.0 ML/MIN Glucose 292 H (74-106) mg/dL POC Glucometer 361 H (74 to 106) mg/dL Lactic Acid (0.4-2.0) Calcium 8.2 L (8.4-10.2) mg/dL Phosphorus (2.5-4.5) mg/dL Magnesium (1.6-2.3) mg/dL Total Bilirubin < 0.10 L (0.2-1.3) mg/dL AST 19 (14-36) U/L ALT 14 (0-35) U/L Alkaline Phosphatase 116 (38-126) U/L Troponin I < 0.012 (0.000-0.033) ng/mL Serum Total Protein 5.9 L (6.3-8.2) g/dL Albumin 2.8 L (3.5-5.0) g/dL Prealbumin (17.6-36.0) mg/dL Urine Color (Yellow) Urine Appearance (Clear) Urine pH (4.6-8.0) Ur Specific [place] (1.005-1.030) Urine Protein (Negative) Urine Glucose (UA) (Negative) mg/dL Urine Ketones (Negative) Urine Blood (Negative) Urine Nitrite (Negative) Urine Bilirubin (Negative) Urine Urobilinogen (0.2) mg/dL Ur Leukocyte Esterase (Negative) U Hyaline Cast (Auto) (0-2) /LPF Urine Microscopic RBC (0-5) /HPF Urine Microscopic WBC (0-5) /HPF Ur Epithelial Cells (None Seen) /HPF Urine Bacteria (None Seen) /HPF Urine Culture Reflexed (NO) Salicylates (2-20) mg/dL Acetaminophen (10-30) ug/ml Ethyl Alcohol (0-10) mg/dL 03/22/25 Range/Units 15:05 WBC (3.98-10.04) x10^3/uL RBC (3.93-5.22) x10^6/uL Hgb (11.2-15.7) g/dL Hct (34.1-44.9) % MCV (79.4-94.8) fL MCH (25.6-32.2) pg MCHC (32.2-35.5) g/dL RDW (11.7-14.4) % Plt Count (182-369) x10^3/uL MPV (9.4-12.3) fL Gran % (34.0-71.1) % Immature Gran % (Auto) (0.001-0.429) % Nucleat RBC Rel Count (0.00-0.2) % Eos # (Auto) (0.04-0.36) x10^3/uL Immature Gran # (Auto) (0.001-0.031) x10^3u/L Absolute Lymphs (auto) (1.18-3.74) x10^3/uL Absolute Monos (auto) (0.24-0.86) x10^3/uL Absolute Nucleated RBC (0.00-0.012) x10^3u/L Lymphocytes % (19.3-51.7) % Monocytes % (4.7-12.5) % Eosinophils % (0.7-5.8) % Basophils % (0.1-1.2) % Absolute Granulocytes (1.56-6.13) x10^3/uL Basophils # (0.01-0.08) x10^3/uL pO2/FiO2 Ratio % VBG pH (7.32-7.42) VBG pCO2 at Pat Temp (42-55) mm/Hg VBG pO2 at Pat Temp (25-40) mm/Hg VBG HCO3 (22-28) meq/L VBG O2 Sat (Lisa) (95-100) VBG Base Excess (-2.0-2.0) VBG Hemoglobin VBG Carboxyhemoglobin (0.0-6.9) % T HGB POC Potassium (3.5-5.1) Sodium (135-145) mmol/L Potassium (3.5-5.1) mmol/L Chloride (98-107) mmol/L Carbon Dioxide (22-30) mmol/L Anion Gap (5-15) MEQ/L BUN (7-17) mg/dL Creatinine (0.52-1.04) mg/dL Estimated GFR ML/MIN Glucose (74-106) mg/dL POC Glucometer 340 H (74 to 106) mg/dL Lactic Acid (0.4-2.0) Calcium (8.4-10.2) mg/dL Phosphorus (2.5-4.5) mg/dL Magnesium (1.6-2.3) mg/dL Total Bilirubin (0.2-1.3) mg/dL AST (14-36) U/L ALT (0-35) U/L Alkaline Phosphatase (38-126) U/L Troponin I (0.000-0.033) ng/mL Serum Total Protein (6.3-8.2) g/dL Albumin (3.5-5.0) g/dL Prealbumin (17.6-36.0) mg/dL Urine Color (Yellow) Urine Appearance (Clear) Urine pH (4.6-8.0) Ur Specific [place] (1.005-1.030) Urine Protein (Negative) Urine Glucose (UA) (Negative) mg/dL Urine Ketones (Negative) Urine Blood (Negative) Urine Nitrite (Negative) Urine Bilirubin (Negative) Urine Urobilinogen (0.2) mg/dL Ur Leukocyte Esterase (Negative) U Hyaline Cast (Auto) (0-2) /LPF Urine Microscopic RBC (0-5) /HPF Urine Microscopic WBC (0-5) /HPF Ur Epithelial Cells (None Seen) /HPF Urine Bacteria (None Seen) /HPF Urine Culture Reflexed (NO) Salicylates (2-20) mg/dL Acetaminophen (10-30) ug/ml Ethyl Alcohol (0-10) mg/dL Micro Results-Entire Visit: Accuchecks Date 03/22/25 Date 03/22/25 Date 03/22/25 Date 03/22/25 Date 03/22/25 Date 03/22/25 Date 03/22/25 Date 03/22/25 Date 03/22/25 Date 03/22/25 Date 03/21/25 Time 07:58 Time 07:25 Time 05:54 Time 05:14 Time 04:08 Time 03:03 Time 02:07 Time 01:20 Time 00:43 Time 00:17 Time 23:02 - Radiology Exams Ordered Rad Exams-Entire Visit: Radiology Procedures Category Date Time Status CHEST 1 VIEW (PORTABLE) Stat Exams 03/21/25 17:04 Completed - Procedures and Test Procedures and Tests throughout Hospitalization: Therapy Orders & Screens 03/21/25 23:49 EKG STAT Comment: Diagnosis: dka, hypokalemia 03/22/25 02:30 RT Screen per Nursing Assess ONCE Comment: Protocol Order Physician Instructions: Greater than 3 points order RT Admission Screen Reason For Exam: Triggered on Admission Diagnosis: dka, hypokalemia Diagnosis: dka, hypokalemia Pneumonia: No Home O2: Yes Asthma: No CHF: Yes Home CPAP/BIPAP: No Home Nebs/MDI: Yes Total Points: 13 03/22/25 04:28 Respiratory Therapy Assessment DAILY Comment: Diagnosis: dka, hypokalemia 03/22/25 04:29 Oxygen Nasal Cannula 2 lpm Comment: PER HOME AT NIGHT Diagnosis: dka, hypokalemia 03/22/25 07:30 OT Screen per Nursing Assess ONCE Comment: Protocol Order Physician Instructions: Greater than 3 points order OT Admission Screening Reason For Exam: Triggered on Admission Diagnosis: dka, hypokalemia Open Wound/Cellutlitis/Pressure Ulcers: No Acute Fx/ORIF/Change in wt bearing status: No Severe MUSCULOSKELETAL pain: No ADL Dysfunction: Yes Acute CVA w/Hemiparesis/Hemiplegia: No Decreased Functional Mobility/Strength: Yes Sprain/Strain: No Acute Post-op Mobility Dysfunction: No Total Points: 4 PT Screen per Nursing Assess ONCE Comment: Protocol Order Physician Instructions: Greater than 3 points order PT Admission Screenin Reason For Exam: Triggered on Admission Diagnosis: dka, hypokalemia Open Wound/Cellutlitis/Pressure Ulcers: No Acute Fx/ORIF/Change in wt bearing status: No Severe MUSCULOSKELETAL pain: No ADL Dysfunction: Yes Acute CVA w/Hemiparesis/Hemiplegia: No Decreased Functional Mobility/Strength: Yes Sprain/Strain: No Acute Post-op Mobility Dysfunction: No Total Points: 4 03/22/25 14:03 EKG STAT Comment: Aidan to 30s Diagnosis: dka, hypokalemia EKG Reason: Other Discharge Exam General Appearance: no apparent distress, alert, obese Neurologic Exam: alert, oriented x 3, cooperative, normal mood/affect, nml cerebellar function, sensation nml, No motor deficits Eye Exam: PERRL, EOMI, eyes nml inspection Ears, Nose, Throat Exam: normal ENT inspection, pharynx normal, moist mucous membranes Neck Exam: normal inspection, non-tender, supple, full range of motion Respiratory Exam: normal breath sounds, lungs clear, No respiratory distress Cardiovascular Exam: regular rate/rhythm, normal heart sounds, bradycardia Gastrointestinal/Abdomen Exam: soft, No tenderness, No mass Pelvic Exam: deferred Rectal Exam: deferred Back Exam: normal inspection, normal range of motion, No CVA tenderness, No vertebral tenderness Extremity Exam: normal inspection, normal range of motion Skin Exam: normal color, warm, dry Final Diagnosis/Problem List - Final Discharge Diagnosis/Problem (1) DKA (diabetic ketoacidosis) Current Visit: Yes Status: Acute Code(s): E11.10 - TYPE 2 DIABETES MELLITUS WITH KETOACIDOSIS WITHOUT COMA (2) Acute kidney injury superimposed on CKD Current Visit: Yes Status: Acute Code(s): N17.9 - ACUTE KIDNEY FAILURE, UNSPECIFIED; N18.9 - CHRONIC KIDNEY DISEASE, UNSPECIFIED (3) Hypokalemia Current Visit: Yes Status: Resolved Code(s): E87.6 - HYPOKALEMIA (4) Uncontrolled type 2 diabetes mellitus Current Visit: Yes Status: Chronic Code(s): UXA0206 - (5) A-fib Current Visit: No Status: Chronic Code(s): I48.91 - UNSPECIFIED ATRIAL FIBRILLATION (6) Depression Current Visit: No Status: Acute Code(s): F32.A - DEPRESSION, UNSPECIFIED (7) COPD (chronic obstructive pulmonary disease) Current Visit: No Status: Chronic (8) Hypertension Current Visit: No Status: Chronic Code(s): I10 - ESSENTIAL (PRIMARY) HYPERTENSION (9) GRETA (obstructive sleep apnea) Current Visit: No Status: Chronic Code(s): G47.33 - OBSTRUCTIVE SLEEP APNEA (ADULT) (PEDIATRIC) (10) Class 2 obesity with body mass index (BMI) of 36.0 to 36.9 in adult Current Visit: Yes Status: Chronic Assessment & Plan: (1) DKA (diabetic ketoacidosis) Current Visit: Yes Status: Acute Qualifiers: Diabetes mellitus type: type 1 Diabetes mellitus complication detail: w ithout coma Qualified Code(s): E10.10 - Type 1 diabetes mellitus with ketoacidosis without coma Assessment & Plan: - DKA protocol - Was off insulin gtt this AM and restarted at 1330 - Restart clear liquid diet as has no N/V. - CBC, CMP reviewed - CO2 10 this AM and dropped to 9- restart of insulin gtt should help to resolve this. - trend - insulin gtt and DKA protocol restarted Code(s): E11.10 - TYPE 2 DIABETES MELLITUS WITH KETOACIDOSIS WITHOUT COMA (2) Acute kidney injury superimposed on CKD Current Visit: Yes Status: Acute Assessment & Plan: - Creat 1.56- baseline 1.49 - IVF with DKA protocol Code(s): N17.9 - ACUTE KIDNEY FAILURE, UNSPECIFIED; N18.9 - CHRONIC KIDNEY DISEASE, UNSPECIFIED (3) Hypokalemia Current Visit: Yes Status: Resolved Assessment & Plan: - K+ 4.1 after repeat labs today - Replaced this AM - Tele- ICU Code(s): E87.6 - HYPOKALEMIA (4) Uncontrolled type 2 diabetes mellitus Current Visit: Yes Status: Chronic Assessment & Plan: - A1C 03/21/25 12.86 - Advised diet and exercise control - See DKA protocol above plan Code(s): [id number] - (5) A-fib Current Visit: No Status: Chronic Assessment & Plan: - Continue cardizem Code(s): I48.91 - UNSPECIFIED ATRIAL FIBRILLATION (6) Depression Current Visit: No Status: Acute Assessment & Plan: - Continue home med Code(s): F32.A - DEPRESSION, UNSPECIFIED (7) COPD (chronic obstructive pulmonary disease) Current Visit: No Status: Chronic Assessment & Plan: - O2 2lNC at HS- baseline - Not in acute exacerbation - CXR reviewed and non-concerning (8) Hypertension Current Visit: No Status: Chronic Assessment & Plan: - BP controlled Code(s): I10 - ESSENTIAL (PRIMARY) HYPERTENSION (9) GRETA (obstructive sleep apnea) Current Visit: No Status: Chronic Assessment & Plan: - Wears 2lNC O2 at night at baseline Code(s): G47.33 - OBSTRUCTIVE SLEEP APNEA (ADULT) (PEDIATRIC) (10) Class 2 obesity with body mass index (BMI) of 36.0 to 36.9 in adult Current Visit: Yes Status: Chronic Assessment & Plan: - Advised ADA diet and exercise control Code(s): E66.812 - OBESITY, CLASS 2; Z68.36 - BODY MASS INDEX [BMI] 36.0-36.9, ADULT (11) Bradycardia Current Visit: Yes Status: Acute Assessment & Plan: - HR dropped to 30's - Stat cardio consult - Stat EKG - Pt received Cardizem 420 mg this AM, only supposed to be on 240 mg daily. - Nurse called pt's line maintenance technician Dr. Wilhelm and pt is supposed to be on half that dose. - Pt is a poor historian and reported 420mg dosing on admission that is where error came about per nursing - Tele- cardiology recommended tx to higher level of care Code(s): R00.1 - BRADYCARDIA, UNSPECIFIED - Discharge Discharge Date: 03/22/25 Disposition: DC TO [facility] Condition: Stable Prescriptions: Continue Insulin Glargine [Lantus Insulin] 85 units SQ BID Ferrous Sulfate 325 mg PO DAILY Acetaminophen [Tylenol Extra Strength] 1,000 mg PO Q6H PRN PRN PRN Reason: Pain Omeprazole 40 mg PO DAILY Magnesium Oxide 400 mg [Mag-Ox 400] 400 mg PO DAILY Fluoxetine HCl 20 mg [Prozac 20 MG] 20 mg PO DAILY Insulin Lispro [Humalog Kwikpen U-100] 35 unit SQ TIDWMEALS Fluticasone Propionate [Flonase NASAL] 2 spray NS DAILY PRN PRN PRN Reason: Allergies Ergocalciferol (Vitamin D2) [Vitamin D2] 1,250 mcg PO WEEKLY buPROPion HCL [Bupropion Xl] 150 mg PO DAILY Aspirin EC 81 mg [Ecotrin 81 mg] 81 mg PO DAILY Fluticasone/Vilanterol [Breo Ellipta 100-25 Mcg Inhalr] 1 spray IH DAILY Levalbuterol Tartrate [Xopenex Hfa] 1 spray IH DAILY Dapagliflozin Propanediol [Farxiga] 1 tab PO DAILY Losartan/Hydrochlorothiazide [Losartan-Hctz 100-25 mg Tab] 1 each PO DAILY Potassium Chloride [Klor-Con 10] 10 meq PO DAILY Sodium Bicarbonate 650 mg PO BID 3 Days #6 tablet Hydrocodone/Acetaminophen [Hydrocodone-Acetamin 7.5-325] 1 tab PO Q6H PRN PRN PRN Reason: Pain Furosemide 20 mg [Lasix 20 mg] 20 mg PO DAILY dilTIAZem HCL [Diltiazem ER] 240 mg PO DAILY Follow up with: JENNIFER NAPOLES MD [Primary Care Provider, [facility]] - 03/29/25 2:30 pm
[2025-03-22 17:24] LABS: Calcium 7.8 mg/dL (8.4-10.2); Creatinine 1 1.76 mg/dL (0.52-1.04); EST GLOMERULAR FILTRATION RATE 34.6 ML/MIN; Glucose 254 mg/dL (74-106); Potassium 4.2 mmol/L (3.5-5.1); SGOT/AST 17 U/L (14-36); SGPT/ALT 14 U/L (0-35); Total Protein 5.4 g/dL (6.3-8.2)
[2025-03-22 17:32] LABS: Carbon Dioxide 12 mmol/L (22-30)
--- NOTE | 2025-03-22 17:48 | PCM.NOTE ---
Discussed pt case with nephrology - Dr. Boudreaux. He requested Bicarb gtt be restarted and IVF stopped. Continue insulin gtt. Pt awaiting to be accepted at [facility]. If they do not accept consider another facility.
[2025-03-22] MEDS: MYXREDLIN 100 UNIT/100 ML BAG 100 UNIT/100 ML PLAST..BAG IV PRN (21:50)
[2025-03-22] MEDS ORDERED: HEPARIN 5000 UNITS/0.5 ML (HIGH RISK MED) SQ SCH (22:00)
[2025-03-22 23:02] VITALS: BP 121/58; PULSE 49; RESP 15
[2025-03-24] MEDS ORDERED: VITAMIN D2 PO SCH (10:00)
== END 2025-03-22 18:45 | disposition home or self-care (01) ==
LOC: ED 16:18 → ICU 22:36 → INTOOBSV 22:36
PROVIDERS: ADMIT Hospitalist; ATTEND Hospitalist
DX: E11.10 Type 2 diabetes mellitus with ketoacidosis without coma (principal); E11.22 Type 2 diabetes mellitus with diabetic chronic kidney disease; Z59.41 Food insecurity; Z59.82 Transportation insecurity; Z59.12 Inadequate housing utilities; I12.9 Hypertensive chronic kidney disease with stage 1 through stage 4 chronic kidney disease, or unspecified chronic kidney disease; N18.30 Chronic kidney disease, stage 3 unspecified; N17.9 Acute kidney failure, unspecified; N18.9 Chronic kidney disease, unspecified; E87.6 Hypokalemia; E11.65 Type 2 diabetes mellitus with hyperglycemia; I48.91 Unspecified atrial fibrillation; F32.A Depression, unspecified; J44.9 Chronic obstructive pulmonary disease, unspecified; G47.33 Obstructive sleep apnea (adult) (pediatric); E66.812 Obesity, class 2; Z68.36 Body mass index [BMI] 36.0-36.9, adult; R00.1 Bradycardia, unspecified; Z79.899 Other long term (current) drug therapy; Z85.41 Personal history of malignant neoplasm of cervix uteri; E83.42 Hypomagnesemia; S99.912A Unspecified injury of left ankle, initial encounter
CPT/HCPCS: 36415; 71045; 80048; 80053; 80143; 80179; 81001; 82010; 82077; 82805; 82947; 83605; 83735; 83930; 84100; 84132; 84134; 84484; 85025; 85027; 93005; 93041; 93268; 99291; G0378; Q3014

== ENCOUNTER 2025-04-09 05:46 | Day surgery (SDC) | payer MEDICARE ==
[2025-04-09] MEDS ORDERED: CEFAZOLIN SODIUM ONE (06:03)
[2025-04-09 06:23] LABS: Hematocrit 37.7 % (34.1-44.9); Hemoglobin 10.8 g/dL (11.2-15.7); Mean Corpuscular Hemoglobin 25.4 pg (25.6-32.2); Mean Corpuscular Hgb Concent. 28.6 g/dL (32.2-35.5); Platelet Count 349 x10^3/uL (182-369); Red Blood Count 4.26 x10^6/uL (3.93-5.22); White Blood Count 7.2 x10^3/uL (3.98-10.04)
[2025-04-09 06:29] VITALS: O2SAT 99
[2025-04-09 07:08] LABS: Calcium 8.9 mg/dL (8.4-10.2); Carbon Dioxide 24 mmol/L (22-30); Creatinine 1 1.95 mg/dL (0.52-1.04); EST GLOMERULAR FILTRATION RATE 30.6 ML/MIN; Glucose 67 mg/dL (74-106); Potassium 4.2 mmol/L (3.5-5.1); SGOT/AST 17 U/L (14-36); SGPT/ALT 17 U/L (0-35); Total Protein 6.5 g/dL (6.3-8.2)
[2025-04-09 07:24] LABS: Slide Review YES
[2025-04-09] MEDS ORDERED: Versed 2 MG/2 ML Injection ONE (07:36)
[2025-04-09] MEDS ORDERED: Xylocaine-Mpf 2% 5 Ml Vial ONE (07:36)
[2025-04-09] MEDS ORDERED: propofoL IV ONE ×2 (07:36→08:11)
[2025-04-09] MEDS ORDERED: SUBLIMAZE 100 MCG/2 ML ONE ×2 (07:36→08:53)
[2025-04-09] MEDS ORDERED: DILAUDID 0.5 MG/0.5 ML SYRINGE ONE (08:42)
[2025-04-09] MEDS ORDERED: Zofran 4 MG/2 ML VIAL ONE (08:42)
--- NOTE | 2025-04-09 09:31 | XRAY ---
Indication: Left foot hardware removal and bone biopsy. Intraoperative fluoroscopy provided for 1 minute 29 seconds. 6 digital spot images submitted for interpretation demonstrates removal of 2 calcaneal orthopedic screws. Also bone biopsy needle tip projects mid calcaneus. Correlate with intraoperative findings/report.
[2025-04-09 09:35] VITALS: RESP 18
[2025-04-09 09:48] VITALS: BP 149/73; PULSE 79; TEMP 97
--- NOTE | 2025-04-10 08:18 | XRAY ---
1 minute and 29 seconds of fluoroscopy was used in surgery for a left foot hardware removal and bone biopsy.
--- NOTE | 2025-04-11 11:49 | OP ---
SURGERY DATE/TIME: 04/09/2025 4136 - 0901 PREOPERATIVE DIAGNOSES: 1) Painful retained orthopedic hardware, left calcaneus. 2) Osteomyelitis. POSTOPERATIVE DIAGNOSES: 1) Painful retained orthopedic hardware, left calcaneus. 2) Osteomyelitis. PROCEDURES: 1) Removal of deep implant/hardware, left calcaneus. 2) Trocar bone biopsy. SURGEON: Toy Mccauley MD SURVEY INTERVIEWER: LUIS ENRIQUE Edwards. ANESTHESIA: Monitored anesthesia care. HEMOSTASIS: A pressure dressing. ESTIMATED BLOOD LOSS: Approximately 5 mL. MATERIALS: None. INJECTABLES: See Anesthesia report for details. INDICATIONS FOR PROCEDURE: The patient is a very pleasant, 49-year-old female who underwent an open reduction and internal fixation of the left calcaneus, as well as a subtalar joint arthrodesis. This was performed without complication. However, she did have some medical issues following the last procedure and was hospitalized for several weeks. She was seen by Infectious Disease for a pressure ulcer that developed at the posterior aspect of the left heel following this procedure. Cultures were obtained; however, all of which were negative and we continued to follow the patient during this period of time. As far as I understand, patient had an uncomplicated healing process. However, her Infectious Disease doctor is requesting a bone biopsy in order to better assess if there is any osteomyelitis. We have decided to proceed with the bone biopsy secondary to the fact that there is a screw that is trying to back out and possibly a pressure point and possibly an area where there may be some breakdown at the level of the left calcaneus. Decision was made to oblige and remove those screws, as well as proceed with a trocar bone biopsy. Patient has been made aware of all risks, complications and benefits of surgical intervention at this time, including but not limited to infection, hematoma, seroma, possibility of delayed wound healing, non-wound healing, and possible need for further surgical intervention at a later date. No guarantees were provided as to the outcome. Plenty of time was allowed for the patient to ask questions, which were answered to her apparent satisfaction. It is at this time we decided to proceed. DESCRIPTION OF PROCEDURE AND FINDINGS: Patient was brought into the operating room, placed on the operating room table in the supine position. At this time monitored anesthesia care was administered until the patient was sedated. The left lower extremity was then prepped and draped in the usual sterile fashion and lowered onto the surgical field. At this time, attention was directed under fluoroscopic guidance to the left calcaneus where under lateral and calcaneal axial views, guidewires were utilized to find the cannulation of the screws, which were very easily removed from the site. Following this, a trocar bone biopsy was introduced into the same hole that the hardware was removed from, and a bone biopsy and bone culture were obtained. This was handed off the field at this time for pathological assessment. Following this, copious amounts of sterile saline were utilized to flush the surgical site. A 3-0 nylon was utilized to coapt the skin edges in a simple interrupted-type fashion. A dressing consisting of Betadine, Adaptic, 4 x 4, Kerlix, ABD and Jimi was applied to the patient's left lower extremity. Patient was then reversed from anesthesia and returned to the postoperative anesthesia care unit with vital signs stable and vascular status intact. Patient handled the anesthesia, as well as the procedure, without significant complication. Postoperative orders as indicated in the patient's discharge chart.
== END 2025-04-09 10:00 | disposition home or self-care (01) ==
LOC: SDC 05:46
PROVIDERS: ATTEND Podiatrist Foot & Ankle Surgery
DX: T84.84XA Pain due to internal orthopedic prosthetic devices, implants and grafts, initial encounter (principal); M86.9 Osteomyelitis, unspecified; E11.9 Type 2 diabetes mellitus without complications